=== PATIENT | female | born 1965 | race Caucasian/White ===

== ENCOUNTER 2022-08-02 07:41 | Outpatient (CLI) | payer MEDICARE, OTHER, SELFPAY ==
--- OUTSIDE RECORDS SUMMARY | 2022-06-29 05:22 | XMS_ITS | Encounter Summary ---
:1965 Author Organization [facility] Address [address] [place] [address] Care Team Providers Name Role Phone Unavailable Primary Care Provider Unavailable Encounter Details Date Type Department Care Team Description 08/12/2015 Hospital Encounter HX NO MAPPING Provider, Historical Social History Tobacco Use Types Packs/Day Years Used Date Smoking Tobacco: Never Assessed Alcohol Habits Answer Date Recorded How often do you have a drink containing alcohol? Never 10/26/2020 How many drinks containing alcohol do you have on a typical Not asked day when you are drinking? How often do you have six or more drinks on one occasion? No t asked Comment: Not asked Social Isolation Answer Date Recorded In a typical week, how many times do you More than three venkata es a week 10/26/2020 talk on the phone with family, friends, or neighbors? How often do you get together with friends Three times a wee k 10/26/2020 or relatives? How often do you attend confucianism or 1 to 4 times per year 05/2020 confucianism services? Do you belong to any clubs or No 10/26/2020 organizations such as confucianism groups, unions, fraternal or athletic groups, or school groups? How often do you attend meetings of the Never 10/26/2020 clubs or organizations you belong to? Are you now , , , 10/26/2020 , never or living with a partner? Physical Activity Answer Date Recorded On average, how many days per week do you engage in moderate to 2 days 10/26/2020 strenuous exercise (like walking fast, running, jogging, dancing, swimming, biking, or other activities that cause a light or heavy sweat)? On average, how many minutes do you engage in exercise at th is 30 min 10/26/2020 level? Stress Answer Date Recorded Do you feel stress - tense, restless, nervous, or anxious, R ather much 10/26/2020 or unable to sleep at night because your mind is troubled all the time - these days? Financial Resource Strain Answer Date Recorded How hard is it for you to pay for the very basics like Somew hat hard 10/26/2020 food, housing, medical care, and heating? Food Insecurity Answer Date Recorded Within the past 12 months, you worried that your food Someti mes true 10/26/2020 would run out before you got money to buy more. Within the past 12 months, the food you bought just Sometime s true 10/26/2020 didn't last and you didn't have money to get more. Transportation Needs Answer Date Recorded In the past 12 months, has lack of transportation kept you f rom No 10/26/2020 medical appointments or from getting medications? In the past 12 months, has lack of transportation kept you f rom No 10/26/2020 meetings, work, or getting things needed for daily living? Sex Assigned at Date Recorded Not on file documented as of this encounter Last Filed Vital Signs Vital Sign Reading Time Taken Comments Blood Pressure 115/66 08/12/2015 6:15 PM CDT Pulse 88 08/12/2015 6:15 PM CDT Temperature - - Respiratory Rate 16 08/12/2015 6:15 PM CDT Oxygen Saturation - - Inhaled Oxygen Concentration - - Weight - - Height - - Body Mass Index - - documented in this encounter Medications at Time of Discharge Medication Sig Dispensed Refills Start Date End Date aspirin 81 mg chewable 81 mg by Nasogastric 0 08/2015 tablet route daily. oxyCODONE (OxyCONTIN) Take 1 tablet by mouth 0 40 mg 12 hr tablet every 12 (twelve) hours. documented as of this encounter Plan of Treatment Not on filedocumented as of this encounter Procedures Procedure Name Priority Date/Time Associated Diagnosis Comme nts ECG Routine 08/12/2015 8:44 AM Results f or this CDT procedure are i n the results section . documented in this encounter Results ECG 12 Lead (08/12/2015 8:44 AM CDT) Specimen (Source) Anatomical Collection Method Collection Time Re ceived Time Location / / Volume Laterality 08/12/2015 8:44 AM CDT [facility] [place] [facility] - 08/13/2015 9:49 AM CDT [id number] 08:44 VENTRICULAR RATE [address] N[address] abnormality No previous ECGs available Revised Report [id number]^BOB GRIFFITHS^ROMAN Cooper Procedure Note Roman Hobbs M.D., M.B. - 02/09/2018F ormatting of this note might be different from the original. [id number] 08:44 VENTRICULAR RATE [address] abnormality No previous ECGs available Revised Report [id number]^BOB GRIFFITHS^ROMAN Cooper Tracy Winston M.D. ECG ORDERABLES Performing Organization Address City/State/ZIP Code Phon e Number HX [facility] [address] [place] [address], U documented in this encounter Visit Diagnoses Not on filedocumented in this encounter
--- OUTSIDE RECORDS SUMMARY | 2022-06-29 05:22 | XMS_ITS | Encounter Summary ---
:1965 Author Organization [facility] Address [address] [place] [address] Care Team Providers Name Role Phone Unavailable Primary Care Provider Unavailable Reason for Visit Reason Comments Rash Appointment Request (Routine) - Closed Specialty Diagnoses / Procedures Referred By Contact Refer red To Contact Family Medicine Referral ID Status Reason Start Date Expiration Date Visits Requ ested Visits Authorized [id number] Closed 08/28/2020 08/28/2021 1 1 Encounter Details Date Type Department Care Team Description 10/26/2020 Office Visit [facility] [place] (Primary Dx) [place], [place] [address] [phone] Social History Tobacco Use Types Packs/Day Years Used Date Smoking Tobacco: Every Day Smokeless Tobacco: Never Alcohol Habits Answer Date Recorded How often [...] or relatives? How often do you attend baptist or 1 to 4 times per year 05/2020 anabaptism services? Do you belong to any clubs or No 10/26/2020 organizations such as baptist groups, unions, fraternal or athletic groups, or [...] or getting things needed for daily living? Education Answer Date Recorded What is the highest level of school you have Some college, n o degree 10/26/2020 completed or the highest degree you have received? Sex Assigned at Date Recorded Not on file documented as of this encounter Consult Notes Morgan Méndez M.D. - 10/26/2020 4:15 PM CST SUBJECTIVE CHIEF COMPLAINT / REASON FOR VISIT Skin rash HISTORY OF PRESENT ILLNESS Polly Giron is a pleasant 55 y.o. female who presents today for an evaluation of a rash involving her nasal bridge. She has been previously seen by me at [facility] in February 2018. 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 In addition, all connective tissue serologies were negative. She was treated with 2.5% hydrocortisone ointment twice daily for one to two weeks at a time. Atthat time, she was also under the care of Dr. Tompkins a hydraulic barker operator in the [facility] who had puther on Plaquenil and recommended potential start of azathioprine, but she was reluctant to do so. I had also asked her to see Dr. Duval a hydraulic barker operator at [facility] but she was never seen by him. I had asked her to follow up with me in April 2018 in [place] but she never did follow up with me. Since her last visit with me in 2017, she states she has a history for mouth sores and a biopsy donefrom the oral cavity in the past was diagnosed as lichen planus. She is followed by an oral specialist Daisy Meléndez BDS, MS for the mouth sores at the [facility] and is currently being treated with dexamethasone swish and spit as needed and lidex gel and is also being followed by Dr. Tompkins at [facility]. Her current treatment as per Dr. Tompkins's order is is plaquenil 200 mg twice daily and methotrexate 20 mg injections once per week, which she has been on for five months perher history as we had difficulty finding notes from her local hydraulic barker operator. Today she presents today for a rash involving the bridge of the nose and extends to the cheeks and under her eyelids. She states that the rash has been present since the beginning of the summer and apparently flares at the same time she experiences a flare of her lichen planus involving the oral cavity. She denies a history of acne. MEDICAL HISTORY No history for skin cancer History of tumid lupus OBJECTIVE PHYSICAL EXAMINATION General: Awake, alert, in no acute distress, and with appropriate affect. Skin: Limited skin exam done today. Examination of the distal bridge of the nose reveals a slightly erythematous patch with slight telangiectasia and blanchable erythema. No involvement of eyelids or upper cheek, ears, or post auricular areas. No involvement of scalp, upper back, shoulders, or upper chest or neck. No evidence for dermatomyositis of the hands. No ulcers or blisters present involving the oral cavity. ASSESSMENT / PLAN #1 Distal bridge of nose: History of tumid lupus, currently not much in the way of active lesions. At this time she has minimal blanchable erythema involving the nose. I have recommended she apply 2.5% Hydrocortisone cream once daily to the involved area for 3-5 days then stop. Continue with moisturizer and sun protection. If a thick plaque occurs, I have asked her to make a follow up appointment in the clinic for further evaluation. She will continue to follow up with her hydraulic barker operator Dr. Tompkins for ongoing systemic and joint issues and the oral specialist Daisy Meléndez BDS MS for her oral lichen planus, both of whom are in the [facility]. PATIENT EDUCATION: Ready to learn. No apparent learning barriers were identified. Learning preferences include listening. Explained diagnosis and treatment plan; patient/guardian of patient expressed understanding of thecontent. By signing my name below, I, Evelyn La, attest that this documentation has been prepared underthe direction and in the presence of Morgan Méndez M.D. Electronically Signed: edgardo Azul. 10/26/2020. I, Morgan Méndez M.D., personally performed the services described in this documentation. All medical record entries made by the scribe were at my direction and in my presence. I have reviewed the chart and discharge instructions (if applicable) and agree that the record reflects my personal performance and is accurate and complete. Morgan Méndez M.D. 10/26. [employer] documented in this encounter Plan of Treatment Not on filedocumented as of this encounter Visit Diagnoses Diagnosis Lupus Erythematosus Tumidus - Primary documented in this encounter
--- OUTSIDE RECORDS SUMMARY | 2022-06-29 05:22 | XMS_ITS | Encounter Summary ---
:1965 Author Organization [facility] Address [address] [place] [address] Care Team Providers Name Role Phone Unavailable Primary Care Provider Unavailable Encounter Details Date Type Department Care Team Description 02/04/2021 Orders Only [facility] Sa hilary Lee M.D. [address] [place], [place] [phone] (Wo rk) Social History Tobacco Use Types Packs/Day Years [...] or relatives? How often do you attend alevism or 1 to 4 times per year 05/2020 temple services? Do you belong to any clubs or No 10/26/2020 organizations such as alevism groups, unions, fraternal or athletic groups, or [...] on file documented as of this encounter Plan of Treatment Not on filedocumented as of this encounter Visit Diagnoses Not on filedocumented in this encounter
--- OUTSIDE RECORDS SUMMARY | 2022-06-29 05:22 | XMS_ITS | Clinical Summary ---
:1965 Author Organization [facility] Address [address] [place] [address] Care Team Providers Name Role Phone Unavailable Primary Care Provider Unavailable Source Comments Patient records contain information from all sites at [facility]. For routine questions regarding patient records, call [phone] during business hours, M-F 8:00 AM - 5:00 PM Central Time. Record requests for emergency care only can be directed to [phone] at any time.[facility] Allergies Active Allergy Reactions Severity Noted Date Comments Diltiazem Hcl Edema 01/18/2019 Medications Medication Sig Dispensed Refills Start Date End Date Status albuterol inhaler Inhale 2 puffs as 0 Active needed. clopidogreL (Plavix) Take 25 mg by mouth 0 Active 75 mg tablet daily. oxyCODONE Take 1 tablet by 0 10/07/2009 Ac tive (OxyCONTIN) 40 mg 12 mouth every 12 hr tablet (twelve) hours. amoxicillin (AMOXIL) Take 500 mg by mouth 0 10/24/20 20 Active 500 mg capsule 3 (three) times a day. aspirin 81 mg 81 mg by Nasogastric 0 05/29/2015 Active chewable tablet route daily. clobetasoL Apply 15 g topically 0 Active (TEMOVATE) 0.05 % as needed. cream oxyCODONE Take 40 mg by mouth 0 Active (OxyCONTIN) 40 mg 12 every 12 (twelve) hr tablet hours. oxyCODONE Take 15 mg by mouth 0 Active (ROXICODONE) 15 mg daily as needed. immediate release tablet Active Problems Problem Noted Date Coronary Artery Disease (Unspecified) 08/06/2015 Social History Tobacco Use Types Packs/Day Years [...] or relatives? How often do you attend yarsani or 1 to 4 times per year 05/2020 adventism services? Do you belong to any clubs or No 10/26/2020 organizations such as yarsani groups, unions, fraternal or athletic groups, or [...] Assigned at Date Recorded Not on file Last Filed Vital Signs Vital Sign Reading Time Taken Comments Blood Pressure 118/84 07/26/2016 2:41 PM Vital sign result CDT from Clinical No jane. Pulse 124 07/26/2016 2:41 PM Vital sign result CDT from Clinical No jane. Temperature - - Respiratory Rate 18 07/26/2016 2:41 PM Vital sig n result CDT from Clinical No jane. Oxygen Saturation - - Inhaled Oxygen - - Concentration Weight 69.8 kg (153 lb 14.1 07/26/2016 2:41 PM Vital sign result oz) CDT from Clinical No jane. Height 167 cm (5' 5.75) 07/26/2016 2:41 PM Vital si gn result CDT from Clinical No jane. Body Mass Index 25.03 07/26/2016 2:41 PM CDT Plan of Treatment Health Maintenance Due Date Last Done Comments CT Colonography 1965 Cologuard 1965 Controlled Substance 1965 Agreement Controlled Substance 1965 Monitoring FIT 1965 Fasting Lipid Panel 1965 Generalized Anxiety (OSIEL-7) 1967 HIV Screening 1965 Hepatitis B Vaccines (1 of 1965 3 - 3-dose series) Hepatitis C Screening 1965 Mammogram 1965 Office Visit for Blood 1967 Pressure Check / Re-check Tobacco Cessation 1967 counseling COVID-19 Vaccine (#1) 02/05/1968 Pneumococcal vaccine (0-64 1973 years) (1 - PCV) Zoster Vaccines (1 of 2) 1986 Colonoscopy 09/26/2017 09/26/2007 Colorectal Cancer Screening 09/26/2017 Fasting Glucose for 08/12/2018 08/12/2015, 01/21/2015, Diabetes Screening 02/18/2013, Additional history exists Controlled Substance 10/26/2020 Monitoring (PHQ-9) Opioid Risk Assessment 10/26/2020 PEG assessment for Opioid 10/26/2020 therapy Depression Screening 11/20/2021 (Annual PHQ-2) Influenza Vaccine (#1) 2022 DTaP,Tdap,and Td Vaccines 03/30/2031 03/30/2021 (2 - Td or Tdap) HPV Vaccines Aged Out No longer eligib le based on patient 's age to complete this topic Medical Devices Implanted Type Area Tuber Operator Device Shelf Model / Identifier Expiration Serial / Date Lot Seprafilm 5 X 6 - Trevizo [id number] Mesh or Genzyme Implanted: Qty: 2 on 06/01/2006 [employer] Description: Device Tuber Operator - [employer] Alisia.. Device Status Text - [id number]. Seprafilm 3x 5 (Procedure Pack) - Trevizo [id number] Mesh or Patch [employer] Implanted: Qty: 1 on 06/14/2007 Description: Device Tuber Operator - Genzy Rawporter Alisia.. Device Status Text - [id number]. Stent Uret Dbl. J 6 X 26 - Trevizo [id number] Ureteral Stent Ot her/Legacy - See Implant Implanted: Qty: 2 on 01/26/2006 Description Description: Device Tuber Operator - Circo n Surgi. Device Status Text - [id number]. Insurance Payer Benefit Plan / Subscriber ID Effective Phone Address T ype Group Dates MEDICARE MEDICARE A AND B [id number] 2003-Pres [address] [place] [address] MEDICA MEDICA [id number] 2019-Pres [phone] [address] Medica id HMO ACCESSABILITY ent [phone] [place] [address]
--- OUTSIDE RECORDS SUMMARY | 2022-06-29 05:22 | XMS_ITS | Encounter Summary ---
:1965 Author Organization [facility] Address [address] [place] [address] Care Team Providers Name Role Phone Unavailable Primary Care Provider Unavailable Encounter Details Date Type Department Care Team Description 06/08/2015 - Hospital Encounter HX [facility] Nusrat Rousseau 08/19/2015 STEPHANIE Steele M.D. [address] [place], [place] [phone] (Wo rk) Social History Tobacco Use Types [...] or relatives? How often do you attend voodoo or 1 to 4 times per year 05/2020 restoration services? Do you belong to any clubs or No 10/26/2020 organizations such as voodoo groups, unions, fraternal or athletic groups, or [...] on file documented as of this encounter Medications at Time of Discharge Medication Sig Dispensed Refills Start Date End Date aspirin 81 mg chewable 81 mg by Nasogastric 0 08/2015 tablet route daily. oxyCODONE (OxyCONTIN) Take 1 tablet by mouth 0 40 mg 12 hr tablet every 12 (twelve) hours. documented as of this encounter Progress Notes Danuta Kolb, O.T. - 07/08/2015 2:35 PM CDT Cardiac Rehab: Pt arrived with symptoms and high resting HR of 130. RN came to check pt and agreed that pt should not do CR this day. No exercise completed. Discussed with pts PCP who stated pt could increase her medications. Electronically Signed By: DANUTA KOLB On: 07/08/2015 02:37 PM [facility] Document Id: [id number] documented in this encounter Miscellaneous Notes Miscellaneous - Conversion, Historical Provider Srini - 06/08/2015 11:59 PM CDT Coding Summary-Paper Based CODING DATE: 06/15/[address] [facility] STATUS: * Discharged to Home or Self Care PAYOR: Medicare ADMIT DX: V57.89 Care Involving Other Specified Rehabilitation Procedure REASON FOR VISIT DX: V57.89 Care Involving Other Specified Rehabilitation Procedure FINAL DX: PRINCIPAL: V57.89 Care Involving Other Specified Rehabilitation Procedure SECONDARY: V45.89 Other Postsurgical Status PROCEDURES DOCTOR NAME DATE NOTE: The code number assigned matches the documented diagnosis and / or procedure in the patient's chart. However, the narrative phrase printed from the coding software may appear abbreviated, or result in slightly different terminology. Coded By: LAVELL GUERRERO Date Saved: 06/15/2015 02:05 pm Source: [facility] Document Id: [id number] documented in this encounter Plan of Treatment Not on filedocumented as of this encounter Visit Diagnoses Not on filedocumented in this encounter
--- OUTSIDE RECORDS SUMMARY | 2022-06-29 05:22 | XMS_ITS | Encounter Summary ---
:1965 Author Organization [facility] Address [address] [place] [address] Care Team Providers Name Role Phone Unavailable Primary Care Provider Unavailable Encounter Details Date Type Department Care Team Description 01/21/2015 Historical Ophthalmology [facility]ST [facility] Kasandra Hatch M.D. Social History Tobacco Use Types Packs/Day Years [...] or relatives? How often do you attend restorationist or 1 to 4 times per year 05/2020 congregational services? Do you belong to any clubs or No 10/26/2020 organizations such as restorationist groups, unions, fraternal or athletic groups, or [...] minutes do you engage in exercise at is 30 min 10/26/2020 level? Stress Answer [...] on file documented as of this encounter Progress Notes Leslie Hatch M.D. - 01/21/2015 12:44 PM CST Eye General CHIEF COMPLAINT brain lesions HISTORY OF PRESENT ILLNESS 3 months ago, noted bump on outer corner of left eye, has drained once, but returned. First episode of diplopia, lasted two weeks, about 6 months ago. Sudden onset that gradually improved over the course of the two weeks. Brief episodes of diplopia that come and gone since that time. None for one month. Has new glasses ordered with prism in them. Blurry vision, comes and goes, both eyes. Pain, behind left eye, headache pain, can be with or without diplopia. Using drops for eye dryness, not enough relief. Both eyes are itchy and burn most of the time. Eyelids swell. Neurologist ordered brain MRI, which showed lesions on her brain. She was referred here to rule out MS. DULCE MARIA: Diplopia started 6-8 months ago. More often vertical but sometimes it was horizontal. Same nearand far. Binocular. With the diplopia the eyes hurt like an eye headache. This was worse w eye movements, better shutting the eyes or lying down. No interference w sleep but doesn't sleep well. Eyes feel itchy/scratchy/michael all the time. Uses restasis once/d. Uses AT 3-4 time/d. Has a humidifier at home. Blurred vision started with the double vision, comes and goes sporadically. The blur is both eyes (she think) - same near and far. No diurnal pattern (maybe worse at night when tired). Denies oscillopsia. Saw the optom at home who told her that her eyes didn't play well together and recommended that she see a neurologist. Saw the safety consultant (Rema) again who put prism in her glasses but the bifocal seg isn't right so she's getting them redone. No outside eye records available to me. Reviewed the single neuro note of 01/[address] Hung which mentions multiple small lesions in the white matter. Spinal tap pending. Lyme and MUKESH were normal in [place]. IMPRESSION / REPORT / PLAN #1 Diplopia. She describes vertical diplopia but hasn't had this for the past few months. [place]: Exodeviation that is fairly comitant. She has dry eyes which can contribute/cause monocular diplopia that would come and go. EOMs full, normal saccades. #2 Abnormal brain MRI with no ocular findings. Nothing on the eye exam consistent with sarcoid, Lyme disease or MS. #3 Family history of glaucoma without evidence of glaucoma. Plan: monitor periodically. DIAGNOSIS #1 Diplopia. #2 Abnormal brain MRI with no ocular findings. #3 Family history of glaucoma without evidence of glaucoma. CDM Reports - EYEGEN Id: [id number] Status: Fnl documented in this encounter Plan of Treatment Not on filedocumented as of this encounter Visit Diagnoses Not on filedocumented in this encounter
--- OUTSIDE RECORDS SUMMARY | 2022-06-29 05:23 | XMS_ITS | Encounter Summary ---
:1965 Author Organization [facility] Address [address] [place] [address] Care Team Providers Name Role Phone Unavailable Primary Care Provider Unavailable Encounter Details Date Type Department Care Team Description 04/13/2006 Hospital Encounter HX NO MAPPING Social History Tobacco Use Types Packs/Day Years [...] or relatives? How often do you attend orthodox or 1 to 4 times per year 05/2020 protestant services? Do you belong to any clubs or No 10/26/2020 organizations such as orthodox groups, unions, fraternal or athletic groups, or [...]
--- OUTSIDE RECORDS SUMMARY | 2022-06-29 05:23 | XMS_ITS | Continuity of Care Document ---
:1965 Author Organization [facility] Address [address] [address] [place] [address] Phone Care Team Providers Name Role Phone Derik MCLEOD, Maria C Unavailable Unavailable Procedures Procedure Date Subsqt Hosp-da E&m Minr Compl Init Hosp-da E&m Mod Severity Advance Directives Directive Yes / No Effective Date File Name No Information Encounters Encounter Practice Location Reason(s) Diagnoses Date Provider Provide rs Description For Visit Copied on Encounter Subsqt [facility] Cespedes No Derik MCLEOD Referring Hosp-da E&m [facility]ive [facility] Information 9 Maria C. [facility]: [facility] [place] [address] [facility] [address] [facility] [address], [facility], [address], [address] , [place], [address] [id number], [place] [address], [place], [place], [place] tel: [phone] s, [place], [address] , [place]. [address]. tel: tel: [phone] Init Hosp-da [facility] Cespedes No Jah GRIFFITHS Referring E&m Mod Digestive [facility] Information 8 Nikki. Provi js: [facility] [place], Hosp [address] [facility] [address] [place] [address], [facility], [address], [address] , [place], [address] [id number], [place] [address], [place], [place], [place] tel: [phone] s, [place], [address] , [place]. [address]. tel: tel: [phone] Family History Family Member Type Diagnosis Age At Onset No Information Payers Payer name Insurance type Covered republican ID Authorization(s ) Medicare NGS [id number] [employer] [id number] Social History Type Description Quantity Date Captured Comments Sex Female Smoking Status No Information Chief Complaint And Reason For Visit No Information Reason For Referral Reason For Referral No Information Plan Of Treatment Date Type Action Status No Information History Of Present Illness Encounter Date Complaint History Of Present I llness No Information Functional Status Date Functional Assessment No Information Instructions Date Instruction Additional Informati on No Information Assessments Type Assessment Date No Information Patient Care Teams Name Effective Dates (start - stop) Status M louis No Information
--- OUTSIDE RECORDS SUMMARY | 2022-06-29 05:23 | XMS_ITS | Encounter Summary ---
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 HEP B SURFACE Routine 08/04/2017 10:23 Multiple joint pain Res ults for this ANTIGEN, NO REFLEX AM CDT procedure are in the results section. VITAMIN D 25-HYDROXY, Routine 08/04/2017 10:23 Lupus erythemat osus Results for this TOTAL AM CDT tumidus procedure are in Multiple joint pain the resu lts section. CREATININE / GFR Routine 08/04/2017 10:23 Lupus erythematosus Results for this AM CDT tumidus procedure are in Multiple joint pain the resu lts section. ANTI-CCP AB Routine 08/04/2017 10:23 Lupus erythematosus Resu lts for this AM CDT tumidus procedure are in Multiple joint pain the resu lts section. COMPLETE BLOOD Routine 08/04/2017 10:23 Lupus erythematosus Re sults for this COUNT-W/DIFF AM CDT tumidus procedure are in Multiple joint pain the resu lts section. DIFFERENTIAL Routine 08/04/2017 10:23 Results for this AM CDT procedure are i n the results section. RHEUMATOID FACTOR, Routine 08/04/2017 10:23 Lupus erythematosu s Results for this QUANT AM CDT tumidus procedure are in Multiple joint pain the resu lts section. DNA DOUBLE STRANDED Routine 08/04/2017 10:23 Lupus erythematos us Results for this ANTIBODY AM CDT tumidus procedure are in Multiple joint pain the resu lts section. HEPATITIS C ANTIBODY, Routine 08/04/2017 10:23 Multiple joint pain Results for this WITH REFLEX AM CDT procedure are i n the results section. LYME ANTIBODY (REFLEX Routine 08/04/2017 10:23 Multiple joint pain Results for this TO LYME CONFIRMATORY AM CDT procedu re are in PANEL) the results section. HLA B27 Routine 08/04/2017 10:23 Lupus erythematosus Resu lts for this AM CDT tumidus procedure are in Multiple joint pain the resu lts section. C4 COMPLEMENT Routine 08/04/2017 10:23 Lupus erythematosus Res ults for this AM CDT tumidus procedure are in Multiple joint pain the resu lts section. C3 COMPLEMENT Routine 08/04/2017 10:23 Lupus erythematosus Res ults for this AM CDT tumidus procedure are in Multiple joint pain the resu lts section. C-REACTIVE PROTEIN Routine 08/04/2017 10:23 Lupus erythematosu s Results for this AM CDT tumidus procedure are in Multiple joint pain the resu lts section. COLT SCREEN Routine 08/04/2017 10:23 Lupus erythematosus Resu lts for this AM CDT tumidus procedure are in Multiple joint pain the resu lts section. TSH, SENSITIVE (WITH Routine 08/04/2017 10:23 Lupus erythemato ronda Results for this REFLEX) AM CDT tumidus procedure are in Multiple joint pain the resu lts section. ALT (SGPT) Routine 08/04/2017 10:23 Lupus erythematosus Resu lts for this AM CDT tumidus procedure are in Multiple joint pain the resu lts section. ESR Routine 08/04/2017 10:23 Lupus erythematosus Resu lts for this AM CDT tumidus procedure are in Multiple joint pain the resu lts section. documented in this encounter Results Differential (08/04/2017 10:23 AM CDT) P athologist Signature Absolute 5.3 1.8 - 8.0 PN SOFT Neutrophils k/cmm Absolute 3.5 1.1 - 4.0 PN SOFT Lymphocytes k/cmm Absolute 0.5 0.2 - 0.8 PN SOFT Monocytes k/cmm Absolute 0.1 0.0 - 0.5 PN SOFT Eosinophils k/cmm Absolute 0.1 0.0 - 0.2 PN SOFT Basophils k/cmm Immature 0.3 0.0 - 0.5 PN SOFT Granulocytes % Specimen Anatomical Collection Method Collection Time Receive d Time (Source) Location / / Volume Laterality 08/04/2017 10:23 08/04/2017 AM CDT 10:23 AM CDT Narrative PN SOFT - 08/04/2017 10:28 AM CDT Performed at [facility], [address] [place] [address] CLIA number [id number] Deepti Hannah MD LAB_1 Performing Organization Address City/[facility] Phon e Number PN SOFT [address] [place] [address] HCAB - Hepatitis C Virus Mami with Reflex In-House (08/04/2017 10:23 AM CDT) [facility] Method Time Signature Hepatitis C Nonreactive Nonreactive PN SOFT Antibody Specimen Anatomical Collection Method Collection Time Receive d Time (Source) Location / / Volume Laterality 08/04/2017 10:23 08/04/2017 AM CDT 12:18 PM CDT Narrative PN SOFT - 08/04/2017 1:18 PM CDT Performed at [place] [address] [place] [address] CLIA number [id number] Deepti Hannah MD LAB_1 Performing Organization Address City/[facility] Phon e Number PN SOFT [address] [place] [address] HBAG - Hepatitis B Surf Ag (08/04/2017 10:23 AM CDT) [facility] Method Time Signature Hep B Surf Ag Nonreactive Nonreactive PN SOFT Specimen Anatomical Collection Method Collection Time Receive d Time (Source) Location / / Volume Laterality 08/04/2017 10:23 08/04/2017 4:02 AM CDT PM CDT Narrative PN SOFT - 08/04/2017 5:02 PM CDT Performed at [facility], [facility] [place] [address] CLIA number [id number] Deepti Hannah MD LAB_1 Performing Organization Address [facility] Phon e Number PN SOFT [address] [place] [address] [phone] Lyme Antibody, and Western Blot If Needed) (08/04/2017 10:23 AM CDT) Patholo gist Method Time Signature Lyme Negative Negative PN SOFT Intepretation Lyme Units <0.01 0.00 - 0.90 PN SOFT IV Comment: The magnitude of the measured result, ab ove the cutoff, is not indicative of the amount of antibody present. Specimen Anatomical Collection Method Collection Time Receive d Time (Source) Location / / Volume Laterality 08/04/2017 10:23 08/04/2017 4:02 AM CDT PM CDT Narrative PN SOFT - 08/05/2017 9:41 AM CDT Performed at [facility], [address] [place] [address] CLIA number [id number] Deepti Hannah MD LAB_1 Performing Organization Address [facility] Phon e Number PN SOFT [address] [place] [address] HLA B27 (08/04/2017 10:23 AM CDT) P athologist Signature HLA B27 Negative Negative PN SOFT Comment: CLIA Number [id number] HLA B27 Interpretation SEE BELOW PN SOFT Comment: This test was developed and the performa nce characteristics were determined by [facility]. It has not been cleared or a pproved by the U.S. Food and Drug Administration. T he FDA has determined that such clearance or approv al is not necessary. Performed at [facility] , [address] [place] [address] CLIA Number [id number] Specimen Anatomical Collection Method Collection Time Receive d Time (Source) Location / / Volume Laterality 08/04/2017 10:23 08/04/2017 AM CDT 12:03 PM CDT Deepti Hannah MD LAB_1 Performing Organization Address [facility] Phon e Number PN SOFT [address] [place] [address] RHF - Rheumatoid Factor (08/04/2017 10:23 AM CDT) P athologist Signature Rheumatoid <15 0 - 30 PN SOFT Factor IU/mL Specimen Anatomical Collection Method Collection Time Receive d Time (Source) Location / / Volume Laterality 08/04/2017 10:23 08/04/2017 4:02 AM CDT PM CDT Narrative PN SOFT - 08/04/2017 5:09 PM CDT Performed at [address] [address] CLIA number [id number] Deepti Hannah MD LAB_1 Performing Organization Address [facility] Phon e Number PN SOFT [address] [place] [address] CCPIG - Cyclic Citrullinated Peptide AB (08/04/2017 10:23 AM CDT) Analysis Performed At [facility] logist Time Signature CYCLIC 0.7 0.0 - 7.0 PN SOFT CITRULLINATED IU/mL PEPTIDEAB Comment: Reference Range: <7 Negative, 7 - 10 Equivocal, >10 Posit goldie Specimen Anatomical Collection Method Collection Time Receive d Time (Source) Location / / Volume Laterality 08/04/2017 10:23 08/04/2017 3:59 AM CDT PM CDT Narrative PN SOFT - 2017 2:15 PM CDT Performed at [facility], [facility] [place] [address] CLIA number [id number] Deepti Hannah MD LAB_1 Performing Organization Address [facility] Phon e Number PN SOFT [address] [place] [address] Extractable Nuclear Antigen Antibodies (08/04/2017 10:23 AM CDT) P athologist Signature TADEO To HOUSEKEEPER AND LAUNDRY ASSISTANT 0 0 - 40 PN SOFT Antibody AU/mL Comment: INTERPRETIVE INFORMATION: Ribonucleic Pr otein (TADEO)Antibody, IgG ??29 AU/mL or Less ............. Negati ve ??30 - 40 AU/mL ................ Equivo bladimir ??41 AU/mL or Greater .......... Positi ve HOUSEKEEPER AND LAUNDRY ASSISTANT antibody is seen in 95-100 percent o f mixed connective tissue disease and is considered specifi c for this syndrome if other antibodies are negative; HOUSEKEEPER AND LAUNDRY ASSISTANT is also present in 20-30 percent of systemic lupus erythema tosus and 15-25 percent of progressive systemic sclerosi s. HOUSEKEEPER AND LAUNDRY ASSISTANT antigens also contain epitopes that are immunolog ically identical to free Burgess antigens, therefore, the Saeid h antibody response must be considered when interpreting HOUSEKEEPER AND LAUNDRY ASSISTANT results. Performed by [facility], [address] [place] [id number] [email or web address], Elliott Rosario MD - Lab . Director TADEO To Burgess (Sm) Antibody 0 0 - 40 AU/mL PN SOFT Comment: INTERPRETIVE INFORMATION: BURGESS (TADEO) Ab , IgG ??29 AU/mL or Less ............. Negati ve ??30 - 40 AU/mL ................ Equivo bladimir ??41 AU/mL or Greater .......... Positi ve Burgess antibody is very specific for syst emic lupus erythematosus (SLE) but only occurs in 3 0-35% of SLE cases. The presence of antibodies to Burgess is o ften associated with renal disease. TADEO To SSA (Ro) Antibody 1 0 - 40 AU/mL PN SOFT Comment: INTERPRETIVE INFORMATION: SSA (Ro) (TADEO) Ab, IgG ??29 AU/mL or Less ............. Negati ve ??30 - 40 AU/mL ................ Equivo bladimir ??41 AU/mL or Greater .......... Positi ve SSA 52 (Ro) and/or SSA 60 (Ro) antibodie s are associated with a diagnosis of Sjogren syndrome, sy stemic lupus erythematosus (SLE), and systemic sclero sis. SSA-52 antibody overlaps significantly with the major SSc-related antibodies. SSA-52 antibody occurs frequ ently in patients with inflammatory myopathies, often in t he presence of interstitial lung disease. SSA 60 (Ro) (TADEO) Antibody, IgG 0 0 - 40 AU/mL PN SOFT Comment: ??29 AU/mL or Less ............. Negati ve ??30 - 40 AU/mL ................ Equivo bladimir ??41 AU/mL or Greater .......... Positi ve TADEO To SSB (La) Antibody 0 0 - 40 AU/mL PN SOFT Comment: INTERPRETIVE INFORMATION: SSB (La) (TADEO) Ab, IgG ??29 AU/mL or Less ............. Negati ve ??30 - 40 AU/mL ................ Equivo bladimir ??41 AU/mL or Greater .......... Positi ve SSB (La) antibody is seen in 50-60% of S jogren syndrome cases and is specific if it is the only TADEO antibody present. 15-25% of patients with systemi c lupus erythematosus (SLE) and 5-10% of patient s with progressive systemic sclerosis (PSS) also have this antibody. Specimen Anatomical Collection Method Collection Time Receive d Time (Source) Location / / Volume Laterality 08/04/2017 10:23 08/04/2017 4:00 AM CDT PM CDT Narrative PN SOFT - 08/06/2017 7:39 AM CDT Performed at [facility] [address] [place] [address] CLIA number [id number] Deepti Hannah MD LAB_1 Performing Organization Address City/State/ZIP Code Phon e Number PN SOFT [address] [place], [place] [address] DNA - Anti-dsDNA Antibody (08/04/2017 10:23 AM CDT) athologist Signature Anti-DNA Ab see below Negative PN SOFT Comment: <1:10 Negative Specimen Anatomical Collection Method Collection Time Receive d Time (Source) Location / / Volume Laterality 08/04/2017 10:23 08/04/2017 3:58 AM CDT PM CDT Narrative PN SOFT - 08/08/2017 12:55 PM CDT Performed at [facility], [facility] [place] [address] CLIA number [id number] Deepti Hannah MD LAB_1 Performing Organization Address City/[facility]/ZIP Code Phon e Number PN SOFT [address] [place] [address] COLT - Antinuclear Antibody (08/04/2017 10:23 AM CDT) P athologist Signature Anti-Nuclear Negative Negative PN SOFT Ab Specimen Anatomical Collection Method Collection Time Receive d Time (Source) Location / / Volume Laterality 08/04/2017 10:23 08/04/2017 3:58 AM CDT PM CDT Narrative PN SOFT - 08/08/2017 10:53 AM CDT Performed at [address] [address] CLIA number [id number] Deepti Hannah MD LAB_1 Performing Organization Address [facility] Phon e Number PN SOFT [address] [place] [address] C4 - C4 Complement (08/04/2017 10:23 AM CDT) P athologist Signature C4 Complement 39 15 - 57 PN SOFT mg/dL Specimen Anatomical Collection Method Collection Time Receive d Time (Source) Location / / Volume Laterality 08/04/2017 10:23 08/04/2017 AM CDT 12:18 PM CDT Narrative PN SOFT - 08/04/2017 12:58 PM CDT Performed at [place] [address] [place] [address] CLIA number [id number] Deepti Hannah MD LAB_1 Performing Organization Address City/[facility] Code Phon e Number PN SOFT [address] [place] [address] C3 - C3 Complement (08/04/2017 10:23 AM CDT) P athologist Signature C3 Complement 141 83 - 193 PN SOFT mg/dL Specimen Anatomical Collection Method Collection Time Receive d Time (Source) Location / / Volume Laterality 08/04/2017 10:23 08/04/2017 AM CDT 12:18 PM CDT Narrative PN SOFT - 08/04/2017 12:58 PM CDT Performed at [facility], [address] [place] [address] CLIA number [id number] Deepti Hannah MD LAB_1 Performing Organization Address City/[facility]/ZIP Code Phon e Number PN SOFT [address] [place] [address] ESR - Sedimentation Rate (08/04/2017 10:23 AM CDT) [facility] Sedimentation Rate 16 0 - 20 PN SOFT mm/hr Specimen Anatomical Collection Method Collection Time Receive d Time (Source) Location / / Volume Laterality 08/04/2017 10:23 08/04/2017 AM CDT 10:23 AM CDT Narrative PN SOFT - 08/04/2017 11:22 AM CDT Performed at [facility], [address] [place] [address] CLIA number [id number] Deepti Hannah MD LAB_1 Performing Organization Address [facility] Phon e Number PN SOFT [address] [place] [address] CRP - C Reactive Protein (08/04/2017 10:23 AM CDT) athologist Signature CRP <0.5 0.0 - 0.5 PN SOFT mg/dL Specimen Anatomical Collection Method Collection Time Receive d Time (Source) Location / / Volume Laterality 08/04/2017 10:23 08/04/2017 AM CDT 10:23 AM CDT Narrative PN SOFT - 08/04/2017 11:01 AM CDT Performed at [facility], [address] [place] [address] CLIA number [id number] Deepti Hannah MD LAB_1 Performing Organization Address City/[facility]/ZIP Code Phon e Number PN SOFT [address] [place] [address] [phone] CBC - Complete Blood Count W/Diff (08/04/2017 10:23 AM CDT) athologist Signature White Blood Cell 9.5 3.8 - 11.0 PN SOFT Count k/cmm Red Blood Cell 4.66 3.70 - PN SOFT Count 5.20 m/cmm Hemoglobin 14.7 11.8 - PN SOFT 15.5 g/dL Hematocrit 43.5 35.0 - PN SOFT 46.0 % Mean Corpuscular 93.3 80.0 - PN SOFT Volume 100.0 fL RDW 13.4 11.0 - PN SOFT 15.0 % Platelet Count 262 140 - 450 PN SOFT k/cmm Specimen Anatomical Collection Method Collection Time Receive d Time (Source) Location / / Volume Laterality 08/04/2017 10:23 08/04/2017 AM CDT 10:23 AM CDT Narrative PN SOFT - 08/04/2017 10:27 AM CDT Performed at [facility], [address] [place] [address] CLIA number [id number] Deepti Hannah MD LAB_1 Performing Organization Address City/[facility]/ZIP Code Phon e Number PN SOFT [address] [place] [address] VITD - Vitamin D (In house) (08/04/2017 10:23 AM CDT) athologist Signature Vitamin D 25 Oh 41 20 - 80 PN SOFT ng/mL Comment: Deficiency = <20 Adequate ??= 20-29 Preferred = 30-50 Uncertain safety = 51-80 High = >80 Specimen Anatomical Collection Method Collection Time Receive d Time (Source) Location / / Volume Laterality 08/04/2017 10:23 08/04/2017 4:02 AM CDT PM CDT Narrative PN SOFT - 08/04/2017 5:18 PM CDT Performed at [facility], [address] [place] [address] CLIA number [id number] Deepti Hannah MD LAB_1 Performing Organization Address City/[facility] Code Phon e Number PN SOFT [address] [place] [address] TSH with Free T4 (if TSH Abnormal) (08/04/2017 10:23 AM CDT) athologist Signature Thyroid 2.34 0.30 - PN SOFT Stimulating 4.50 Hormone uIU/mL Specimen Anatomical Collection Method Collection Time Receive d Time (Source) Location / / Volume Laterality 08/04/2017 10:23 08/04/2017 AM CDT 12:18 PM CDT Narrative PN SOFT - 08/04/2017 1:16 PM CDT Performed at [place] [address] [place] [address] CLIA number [id number] Deepti Hannah MD LAB_1 Performing Organization Address City/[facility] Code Phon e Number PN SOFT [address] [place] [address] ALT - Alanine Aminotransferase (08/04/2017 10:23 AM CDT) [facility] Method Time Signature Alanine 13 9 - 55 PN SOFT Aminotransferase U/L Specimen Anatomical Collection Method Collection Time Receive d Time (Source) Location / / Volume Laterality 08/04/2017 10:23 08/04/2017 AM CDT 10:23 AM CDT Narrative PN SOFT - 08/04/2017 11:01 AM CDT Performed at [facility], [address] [place] [address] CLIA number [id number] Deepti Hannah MD LAB_1 Performing Organization Address City/[facility]/ZIP Code Phon e Number PN SOFT [address] [place] [address] CREAT - Creatinine (08/04/2017 10:23 AM CDT) athologist Signature Creatinine Serum 0.70 0.55 - PN SOFT 1.02 mg/dL Est GFR >60 >60 PN SOFT Am mL/min/1.7 3m2 Est GFR Non-Afr >60 >60 PN SOFT Am mL/min/1.7 3m2 Comment: Normal>60, moderate decrease 30 - 59, se ramakrishna decrease 15 - 29, renal failure <15 mL/min/1.73 m2 NOTE: ??Choose the eGFR result above maricel ropriate for the race of the patient. Specimen Anatomical Collection Method Collection Time Receive d Time (Source) Location / / Volume Laterality 08/04/2017 10:23 08/04/2017 AM CDT 10:23 AM CDT Narrative PN SOFT - 08/04/2017 11:01 AM CDT Performed at [facility], [address] [place] [address] CLIA number [id number] Deepti Hannah MD LAB_1 Performing Organization Address City/State/ZIP Code Phon e Number PN SOFT [address] [place] [address] documented in this encounter Visit Diagnoses Diagnosis Lupus erythematosus tumidus Lupus erythematosus Multiple joint pain Pain in joint, multiple sites documented in this encounter Care Teams Non Cdl Driver Relationship Specialty Start Date End Date Afia Rousseau MD PCP - General Internal Medicine 07/20/171999 [place] [address] documented as of this encounter
--- OUTSIDE RECORDS SUMMARY | 2022-06-29 05:23 | XMS_ITS | Encounter Summary ---
:1965 Author Organization [facility] Address [address] [place] [address] Care Team Providers Name Role Phone Unavailable Primary Care Provider Unavailable Encounter Details Date Type Department Care Team Description 01/09/2007 Hospital Encounter HX NO MAPPING Social History [...] or relatives? How often do you attend zoroastrian or 1 to 4 times per year 05/2020 christianity services? Do you belong to any clubs or No 10/26/2020 organizations such as zoroastrian groups, unions, fraternal or athletic groups, or [...]
--- OUTSIDE RECORDS SUMMARY | 2022-06-29 05:23 | XMS_ITS | Encounter Summary ---
:1965 Author Organization [facility] Address [address] [place] [address] Care Team Providers Name Role Phone Unavailable Primary Care Provider Unavailable Encounter Details Date Type Department Care Team Description 10/31/2007 Hospital Encounter HX NO MAPPING Provider, Historical [...] or relatives? How often do you attend tenriism or 1 to 4 times per year 05/2020 adventist services? Do you belong to any clubs or No 10/26/2020 organizations such as tenriism groups, unions, fraternal or athletic groups, or [...]
--- OUTSIDE RECORDS SUMMARY | 2022-06-29 05:23 | XMS_ITS | Encounter Summary ---
:1965 Author Organization [facility] Address [address] [place] [address] Care Team Providers Name Role Phone Unavailable Primary Care Provider Unavailable Encounter Details Date Type Department Care Team Description 02/17/2013 - 02/19/2013 Hospital Encounter HX RST JAIME 2C Social History Tobacco Use Types Packs/Day Years [...] or relatives? How often do you attend congregation or 1 to 4 times per year 05/2020 buddhist services? Do you belong to any clubs or No 10/26/2020 organizations such as congregation groups, unions, fraternal or athletic groups, or [...] Sign Reading Time Taken Comments Blood Pressure 106/63 02/19/2013 8:06 AM CDT Pulse 60 02/19/2013 8:06 AM CDT Temperature - - Respiratory Rate 16 02/19/2013 3:32 AM CDT Oxygen Saturation - - Inhaled Oxygen Concentration - - Weight 82 kg (180 lb 12.4 oz) 02/18/2013 6:00 PM CDT Height 167 cm (5' 5.75) 02/17/2013 7:54 AM CDT Body Mass Index 29.4 02/17/2013 7:54 AM CDT documented in this encounter Medications at Time of Discharge Medication Sig Dispensed Refills Start Date End Date oxyCODONE (OxyCONTIN) 40 Take 1 tablet by 0 10/07 mg 12 hr tablet mouth every 12 (twelve) hours. documented as of this encounter Plan of Treatment Not on filedocumented as of this encounter Procedures Procedure Name Priority Date/Time Associated Comments Diagnosis ELECTROLYTE (CHEM 4) Routine 02/18/2013 5:05 AM R esults for this PANEL, S/P CDT procedure are i n the results section. DX ABDOMEN 1 VIEW Routine 02/17/2013 7:59 PM Resu lts for this CDT procedure are i n the results section. ELECTROLYTE (CHEM 4) Routine 02/17/2013 10:38 Res ults for this PANEL, S/P AM CDT procedure are i n the results section. CBC WITHOUT Routine 02/17/2013 10:38 Results for this DIFFERENTIAL, B AM CDT procedure ar e in the results section. LACTATE, B/P Routine 02/17/2013 10:38 Results for this AM CDT procedure are i n the results section. DX ABDOMEN 1 VIEW Routine 02/17/2013 7:48 AM Resu lts for this CDT procedure are i n the results section. INTERPRETATION OF Routine 02/17/2013 4:55 AM Resu lts for this OUTSIDE CT ABDOMEN AND CDT proce dure are in OR PELVIS the results section. documented in this encounter Results Electrolyte (Chem 4) Panel (02/18/2013 5:05 AM CDT) P athologist Signature Sodium, S 144 135 - 145 [facility] MMOL/L LABORATORIES - [facility] Potassium, S 3.9 3.6 - 5.2 [facility] MMOL/L LABORATORIES - [facility] Creatinine, S 0.7 0.6 - 1.1 [facility] MG/DL LABORATORIES - [facility] eGFR >60 >60 [facility] Non-Black/Afri ML/MIN/BSA LABORATORIES - can Ethiopian [facility] Anion Gap 12 7 - 15 [facility] LABORATORIES - [facility] Glucose, S 78 70 - 140 [facility] MG/DL LABORATORIES - [facility] Chloride, S 107 100 - 108 [facility] MMOL/L LABORATORIES - [facility] HX 25 22 - 29 [facility] Bicarbonate, MMOL/L LABORATORIES - P/S [facility] eGFR-Black/Afr >60 >60 [facility] ican Ethiopian ML/MIN/BSA LABORATORIES - [facility] BUN (Blood 6 6 - 21 [facility] Urea MG/DL LABORATORIES - Nitrogen), S [facility] Specimen Anatomical Collection Method Collection Time Receive d Time (Source) Location / / Volume Laterality 02/18/2013 5:05 AM 3 5:05 CDT AM CDT Stevan Jimenez M.D. LAB BLOOD ADD-ON Performing Organization Address City/State/ZIP Code Phon e Number [facility] LABORATORIES - [address] [place], [place] [address] [facility] DX Abdomen 1 View (02/17/2013 7:59 PM CDT) Anatomical Region Laterality Modality Abdomen N/A Radiographic Imaging Specimen (Source) Anatomical Collection Method Collection Time Re ceived Time Location / / Volume Laterality 02/17/2013 7:59 PM CDT Narrative 02/17/2013 8:20 PM CDT 17-Feb-2013 19:59:00 ??Exam: Abdomen Indications: SBO, Gastrograffin challeng e ORIGINAL REPORT - 17-Feb-2013 20:07:00 Abdomen: NG tube tip and side port within the sto mach. Enteric contrast in the cecum and ascending colon in a nonobstructive pattern. Electronically signed by: ?? Katherine Rubio MD [id number] 17-Feb-2013 20:07 I have reviewed the films/images and agr ee with the above interpretation. Electronically signed by: ?? Casie Gottlieb MD [id number] 17-Feb-2013 20:20 Procedure Note Joni Gottlieb M.D. - 02/16/2018For matting of this note might be different from the original. 17-Feb-2013 19:59:00 Exam: Abdomen Indications: SBO, Gastrograffin challeng e ORIGINAL REPORT - 17-Feb-2013 20:07:00 Abdomen: NG tube tip and side port within the sto mach. Enteric contrast in the cecum and ascending colon in a nonobstructive pattern. Electronically signed by: Katherine Ruboi MD [id number] 17-Feb-2013 20:07 I have reviewed the films/images and agr ee with the above interpretation. Electronically signed by: Casie Gottlieb MD [id number] 17-Feb-2013 20:20 Ana Glasgow R.N. [facility] PRO CEDURES Electrolyte (Chem 4) Panel (02/17/2013 10:38 AM CDT) P athologist Signature Sodium, S 141 135 - 145 [facility] MMOL/L LABORATORIES - [facility] Potassium, S 4.7 3.6 - 5.2 [facility] MMOL/L LABORATORIES - [facility] Creatinine, S 0.7 0.6 - 1.1 [facility] MG/DL LABORATORIES - [facility] eGFR >60 >60 [facility] Non-Black/Afri ML/MIN/BSA LABORATORIES - [facility] Anion Gap 12 7 - 15 [facility] LABORATORIES - [facility] Glucose, S 87 70 - 140 [facility] MG/DL LABORATORIES - [facility] Chloride, S 105 100 - 108 [facility] MMOL/L LABORATORIES - [facility] HX 24 22 - 29 [facility] Bicarbonate, MMOL/L LABORATORIES - P/S [facility] eGFR-Black/Afr >60 >60 [facility] ican Ethiopian ML/MIN/BSA LABORATORIES - [facility] BUN (Blood 8 6 - 21 [facility] Urea MG/DL LABORATORIES - Nitrogen), S [facility] Specimen Anatomical Collection Method Collection Time Receive d Time (Source) Location / / Volume Laterality 02/17/2013 10:38 02/17/2013 AM CDT 10:38 AM CDT Stevan Jimenez M.D. LAB BLOOD ADD-ON Performing Organization Address City/[facility]/ZIP Code Phon e Number [facility] LABORATORIES - [address] [address] [facility] Lactate (02/17/2013 10:38 AM CDT) P athologist Signature Lactate, P 1.4 0.6 - 2.3 [facility] MMOL/L LABORATORIES - [facility] Specimen Anatomical Collection Method Collection Time Receive d Time (Source) Location / / Volume Laterality 02/17/2013 10:38 02/17/2013 AM CDT 10:38 AM CDT Stevan Jimenez M.D. LAB BLOOD NON ADD-ON Performing Organization Address City/[facility] Phon e Number [facility] LABORATORIES - [address] [address] [facility] CBC without Differential (02/17/2013 10:38 AM CDT) Patholo gist Method Time Signature Erythrocytes 4.44 3.90 - [facility] 5.03 LABORATORIES - X10(12)/L [facility] MCV 94.1 81.6 - [facility] 98.3 FL LABORATORIES - [facility] RBC Distrib Width 13.8 11.9 - [facility] 15.5 % [facility] - [facility] Platelet Count 206 150 - 450 [facility] X10(9)/L LABORATORIES - [facility] Hemoglobin 13.5 12.0 - [facility] 15.5 G/DL LABORATORIES - [facility] Hematocrit 41.8 34.9 - [facility] 44.5 % LABORATORIES - [facility] Leukocytes 9.1 3.5 - [facility] 10.5 LABORATORIES - X10(9)/L [facility] Specimen Anatomical Collection Method Collection Time Receive d Time (Source) Location / / Volume Laterality 02/17/2013 10:38 02/17/2013 AM CDT 10:38 AM CDT Stevan Jimenez M.D. LAB BLOOD ADD-ON Performing Organization Address City/State/ZIP Code Phon e Number [facility] LABORATORIES - [address] [place], [place] [address] [facility] DX Abdomen 1 View (02/17/2013 7:48 AM CDT) Anatomical Region Laterality Modality Abdomen N/A Radiographic Imaging Specimen (Source) Anatomical Collection Method Collection Time Re ceived Time Location / / Volume Laterality 02/17/2013 7:48 AM CDT Narrative 02/17/2013 8:15 AM CDT 17-Feb-2013 07:48:00 ??Exam: Abdomen Indications: Single view, Confirm NG doreen cement ORIGINAL REPORT - 17-Feb-2013 08:15:00 Abdomen: NGT tip in the distal stomach. Nonobstru ctive bowel gas pattern. Electronically signed by: ?? Katherine Courtney M.D. [phone] 17-Feb-2013 08:15 Procedure Note Aristides Courtney M.D. - 02/16/2018Fo rmatting of this note might be different from the original. 17-Feb-2013 07:48:00 Exam: Abdomen Indications: Single view, Confirm NG doreen cement ORIGINAL REPORT - 17-Feb-2013 08:15:00 Abdomen: NGT tip in the distal stomach. Nonobstru ctive bowel gas pattern. Electronically signed by: Katherine Courtney M.D. [phone] 17-Feb-2013 08:15 Joni Sagastume Jr., M.D. [facility] [place] OCEDURES Interpretation of Outside CT Abdomen and or Pelvis (02/17/2013 4:55 AM CDT) Anatomical Region Laterality Modality Abdomen, Pelvis N/A Computed Tomography Specimen (Source) Anatomical Collection Method Collection Time Re ceived Time Location / / Volume Laterality 02/17/2013 4:55 AM CDT Impressions 02/17/2013 9:14 AM CDT Prominence of several loops of small bowel within the midabdomen with apparent tethering at the anterior abdominal wall more distally, is consistent with partial small bowel obstruction or early bowel obstruction. FINDINGS: Since 01/29/2013, prominence of several fluid-filled loops of distal small bowel within the mid abdomen has developed. No mucosal hypoenhancement to suggest ischemia. Apparent tethering of the prominent small bowel adjacent to the an terior abdominal wall likely serves as the transition pointl, with decompressed ileum beyond this point. Findings may represent partial small bowel obstruction or early bowel obstruction. Although the j ejunum is normal in caliber, there is no swirling of the mesenteric vessels to suggest closed loop obstruction. No free intraperitoneal air. No portal venous gas or pneumatosis. No abdominal or pelvic f ree fluid or abscess. Tiny ventral hernia (series 2, image 109 ) containing a single loop of nondilated small bowel. Splenic granulomata. Likely benign scler osis within the right ischium. Atelectasis right middle lobe. [id number] Electronically signed by: ?? Soledad Tavares MD [phone] 17-Feb-2013 07:24 I have reviewed the films/images and agr ee with the above interpretation. Electronically signed by: ?? Zofia Queen MD. [phone] 17-Feb-2013 09 :14 Narrative 02/17/2013 9:14 AM CDT 17-Feb-2013 04:55:00 ??Exam: Interp of OS CT Abd and or Pel Indications: Abdominal pain, bowel obstr uction ORIGINAL REPORT - 17-Feb-2013 07:24:00 EXAM: Outside CT Abdomen from 02/17/2013 COMPARISON: Outside CT 01/29/2013 CONCLUSION/ Procedure Note Ericka Queen M.D. - 02/16/2018Forma tting of this note might be different from the original. 17-Feb-2013 04:55:00 Exam: Interp of OS CT Abd and or Pel Indications: Abdominal pain, bowel obstr uction ORIGINAL REPORT - 17-Feb-2013 07:24:00 EXAM: Outside CT Abdomen from 02/17/2013 COMPARISON: Outside CT 01/29/2013 CONCLUSION/IMPRESSION: Prominence of sev eral loops of small bowel within the midabdomen with apparent tethering at the anterior abdominal wall more distally, is consistent with partial small bowel obstruction or early bowel obstruction. FINDINGS: Since 01/29/2013, prominence of several fluid-filled loops of distal small bowel within the mid abdomen has developed. No mucosal hypoenhancement to suggest ischemia. Apparent tethering of the prominent small bowel adjacent to the anterior abd ominal wall likely serves as the transition pointl, with decompressed ileum beyond this point. Findings may represent partial small bowel obstruction or early bowel obstruction. Although the jejunum is normal in calibe r, there is no swirling of the mesenteric vessels to suggest closed loop obstruction. No free intraperitoneal air. No portal venous gas or pneumatosis. No abdominal or pelvic free fluid or abscess. Tiny ventral hernia (series 2, image 109 ) containing a single loop of nondilated small bowel. Splenic granulomata. Likely benign scler osis within the right ischium. Atelectasis right middle lobe. [id number] Electronically signed by: Soledad Tavares MD [id number] 17-Feb-2013 07:24 I have reviewed the films/images and agr ee with the above interpretation. Electronically signed by: Zofia Queen MD. [phone] 17-Feb-2013 09:1 4 Joni Sagastume Jr., M.D. IMForrest CT PROCEDURES documented in this encounter Visit Diagnoses Not on filedocumented in this encounter
--- OUTSIDE RECORDS SUMMARY | 2022-06-29 05:23 | XMS_ITS | Encounter Summary ---
:1965 Author Organization [facility] Address [address] [place] [address] Care Team Providers Name Role Phone Unavailable Primary Care Provider Unavailable Encounter Details Date Type Department Care Team Description 11/18/2005 Hospital Encounter HX NO MAPPING Social History [...] or relatives? How often do you attend pentecostalism or 1 to 4 times per year 05/2020 anglican services? Do you belong to any clubs or No 10/26/2020 organizations such as pentecostalism groups, unions, fraternal or athletic groups, or [...]
--- OUTSIDE RECORDS SUMMARY | 2022-06-29 05:23 | XMS_ITS | Encounter Summary ---
:1965 Author Organization [facility] Address [address] [place] [address] Care Team Providers Name Role Phone Unavailable Primary Care Provider Unavailable Encounter Details Date Type Department Care Team Description 04/02/2004 Hospital Encounter HX NO MAPPING Provider, Historical [...] or relatives? How often do you attend jainism or 1 to 4 times per year 05/2020 latter-day services? Do you belong to any clubs or No 10/26/2020 organizations such as jainism groups, unions, fraternal or athletic groups, or [...]
--- OUTSIDE RECORDS SUMMARY | 2022-06-29 05:23 | XMS_ITS | Encounter Summary ---
:1965 Author Organization [facility] Address [address] [place] [address] Care Team Providers Name Role Phone Unavailable Primary Care Provider Unavailable Encounter Details Date Type Department Care Team Description 03/23/2004 Hospital Encounter HX [facility] Nena Andujar, LEmyP.N. [address] [place], [place] [phone] Social History Tobacco Use Types Packs/Day Years [...] or relatives? How often do you attend amish or 1 to 4 times per year 05/2020 shinto services? Do you belong to any clubs or No 10/26/2020 organizations such as amish groups, unions, fraternal or athletic groups, or [...] on file documented as of this encounter Miscellaneous Notes Miscellaneous - Nena Adams, L.P.N. - 03/23/2004 12:00 AM CDT [id number] Polly Giron [address] [place] [address] [place] [address] March 23, 2004 Dear Ms. Giron, You have been referred by Dr. Trivedi to be seen at [facility], for your perinatology consultation. You have been given 12 visits, which can be used between now and 11/20/2004. If you need more visits, the dates extended, or have any type of scan or procedure scheduled by thisspecialist, please notify us at [phone] in Obstetrics/Gynecology as you may need another referral sent to your insurance company. If the specialist recommends that you be seen by another specialist please notify your primary doctor for the approval and referral. By keeping your doctor informed of your care and recommendations by the specialist, we can insure that you are getting the care you need and that the proper referrals are sent to your insurance company. If we are not informed of services you receive, you may have a higher out of pocket responsibility for your bill. Thank you for letting us serve you. Source: [facility] Document Id: [id number] documented in this encounter Plan of Treatment Not on filedocumented as of this encounter Visit Diagnoses Not on filedocumented in this encounter
--- OUTSIDE RECORDS SUMMARY | 2022-06-29 05:23 | XMS_ITS | Encounter Summary ---
:1965 Author Organization [facility] Address [address] [place] [address] Care Team Providers Name Role Phone Unavailable Primary Care Provider Unavailable Encounter Details Date Type Department Care Team Description 08/26/2008 Hospital Encounter HX NO MAPPING Casandra Dinh M.D. [address] [place] [address] , [address] [place] [address] (Wo rk) Social History Tobacco Use Types [...] or relatives? How often do you attend holiness or 1 to 4 times per year 05/2020 islam services? Do you belong to any clubs or No 10/26/2020 organizations such as holiness groups, unions, fraternal or athletic groups, or [...] Name Priority Date/Time Associated Diagnosis Comme nts DX LUMBAR SPINE 2-3 Routine 08/26/2008 2:27 PM Re sults for this VIEWS CDT procedure are i n the results section. documented in this encounter Results DX Lumbar Spine 2-3 Views (08/26/2008 2:27 PM CDT) Anatomical Region Laterality Modality Lumbar Spine N/A Radiographic Imaging Specimen (Source) Anatomical Collection Method Collection Time Re ceived Time Location / / Volume Laterality 08/26/2008 2:27 PM CDT Impressions 08/26/2008 2:27 PM CDT Negative lumbar spine Narrative 08/26/2008 2:27 PM CDT Originally Signed By UNKNOWN, PERSONNEL Reason for exam: BACK PAIN Lumbar spine. Three views. ?? FINDINGS: Disc spaces are well maintaine d. Normal alignment. Sacroiliac joints are also normal. Adjac ent soft tissue structures are unremarkable. ? Procedure Note Provider, Lex Queen - 04/25/2017F ormatting of this note might be different from the original. Originally Signed By UNKNOWN, PERSONNEL Reason for exam: BACK PAIN Lumbar spine. Three views. FINDINGS: Disc spaces are well maintaine d. Normal alignment. Sacroiliac joints are also normal. Adjac ent soft tissue structures are unremarkable. IMPRESSION: Negative lumbar spine Historical Provider IMG DIAGNOSTIC IMAGING PROCE DURES documented in this encounter Visit Diagnoses Not on filedocumented in this encounter
--- OUTSIDE RECORDS SUMMARY | 2022-06-29 05:23 | XMS_ITS | Encounter Summary ---
:1965 Author Organization [facility] Address [address] [place] [address] Care Team Providers Name Role Phone Unavailable Primary Care Provider Unavailable Encounter Details Date Type Department Care Team Description 11/07/2005 Hospital Encounter HX NO MAPPING Social History [...]
--- OUTSIDE RECORDS SUMMARY | 2022-06-29 05:23 | XMS_ITS | Encounter Summary ---
:1965 Author Organization [facility] Address [address] [place] [address] Care Team Providers Name Role Phone Unavailable Primary Care Provider Unavailable Encounter Details Date Type Department Care Team Description 01/14/2006 Hospital Encounter HX NO MAPPING Social History [...] or relatives? How often do you attend rastafarian or 1 to 4 times per year 05/2020 zoroastrianism services? Do you belong to any clubs or No 10/26/2020 organizations such as rastafarian groups, unions, fraternal or athletic groups, or [...]
--- OUTSIDE RECORDS SUMMARY | 2022-06-29 05:23 | XMS_ITS | Encounter Summary ---
:1965 Author Organization [facility] Address [address] [place] [address] Care Team Providers Name Role Phone Unavailable Primary Care Provider Unavailable Encounter Details Date Type Department Care Team Description 11/07/2007 - Hospital Encounter HX RST Vikki Moreno 11/14/2007 Lex Campbell Social History Tobacco Use Types Packs/Day Years [...] or relatives? How often do you attend adventism or 1 to 4 times per year 05/2020 judaism services? Do you belong to any clubs or No 10/26/2020 organizations such as adventism groups, unions, fraternal or athletic groups, or [...]
--- OUTSIDE RECORDS SUMMARY | 2022-06-29 05:23 | XMS_ITS | Encounter Summary ---
:1965 Author Organization [facility] Address [address] [place] [address] Care Team Providers Name Role Phone Unavailable Primary Care Provider Unavailable Encounter Details Date Type Department Care Team Description 09/26/2007 Hospital Encounter HX NO MAPPING Social History [...] 1 to 4 times per year 05/2020 mormon services? Do you belong to any clubs [...]
--- OUTSIDE RECORDS SUMMARY | 2022-06-29 05:23 | XMS_ITS | Encounter Summary ---
:1965 Author Organization [facility] Address [address] [place] [address] Care Team Providers Name Role Phone Unavailable Primary Care Provider Unavailable Encounter Details Date Type Department Care Team Description 03/18/2004 Hospital Encounter HX [facility] Abdulkadir Prather M.D. [address] [place], [place] [phone] (Wo rk) Social History Tobacco Use Types [...] or relatives? How often do you attend faith or 1 to 4 times per year 05/2020 mandaen services? Do you belong to any clubs or No 10/26/2020 organizations such as faith groups, unions, fraternal or athletic groups, or [...] documented as of this encounter Progress Notes Conversion, Historical Provider Ser - 03/18/2004 10:30 AM CDT [id number] 38 yo at 13 weeks with EDC of 09/26 by US with 1st TM bleeding. Pt is a former patient of [facility] and is here for second opionion regarding subchorionic hemorrhage. About a month ago jose luis aguilar had bright red bleeding and passed plum sized clots, then 2 weeks later it happened again. Sinc e 2 weeks ago, she's been bleeding dark blood with small clots off and on, private client advisor than a menses. Pt told she had a 6 X 4 cm subchor hemorrhagePt is a long time smoker but has cut way back. OBJECT JIE:On transabdominal ultrasound: A single viable intrauterine is noted in unstable pre sentation. placenta is grade 0, fundal position with no evidence of previa. There is a very large, m ixed echogenic mass measuring 6.9 X 3.9 X 3.8 cm, appears to be fluid with central clotMeasurements include:CRL consistent with 12 + 2 weeks GAIMPRESSION: 1.Single viable intrauterine consistent with dates, normal appearing anatomic survey at 12+6 weeks by stated EDC by US done in [facility]. 2.Large subchorionic hemorrhage 6.9 X 4 cm, good news is that the placenta appears mostly f undal and the clot is over the cerix/inferior in location. Likely abruption.3.smokerPLAN: 1. Recom mend quitting smoking now. Advised that smoking is her biggest risk factor for abruption and pregnanc y loss.2. Pt would like consult3. Advised patient to continue lifting restrictions and p elvic rest but that bed rest would likely not change outcome. Patient advised she is at risk of PPR OM. Would offer anatomic survey at 20 weeks. Source: [facility] RWHXTRANSXSYS Document Id: [id number] documented in this encounter Plan of Treatment Not on filedocumented as of this encounter Visit Diagnoses Not on filedocumented in this encounter
--- OUTSIDE RECORDS SUMMARY | 2022-06-29 05:23 | XMS_ITS | Encounter Summary ---
:1965 Author Organization [facility] Address [address] [place] [address] Care Team Providers Name Role Phone Unavailable Primary Care Provider Unavailable Encounter Details Date Type Department Care Team Description 01/26/2006 - Hospital Encounter HX RST UNIT 5-4 02/04/2006 GYNECOLOGY Social History Tobacco Use Types Packs/Day Years [...] or relatives? How often do you attend druze or 1 to 4 times per year 05/2020 druze services? Do you belong to any clubs or No 10/26/2020 organizations such as druze groups, unions, fraternal or athletic groups, or [...]
--- OUTSIDE RECORDS SUMMARY | 2022-06-29 05:23 | XMS_ITS | Encounter Summary ---
:1965 Author Organization [facility] Address [address] [place] [address] Care Team Providers Name Role Phone Unavailable Primary Care Provider Unavailable Encounter Details Date Type Department Care Team Description 05/04/2007 - 05/09/2007 Hospital Encounter HX NO MAPPING Social History [...] or relatives? How often do you attend gnosticism or 1 to 4 times per year 05/2020 caodaism services? Do you belong to any clubs or No 10/26/2020 organizations such as gnosticism groups, unions, fraternal or athletic groups, or [...]
--- OUTSIDE RECORDS SUMMARY | 2022-06-29 05:23 | XMS_ITS | Encounter Summary ---
:1965 Author Organization [facility] Address [address] [place] [address] Care Team Providers Name Role Phone Unavailable Primary Care Provider Unavailable Encounter Details Date Type Department Care Team Description 04/04/2006 Hospital Encounter HX NO MAPPING Social History [...] or relatives? How often do you attend religion or 1 to 4 times per year 05/2020 jehovah's witness services? Do you belong to any clubs or No 10/26/2020 organizations such as religion groups, unions, fraternal or athletic groups, or [...]
--- OUTSIDE RECORDS SUMMARY | 2022-06-29 05:23 | XMS_ITS | Encounter Summary ---
:1965 Author Organization [facility] Address [address] [place] [address] Care Team Providers Name Role Phone Unavailable Primary Care Provider Unavailable Encounter Details Date Type Department Care Team Description 02/05/2009 Hospital Encounter HX NO MAPPING Social History [...] or relatives? How often do you attend episcopal or 1 to 4 times per year 05/2020 oriental orthodox services? Do you belong to any clubs or No 10/26/2020 organizations such as episcopal groups, unions, fraternal or athletic groups, or [...]
--- OUTSIDE RECORDS SUMMARY | 2022-06-29 05:23 | XMS_ITS | Encounter Summary ---
:1965 Author Organization [facility] Address [address] [address] Care Team Providers Name Role Phone Afia Rousseau MD Primary Care Provider Reason for Visit Reason Onset Date Comments Medication Request 08/04/2017 Sedation for MRI Encounter Details Date Type Department Care Team Description 08/04/2017 Telephone Deepti Lam, Medicati on Request Rheumatology (Sedation for MRI) [id number] [place] [phone] (Wo rk) Social History Tobacco Use Types Packs/Day Years Used Date Smoking Tobacco: Every Day Cigarettes Smokeless Tobacco: Never Sex Assigned at Date Recorded Not on file documented as of this encounter Nursing Notes Mery Corbin LPN - 08/04/2017 2:30 PM CDT Pharmacy has been confirmed. Patient aware that you will be sending them an Rx for her to take with to her MRI. Deepti Gray MD - 08/04/2017 1:26 PM CDT Please confirm her preferred pharmacy that we may send in a prescription for ativan. Please let me know if there are any questions. Thank you. Julio Zepeda - 08/04/2017 9:55 AM CDT Patient is scheduled for MRI on 08/15/2017 and is requesting sedation prescription for this test as she is claustrophobic. Please advise. documented in this encounter Plan of Treatment Not on filedocumented as of this encounter Visit Diagnoses Diagnosis Claustrophobia (HRC) - Primary Other isolated or specific phobias documented in this encounter Care Teams Leaflet Or Newspaper Deliverer Relationship Specialty Start Date End Date Afia Rousseau MD PCP - General Internal Medicine 07/[address] [place] [address] documented as of this encounter
--- OUTSIDE RECORDS SUMMARY | 2022-06-29 05:23 | XMS_ITS | Encounter Summary ---
:1965 Author Organization [facility] Address [address] [place] [address] Care Team Providers Name Role Phone Unavailable Primary Care Provider Unavailable Encounter Details Date Type Department Care Team Description 02/17/2013 Hospital Encounter HX RST EMERGENCY Provider, Historic al TRAUMA UNI Social History Tobacco Use Types Packs/Day Years [...] or relatives? How often do you attend christian or 1 to 4 times per year 05/2020 restoration services? Do you belong to any clubs or No 10/26/2020 organizations such as christian groups, unions, fraternal or athletic groups, or [...]
--- OUTSIDE RECORDS SUMMARY | 2022-06-29 05:23 | XMS_ITS | Encounter Summary ---
:1965 Author Organization [facility] Address [address] [place] [address] Care Team Providers Name Role Phone Unavailable Primary Care Provider Unavailable Encounter Details Date Type Department Care Team Description 11/17/2005 Hospital Encounter HX NO MAPPING Social History [...] or relatives? How often do you attend cheondoism or 1 to 4 times per year 05/2020 samaritan services? Do you belong to any clubs or No 10/26/2020 organizations such as cheondoism groups, unions, fraternal or athletic groups, or [...]
--- OUTSIDE RECORDS SUMMARY | 2022-06-29 05:23 | XMS_ITS | Encounter Summary ---
:1965 Author Organization [facility] Address [address] [place] [address] Care Team Providers Name Role Phone Unavailable Primary Care Provider Unavailable Encounter Details Date Type Department Care Team Description 08/13/2008 Hospital Encounter HX NO MAPPING Social History [...] or relatives? How often do you attend nondenominational or 1 to 4 times per year 05/2020 restorationism services? Do you belong to any clubs or No 10/26/2020 organizations such as nondenominational groups, unions, fraternal or athletic groups, or [...]
--- OUTSIDE RECORDS SUMMARY | 2022-06-29 05:23 | XMS_ITS | Clinical Summary ---
:[address] [facility] Address [address] [place] [address] Care Team Providers Name Role Phone Afia Rousseau MD Primary Care Provider Source Comments You are receiving this document as you are listed as the primary care provider,follow-up provider, or the patient has been referred to you for consultation.This is in compliance with the Medicare and Medicaid EHR Incentive Program,which states Providers who transition their patient to another setting of careor provider of care or refers their patient to another provider of care shouldprovide summarycare record for each transition of care or referral. [employer] Allergies Active Allergy Reactions Severity Noted Date Comments Adhesive Other, see comments 07/26/2017 Tears sk in Other 07/26/2017 Band aids Medications Medication Sig Dispensed Refills Start Date End Date Status oxyCODONE (OXYCONTIN) 40 Take 40 mg by 0 Active MG 12 hour tablet mouth every 12 hours. oxyCODONE (ROXICODONE) Take 15 mg by 0 Active 15 MG immediate release mouth 4 times a tablet day. cyclobenzaprine Take 5 mg by 0 A ctive (FLEXERIL) 10 MG tablet mouth every 6 hours. clobetasol (TEMOVATE) Apply 15 g 0 Active 0.05 % cream topically two times a day. dexamethasone 0.5 MG/5ML Take 0.5 mg by 0 Active solution mouth two times a day. hydroxychloroquine Take 200 mg by 0 Active (PLAQUENIL) 200 MG mouth two times a tablet day. nitroglycerin Place 0.4 mg 0 Act goldie (NITROSTAT) 0.4 MG under tongue sublingual tablet every 5 minutes as needed for Chest Pain. If no relief after 5 min call 911;continue 1 tab every 5 min max 3 tab albuterol 2.5 mg/3 mL, 2.5 mg by 0 Active 0.083%, (PROVENTIL) Nebulization nebulizer solution route 4 times a day. pravastatin (PRAVACHOL) Take 40 mg by 0 Active 40 MG tablet mouth daily at bedtime. aspirin 81 MG chewable Take 81 mg by 0 Active tablet mouth daily. HYPROMELLOSE OP Place 1 Drop into 0 Active both eyes as needed. docusate sodium (COLACE) Take 100 mg by 0 Active 100 MG capsule mouth daily. olopatadine HCl 0.2 % Place 1 Drop into 0 Active eye drop solution both eyes two times a day. clotrimazole (MYCELEX) Take 10 mg by 0 Active 10 MG lozenge mouth daily. Dissolve slowly in mouth Clopidogrel Bisulfate Take 25 mg by 0 Active (PLAVIX OR) mouth daily. diltiaZEM CR (DILACOR Take 120 mg by 0 Active XR) 120 MG 24 hour mouth daily. release capsule Dexlansoprazole 60 MG Take 60 mg by 0 Active mouth daily. calcium Take 1 Tab by 0 Active carbonate-vitamin D mouth three times (OS-LEX 500 WITH D) a day. 500-200 MG-UNIT per tablet azaTHIOprine (IMURAN) 50 Take 100 mg by 0 Active MG tablet mouth daily. triamcinolone acetonide Apply topically 0 Active (KENALOG) 0.1 % cream two times a day. diphenhydrAMINE Take 25 mg by 0 Active (BENADRYL) 25 MG tablet mouth daily. Acetaminophen (TYLENOL Take 200 mg by 0 Active OR) mouth daily. LORazepam (ATIVAN) 0.5 Take one tablet 4 Tab 0 08/04/2017 Active MG tabletIndications: 30 minutes prior Claustrophobia (HRC) to your MRI. May repeat dose if needed. Do not drive on the medication. 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 Multiple joint pain 08/04/2017 Screening for condition 08/04/2017 Claustrophobia 08/04/2017 Social History Tobacco Use Types Packs/Day Years Used Date Smoking Tobacco: Every Day Cigarettes Smokeless Tobacco: Never Sex Assigned at Date Recorded Not on file Plan of Treatment Health Maintenance Due Date Last Done Comments Cervical Cancer Screening Due 1965 Colon Cancer Screening Plan Due 1965 HepB (1) 1965 Medicare Annual Wellness Visit 1965 Mammogram 1965 COVID-19 Vaccine (#1) 02/05/1968 HIV Screening (Preventive 1983 Services) DTaP/Tdap/Td (1 - Tdap) 1986 Cholesterol 2012 Zoster/Shingles (1 of 2) 2017 Influenza (#1) 2022 Hep C Screening (Preventive Completed 08/04/2017 Services) HepA Aged Out No longer eligib le based on patient's age to complete this topic Hib Aged Out No longer eligib le based on patient's age to complete this topic IPV (Polio) Aged Out No longer eligib le based on patient's age to complete this topic MCV4 Aged Out No longer eligib le based on patient's age to complete this topic Pneumococcal Aged Out No longer eligib le based on patient's age to complete this topic Insurance Payer Benefit Plan / Subscriber ID Effective Dates Phone Addre ss Type Group MEDICARE MEDICARE [id number] 2003-Presen Med icare t MEDICA MEDICA [id number] 2016-Presen [phone] [place] dicaid ACCESSABILITY t 2 (Work) [id number] [address] Personal/Family Self 1965 [address] [place] [address] Care Teams Social Services Assistant Relationship Specialty Start Date End Date Afia Rousseau MD PCP - General Internal Medicine [address] [facility] [place] [address]
--- OUTSIDE RECORDS SUMMARY | 2022-06-29 05:23 | XMS_ITS | Encounter Summary ---
:1965 Author Organization [facility] Address [address] [place] [address] Care Team Providers Name Role Phone Unavailable Primary Care Provider Unavailable Encounter Details Date Type Department Care Team Description 06/29/2011 - Hospital Encounter HX RST UNIT 5-4 07/02/2011 GYNECOLOGY Social History Tobacco Use Types Packs/Day [...] 1 to 4 times per year 05/2020 methodist services? Do you belong to any clubs [...] Priority Date/Time Associated Diagnosis Comme nts DX ABDOMEN SUPINE Routine 07/01/2011 11:20 AM Res ults for this WITH UPRIGHT OR CDT procedure ar e in DECUBITUS 2 VIEWS the result s section. DX ABDOMEN 1 VIEW Routine 06/29/2011 12:55 PM Res ults for this CDT procedure are i n the results section. HXGENERAL PATHOLOGY Routine 06/29/2011 11:37 AM R esults for this REPORT CDT procedure are i n the results section. documented in this encounter Results DX Abdomen Supine with Upright or Decubitus 2 Views (07/01/2011 11:20 AM CDT) Anatomical Region Laterality Modality Abdomen Right Radiographic Imaging Specimen (Source) Anatomical Collection Method Collection Time Re ceived Time Location / / Volume Laterality 07/01/2011 11:20 AM CDT Narrative 07/01/2011 12:27 PM CDT 01-Jul-2011 11:20:00 ??Exam: Abdomen w/Upright or Decubitus Indications: eval for ileus ORIGINAL REPORT - 01-Jul-2011 12:27:00 Abdomen w/Upright or Decubitus: Scattere d bowel gas in the normal sized small and large bowel loops. Moderate amount of fecal material in the colon. No free intraperitoneal air. No evidence of bowel obstruction. Mild atelectasis in the lung bases. Electronically signed by: ?? Wilma Jj MD [id number] 01-Jul-2011 12:2 7 Procedure Note Wilma Jj M.D., Ph.D. - 02/17/2018For matting of this note might be different from the original. 01-Jul-2011 11:20:00 Exam: Abdomen w/Upr ight or Decubitus Indications: eval for ileus ORIGINAL REPORT - 01-Jul-2011 12:27:00 Abdomen w/Upright or Decubitus: Scattere d bowel gas in the normal sized small and large bowel loops. Moderate amount of fecal material in the colon. No free intraperitoneal air. No evidence of bowel obstruction. Mild atelectasis in the lung bases. Electronically signed by: Wilma Jj MD [id number] 01-Jul-2011 12:2 7 Dk Figueroa M.D. IMG DIAGNOSTIC IMAGING PROCE [place] DX Abdomen 1 View (06/29/2011 12:55 PM CDT) Anatomical Region Laterality Modality Abdomen N/A Radiographic Imaging Specimen (Source) Anatomical Collection Method Collection Time Re ceived Time Location / / Volume Laterality 06/29/2011 12:55 PM CDT Narrative 06/29/2011 1:03 PM CDT 29-Jun-2011 12:55:00 ??Exam: Post OP Abdomen Indications: Pevic mass; Laparotomy; Rt salpigo-oophorectomy ORIGINAL REPORT - 29-Jun-2011 13:03:00 Negative for postop purposes. Electronically signed by: ?? Caitlyn Leung MD [id number] 29-Jun-2011 13 :03 Procedure Note Caitlyn Leung M.D. - 02/17/2018Forma tting of this note might be different from the original. 29-Jun-2011 12:55:00 Exam: Post OP Abdom en Indications: Pevic mass; Laparotomy; Rt salpigo-oophorectomy ORIGINAL REPORT - 29-Jun-2011 13:03:00 Negative for postop purposes. Electronically signed by: Caitlyn Leung MD [id number] 29-Jun-2011 13 :03 Dk Figueroa M.D. IMG DIAGNOSTIC IMAGING PROCE [place] Sales general Pathology Report (06/29/2011 11:37 AM CDT) Specimen Anatomical Collection Method Collection Time Receive d Time (Source) Location / / Volume Laterality 06/29/2011 11:37 06/29/2011 AM CDT 11:37 AM CDT Narrative [facility] - 06/29/2011 11:37 AM CDT ??06/29/2011 Surgical Pathology ?([id number]) ? Requested By: Dk Figueroa M.D. ??[id number] ? SLIDE DISPOSITION: ? DIAGNOSIS: ?? A. ??Adnexa, right mass, excision: ??Be nign hemorrhagic, multiloculated ovarian cyst (5.8 x 3.7 x 1.7 cm) with extensive hemosiderosis and microscopic focus (0. 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 ?? This final pathology report is based on the gross/macroscopic examination and the frozen section hist ologic evaluation of the specimen(s). Hematoxylin and Eosin (H&E ) permanent sections are reviewed to confirm these findings. Any substantive changes identified on permanent section review will be reflected in a revised report. ? 06/29/2011 21:53 Interpreted by: Terry Hagan M.D., PhD. [phone] Report electronically signed by Terry Hagan M.D., PhD. Transcribed by: gerhard 06/29/2011 13:37:11 ? GROSS DESCRIPTION: A. ??Received fresh labeled right adne xal mass is a 35.0 gram, 5.8 x 3.7 x 1.7 focally disrupted ovary. ?? The external serosa is smooth. ??Bread loafing reveals a multiloculate d cyst with a benign chocolate appearance. ??Representativ e sections. ??Grossed by CLT. ?? BLOCK SUMMARY: Part A: ??RIght Adnexal mass ?1 Rt adnexal mass-1 ?2 Rt adnexal mass-2 ?3 Rt adnexal mass-3 ? Procedure Note 02/10/2018 06/29/2011 Surgical Pathology ([id number]) Requested By: Dk Figueroa M.D. [phone] SLIDE DISPOSITION: DIAGNOSIS: A. Adnexa, right mass, excision: Benign hemorrhagic, multiloculated ovarian cyst (5.8 x 3.7 x 1.7 cm) with extensive hemosiderosis and microscopic focus (0. 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 This final pathology report is based on the gross/macroscopic examination and the frozen section hist ologic evaluation of the specimen(s). Hematoxylin and Eosin (H&E ) permanent sections are reviewed to confirm these findings. Any substantive changes identified on permanent section review will be reflected in a revised report. 06/29/2011 21:53 Interpreted by: Terry Hagan M.D., PhD. [id number] Report electronically signed by Terry Hagan M.D., PhD. Transcribed by: gerhard 06/29/2011 13:37:11 GROSS DESCRIPTION: A. Received fresh labeled right adnexa l mass is a 35.0 gram, 5.8 x 3.7 x 1.7 focally disrupted ovary. Th e external serosa is smooth. Bread loafing reveals a multiloculated cyst with a benign chocolate appearance. Unit Receptionist sections. Grossed by CLT. BLOCK SUMMARY: Part A: RIght Adnexal mass 1 Rt adnexal mass-1 2 Rt adnexal mass-2 3 Rt adnexal mass-3 Dk Figueroa M.D. LAB PATHOLOGY/CYTOLOGY ORDER MARGOT Performing Organization Address City/State/ZIP Code Phon e Number [facility] - [address] [place], [place] [address] [facility] documented in this encounter Visit Diagnoses Not on filedocumented in this encounter
--- OUTSIDE RECORDS SUMMARY | 2022-06-29 05:23 | XMS_ITS | Encounter Summary ---
:1965 Author Organization [facility] Address [address] [place] [address] Care Team Providers Name Role Phone Unavailable Primary Care Provider Unavailable Encounter Details Date Type Department Care Team Description 09/23/2008 Hospital Encounter HX NO MAPPING Casandra Dinh M.D. [address] [place] [address] , [address] [place] [address] (Wo rk) Social History Tobacco Use Types [...] or relatives? How often do you attend anglican or 1 to 4 times per year 05/2020 buddhist services? Do you belong to any clubs or No 10/26/2020 organizations such as anglican groups, unions, fraternal or athletic groups, or [...] Procedure Name Priority Date/Time Associated Comments Diagnosis DX STERNOCLAVICULAR Routine 09/23/2008 2:37 Resul ts for this JOINTS 3+ VIEWS PM MANAGER OPERATIONS procedure ar e in the results section. DX CLAVICLE RIGHT 2 Routine 09/23/2008 2:07 Resul ts for this VIEWS PM MANAGER OPERATIONS procedure are i n the results section. DX CLAVICLE LEFT 2 VIEWS Routine 09/23/2008 2:07 Results for this PM MANAGER OPERATIONS procedure are i n the results section. documented in this encounter Results DX Sternoclavicular Joints 3+ Views (09/23/2008 2:37 PM MANAGER OPERATIONS) Anatomical Region Laterality Modality Chest, Clavicle N/A Radiographic Imaging Specimen (Source) Anatomical Collection Method Collection Time Re ceived Time Location / / Volume Laterality 09/23/2008 2:37 PM MANAGER OPERATIONS Narrative 09/23/2008 2:37 PM MANAGER OPERATIONS Originally Signed By UNKNOWN, PERSONNEL Reason for exam: STERNOCLAVICULAR SPRAIN FINDINGS: The medial ends both clavicles and the visualized manubrium and sternum appear normal. Procedure Note Bret Silva M.D. - 04/25/2017 ormatting of this note might be different from the original. Originally Signed By UNKNOWN, PERSONNEL Reason for exam: STERNOCLAVICULAR SPRAIN FINDINGS: The medial ends both clavicles and the visualized manubrium and sternum appear normal. Historical Provider IMG DIAGNOSTIC IMAGING PROCE DURES DX Clavicle Left 2 Views (09/23/2008 2:07 PM MANAGER OPERATIONS) Anatomical Region Laterality Modality Upper Extremity, Clavicle Left Radiographic I maging Specimen (Source) Anatomical Collection Method Collection Time Re ceived Time Location / / Volume Laterality 09/23/2008 2:07 PM MANAGER OPERATIONS Impressions 09/23/2008 2:07 PM MANAGER OPERATIONS Previous resection of the distal left clavicle, otherwise negative. Narrative 09/23/2008 2:07 PM MANAGER OPERATIONS Originally Signed By UNKNOWN, PERSONNEL Reason for exam: SPRAIN STERNOCLAVICULAR HISTORY: Sternoclavicular sprain. ?? COMPARISON: None. ?? FINDINGS: Soft tissues are unremarkable except for some apparent calcific tendinitis in the region of the left rotator cuff. There is the previous resection of the distal lef t clavicle. The clavicle is otherwise unremarkable and its articulat ion with the manubrium appears to be normal. ? Procedure Note ProviderBret M.D. - 04/25/2017 ormatting of this note might be different from the original. Originally Signed By UNKNOWN, PERSONNEL Reason for exam: SPRAIN STERNOCLAVICULAR HISTORY: Sternoclavicular sprain. COMPARISON: None. FINDINGS: Soft tissues are unremarkable except for some apparent calcific tendinitis in the region of the left rotator cuff. There is the previous resection of the distal lef t clavicle. The clavicle is otherwise unremarkable and its articulat ion with the manubrium appears to be normal. IMPRESSION: Previous resection of the di stal left clavicle, otherwise negative. Historical Provider IMG DIAGNOSTIC IMAGING PROCE DURES DX Clavicle Right 2 Views (09/23/2008 2:07 PM MANAGER OPERATIONS) Anatomical Region Laterality Modality Upper Extremity, Clavicle Right Radiographic I maging Specimen (Source) Anatomical Collection Method Collection Time Re ceived Time Location / / Volume Laterality 09/23/2008 2:07 PM MANAGER OPERATIONS Impressions 09/23/2008 2:07 PM MANAGER OPERATIONS Negative right clavicle. Narrative 09/23/2008 2:07 PM MANAGER OPERATIONS Originally Signed By UNKNOWN, PERSONNEL Reason for exam: STERNOCLAVICULAR SPRAIN HISTORY: Sternoclavicular sprain. ?? COMPARISON: None. ?? FINDINGS: Soft tissues are unremarkable except for some calcific tendinitis in region the right rotator c uff. The clavicle is unremarkable as are its articulation wit h the manubrium and acromion process. ? Procedure Note ProviderBret M.D. - 04/25/2017F ormatting of this note might be different from the original. Originally Signed By UNKNOWN, PERSONNEL Reason for exam: STERNOCLAVICULAR SPRAIN HISTORY: Sternoclavicular sprain. COMPARISON: None. FINDINGS: Soft tissues are unremarkable except for some calcific tendinitis in region the right rotator c uff. The clavicle is unremarkable as are its articulation wit h the manubrium and acromion process. IMPRESSION: Negative right clavicle. Historical Provider IMG DIAGNOSTIC IMAGING PROCE DURES documented in this encounter Visit Diagnoses Not on filedocumented in this encounter
--- OUTSIDE RECORDS SUMMARY | 2022-06-29 05:23 | XMS_ITS | Encounter Summary ---
:1965 [facility] Address [address], [place] [address] Care Team Providers Name Role Phone Afia Rousseau MD Primary Care Provider Reason for Visit Procedure/Equipment (Routine) - Incomplete Specialty Diagnoses / Procedures Referred By Contact Refer red To Contact Diagnoses Lupus erythematosus tumidus Multiple joint pain Deepti Hannah MD Procedures MR Hand Rt W/WO IV Cont [address] [place] [address] Referral ID Status Reason Start Date Expiration Date Visits V isits Requested Authorized [id number] Incomplete 08/04/2017 11/03/2018 1 1 Encounter Details Date Type Department Care Team Description 08/15/2017 Imaging [facility] Deepti Hannah, Lupus erythematosus tumidus; MRI Multiple joint pain [address] [place] [address] [place], [place] [phone] (Wo rk) Social History Tobacco Use Types Packs/Day Years Used Date Smoking Tobacco: Every Day Cigarettes Smokeless Tobacco: Never Sex Assigned at Date Recorded Not on file documented as of this encounter Plan of Treatment Not on filedocumented as of this encounter Procedures Procedure Name Priority Date/Time Associated Diagnosis Comme nts MR HAND RT W/WO IV Routine 08/15/2017 6:02 PM Lupus erythemato ronda Results for this CONT CDT tumidus procedure are in Multiple joint pain the resu lts section. documented in this encounter Results MR Hand Rt W/WO IV Cont (08/15/2017 6:02 PM CDT) Anatomical Region Laterality Modality Upper Extremity, Hand, Wrist, Skeletal Right M agnetic Resonance Specimen (Source) Anatomical Collection Method Collection Time Re ceived Time Location / / Volume Laterality 08/15/2017 5:31 PM CDT Impressions 08/16/2017 8:37 AM CDT IMPRESSION: Negative MRI of the right hand. Narrative 08/16/2017 8:37 AM CDT TECHNIQUE: MRI of the right hand was performed before and following the uncomplicated administration of 7 mL Gadavist intravenously. COMPARISON: None. FINDINGS: There is no significant synovi al enhancement or subchondral marrow edema to suggest active synovitis. No periarticular marrow edema or erosions. No joint effusions. There is no significant ten osynovitis. The visualized muscles and t endons are normal. Visualized soft tissues are unremarkable. Procedure Note Joni Shepard MD - 08/16/2017Formatti ng of this note might be different from the original. TECHNIQUE: MRI of the right hand was per formed before and following the uncomplicated administration of 7 mL Gadavist intravenously. COMPARISON: None. FINDINGS: There is no significant synovi al enhancement or subchondral marrow edema to suggest active synovitis. No periarticular marrow edema or erosions. No joint effusions. There is no significant tenosynovitis. The visualized muscles and tendons are gela l. Visualized soft tissues are unremarkable. IMPRESSION IMPRESSION: Negative MRI of the right zelaya nd. Deepti Hannah MD RAD MRI documented in this encounter Visit Diagnoses Diagnosis Lupus erythematosus tumidus Lupus erythematosus Multiple joint pain Pain in joint, multiple sites documented in this encounter Administered Medications Inactive Administered Medications - up to 3 most recent administrations Medication Order MAR Action Action Date Dose Rate Site gadobutrol (GADAVIST) 1 MMOL/ML Given 08/15/2017 6:00 PM CDT 7 m L injection 7 mL 7 mL, Intravenous, ONCE, On Mon08/15/17 at 1800, For 1 dose sodium chloride 0.9% injection 20 mL Given 08/15/2017 6:00 PM CDT 20 mL 20 mL, Intravenous, ONCE, On Mon08/15/17 at 1800, For 1 dose documented in this encounter Care Teams Gymnastics Coach Or Instructor Relationship Specialty Start Date End Date Afia Rousseau MD PCP - General Internal Medicine 07/[address] [place] [address] documented as of this encounter
--- OUTSIDE RECORDS SUMMARY | 2022-06-29 05:23 | XMS_ITS | Encounter Summary ---
:1965 Author Organization [facility] Address [address] [place] [address] Care Team Providers Name Role Phone Unavailable Primary Care Provider Unavailable Encounter Details Date Type Department Care Team Description 11/07/2005 - Hospital Encounter HX RST UNIT 5-4 11/08/2005 GYNECOLOGY Social History Tobacco Use Types Packs/Day [...] or relatives? How often do you attend [employer] or 1 to 4 times per year 05/2020 temple services? Do you belong to any clubs or No 10/26/2020 organizations such as [employer] groups, unions, fraternal or athletic groups, or [...]
--- OUTSIDE RECORDS SUMMARY | 2022-06-29 05:24 | XMS_ITS | Encounter Summary ---
:1965 Author Organization [employer] Address [address], [place] [address] Care Team Providers Name Role Phone Afia Rousseau MD Primary Care Provider Reason for Referral Procedure/Equipment (Routine) - Incomplete Specialty Diagnoses / Procedures Referred By Contact Refer red To Contact Diagnoses Lupus erythematosus tumidus Multiple joint pain Deepti Hannah MD Procedures MR Hand Rt W/WO IV Cont [address] [place] [address] Referral ID Status Reason Start Date Expiration Date Visits V isits Requested Authorized [id number] Incomplete 08/04/2017 11/03/2018 1 1 Reason for Visit Reason Comments CONSULT Encounter Details Date Type Department Care Team Description 08/04/2017 Initial Consult Deepti Lam Lupus er ythematosus tumidus (Primary Dx); Rheumatology MD [place] Multiple joint pain; [address] [place] [address] [place] [id number] [phone] Social History Tobacco Use Types Packs/Day Years Used Date Smoking Tobacco: Every Day Cigarettes Smokeless Tobacco: Never Sex Assigned at Date Recorded Not on file documented as of this encounter Patient Instructions Patient InstructionsDeepti Gray MD - 08/04/2017 8:45 AM CDT Labs today. MRI when able. documented in this encounter Progress Notes Deepti Gray MD - 08/04/2017 8:45 AM CDT Rheumatology New Patient/Consult Note Referral: Afia Rousseau MD [address] [place] [address] Chief Complaint Patient presents with ??? CONSULT Additional concerns: HPI: The patient is a 51 y.o. female. Kd is a 51-year-old female with a past medical history significant for angina status post stenting ??1, GERD, hyperlipidemia, fibromyalgia, depression, IgG deficiency, poor sleep, lupus erythematosus tumidus and anxiety who reports a rheumatology clinic for further evaluation. She states that she began having difficulties with diffuse body pains 8 years ago. She was diagnosedwith fibromyalgia by a vamp presser. About 2.5 years ago, she began having sores in her mouth and a facial rash worsened with some exposure. She subsequently underwent a facial rash biopsy that diagnosed lupus erythematosus tumidus (LET) and was started on hydroxychloroquine in September 2016. She states this has helped her symptoms of rash overall. However, she remains with some rash symptoms despite ongoing use of the medication. Prior to her diagnosis of LET, she was given a diagnosis of lichen planus. She uses mouthwashes and antifungal agents as needed for this. She states that she has episodes of low-grade fevers that will be associated with a worsening of her rash, oral ulcers and diffuse pains. She also endorses a history of pleurisy, ongoing nausea/vomiting, GERD, headaches and sicca symptoms. She has had an acceleration of dental cavities with her sicca symptoms and no difficulties bernice ing tears or swallowing. She was also found throughout this time to have low IgG and seen by hematology at the [facility]. They recommended yearly IgG evaluations through primary care and did not feel she warranted IVIG treatment. She endorses ongoing joint pains about her arms, neck, legs and shoulders. She also has involvement of the toes, knees and hips as well as hands. She will see occasional redness about the PIP joints of her hands. She endorses diffuse swelling of the hands and feet in the morning and evening hours. She has been on oxycodone and OxyContin for a number of years with benefit. She endorses ongoing poor sleep. She denies a snoring history. She reports anxiety that is controlled off medications and without therapy. She has lost about 30 pounds over the last year but is no longer losing weight. She has had some blood in her stools and had a colonoscopy a number of years ago that was unremarkable per her report. She lives with her 3 children and has 3 additional children outside of the home. Her children range in age of 11-30. She lives with her fianc?? as well. She has been on disability since 2000. She denies any ongoing alcohol or drug use. She consumes 10 cigarettes a day. She lives in [place] and is originally from [place], [place]. Her 11-year-old daughter has JRA and is doing well and ibuprofen.Methotrexate has been considered and not yet employed. Denies a family history of autoimmune diseaseotherwise. She has had a number of surgeries including a total of 19 surgeries over the last 12 years. This has included 6 C- sections, hysterectomy, bladder surgery, shoulder surgery for rotator cuff tear and bone spurs, carpal tunnel surgery of the wrists right elbow surgery for ulnar nerve entrapment and 2 prior neck surgeries. Patient Active Problem List Diagnosis ??? Lupus erythematosus tumidus ??? Multiple joint pain No past medical history on file. No past surgical history on file. Outpatient Encounter Prescriptions as of 08/04/2017 Medication Sig Note Dispense Refill ??? Acetaminophen (TYLENOL OR) Take 200 mg by mouth daily. ??? albuterol 2.5 mg/3 mL, 0.083%, (PROVENTIL) nebulizer solution 2.5 mg by Nebulization route 4 times a day. ??? aspirin 81 MG chewable tablet Take 81 mg by mouth daily. ??? azaTHIOprine (IMURAN) 50 MG tablet Take 100 mg by mouth daily. ??? calcium carbonate-vitamin D (OS-BLADIMIR 500 WITH D) 500-200 MG-UNIT per tablet Take 1 Tab by mouth three times a day. ??? clobetasol (TEMOVATE) 0.05 % cream Apply 15 g topically two times a day. ??? Clopidogrel Bisulfate (PLAVIX OR) Take 25 mg by mouth daily. ??? clotrimazole (MYCELEX) 10 MG lozenge Take 10 mg by mouth daily. Dissolve slowly in mouth ??? cyclobenzaprine (FLEXERIL) 10 MG tablet Take 5 mg by mouth every 6 hours. ??? dexamethasone 0.5 MG/5ML solution Take 0.5 mg by mouth two times a day. ??? Dexlansoprazole 60 MG Take 60 mg by mouth daily. 08/04/2017: Received from: [facility] Sig: Take 60 mg by mouth daily ??? diltiaZEM CR (DILACOR XR) 120 MG 24 hour release capsule Take 120 mg by mouth daily. ??? diphenhydrAMINE (BENADRYL) 25 MG tablet Take 25 mg by mouth daily. ??? docusate sodium (COLACE) 100 MG capsule Take 100 mg by mouth daily. ??? hydroxychloroquine (PLAQUENIL) 200 MG tablet Take 200 mg by mouth two times a day. ??? HYPROMELLOSE OP Place 1 Drop into both eyes as needed. ??? nitroglycerin (NITROSTAT) 0.[address] 0.4 mg under tongue every 5 minutes as needed for Chest Pain. If no relief after 5 min call 911;continue 1 tab every 5 min max 3 tab ??? olopatadine HCl 0.2 % eye drop solution Place 1 Drop into both eyes two times a day. ??? oxyCODONE (OXYCONTIN) 40 MG 12 hour tablet Take 40 mg by mouth every 12 hours. ??? oxyCODONE (ROXICODONE) 15 MG immediate release tablet Take 15 mg by mouth 4 times a day. ??? pravastatin (PRAVACHOL) 40 MG tablet Take 40 mg by mouth daily at bedtime. ??? triamcinolone acetonide (KENALOG) 0.1 % cream Apply topically two times a day. ??? [DISCONTINUED] acetaminophen (TYLENOL) 500 MG tablet Take 500-1,000 mg by mouth every 6 hours asneeded for Pain. Maximum acetaminophen dose is 4000 mg in 24 hours ??? [DISCONTINUED] clopidogrel (PLAVIX) 75 MG tablet Take 75 mg by mouth daily. ??? [DISCONTINUED] Dexlansoprazole 60 MG Take 60 mg by mouth daily. ??? [DISCONTINUED] drug not in computer Nicotine inhaler 10 mg Q4H No facility-administered encounter medications on file as of 08/04/2017. Allergies Allergen Reactions ??? Adhesive Other, see comments Tears skin ??? Other Band aids History Alcohol use Not on file History Smoking Status ??? Current Every Day Smoker ??? Types: Cigarettes Smokeless Tobacco ??? Never Used ROS: Comprehensive review of systems form filled out by the patient for today's visit was reviewed, sent to [facility], and is as noted above and/or notable for: EXAM There were no vitals taken for this visit. General: NAD Eyes: Externally clear Mouth: Moist mucus membranes, no ulcers Lymph: No cervical or groin adenopathy was noted Chest: CTA Heart: RRR, no M/R/G Abdomen: BS present, soft, non-tender, no palpable HSM Musculoskeletal: All 4 limbs were examined. The joint exam was negative for synovitis, deformity, tenderness, deformity with the exception of: She has 10 positive fibromyalgia tender points. She has diffuse tenderness to palpation about the trapezius and bilateral shoulders in a nonspecific pattern. She has reduced abduction of the right shoulder to 90?? and full range of motion of the left shoulder. She endorses joint line tenderness about the MCP and PIP joints of her hands and MTP joints of her feet. No appreciable synovitis at these sites. Remainder of complete musculoskeletal exam performed and without appreciable synovitis, tenderness to palpation or reduced range of motion. Neurologic: Sensation and strength grossly intact throughout Cutaneous: no rashes Psych: affect normal Pain score & Rapid 3 score: see flow sheet if these were completed. Lab: No results found for: WBC, WBCCR, RBC, HGB, HCT, HCTWB, MCV, RDW, PLTS No results found for: AST No results found for: CREATININE Reviewed outside labs: 07/20/17: WBC 7.5, hemoglobin 14.9 and platelet count 253. From September 2016: ALT of 22, AST of 16, creatinine 0.73, normal lupus anticoagulant and in a cardiolipin antibodies. IgG of 682 (low) and IgM of 30 (low). C3 of 128, C4 34 & negative COLT. Negative double-stranded DNA. Imaging: None relevant for review. Assessment/Plan: 1. Chronic pain, on oxycodone and OxyContin for the last several years at stable doses through primary care 2. Features of fibromyalgia associated with above 3. Mixed inflammatory features associated with above including intermittent swelling of the hand PIPjoints and ongoing pain at hand MCP/PIP and feet MTP joints today without synovitis 4. History of lupus erythematosus tumidus not completely controlled on hydroxychloroquine since September 2016, albeit improved, Awaiting dermatology follow-up on 08/09/17 5. Sicca symptoms 6. Anxiety, controlled per patient 7. Chronic headaches 8. Chronic poor sleep 9. 30 pound weight loss over the last year with current weight stability 10. History of lichen planus resulting in recurring oral ulcers 11. Episodic low-grade fevers associated with flares of #1, 4 and 10. 12. History of IgG deficiency monitored with yearly IgG evaluations, no prior treatment with IVIG At today's visit with Kd, we discussed the need to further evaluate the question of systemic lupus erythematosus in the setting of her prior diagnosis of LET. We discussed that the majority of patients with LET do not develop systemic lupus erythematosus. She has had prior evaluations in this regard that has been unrevealing including repeat COLT and double-stranded DNA's in years prior. She has remained without other evidence of endorgan involvement. One questions if her history of heart disease requiring stent placement may have been related. She does have risk factors for CAD including smokingand hyperlipidemia. However, she was told by [facility] that her heart disease was unrelated to these conditions. She also has evidence of chronic pain and increased pain centralization, possibly related to ongoingnarcotic use. She has diffuse fibromyalgia tender points as well as generalized tenderness to palpation in multiple areas on exam today. Further discussions regarding fibromyalgia would be warranted ather next visit depending on her pending evaluations. As this is a diagnosis of exclusion and given our discussions regarding the above, we will further evaluate with labs today. This will include repeat COLT, double-stranded DNA, TADEO, C3, C4, rheumatoid factor, CCP, HLA-B27, ESR, CRP, vitamin D, TSH, hepatitis B/C screens and Lyme testing. Also update CBC, creatinine and ALT. Given predominance symptoms of her hand with intermittent swelling per her report of the PIP joints, we will obtain a right hand MRI to further evaluate. We will plan to review these results extensively at our follow-up visitin the coming week, earlier as dictated. We will determine further pain recommendations based on findings therein. She will follow-up with dermatology as scheduled on August 09. We discussed the possibility that Imuran may still be indicated for control of her LET. While hydroxychloroquine has been beneficial, it has provided incomplete relief for her skin involvement throughout the last year. We also discussedthe need to consider Imuran for the sake of SLE and possibly related arthritis depending on pending evaluations (as was proposed by her outside vamp presser, Dr. Darnell Tompkins of [facility]. She was understanding of this approach and comfortable with the plan. Return to clinic in one week, earlier as needed. Total time 60 minutes with over 31 minutes spent in patient education and counseling. Thank you for involving me in the care of your patient. I will continue to follow. Please do not hesitate to contact my office with any questions. This note created with voice recognition software and may contain typographical errors. documented in this encounter Plan of Treatment Not on filedocumented as of this encounter Results MR Hand Rt W/WO [...] zelaya nd. Deepti Hannah MD RAD MRI [facility] - Hepatitis C Virus Mami with Reflex In-House (08/04/2017 10:23 AM CDT) [facility] Method Time Signature Hepatitis C Nonreactive Nonreactive PN SOFT Antibody Specimen Anatomical Collection Method Collection Time Receive d Time (Source) Location / / Volume Laterality 08/04/2017 10:23 08/04/2017 AM CDT 12:18 PM CDT Narrative PN SOFT - 08/04/2017 1:18 PM CDT Performed at [address] [address] CLIA number [id number] Deepti Hannah MD LAB_1 Performing Organization Address [facility] Phon e Number PN SOFT [address] [place] [address] HBAG - Hepatitis B Surf Ag (08/04/2017 10:23 AM CDT) [facility] Method Time Signature Hep B Surf Ag Nonreactive Nonreactive PN SOFT Specimen Anatomical Collection Method Collection Time Receive d Time (Source) Location / / Volume Laterality 08/04/2017 10:23 08/04/2017 4:02 AM CDT PM CDT Narrative PN SOFT - 08/04/2017 5:02 PM CDT Performed at [address] [address] CLIA number [id number] Deepti Hannah MD LAB_1 Performing Organization Address [facility] Phon e Number PN SOFT [address] [place] [address] Lyme Antibody, and Western Blot If Needed) (08/04/2017 10:23 AM CDT) [facility] Method Time Signature Lyme Negative Negative PN [...] - 08/05/2017 9:41 AM CDT Performed at [address] [place] [address] CLIA number [id number] Deepti Hannah MD LAB_1 Performing Organization Address City/[facility]/ZIP Code Phon e Number PN SOFT [address] [place] [address] HLA B27 (08/04/2017 10:23 AM CDT) athologist Signature HLA B27 Negative Negative PN SOFT Comment: CLIA Number [id number] HLA B27 Interpretation SEE BELOW PN SOFT Comment: This test was developed and the performa nce characteristics were determined by [facility]. It has not been cleared or a pproved by the U.S. Food and Drug Administration. T he FDA has determined that such clearance or approv al is not necessary. Performed at [facility] , [address] [place] [address] CLIA Number [id number] Specimen Anatomical Collection Method Collection Time Receive d Time (Source) Location / / Volume Laterality 08/04/2017 10:23 08/04/2017 AM CDT 12:03 PM CDT Deepti Hannah MD LAB_1 Performing Organization Address City/[facility] Code Phon e Number PN SOFT [address] [place] [address] RHF - Rheumatoid Factor (08/04/2017 10:23 AM CDT) athologist Signature Rheumatoid <15 0 - 30 PN SOFT Factor IU/mL Specimen Anatomical Collection Method Collection Time Receive d Time (Source) Location / / Volume Laterality 08/04/2017 10:23 08/04/2017 4:02 AM CDT PM CDT Narrative PN SOFT - 08/04/2017 5:09 PM CDT Performed at [facility], [address] [place] [address] CLIA number [id number] Deepti Hannah MD LAB_1 Performing Organization Address City/[facility]/ZIP Code Phon e Number PN SOFT [address] [place] [address] CCPIG - Cyclic Citrullinated Peptide AB (08/04/2017 10:23 AM CDT) Analysis Performed At Patho logist Time Signature CYCLIC 0.7 0.0 - 7.0 PN SOFT CITRULLINATED IU/mL PEPTIDEAB Comment: Reference Range: <7 Negative, 7 - 10 Equivocal, >10 Posit goldie Specimen Anatomical Collection Method Collection Time Receive d Time (Source) Location / / Volume Laterality 08/04/2017 10:23 08/04/2017 3:59 AM CDT PM CDT Narrative PN SOFT - 2017 2:15 PM CDT Performed at [facility], [address] [place] [address] CLIA number [id number] Deepti Hannah MD LAB_1 Performing Organization Address City/State/ZIP Code Phon e Number PN SOFT [address] [place] [address] [phone] Extractable Nuclear Antigen Antibodies (08/04/2017 10:23 AM CDT) P athologist Signature TADEO To BROTH SETTER 0 0 - 40 PN SOFT Antibody AU/mL Comment: INTERPRETIVE INFORMATION: Ribonucleic Pr otein (TADEO)Antibody, IgG ??29 AU/mL or Less ............. Negati ve ??30 - 40 AU/mL ................ Equivo bladimir ??41 AU/mL or Greater .......... Positi ve BROTH SETTER antibody is seen in 95-100 percent o f mixed connective tissue disease and is considered specifi c for this syndrome if other antibodies are negative; BROTH SETTER is also present in 20-30 percent of systemic lupus erythema tosus and 15-25 percent of progressive systemic sclerosi s. BROTH SETTER antigens also contain epitopes that are immunolog ically identical to free Burgess antigens, therefore, the Saeid h antibody response must be considered when interpreting BROTH SETTER results. Performed by [facility], [address] [place] [address] [email or web address], Elliott Rosario MD - Lab . Director [...] ??41 AU/mL or Greater .......... Positi ve TDAEO To SSB ([place]) Antibody 0 0 - [...] - 08/06/2017 7:39 AM CDT Performed at [facility] [address] [place] [address] CLIA number [id number] Deepti Hannah MD LAB_1 Performing Organization Address City/[facility] Phon e Number PN SOFT [address] [place] [address] DNA - Anti-dsDNA Antibody (08/04/2017 10:23 AM CDT) athologist Signature Anti-DNA Ab see below Negative PN SOFT Comment: <1:10 Negative Specimen Anatomical Collection Method Collection Time Receive d Time (Source) Location / / Volume Laterality 08/04/2017 10:23 08/04/2017 3:58 AM CDT PM CDT Narrative PN SOFT - 08/08/2017 12:55 PM CDT Performed at [address] [address] CLIA number [id number] Deepti Hannah MD LAB_1 Performing Organization Address [facility] Phon e Number PN SOFT [address] [place] [address] COLT - Antinuclear Antibody (08/04/2017 10:23 AM CDT) athologist Signature Anti-Nuclear Negative Negative PN SOFT Ab Specimen Anatomical Collection Method Collection Time Receive d Time (Source) Location / / Volume Laterality 08/04/2017 10:23 08/04/2017 3:58 AM CDT PM CDT Narrative PN SOFT - 08/08/2017 10:53 AM CDT Performed at [address] [address] CLIA number [id number] Deepti Hannah MD LAB_1 Performing Organization Address [facility] Phon e Number PN SOFT [address] [place] [address] C4 - C4 Complement (08/04/2017 10:23 AM CDT) P athologist Signature C4 Complement 39 15 - 57 PN SOFT mg/dL Specimen Anatomical Collection Method Collection Time Receive d Time (Source) Location / / Volume Laterality 08/04/2017 10:23 08/04/2017 AM CDT 12:18 PM CDT Narrative PN SOFT - 08/04/2017 12:58 PM CDT Performed at [address] [address] CLIA number [id number] Deepti Hannah MD LAB_1 Performing Organization Address [facility] Phon e Number PN SOFT [address] [place] [address] C3 - C3 Complement (08/04/2017 10:23 AM CDT) athologist Signature C3 Complement 141 83 - 193 PN SOFT mg/dL Specimen Anatomical Collection Method Collection Time Receive d Time (Source) Location / / Volume Laterality 08/04/2017 10:23 08/04/2017 AM CDT 12:18 PM CDT Narrative PN SOFT - 08/04/2017 12:58 PM CDT Performed at [facility], [address] [place] [address] CLIA number [id number] Deepti Hannah MD LAB_1 Performing Organization Address [facility] Phon e Number PN SOFT [address] [place] [address] ESR - Sedimentation Rate (08/04/2017 10:23 AM CDT) Analysis Performed At [facility] Time Signature Sedimentation Rate 16 0 - 20 PN SOFT mm/hr Specimen Anatomical Collection Method Collection Time Receive d Time (Source) Location / / Volume Laterality 08/04/2017 10:23 08/04/2017 AM CDT 10:23 AM CDT Narrative PN SOFT - 08/04/2017 11:22 AM CDT Performed at [facility], [address] [place] [address] CLIA number [id number] Deepti Hannah MD LAB_1 Performing Organization Address [facility] Phon e Number PN SOFT [address] [place] [address] CRP - C Reactive Protein (08/04/2017 10:23 AM CDT) athologist Signature CRP <0.5 0.0 - 0.5 PN SOFT mg/dL Specimen Anatomical Collection Method Collection Time Receive d Time (Source) Location / / Volume Laterality 08/04/2017 10:23 08/04/2017 AM CDT 10:23 AM CDT Narrative PN SOFT - 08/04/2017 11:01 AM CDT Performed at [facility], [address] [place] [address] CLIA number [id number] Deepti Hannah MD LAB_1 Performing Organization Address City/[facility] Phon e Number PN SOFT [address] [place] [address] CBC - Complete Blood Count W/Diff (08/04/2017 [...] - 08/04/2017 10:27 AM CDT Performed at [facility], [address] [place] [address] CLIA number [id number] Deepti Hannah MD LAB_1 Performing Organization Address [facility] Phon e Number PN SOFT [address] [place] [address] VITD - Vitamin D (In house) (08/04/2017 [...] - 08/04/2017 5:18 PM CDT Performed at [address] [address] CLIA number [id number] Deepti Hannah MD LAB_1 Performing Organization Address [facility] Phon e Number PN SOFT [address] [place] [address] TSH with Free T4 (if TSH Abnormal) (08/04/2017 10:23 AM CDT) athologist Signature Thyroid 2.34 0.30 - PN SOFT Stimulating 4.50 Hormone uIU/mL Specimen Anatomical Collection Method Collection Time Receive d Time (Source) Location / / Volume Laterality 08/04/2017 10:23 08/04/2017 AM CDT 12:18 PM CDT Narrative PN SOFT - 08/04/2017 1:16 PM CDT Performed at [address] [address] CLIA number [id number] Deepti Hannah MD LAB_1 Performing Organization Address [facility] Phon e Number PN SOFT [address] [place] [address] ALT - Alanine Aminotransferase (08/04/2017 10:23 AM CDT) [facility] Signature Alanine 13 9 - 55 PN SOFT Aminotransferase U/L Specimen Anatomical Collection Method Collection Time Receive d Time (Source) Location / / Volume Laterality 08/04/2017 10:23 08/04/2017 AM CDT 10:23 AM CDT Narrative PN SOFT - 08/04/2017 11:01 AM CDT Performed at [facility], [address] [place] [address] CLIA number [id number] Deepti Hannah MD LAB_1 Performing Organization Address City/[facility] Phon e Number PN SOFT [address] [place] [address] CREAT - Creatinine (08/04/2017 10:23 AM CDT) [...] - 08/04/2017 11:01 AM CDT Performed at [facility], [facility] [address] [place] [address] CLIA number [id number] Deepti Hannah MD LAB_1 Performing Organization Address City/[facility] Phon e Number PN SOFT [address] [place] [address] documented in this encounter Visit Diagnoses Diagnosis Lupus erythematosus tumidus - Primary Lupus erythematosus Multiple joint pain Pain in joint, multiple sites Screening for condition Screening for unspecified condition Lupus erythematosus tumidus Lupus erythematosus Multiple joint pain Pain in joint, multiple sites Lupus erythematosus tumidus Lupus erythematosus Multiple joint pain Pain in joint, multiple sites documented in this encounter Care Teams Structural Fitter Relationship Specialty Start Date End Date Afia Rousseau MD PCP - General Internal Medicine 07/20/171999 [address] [place] [place] [id number] documented as of this encounter
--- OUTSIDE RECORDS SUMMARY | 2022-06-29 05:24 | XMS_ITS | Encounter Summary ---
:1965 Author Organization [facility] Address [address] [place] [address] Care Team Providers Name Role Phone Unavailable Primary Care Provider Unavailable Reason for Visit Reason Comments Concerns Encounter Details Date Type Department Care Team Description 02/10/1999 Telephone Careline Ema Harris Concerns [address] [place], [place] [address] [phone] [facility], [address] Social History Tobacco Use Types Packs/Day Years Used Date Smoking Tobacco: Never Assessed Sex Assigned at Date Recorded Not on file documented as of this encounter Nursing Notes 02/10/1999 11:59 PM MEDICAL CLAIMS PROCESSOR >> CALL RECEIVED. Contact: >> EMA HARRIS 02/10/1999 05:53 pm Pt calling about herself. States EDC 7-4-99, 25 weeks, 8 para 3, no vag bleeding, has movements, no Rom, has had tightenings for 1 week and her provider is aware of that, Is n0t having four or more tightenings in an hr. Is not on any meds for the tightenings. Is calling to inquire about a 3 hr gtt. States she had a 1 hr pc glucose test lat week and it was elevated, she does not know the lab value. Is wondering what will happen a the clinic tomorrw, she will have a drink, of a sugarary substance, after fasting for 12 hrs and she will have blood work drawn at 1 hr , 2 hrs and at 3 hrs. If the lab value is up her primary care provider will decide on the best plan of care for her.States she did have an amino because her alpha-fetoprotein was low, everything at that time was normal for the baby. rtc is any questions or concerns. documented in this encounter Plan of Treatment Not on filedocumented as of this encounter Visit Diagnoses Not on filedocumented in this encounter
--- OUTSIDE RECORDS SUMMARY | 2022-08-02 07:43 | XMS_ITS | Encounter Summary ---
:1965 Author Organization [facility] Address [address] [place] [address] Care Team Providers Name Role Phone Unavailable [...] or relatives? How often do you attend episcopalian or 1 to 4 times per year 05/2020 samaritan services? Do you belong to any clubs or No 10/26/2020 organizations such as episcopalian groups, unions, fraternal or athletic groups, or [...]
--- OUTSIDE RECORDS SUMMARY | 2022-08-02 07:43 | XMS_ITS | Encounter Summary ---
:1965 Author Organization [facility] Address [address] [place] [address] Care Team Providers Name Role Phone Unavailable Primary Care Provider Unavailable Encounter Details Date Type Department Care Team Description 06/28/2011 Hospital Encounter HX NO MAPPING Tracie Raman [address] [place], [place] [phone] Social History Tobacco Use Types Packs/Day Years [...] or relatives? How often do you attend congregational or 1 to 4 times per year 05/2020 religion services? Do you belong to any clubs or No 10/26/2020 organizations such as congregational groups, unions, fraternal or athletic groups, or [...]
--- OUTSIDE RECORDS SUMMARY | 2022-08-02 07:43 | XMS_ITS | Encounter Summary ---
:1965 Author Organization [facility] Address [address] [place] [address] Care Team Providers Name Role Phone Unavailable [...]
--- OUTSIDE RECORDS SUMMARY | 2022-08-02 07:43 | XMS_ITS | Clinical Summary ---
:1965 Author Organization [facility] Address [address] [place] [address] Care Team Providers Name Role Phone Unavailable Primary Care Provider Unavailable Source Comments Patient records contain information from all sites at [facility]. For routine questions regarding patient records, call [phone] during business hours, M-F 8:00 AM - 5:00 PM Central Time. Record requests for emergency care only can be directed to [phone] at any time.[facility] Allergies Active Allergy Reactions Severity Noted Date [...] or relatives? How often do you attend restoration or 1 to 4 times per year 05/2020 mandaen services? Do you belong to any clubs or No 10/26/2020 organizations such as restoration groups, unions, fraternal or athletic groups, or [...] Agreement Controlled Substance 1965 Monitoring FIT 1965 Generalized Anxiety (OSIEL-7) 1967 HIV Screening 1965 Hepatitis B Vaccines (1 of 1967 3 - 3-dose series) Hepatitis C Screening 1967 Lipid (Cholesterol) 1967 Screening Mammogram 1965 Office Visit for Blood 1967 [...] this topic Medical Devices Implanted Type Area Medical Office Assistant Instructor Device Shelf Model / Identifier Expiration Serial / Date Lot Seprafilm 5 X 6 - Trevizo [id number] Mesh or Genzyme Implanted: Qty: 2 on 06/01/2006 [employer] Description: Device Medical Office Assistant Instructor - [employer] If You Can [place].. Device Status Text - [id number]. Seprafilm 3x 5 (Procedure Pack) - Trevizo [id number] Mesh or Patch [employer] Implanted: Qty: 1 on 06/14/2007 Description: Device Medical Office Assistant Instructor - Genzy If You Can Alisia.. Device Status Text - [id number]. Stent Uret Dbl. J 6 X 26 - Trevizo [id number] Ureteral Stent Ot her/Legacy - See Implant Implanted: Qty: 2 on 01/26/2006 Description Description: Device Medical Office Assistant Instructor - Circo n Surgi. Device Status Text - [id number]. Insurance Payer Benefit Plan / Subscriber ID Effective Phone Address T ype Group Dates MEDICARE MEDICARE A AND B [id number] 2003-Pres [address] [place] [address] MEDICA MEDICA [id number] 2019-Pres [phone] [address] Medica id HMO ACCESSABILITY ent [phone] [place] [address]
--- OUTSIDE RECORDS SUMMARY | 2022-08-02 07:43 | XMS_ITS | Encounter Summary ---
:1965 Author Organization [facility] Address [address] [place] [address] Care Team Providers Name Role Phone Unavailable Primary Care Provider Unavailable Encounter Details Date Type Department Care Team Description 06/14/2007 - Hospital Encounter HX RST UNIT 5-4 06/28/2007 GYNECOLOGY Social History Tobacco Use Types Packs/Day [...] or relatives? How often do you attend taoist or 1 to 4 times per year 05/2020 roman catholic services? Do you belong to any clubs or No 10/26/2020 organizations such as taoist groups, unions, fraternal or athletic groups, or [...] Date/Time Associated Diagnosis Comme nts DX ABDOMEN 1 VIEW Routine 06/22/2007 10:06 AM Res ults for this CDT procedure are i n the results section. DX ABDOMEN SUPINE Routine 06/20/2007 8:04 PM Resu lts for this WITH UPRIGHT OR CDT procedure ar e in DECUBITUS 2 VIEWS the result s section. DX ABDOMEN 1 VIEW Routine 06/14/2007 4:36 PM Resu lts for this CDT procedure are i n the results section. HXGENERAL PATHOLOGY Routine 06/14/2007 1:52 PM Re sults for this REPORT CDT procedure are i n the results section. documented in this encounter Results DX Abdomen 1 View (06/22/2007 10:06 AM CDT) Anatomical Region Laterality Modality Abdomen N/A Radiographic Imaging Specimen (Source) Anatomical Collection Method Collection Time Re ceived Time Location / / Volume Laterality 06/22/2007 10:06 AM CDT Narrative 06/22/2007 10:27 AM CDT 22-Jun-2007 10:06:00 ??Exam: Abdomen Indications: nausea post op ORIGINAL REPORT - 22-Jun-2007 10:27:00 Since 06/20/07, the moderate dilatation of multiple loops of small bowel has decreased. Fibrosis in the lung bases, greater on the right. Calcified splenic granulomas. Electronically signed by: ?? Dave Cervantes MD. ?? [id number] 22-Jun-2007 1 0:27 Procedure Note Stacey Cervantes M.D. - 02/19/2018Forma tting of this note might be different from the original. 22-Jun-2007 10:06:00 Exam: Abdomen Indications: nausea post op ORIGINAL REPORT - 22-Jun-2007 10:27:00 Since 06/20/07, the moderate dilatation of multiple loops of small bowel has decreased. Fibrosis in the lung bases, greater on the right. Calcified splenic granulomas. Electronically signed by: Dave Cervantes MD. [id number] 22-Jun-2007 10:2 7 Ad Chilel M.D. IMG DIAGNOSTIC IMAGING PROCE DURES DX Abdomen Supine with Upright or Decubitus 2 Views (06/20/2007 8:04 PM CDT) Anatomical Region Laterality Modality Abdomen Right Radiographic Imaging Specimen (Source) Anatomical Collection Method Collection Time Re ceived Time Location / / Volume Laterality 06/20/2007 8:04 PM CDT Narrative 06/21/2007 1:59 PM CDT 20-Jun-2007 20:04:00 ??Exam: Abdomen w/Upright or Decubitus Indications: Nausea POst-OP. R/O free ai r ORIGINAL REPORT - 20-Jun-2007 22:03:00 Abdomen w/Upright or Decubitus Four views of the abdomen ?? Since 06/14/2007, there has been developm ent of several mildly dilated loops of small bowel with associated air-fluid levels. No gas identified within the colon. Findings most consistent with a small bow el obstruction. No free air. Recommend i nterval followup films. . Interval removal of pelvic surgical drain. Linear atelectasis right lung base Electronically signed by: ?? Brigitte Waller [phone] ([id number]) 20-Jun-20 07 22:03 I have reviewed the films/images and agr ee with the above interpretation. Electronically signed by: ?? Caitlyn Leung MD [phone] 21-Jun-2007 13 :59 Procedure Note Caitlyn Leung M.D. - 02/19/2018Forma tting of this note might be different from the original. 20-Jun-2007 20:04:00 Exam: Abdomen w/Upr ight or Decubitus Indications: Nausea POst-OP. R/O free ai r ORIGINAL REPORT - 20-Jun-2007 22:03:00 Abdomen w/Upright or Decubitus Four views of the abdomen Since 06/14/2007, there has been developm ent of several mildly dilated loops of small bowel with associated air-fluid levels. No gas identified within the colon. Findings most consistent with a small bowel obstruction. No free air. Recommend interval followup films. . Interval removal of pelvic surgical drain. Linear atelectasis right lung base Electronically signed by: Brigitte Waller [phone] ([id number]) 20-Jun-20 07 22:03 I have reviewed the films/images and agr ee with the above interpretation. Electronically signed by: Caitlyn Leung MD [id number] 21-Jun-2007 13 :59 Ad Chilel M.D. [facility] DIAGNOSTIC IMAGING PROCE DURES DX Abdomen 1 View (06/14/2007 4:36 PM CDT) Anatomical Region Laterality Modality Abdomen N/A Radiographic Imaging Specimen (Source) Anatomical Collection Method Collection Time Re ceived Time Location / / Volume Laterality 06/14/2007 4:36 PM CDT Narrative 06/14/2007 5:38 PM CDT 14-Jun-2007 16:36:00 ??Exam: Post OP Abdomen Indications: Exploratory laparotomy, rem oval of masses, adnexal masses ORIGINAL REPORT - 14-Jun-2007 17:08:00 Post OP Abdomen Two views of the abdomen are negative fo r postoperative purposes. Surgical drain overlies the pelvis. Visualized lung bases are clear. Electronically signed by: ?? Ronak Soto [phone] ([id number]) 14-Jun-20 07 17:08 I have reviewed the films/images and agr ee with the above interpretation. Electronically signed by: ?? Peter GRIFFITHS [phone] ([id number]) 14-Jun-20 07 17:38 Procedure Note Chandrakant Alatorre M.D. - 02/19/2018For matting of this note might be different from the original. 14-Jun-2007 16:36:00 Exam: Post OP Abdom en Indications: Exploratory laparotomy, rem oval of masses, adnexal masses ORIGINAL REPORT - 14-Jun-2007 17:08:00 Post OP Abdomen Two views of the abdomen are negative fo r postoperative purposes. Surgical drain overlies the pelvis. Visualized lung bases are clear. Electronically signed by: Ronak Soto [phone] ([id number]) 14-Jun-20 17:08 I have reviewed the films/images and agr ee with the above interpretation. Electronically signed by: Peter GRIFFITHS [phone] ([id number]) 14-Jun-20 17:38 Dk Figueroa M.D. IMG DIAGNOSTIC IMAGING PROCE [place] Sales general Pathology Report (06/14/2007 1:52 PM CDT) Specimen Anatomical Collection Method Collection Time Receive d Time (Source) Location / / Volume Laterality 06/14/2007 1:52 PM 7 1:52 CDT PM CDT Narrative [facility] - 06/14/2007 1:52 PM CDT ?06/14/2007 Surgical Pathology ?([id number]) ? Requested By: ??Dk Figueroa M.D. ??[phone] ? TISSUE DESCRIPTION: [id number] A1 A2 A3 A4 A5 A6 B1 B2 C1 D1 D2 E1 F1 ?? Left ovary (4.0 x 3.6 x 3.0 cm) with 1. 8 cm segment of left fallopian tube with peritoneal inclusio n cyst together weighing 40.0 grams, tissue from the right ovary (1.8 x 1.6 x 1.3 cm), tissue from the left pelvic peritoneum (1.6 x 0.9 x 0.3 cm), tissue from the right pelvic inclusion cyst wall (3.0 x 2.0 x 0.8 cm), tissue from the umbilical region (7.0 x 6.5 x 0.4 c m), and appendix (7.5 x 0.6 cm). ?DIAGNOSIS: ?? Left ovary, left fallopian tube, and pe ritoneal inclusion cyst; excision: ??The peritoneum shows benign mesothelial-lined fibrous tissue. ??A simple cyst (3.0 x 2.3 x 2. 3 cm) is identified in the left ovary. ??The left fallopian tube s how a hydrosalpinx. ?? Ovary, right, cystectomy: ??Benign infl jaguar mesothelial cyst (1.8 x 1.6 x 1.3 cm). ?? Soft tissue, left pelvic peritoneum, bi opsy: ??Negative for malignancy. ?? Soft tissue, right pelvic inclusion cys t wall, excision: ??Benign inflamed mesothelial cyst. ?? Soft tissue, umbilical region, excision : ??Fibrovascular adipose tissue consistent with hernia sac. ?? Appendix, appendectomy: ??No diagnostic abnormalities. ? 06/14/2007 ??Terry Hagan M.D., PhD. [phone] ? Procedure Note 02/10/2018 06/14/2007 Surgical Pathology ([id number]) Requested By: Dk Figueroa M.D. [phone] TISSUE DESCRIPTION: [id number] A1 A2 A3 A4 A5 A6 B1 B2 C1 D1 D2 E1 F1 Left ovary (4.0 x 3.6 x 3.0 cm) with 1. 8 cm segment of left fallopian tube with peritoneal inclusio n cyst together weighing 40.0 grams, tissue from the right ovary (1.8 x 1.6 x 1.3 cm), tissue from the left pelvic peritoneum (1.6 x 0.9 x 0.3 cm), tissue from the right pelvic inclusion cyst wall (3.0 x 2.0 x 0.8 cm), tissue from the umbilical region (7.0 x 6.5 x 0.4 c m), and appendix (7.5 x 0.6 cm). DIAGNOSIS: Left ovary, left fallopian tube, and pe ritoneal inclusion cyst; excision: The peritoneum shows benign m esothelial-lined fibrous tissue. A simple cyst (3.0 x 2.3 x 2.3 cm) is identified in the left ovary. The left fallopian tube april w a hydrosalpinx. Ovary, right, cystectomy: Benign inflam ed mesothelial cyst (1.8 x 1.6 x 1.3 cm). Soft tissue, left pelvic peritoneum, bi opsy: Negative for malignancy. Soft tissue, right pelvic inclusion cys t wall, excision: Benign inflamed mesothelial cyst. Soft tissue, umbilical region, excision : Fibrovascular adipose tissue consistent with hernia sac. Appendix, appendectomy: No diagnostic a bnormalities. 06/14/2007 Terry Hagan M.D., PhD. [phone] Dk Figueroa M.D. LAB PATHOLOGY/CYTOLOGY ORDER MARGOT Performing Organization Address City/State/ZIP Code Phon e Number [facility] - [address] [place], [place] [address] [facility] documented in this encounter Visit Diagnoses Not on filedocumented in this encounter
--- OUTSIDE RECORDS SUMMARY | 2022-08-02 07:43 | XMS_ITS | Encounter Summary ---
:1965 Author Organization [facility] Address [address] [place] [address] Care Team Providers Name Role Phone Unavailable Primary Care Provider Unavailable Encounter Details Date Type Department Care Team Description 09/23/2008 Hospital Encounter HX NO MAPPING Casandra Dinh M.D. [address] [place] [address] , [address] [place] [address] (Wo rk) Social History Tobacco Use Types [...] or relatives? How often do you attend hinduism or 1 to 4 times per year 05/2020 taoist services? Do you belong to any clubs or No 10/26/2020 organizations such as hinduism groups, unions, fraternal or athletic groups, or [...] ts for this JOINTS 3+ VIEWS PM BUSINESS DEVELOPMENT DIRECTOR procedure ar e in the results section. DX CLAVICLE RIGHT 2 Routine 09/23/2008 2:07 Resul ts for this VIEWS PM BUSINESS DEVELOPMENT DIRECTOR procedure are i n the results section. DX CLAVICLE LEFT 2 VIEWS Routine 09/23/2008 2:07 Results for this PM BUSINESS DEVELOPMENT DIRECTOR procedure are i n the results section. documented in this encounter Results DX Sternoclavicular Joints 3+ Views (09/23/2008 2:37 PM BUSINESS DEVELOPMENT DIRECTOR) Anatomical Region Laterality Modality Chest, Clavicle N/A Radiographic Imaging Specimen (Source) Anatomical Collection Method Collection Time Re ceived Time Location / / Volume Laterality 09/23/2008 2:37 PM BUSINESS DEVELOPMENT DIRECTOR Narrative 09/23/2008 2:37 PM BUSINESS DEVELOPMENT DIRECTOR Originally Signed By UNKNOWN, PERSONNEL Reason for [...] Clavicle Left 2 Views (09/23/2008 2:07 PM BUSINESS DEVELOPMENT DIRECTOR) Anatomical Region Laterality Modality Upper Extremity, Clavicle Left Radiographic I maging Specimen (Source) Anatomical Collection Method Collection Time Re ceived Time Location / / Volume Laterality 09/23/2008 2:07 PM BUSINESS DEVELOPMENT DIRECTOR Impressions 09/23/2008 2:07 PM BUSINESS DEVELOPMENT DIRECTOR Previous resection of the distal left clavicle, otherwise negative. Narrative 09/23/2008 2:07 PM BUSINESS DEVELOPMENT DIRECTOR Originally Signed By UNKNOWN, PERSONNEL Reason for [...] Clavicle Right 2 Views (09/23/2008 2:07 PM BUSINESS DEVELOPMENT DIRECTOR) Anatomical Region Laterality Modality Upper Extremity, Clavicle Right Radiographic I maging Specimen (Source) Anatomical Collection Method Collection Time Re ceived Time Location / / Volume Laterality 09/23/2008 2:07 PM BUSINESS DEVELOPMENT DIRECTOR Impressions 09/23/2008 2:07 PM BUSINESS DEVELOPMENT DIRECTOR Negative right clavicle. Narrative 09/23/2008 2:07 PM BUSINESS DEVELOPMENT DIRECTOR Originally Signed By UNKNOWN, PERSONNEL Reason for [...]
--- OUTSIDE RECORDS SUMMARY | 2022-08-02 07:43 | XMS_ITS | Encounter Summary ---
:1965 Author Organization [facility] Address [address] [place] [address] Care Team Providers Name Role Phone Unavailable Primary Care Provider Unavailable Reason for Visit Reason Comments Rash Appointment Request (Routine) - Closed Specialty Diagnoses / Procedures Referred By Contact Refer red To Contact Family Medicine Referral ID Status Reason Start Date Expiration Date Visits Requ ested Visits Authorized [id number] Closed 08/28/2020 08/28/2021 1 1 Encounter Details Date Type Department Care Team Description 10/26/2020 Office Visit Department [facility] Morgan [facility] [place] (Primary Dx) [place], [place] [address] [phone] Social History Tobacco Use Types Packs/Day Years [...] or relatives? How often do you attend shinto or 1 to 4 times per year 05/2020 synagogue services? Do you belong to any clubs or No 10/26/2020 organizations such as shinto groups, unions, fraternal or athletic groups, or [...] documented as of this encounter Consult Notes Moragn Méndez M.D. - 10/26/2020 4:15 PM CST SUBJECTIVE CHIEF COMPLAINT / REASON FOR VISIT Skin rash HISTORY OF PRESENT ILLNESS Polly Giron is a pleasant 55 y.o. female who presents today for an evaluation of a rash involving her nasal bridge. She has been previously seen by me at [facility] in February 2018. 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 In addition, all connective tissue serologies were negative. She was treated with 2.5% hydrocortisone ointment twice daily for one to two weeks at a time. Atthat time, she was also under the care of Dr. Tompkins a distribution supervisor in the [facility] who had puther on Plaquenil and recommended potential start of azathioprine, but she was reluctant to do so. I had also asked her to see Dr. Duval a distribution supervisor at [facility] but she was never seen by him. I had asked her to follow up with me in April 2018 in [place] but she never did follow up with me. Since her last visit with me in 2017, she states she has a history for mouth sores and a biopsy donefrom the oral cavity in the past was diagnosed as lichen planus. She is followed by an oral specialist Daisy Meléndez BDS, MS for the mouth sores at the [facility] and is currently being treated with dexamethasone swish and spit as needed and lidex gel and is also being followed by Dr. Tompkins at [facility]. Her current treatment as per Dr. Tompkins's order is is plaquenil 200 mg twice daily and methotrexate 20 mg injections once per week, which she has been on for five months perher history as we had difficulty finding notes from her local distribution supervisor. Today she presents today for a rash [...] will continue to follow up with her distribution supervisor Dr. Tompkins for ongoing systemic and joint issues and the oral specialist Daisy Meléndez BDS MS for her oral lichen planus, both of whom are in the [facility]. PATIENT EDUCATION: Ready to learn. [...] accurate and complete. Morgan Méndez M.D. 10/26. FIC COUNTER documented in this encounter Plan of Treatment Not on filedocumented as of this encounter Visit Diagnoses Diagnosis Lupus Erythematosus Tumidus - Primary documented in this encounter
--- OUTSIDE RECORDS SUMMARY | 2022-08-02 07:43 | XMS_ITS | Encounter Summary ---
:1965 Author Organization [facility] Address [address] [place] [address] Care Team Providers Name Role Phone Unavailable [...] 1 to 4 times per year 05/2020 yarsanism services? Do you belong to any clubs [...] that she see a neurologist. Saw the manager of financial reporting (Rema) again who put prism in her glasses but the bifocal seg isn't right so she's getting them redone. No outside eye records available to me. Reviewed the single neuro note of 01/[address] Hung which mentions multiple small lesions in the white matter. Spinal tap pending. Lyme and MUKESH were normal in [place]. IMPRESSION / REPORT / PLAN #1 Diplopia. [...] of glaucoma. CDM Reports - EYEGEN Id: [id number] Status: Fnl documented in this encounter Plan of Treatment Not on filedocumented as of this encounter Visit Diagnoses Not on filedocumented in this encounter
--- OUTSIDE RECORDS SUMMARY | 2022-08-02 07:43 | XMS_ITS | Encounter Summary ---
:1965 Author Organization [facility] Address [address] [place] [address] Care Team Providers Name Role Phone Unavailable Primary Care Provider Unavailable Encounter Details Date Type Department Care Team Description 06/08/2015 - Hospital Encounter HX [facility] Nusrat Rousseau 08/19/2015 STEPHANIE Steele M.D. [address] [place], [place] [phone] (Wo rk) Social History Tobacco Use Types [...] 1 to 4 times per year 05/2020 yazidi services? Do you belong to any clubs [...] DANUTA KOLB On: 07/08/2015 02:37 PM Source[facility] POWER[facility] Document Id: [id number] documented in this encounter Miscellaneous Notes Miscellaneous - Conversion, Historical Provider Srini - 06/08/2015 11:59 PM CDT Coding Summary-Paper Based CODING DATE: 06/15/[address] [facility] STATUS: * Discharged to Home or Self [...] GUERRERO Date Saved: 06/15/2015 02:05 pm Source: [facility] Document Id: [id number] documented in this encounter Plan of Treatment Not on filedocumented as of this encounter Visit Diagnoses Not on filedocumented in this encounter
--- OUTSIDE RECORDS SUMMARY | 2022-08-02 07:43 | XMS_ITS | Encounter Summary ---
:1965 Author Organization [facility] Address [address] [place] [address] Care Team Providers Name Role Phone Unavailable Primary Care Provider Unavailable Encounter Details Date Type Department Care Team Description 02/04/2021 Orders Only [facility] Sa hilary Lee M.D. [address] [place], [place] [phone] (Wo rk) Social History [...] or relatives? How often do you attend jain or 1 to 4 times per year 05/2020 pentecostal services? Do you belong to any clubs or No 10/26/2020 organizations such as jain groups, unions, fraternal or athletic groups, or [...]
--- OUTSIDE RECORDS SUMMARY | 2022-08-02 07:43 | XMS_ITS | Encounter Summary ---
:1965 Author Organization [facility] Address [address] [place] [address] Care Team Providers Name Role Phone Unavailable [...] 1 to 4 times per year 05/2020 mu-ism services? Do you belong to any clubs [...] / Volume Laterality 08/12/2015 8:44 AM CDT [facility] RADIOLOGY SYSTEM - 08/13/2015 9:49 AM CDT [id number] 08:44 VENTRICULAR RATE [address] N[address] abnormality No previous ECGs available Revised Report [id number]^BOB GRIFFITHS^ROMAN Cooper Procedure Note Roman Hobbs M.D., M.B. - 02/09/2018F ormatting of this note might be different from the original. [id number] 08:44 VENTRICULAR RATE [address] abnormality No previous ECGs available Revised Report [id number]^BOB GRIFFITHS^ROMAN Cooper Tracy Winston M.D. ECG ORDERABLES Performing Organization Address City/State/ZIP Code Phon e Number HX [facility] RADIOLOGY SYSTEM [address] [place] [address], U documented in this encounter Visit Diagnoses Not on filedocumented in this encounter
--- OUTSIDE RECORDS SUMMARY | 2022-08-02 07:43 | XMS_ITS | Encounter Summary ---
:1965 Author Organization [facility] Address [address] [place] [address] Care Team Providers Name Role Phone Unavailable [...] 1 to 4 times per year 05/2020 yazdanism services? Do you belong to any clubs [...]
--- OUTSIDE RECORDS SUMMARY | 2022-08-02 07:43 | XMS_ITS | Encounter Summary ---
:1965 Author Organization [facility] Address [address] [place] [address] Care Team Providers Name Role Phone Unavailable [...]
--- OUTSIDE RECORDS SUMMARY | 2022-08-02 07:43 | XMS_ITS | Encounter Summary ---
:1965 Author Organization [facility] Address [address] [place] [address] Care Team Providers Name Role Phone Unavailable [...] or relatives? How often do you attend roman catholic or 1 to 4 times per year 05/2020 methodist services? Do you belong to any clubs or No 10/26/2020 organizations such as roman catholic groups, unions, fraternal or athletic groups, or [...]
--- OUTSIDE RECORDS SUMMARY | 2022-08-02 07:43 | XMS_ITS | Encounter Summary ---
:1965 Author Organization [facility] Address [address] [place] [address] Care Team Providers Name Role Phone Unavailable [...] or relatives? How often do you attend latter-day or 1 to 4 times per year 05/2020 mandaen services? Do you belong to any clubs or No 10/26/2020 organizations such as latter-day groups, unions, fraternal or athletic groups, or [...]
--- OUTSIDE RECORDS SUMMARY | 2022-08-02 07:43 | XMS_ITS | Encounter Summary ---
:1965 Author Organization [facility] Address [address] [place] [address] Care Team Providers Name Role Phone Unavailable Primary Care Provider Unavailable Encounter Details Date Type Department Care Team Description 08/26/2008 Hospital Encounter HX NO MAPPING Casandra Dinh M.D. [address] [place] [address] , [address] [place] [address] (Wo rk) Social History Tobacco Use Types [...] or relatives? How often do you attend mormonism or 1 to 4 times per year 05/2020 anabaptism services? Do you belong to any clubs or No 10/26/2020 organizations such as mormonism groups, unions, fraternal or athletic groups, or [...]
--- OUTSIDE RECORDS SUMMARY | 2022-08-02 07:43 | XMS_ITS | Encounter Summary ---
:1965 Author Organization [facility] Address [address] [place] [address] Care Team Providers Name Role Phone Unavailable [...] or relatives? How often do you attend confucianist or 1 to 4 times per year 05/2020 protestant services? Do you belong to any clubs or No 10/26/2020 organizations such as confucianist groups, unions, fraternal or athletic groups, or [...] (Chem 4) Panel (02/18/2013 5:05 AM CDT) Analysis Performed At Patho logist Time Signature Sodium, S 144 135 - 145 [facility] MMOL/L LABORATORIES [facility] Potassium, S 3.9 3.6 - 5.2 [facility] MMOL/L LABORATORIES - [facility] Creatinine 0.7 0.6 - 1.1 [facility] MG/DL LABORATORIES - [facility] eGFR >60 >60 [facility] Non-Black/Afric ML/MIN/BSA LABORATORIES - an Lithuanian [facility] Anion Gap 12 7 - 15 [facility] Glucose, S 78 70 - 140 [facility] MG/DL LABORATORIES [facility] Chloride, S 107 100 - 108 [facility] MMOL/L [facility] HX Bicarbonate, 25 22 - 29 [facility] P/S MMOL/L LABORATORIES - [facility] eGFR-Black/Afri >60 >60 [facility] can Lithuanian ML/MIN/BSA LABORATORIES - [facility] BUN (Blood Urea 6 6 - 21 [facility] Nitrogen), S MG/DL LABORATORIES - [facility] Specimen Anatomical Collection Method Collection Time Receive d Time (Source) Location / / Volume Laterality 02/18/2013 5:05 AM 3 5:05 CDT AM CDT Stevan Jimenez M.D. LAB BLOOD ADD-ON Performing Organization Address City/State/ZIP Code Phon e Number [facility] LABORATORIES - [address] [place], [place] [address] [facility] DX Abdomen 1 View (02/17/2013 7:59 PM [...] Electronically signed by: ?? Katherine Rubio MD [id number] 17-Feb-2013 20:07 I have reviewed the films/images and agr ee with the above interpretation. Electronically signed by: ?? Casie Gottlieb MD [phone] 17-Feb-2013 20:20 Procedure Note Joni Gottlieb M.D. - 02/16/2018For matting of this note might be different from the original. 17-Feb-2013 19:59:00 Exam: Abdomen Indications: SBO, Gastrograffin challeng e ORIGINAL REPORT - 17-Feb-2013 20:07:00 Abdomen: NG tube tip and side port within the sto mach. Enteric contrast in the cecum and ascending colon in a nonobstructive pattern. Electronically signed by: Katherine Rubio MD [id number] 17-Feb-2013 20:07 I have reviewed the films/images and agr ee with the above interpretation. Electronically signed by: Casie Gottlieb MD [phone] 17-Feb-2013 20:20 Ana Glasgow R.N. IMG DIAGNOSTIC IMAGING PRO CEDURES Electrolyte (Chem 4) Panel (02/17/2013 10:38 AM CDT) Analysis Performed At Patho logist Time Signature Sodium, S 141 135 - 145 [facility] MMOL/L [facility] Potassium, S 4.7 3.6 - 5.2 [facility] MMOL/L [facility] Creatinine 0.7 0.6 - 1.1 [facility] MG/DL [facility] eGFR >60 >60 [facility] Non-Black/Afric ML/MIN/BSA LABORATORIES - an Lithuanian [facility] Anion Gap 12 7 - 15 [facility] Glucose, S 87 70 - 140 [facility] MG/DL LABORATORIES - [facility] Chloride, S 105 100 - 108 [facility] MMOL/L LABORATORIES - [facility] HX Bicarbonate, 24 22 - 29 [facility] P/S MMOL/L [facility] eGFR-Black/Afri >60 >60 [facility] can Lithuanian ML/MIN/BSA LABORATORIES - [facility] BUN (Blood Urea 8 6 - 21 [facility] Nitrogen), S MG/DL LABORATORIES - [facility] Specimen Anatomical Collection Method Collection Time Receive d Time (Source) Location / / Volume Laterality 02/17/2013 10:38 02/17/2013 AM CDT 10:38 AM CDT Stevan Jimenez M.D. LAB BLOOD ADD-ON Performing Organization Address City/[facility]/ZIP Code Phon e Number [facility] LABORATORIES - [address] [address] [facility] Lactate (02/17/2013 10:38 AM CDT) P athologist Signature Lactate, P 1.4 0.6 - 2.3 [facility] MMOL/L [facility] - [facility] Specimen Anatomical Collection Method Collection Time Receive d Time (Source) Location / / Volume Laterality 02/17/2013 10:38 02/17/2013 AM CDT 10:38 AM CDT Stevan Jimenez M.D. LAB BLOOD NON ADD-ON Performing Organization Address City/[facility] Code Phon e Number [facility] LABORATORIES - [address] [address] [facility] CBC without Differential (02/17/2013 10:38 AM CDT) Patholo gist Method Time Signature Erythrocytes 4.44 3.90 - [facility] 5.03 LABORATORIES - X10(12)/L [facility] MCV 94.1 81.6 - [facility] 98.3 FL [facility] - [facility] RBC Distrib Width 13.8 11.9 - [facility] 15.5 % [facility] - [facility] Platelet Count 206 150 - 450 [facility] X10(9)/L [facility] Hemoglobin 13.5 12.0 - [facility] 15.5 G/DL [facility] Hematocrit 41.8 34.9 - [facility] 44.5 % [facility] - [facility] Leukocytes 9.1 3.5 - [facility] 10.5 LABORATORIES - X10(9)/L [facility] Specimen Anatomical Collection Method Collection Time Receive d Time (Source) Location / / Volume Laterality 02/17/2013 10:38 02/17/2013 AM CDT 10:38 AM CDT Stevan Jimenez M.D. LAB BLOOD ADD-ON Performing Organization Address City/State/ZIP Code Phon e Number [facility] LABORATORIES - [address] [place], [place] [address] [facility] DX Abdomen 1 View (02/17/2013 7:48 AM [...] Electronically signed by: ?? Katherine Courtney M.D. [phone] 17-Feb-2013 08:15 Procedure Note Aristides Courtney M.D. - 02/16/2018Fo rmatting of this note might be different from the original. 17-Feb-2013 07:48:00 Exam: Abdomen Indications: Single view, Confirm NG doreen cement ORIGINAL REPORT - 17-Feb-2013 08:15:00 Abdomen: NGT tip in the distal stomach. Nonobstru ctive bowel gas pattern. Electronically signed by: Katherine Courtney M.D. [phone] 17-Feb-2013 08:15 Joni Sagastume Jr., M.D. IMG DIAGNOSTIC IMAGING AR OCEDURES Interpretation of Outside CT Abdomen and [...] [id number] Electronically signed by: Soledad Tavares MD [phone] 17-Feb-2013 07:24 I have reviewed the films/images and agr ee with the above interpretation. Electronically signed by: Zofia Queen MD. [phone] 17-Feb-2013 09:1 4 Joni Sagastume Jr., M.D. IMG CT PROCEDURES documented in this encounter Visit Diagnoses Not on filedocumented in this encounter
--- OUTSIDE RECORDS SUMMARY | 2022-08-02 07:43 | XMS_ITS | Encounter Summary ---
:1965 Author Organization [facility] Address [address] [place] [address] Care Team Providers Name Role Phone Unavailable [...] 1 to 4 times per year 05/2020 holiness services? Do you belong to any clubs [...] Electronically signed by: ?? Wilma Jj MD [phone] 01-Jul-2011 12:2 7 Procedure Note Wilma Jj [...] bases. Electronically signed by: Wilma Jj MD [phone] 01-Jul-2011 12:2 7 Dk Figueroa M.D. IMG [...] Electronically signed by: ?? Caitlyn Leung MD [phone] 29-Jun-2011 13 :03 Procedure Note Caitlyn Leung M.D. - 02/17/2018Forma tting of this note might be different from the original. 29-Jun-2011 12:55:00 Exam: Post OP Abdom en Indications: Pevic mass; Laparotomy; Rt salpigo-oophorectomy ORIGINAL REPORT - 29-Jun-2011 13:03:00 Negative for postop purposes. Electronically signed by: Caitlyn Leung MD [phone] 29-Jun-2011 13 :03 Dk Figueroa M.D. IMG DIAGNOSTIC IMAGING PROCE [place] [facility] general Pathology Report (06/29/2011 11:37 AM CDT) Specimen Anatomical Collection Method Collection Time Receive d Time (Source) Location / / Volume Laterality 06/29/2011 11:37 06/29/2011 AM CDT 11:[address] [facility] - 06/29/2011 11:37 AM CDT ??06/29/2011 Surgical Pathology ?([id number]) ? Requested By: Dk Figueroa M.D. ??4-6 [...] 21:53 Interpreted by: Terry Hagan M.D., PhD. [phone] Report electronically signed by Terry Hagan M.D., [...] ? Procedure Note 02/10/2018 06/29/2011 Surgical Pathology ([id number]) Requested By: Dk Figueroa M.D. [phone] SLIDE DISPOSITION: DIAGNOSIS: A. Adnexa, right [...] 21:53 Interpreted by: Terry Hagan M.D., PhD. [phone] Report electronically signed by Terry Hagan M.D., PhD. Transcribed by: gerhard 06/29/2011 13:37:11 GROSS DESCRIPTION: A. Received fresh labeled right adnexa l mass is a 35.0 gram, 5.8 x 3.7 x 1.7 focally disrupted ovary. Th e external serosa is smooth. Bread loafing reveals a multiloculated cyst with a benign chocolate appearance. Shower Attendant sections. Grossed by CLT. BLOCK SUMMARY: Part A: RIght Adnexal mass 1 Rt adnexal mass-1 2 Rt adnexal mass-2 3 Rt adnexal mass-3 Dk Figueroa M.D. LAB PATHOLOGY/CYTOLOGY ORDER MARGOT Performing Organization Address City/State/ZIP Code Phon e Number [facility] LABORATORIES - [address] [place], [place] [address] [facility] documented in this encounter Visit Diagnoses Not on filedocumented in this encounter
--- OUTSIDE RECORDS SUMMARY | 2022-08-02 07:44 | XMS_ITS | Encounter Summary ---
:1965 Author Organization [facility] Address [address] [place] [address] Care Team Providers Name Role Phone Unavailable Primary Care Provider Unavailable Encounter Details Date Type Department Care Team Description 01/13/2006 - Hospital Encounter HX RST UNIT 5-4 01/14/2006 GYNECOLOGY Social History Tobacco Use Types Packs/Day [...] or relatives? How often do you attend mandaeism or 1 to 4 times per year 05/2020 nondenominational services? Do you belong to any clubs or No 10/26/2020 organizations such as mandaeism groups, unions, fraternal or athletic groups, or [...]
--- OUTSIDE RECORDS SUMMARY | 2022-08-02 07:44 | XMS_ITS | Clinical Summary ---
:1965 Author Organization [facility] [place] [address] Care Team Providers Name Role Phone Afia Rousseau MD Primary Care Provider Allergies Active Allergy Reactions Severity Noted Date Comments Atorvastatin Arthralgia 01/18/2019 Diltiazem Hcl Edema 01/18/2019 Adhesive Tape Contact Dermatitis 08/30/2005 problem with certain bandaids not all of them Medications Medication Sig Dispensed Refills Start End Date Status Date ROLAIDS ORAL as needed 0 Active ACETAMINOPHEN 325 MG TAB Take 1-2 325mg 0 0 09/15/200 Active tablets by mouth 5 every 4 hours for pain as needed. IBUPROFEN 200 MG CAP Take 1-3 200mg 0 0 09/15/200 Active tablets by mouth 5 every 6 hours for pain as needed oxyCODONE (OXYCONTIN) 40 Take 40 mg by 0 Active mg Sustained-Release mouth every 12 tablet hours. cyclobenzaprine Take 5 mg by 0 A ctive (FLEXERIL) 5 mg tablet mouth 3 times daily. ALBUTEROL INHL Inhale 2 Puffs by 0 Active mouth. Every 3-4hours as needed oxyCODONE (ROXICODONE) 15 Take 15 mg by 0 Active mg immediate release mouth every 4 tablet hours if needed for Pain. aspirin chewable 81 mg Take 1 tablet by 0 Active chewable mouth or 5 tabletIndications: nasogastric tube Coronary artery disease once daily. due to lipid rich plaque olopatadine (PATADAY) 0.2 Place 1 Drop into 0 Active % ophthalmic solution both eyes once 5 daily. cycloSPORINE (RESTASIS) Place 1 Drop into 0 06/10/20 1 Active 0.05 % ophthalmic both eyes 2 times 5 emulsion daily. methotrexate, PF, 12.5 Inject 12.5 mg 0 Active mg/0.4 mL atIn subcutaneous once 1 weekly. hydrOXYchloroQUINE Take 1 Tablet 0 Active (PLAQUENIL) 200 mg tablet (200 mg) by mouth 1 2 times daily. nitroglycerin (NITROSTAT) Place 1 Tablet 25 tablet. 3 03/25/20 2 Active 0.4 mg sublingual (0.4 mg) under 1 tabletIndications: the tongue every Coronary artery disease 5 minutes if due to lipid rich plaque needed for Chest Pain (For chest pain x 3 doses.). clopidogreL (PLAVIX) 75 Take 1 Tablet (75 90 Tablet 3 06/17/20 2 Active mg tabletIndications: mg) by mouth 2 Coronary artery disease every morning. due to lipid rich plaque Overdue for cardiology appointment. Call to schedule for further refills. rosuvastatin (CRESTOR) 20 Take 1 Tablet (20 90 Tablet 3 Active mg tabletIndications: mg) by mouth once 2 Pure hypercholesterolemia daily. Active Problems Problem Noted Date Coronary artery disease due to lipid rich plaque 05/29 Acute chest pain 05/27/2015 Tobacco abuse 05/27/2015 Chronic pain syndrome 05/27/2015 Depression 05/27/2015 Blood in stool 05/27/2015 Narcotic dependence 05/27/2015 Fibromyalgia 05/27/2015 PTSD (post-traumatic stress disorder) 05/27/2015 SLE (systemic lupus erythematosus) 05/27/2015 Resolved Problems Problem Noted Date Resolved Date Unspecified intestinal obstruction 09/09/200505/27 Single liveborn, born in hospital, delivered by 05/27/2015 delivery Encounters Date Type Specialty Care Team Description 06/24/2022 Telephone Mariel Ma MD Referral 06/17/2022 Office Visit Darnell Soto MD Follow Up 06/08/2022 Refill Darnell Soto MD Refill Request (Clopidogrel) from Last 3 Months Family History Medical History Relation Name Comments Cancer-colon Brother 1 Cancer-prostate Brother 2 Stroke Father Cancer Mother lung Heart Disease No Family History Relation Name Status Comments Brother 1 Brother 2 Father Mother Social History Tobacco Use Types Packs/Day Years Used Date Current Every Day Smoker Cigarettes 0.25 28 Smokeless Tobacco: Never Used Tobacco Cessation: Ready to Quit: Yes; C ounseling Given: Yes Comments: TIP done 05/28/15 Alcohol Use Standard Drinks/Week Comments No 0 (1 standard drink = 0.6 oz pure alcoho l) tx - recovering Sex Assigned at Date Recorded Not on file Obstetrics History Para Term AB IAB SAB Ectopic Multiple Living Live Births 18 5 3 2 4 1 3 0 0 5 9 Date Outcome GA Total Labor/2nd/3rd Weight Sex Delivery Anes PTL Anitha A 1 A5 Name Clin Labor SAB SAB SAB IAB Term Term Term 02/18 ELECTIVE Jennie /1977 AB ng 01/18 SPONTANEO Jennie /1986 US ng 03/20 37w 2.66 kg M Jennie [place] /1987 0d (5 lb ng e 14 oz) Delivery Location: [place] Comments: emergency C/S 04/20/1989 37w0d 3.18 kg (7 lb) F Living [place] Delivery Location: [place] Comments: R/C/S 08/20/1991 37w0d 2.72 kg (6 lb) M Living [place] Delivery Location: [place] Comments: R/C/S 11/20/1992 SPONTANEOUS Living 11/20/1993 SPONTANEOUS Living 04/20/1999 34w0d 1.98 kg (4 lb 6 M Living [place] oz) Delivery Location: [place] Comments: emergency C/S 07/21/2004 30w0d 1.7 kg (3 lb 12 oz) M Living [facility] Delivery Location: [place] Comments: placental abruption Comments dates of SABs are unknown Last Filed Vital Signs Vital Sign Reading Time Taken Comments Blood Pressure 100/60 06/17/2022 10:05 AM CDT Pulse 83 06/17/2022 10:05 AM CDT Temperature 37.1 ??C (98.7 ??F) 06/10/2015 3:39 PM CDT Respiratory Rate 14 06/17/2022 10:05 AM CDT Oxygen Saturation 94% 06/10/2015 3:39 PM CDT Inhaled Oxygen Concentration - - Weight 60.3 kg (133 lb) 03/25/2021 3:10 PM CDT Height 167.6 cm (5' 6) 05/27/2015 2:29 PM CDT Body Mass Index 21.47 05/27/2015 2:29 PM CDT Plan of Treatment Upcoming Encounters Date Type Specialty Care Team Description 08/02/2022 Orders Only Skye Watt 08/02/2022 Orders Only Skye Watt Health Maintenance Due Date Last Done Comments COVID-19 vaccine series (#1) 02/05/1968 Pneumococcal series for age 19-64 (1 - PCV) 1973 Tdap 1978 Depression screening for age 12+ 1979 BMI (ht and wt on same day) for age 18+ 1985 Hepatitis C screening for age 18-79 1985 Zoster (shingles) series for age 50+ (1 of 2) 1986 Tetanus booster 1987 Pap test for age 21-65 1988 Colonoscopy through age 75 2012 Mammogram for age 45-75 2012 Lipids for age 45-75 05/28/2020 05/28/2015 Influenza for age 50-64 07/21/2022 Results Not on filefrom Last 3 Months Insurance Payer Benefit Plan / Subscriber ID Effective Dates Phone Addre ss Type Group MEDICARE PART B MEDICARE PART B [id number] 2003-Present ATTN: CLAIMS - HB USE ONLY HB ONLY [address] [place] [address] MEDICARE PART B MEDICARE PART B [id number] 2003-Present ATTN: CLAIMS - HB USE ONLY HB ONLY [address] [place] [address] MEDICARE PART A MEDICARE PART A [id number] 2003-Present ATTN: CLAIMS - HB USE ONLY HB ONLY [address] [place] [address] MEDICA MA MEDICA CHOICE [id number] 2014-Present [address] [address] [place] [address] MEDICARE - PB MEDICARE PB [id number] 2004-Presen ATT N: CLAIMS USE ONLY ONLY t [address] [place] [address] [place] [id number] 2014-Present [address] [address] [place] [address] Advance Directives Latest Code Status on File Code Status Date Activated Date Inactivated Comments Full Code 05/27/2015 5:03 PM 05/29/2015 12:49 PM Full Code 05/27/2015 2:51 PM 05/27/2015 5:03 PM Full Code 09/06/2005 10:46 AM 09/08/2005 7:27 PM Full Code 09/06/2005 9:14 AM 09/06/2005 10:46 AM Full Code 09/02/2005 6:25 PM 09/02/2005 6:51 PM Care Teams Shank Piece Tacker Relationship Specialty Start Date End Date Afia Rousseau MD PCP - General Internal Medicine 01/29/151999 [place] [address]
--- OUTSIDE RECORDS SUMMARY | 2022-08-02 07:44 | XMS_ITS | Encounter Summary ---
:1965 Author Organization [facility] Address [address] [place] [address] Care Team Providers Name Role Phone Unavailable [...] 1 to 4 times per year 05/2020 alevism services? Do you belong to any clubs [...]
--- OUTSIDE RECORDS SUMMARY | 2022-08-02 07:44 | XMS_ITS | Encounter Summary ---
:1965 Author Organization [employer] Address [address] [place] [address] Care Team Providers Name Role Phone Unassigned, Provider Primary Care Provider Unavailable Reason for Visit Reason Onset Date Comments Medication Request 04/11/2006 Encounter Details Date Type Department Care Team Description 04/11/2006 Telephone [facility] Unassigned, Pro vider Medication Request Practice [address] [place] [id number] [place] [address] Social History Tobacco Use Types Packs/Day Years Used Date Smoking Tobacco: Never Assessed Sex Assigned at Date Recorded Not on file documented as of this encounter Nursing Notes 04/11/2006 11:59 PM CDT >> SANJAY BERNSTEIN Wed April 12, 2006 9:45 AM 04/12/2006;9:24 AM Reached pt; has not been on Suboxone before. 08-24 . Given percocet/vicoden. Bad surgery, fistula, other multiple surgeries. 6 surgeries so far. oxycontin now. 150-200 mg daily to start, now down to about 100 mg daily. Experiencing body aches, shakes, skin crawling, runny nose, headache. Wants to stop oxycontin, but is feeling too many withdrawls sx's to go it alone. 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 Contacted counselor, who suggested this is withdrawl sx's. Outpaitent treatment. Last dose oxycontin 6 am this am. 6 children 6 mo; -18 yr. Nortriptylline prescribed, not taken. Macrobid for ongoing bladder. P: Appt. 04-18-06 2 pm. Pt. instructed to be drug free for at least 24 hrs before appt. Sanjay Bernstein LPN >> CATARINO MACDONALD MonApril 12, 2006 9:09 AM Pt returning Sanjay's call. >> SANJAY BERNSTEIN MonApril 12, 2006 8:39 AM 04/12/2006;8:39 AM Left message to call back. Sanjay Bernstein LPN >> CATARINO Pimentel April 11, 2006 1:35 PM Pt wants suboxone. 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 she says she went through outpt tx dependency program. documented in this encounter Plan of Treatment Not on filedocumented as of this encounter Visit Diagnoses Not on filedocumented in this encounter Care Teams Seconds Grader Relationship Specialty Start Date End Date Unassigned, Provider PCP - General 10/27/00 07/19/[address] [place] [address] documented as of this encounter
--- OUTSIDE RECORDS SUMMARY | 2022-08-02 07:44 | XMS_ITS | Encounter Summary ---
:1965 Author Organization [facility] Address [address] [place] [address] Care Team Providers Name Role Phone Unavailable [...] or relatives? How often do you attend sabianist or 1 to 4 times per year 05/2020 islam services? Do you belong to any clubs or No 10/26/2020 organizations such as sabianist groups, unions, fraternal or athletic groups, or [...]
--- OUTSIDE RECORDS SUMMARY | 2022-08-02 07:44 | XMS_ITS | Encounter Summary ---
:1965 Author Organization [facility] Address [address] [place] [address] Care Team Providers Name Role Phone Unavailable Primary Care Provider Unavailable Encounter Details Date Type Department Care Team Description 05/31/2006 - Hospital Encounter HX RST UNIT 5-4 06/05/2006 GYNECOLOGY Social History Tobacco Use Types Packs/Day [...]
--- OUTSIDE RECORDS SUMMARY | 2022-08-02 07:44 | XMS_ITS | Encounter Summary ---
:1965 Author Organization [facility] Address [address] [place] [address] Care Team Providers Name Role Phone Unavailable [...] or relatives? How often do you attend buddhism or 1 to 4 times per year 05/2020 moravian services? Do you belong to any clubs or No 10/26/2020 organizations such as buddhism groups, unions, fraternal or athletic groups, or [...]
--- OUTSIDE RECORDS SUMMARY | 2022-08-02 07:44 | XMS_ITS | Encounter Summary ---
:1965 Author Organization [facility] Address [address] [place] [address] Care Team Providers Name Role Phone Unavailable [...] or relatives? How often do you attend judaism or 1 to 4 times per year 05/2020 sikh services? Do you belong to any clubs or No 10/26/2020 organizations such as judaism groups, unions, fraternal or athletic groups, or [...]
--- OUTSIDE RECORDS SUMMARY | 2022-08-02 07:44 | XMS_ITS | Encounter Summary ---
:1965 Author Organization [facility] Address [address] [place] [address] Care Team Providers Name Role Phone Unavailable Primary Care Provider Unavailable Encounter Details Date Type Department Care Team Description 05/04/2004 Hospital Encounter HX NO MAPPING Provider, Historical [...] or relatives? How often do you attend spiritism or 1 to 4 times per year 05/2020 uatsdin services? Do you belong to any clubs or No 10/26/2020 organizations such as spiritism groups, unions, fraternal or athletic groups, or [...]
--- OUTSIDE RECORDS SUMMARY | 2022-08-02 07:44 | XMS_ITS | Encounter Summary ---
:1965 Author Organization [facility] Address [address] [place] [address] Care Team Providers Name Role Phone Unavailable Primary Care Provider Unavailable Encounter Details Date Type Department Care Team Description 03/18/2004 Hospital Encounter HX [facility] Abdulkadir Prather M.D. [address] [place], [place] [phone] (Wo rk) Social History [...] or relatives? How often do you attend sikh or 1 to 4 times per year 05/2020 anglican services? Do you belong to any clubs or No 10/26/2020 organizations such as sikh groups, unions, fraternal or athletic groups, or [...] Provider Ser - 03/18/2004 10:30 AM CDT [id number] 38 yo at 13 weeks with EDC of 09/26 by US with 1st TM bleeding. Pt is a former patient of [facility] and is here for second opionion regarding subchorionic hemorrhage. About a month ago joes luis aguilar had bright red bleeding and passed plum sized clots, then 2 weeks later it happened again. Sinc e 2 weeks ago, she's been bleeding dark blood with small clots off and on, goods layer than a menses. Pt told she had [...] by stated EDC by US done in [facility]. 2.Large subchorionic hemorrhage 6.9 X 4 cm, [...] offer anatomic survey at 20 weeks. Source: [facility] [id number] Document Id: [id number] documented in this encounter Plan of Treatment Not on filedocumented as of this encounter Visit Diagnoses Not on filedocumented in this encounter
--- OUTSIDE RECORDS SUMMARY | 2022-08-02 07:44 | XMS_ITS | Encounter Summary ---
:1965 Author [facility] Address [address], [place] [address] Care Team Providers Name Role Phone Afia Rousseau MD Primary Care Provider Reason for Visit Procedure/Equipment (Routine) - Incomplete Specialty Diagnoses / Procedures Referred By Contact Refer red To Contact Diagnoses Lupus erythematosus tumidus Multiple joint pain Deepti Hannah MD Procedures MR Hand Rt W/WO IV Cont [address] [place] [address] Referral ID Status Reason Start Date Expiration Date Visits V isits Requested Authorized [id number] Incomplete 08/04/2017 11/03/2018 1 1 Encounter Details Date Type Department Care Team Description 08/15/2017 Imaging [facility] Deepti Hannah, Lupus erythematosus tumidus; MRI Multiple joint pain [address] [place] [address] [place], [place] [phone] (Wo rk) Social History Tobacco Use [...] dose documented in this encounter Care Teams Spiritual Counselor Relationship Specialty Start Date End Date Afia Rousseau MD PCP - General Internal Medicine 07/20/[address] [place] [address] documented as of this encounter
--- OUTSIDE RECORDS SUMMARY | 2022-08-02 07:44 | XMS_ITS | Encounter Summary ---
:1965 Author Organization [facility] Address [address] [place] [address] Care Team Providers Name Role Phone Unavailable [...]
--- OUTSIDE RECORDS SUMMARY | 2022-08-02 07:44 | XMS_ITS | Encounter Summary ---
:1965 Author Organization [employer] Address [address] [place] [address] Care Team Providers Name Role Phone Afia Rousseau MD Primary Care Provider Encounter Details Date Type Department Care Team Description 08/04/2017 Lab Visit [facility] Lupus erythematosus tumidus; [address] [place] [address] Social History Tobacco Use Types Packs/Day Years [...] - 08/04/2017 10:28 AM CDT Performed at [facility], [address] [place] [address] CLIA number [id number] Deepti Hannah MD LAB_1 Performing Organization Address City/[facility] Phon e Number PN SOFT [address] [place] [address] HCAB - Hepatitis C Virus Mami with Reflex In-House (08/04/2017 10:23 AM CDT) [facility] Method Time Signature Hepatitis C Nonreactive Nonreactive PN SOFT Antibody Specimen Anatomical Collection Method Collection Time Receive d Time (Source) Location / / Volume Laterality 08/04/2017 10:23 08/04/2017 AM CDT 12:18 PM CDT Narrative PN SOFT - 08/04/2017 1:18 PM CDT Performed at [place] [address] [place] [address] CLIA number [id number] Deepti Hannah MD LAB_1 Performing Organization Address City/[facility] Phon e Number PN SOFT [address] [place] [address] HBAG - Hepatitis B Surf Ag (08/04/2017 10:23 AM CDT) [facility] Method Time Signature Hep B Surf Ag Nonreactive Nonreactive PN SOFT Specimen Anatomical Collection Method Collection Time Receive d Time (Source) Location / / Volume Laterality 08/04/2017 10:23 08/04/2017 4:02 AM CDT PM CDT Narrative PN SOFT - 08/04/2017 5:02 PM CDT Performed at [facility], [facility] [place] [address] CLIA number [id number] Deepti Hannah MD LAB_1 Performing Organization Address [facility] Phon e Number PN SOFT [address] [place] [phone] Lyme Antibody, and Western Blot [...] - 08/05/2017 9:41 AM CDT Performed at [facility], [address] [place] [address] CLIA number [id number] Deepti Hannah MD LAB_1 Performing Organization Address [facility] Phon e Number PN SOFT [address] [place] [address] HLA B27 (08/04/2017 10:23 AM CDT) P athologist Signature HLA B27 Negative Negative PN SOFT Comment: CLIA Number [id number] HLA B27 Interpretation SEE BELOW PN SOFT Comment: This test was developed and the performa nce characteristics were determined by [facility]. It has not been cleared or a pproved by the U.S. Food and Drug Administration. T he FDA has determined that such clearance or approv al is not necessary. Performed at Laboratory , [address] [place] [address] CLIA Number [id number] Specimen Anatomical Collection Method Collection Time Receive d Time (Source) Location / / Volume Laterality 08/04/2017 10:23 08/04/2017 AM CDT 12:03 PM CDT Deepti Hannah MD LAB_1 Performing Organization Address [facility] Phon e Number PN SOFT [address] [place] [address] RHF - Rheumatoid Factor (08/04/2017 10:23 AM CDT) P athologist Signature Rheumatoid <15 0 - 30 PN SOFT Factor IU/mL Specimen Anatomical Collection Method Collection Time Receive d Time (Source) Location / / Volume Laterality 08/04/2017 10:23 08/04/2017 4:02 AM CDT PM CDT Narrative PN SOFT - 08/04/2017 5:09 PM CDT Performed at [address] [address] CLIA number [id number] Deepti Hannah MD LAB_1 Performing Organization Address [facility] Phon e Number PN SOFT [address] [place] [address] CCPIG - Cyclic Citrullinated Peptide AB (08/04/2017 10:23 AM CDT) Analysis Performed At [facility] logist Time Signature CYCLIC 0.7 0.0 - 7.0 PN SOFT CITRULLINATED IU/mL PEPTIDEAB Comment: Reference Range: <7 Negative, 7 - 10 Equivocal, >10 Posit goldie Specimen Anatomical Collection Method Collection Time Receive d Time (Source) Location / / Volume Laterality 08/04/2017 10:23 08/04/2017 3:59 AM CDT PM CDT Narrative PN SOFT - 2017 2:15 PM CDT Performed at [facility], [facility] [place] [address] CLIA number [id number] Deepti Hannah MD LAB_1 Performing Organization Address [facility] Phon e Number PN SOFT [address] [place] [address] Extractable Nuclear Antigen Antibodies (08/04/2017 10:23 AM CDT) P athologist Signature TADEO To VEGETABLE GRADER 0 0 - 40 PN SOFT Antibody AU/mL Comment: INTERPRETIVE INFORMATION: Ribonucleic Pr otein (TADEO)Antibody, IgG ??29 AU/mL or Less ............. Negati ve ??30 - 40 AU/mL ................ Equivo bladimir ??41 AU/mL or Greater .......... Positi ve VEGETABLE GRADER antibody is seen in 95-100 percent o f mixed connective tissue disease and is considered specifi c for this syndrome if other antibodies are negative; VEGETABLE GRADER is also present in 20-30 percent of systemic lupus erythema tosus and 15-25 percent of progressive systemic sclerosi s. VEGETABLE GRADER antigens also contain epitopes that are immunolog ically identical to free Burgess antigens, therefore, the Saeid h antibody response must be considered when interpreting VEGETABLE GRADER results. Performed by [facility], [address] [place] [id number] [email or web address], Elliott Rosario MD - Lab . Director [...] - 08/06/2017 7:39 AM CDT Performed at [facility] [address] [place] [address] CLIA number [id number] Deepti Hannah MD LAB_1 Performing Organization Address City/State/ZIP Code Phon e Number PN SOFT [address] [place], [place] [address] DNA - Anti-dsDNA Antibody (08/04/2017 10:23 AM CDT) athologist Signature Anti-DNA Ab see below Negative PN SOFT Comment: <1:10 Negative Specimen Anatomical Collection Method Collection Time Receive d Time (Source) Location / / Volume Laterality 08/04/2017 10:23 08/04/2017 3:58 AM CDT PM CDT Narrative PN SOFT - 08/08/2017 12:55 PM CDT Performed at [facility], [facility] [place] [address] CLIA number [id number] Deepti Hannah MD LAB_1 Performing Organization Address City/[facility]/ZIP Code Phon e Number PN SOFT [address] [place] [address] COLT - Antinuclear Antibody (08/04/2017 10:23 AM CDT) P athologist Signature Anti-Nuclear Negative Negative PN SOFT Ab Specimen Anatomical Collection Method Collection Time Receive d Time (Source) Location / / Volume Laterality 08/04/2017 10:23 08/04/2017 3:58 AM CDT PM CDT Narrative PN SOFT - 08/08/2017 10:53 AM CDT Performed at [address] [address] CLIA number [id number] Deepti Hannah MD LAB_1 Performing Organization Address [facility] Phon e Number PN SOFT [address] [place] [address] C4 - C4 Complement (08/04/2017 10:23 AM CDT) P athologist Signature C4 Complement 39 15 - 57 PN SOFT mg/dL Specimen Anatomical Collection Method Collection Time Receive d Time (Source) Location / / Volume Laterality 08/04/2017 10:23 08/04/2017 AM CDT 12:18 PM CDT Narrative PN SOFT - 08/04/2017 12:58 PM CDT Performed at [place] [address] [place] [address] CLIA number [id number] Deepti Hannah MD LAB_1 Performing Organization Address City/[facility] Code Phon e Number PN SOFT [address] [place] [address] C3 - C3 Complement (08/04/2017 10:23 AM CDT) P athologist Signature C3 Complement 141 83 - 193 PN SOFT mg/dL Specimen Anatomical Collection Method Collection Time Receive d Time (Source) Location / / Volume Laterality 08/04/2017 10:23 08/04/2017 AM CDT 12:18 PM CDT Narrative PN SOFT - 08/04/2017 12:58 PM CDT Performed at [facility], [address] [place] [address] CLIA number [id number] Deepti Hannah MD LAB_1 Performing Organization Address City/[facility]/ZIP Code Phon e Number PN SOFT [address] [place] [address] ESR - Sedimentation Rate (08/04/2017 10:23 AM CDT) [facility] Sedimentation Rate 16 0 - 20 PN SOFT mm/hr Specimen Anatomical Collection Method Collection Time Receive d Time (Source) Location / / Volume Laterality 08/04/2017 10:23 08/04/2017 AM CDT 10:23 AM CDT Narrative PN SOFT - 08/04/2017 11:22 AM CDT Performed at [facility], [address] [place] [address] CLIA number [id number] Deepti Hannah MD LAB_1 Performing Organization Address [facility] Phon e Number PN SOFT [address] [place] [address] CRP - C Reactive Protein (08/04/2017 10:23 AM CDT) athologist Signature CRP <0.5 0.0 - 0.5 PN SOFT mg/dL Specimen Anatomical Collection Method Collection Time Receive d Time (Source) Location / / Volume Laterality 08/04/2017 10:23 08/04/2017 AM CDT 10:23 AM CDT Narrative PN SOFT - 08/04/2017 11:01 AM CDT Performed at [facility], [address] [place] [address] CLIA number [id number] Deepti Hannah MD LAB_1 Performing Organization Address City/[facility]/ZIP Code Phon e Number PN SOFT [address] [place] [address] CBC - Complete Blood Count W/Diff (08/04/2017 [...] - 08/04/2017 10:27 AM CDT Performed at [facility], [address] [place] [address] CLIA number [id number] Deepti Hannah MD LAB_1 Performing Organization Address City/[facility]/ZIP Code Phon e Number PN SOFT [address] [place] [address] VITD - Vitamin D (In house) (08/04/2017 [...] - 08/04/2017 5:18 PM CDT Performed at [facility], [address] [place] [address] CLIA number [id number] Deepti Hannah MD LAB_1 Performing Organization Address City/[facility] Code Phon e Number PN SOFT [address] [place] [address] TSH with Free T4 (if TSH Abnormal) (08/04/2017 10:23 AM CDT) athologist Signature Thyroid 2.34 0.30 - PN SOFT Stimulating 4.50 Hormone uIU/mL Specimen Anatomical Collection Method Collection Time Receive d Time (Source) Location / / Volume Laterality 08/04/2017 10:23 08/04/2017 AM CDT 12:18 PM CDT Narrative PN SOFT - 08/04/2017 1:16 PM CDT Performed at [place] [address] [place] [address] CLIA number [id number] Deepti Hannah MD LAB_1 Performing Organization Address City/[facility] Code Phon e Number PN SOFT [address] [place] [address] ALT - Alanine Aminotransferase (08/04/2017 10:23 AM CDT) [facility] Method Time Signature Alanine 13 9 - 55 PN SOFT Aminotransferase U/L Specimen Anatomical Collection Method Collection Time Receive d Time (Source) Location / / Volume Laterality 08/04/2017 10:23 08/04/2017 AM CDT 10:23 AM CDT Narrative PN SOFT - 08/04/2017 11:01 AM CDT Performed at [facility], [address] [place] [address] CLIA number [id number] Deepti Hannah MD LAB_1 Performing Organization Address City/[facility]/ZIP Code Phon e Number PN SOFT [address] [place] [address] CREAT - Creatinine (08/04/2017 10:23 AM CDT) [...] - 08/04/2017 11:01 AM CDT Performed at [facility], [address] [place] [address] CLIA number [id number] Deepti Hannah MD LAB_1 Performing Organization Address City/State/ZIP Code Phon e Number PN SOFT [address] [place] [address] documented in this encounter Visit Diagnoses Diagnosis Lupus erythematosus tumidus Lupus erythematosus Multiple joint pain Pain in joint, multiple sites documented in this encounter Care Teams Carbonation Equipment Operator Relationship Specialty Start Date End Date Afia Rousseau MD PCP - General Internal Medicine 07/20/[address] [place] [address] documented as of this encounter
--- OUTSIDE RECORDS SUMMARY | 2022-08-02 07:44 | XMS_ITS | Encounter Summary ---
:1965 Author Organization [facility] Address [address], [place] [address] Care Team Providers Name Role Phone Afia Rousseau MD Primary Care Provider Reason for Visit Reason Onset Date Comments Medication Request 08/04/2017 Sedation for MRI Encounter Details Date Type Department Care Team Description 08/04/2017 Telephone Deepti Lam, Medicati on Request Rheumatology (Sedation for MRI) [id number] [place] [phone] (Wo rk) Social History Tobacco Use Types [...] phobias documented in this encounter Care Teams Visual Inspector Relationship Specialty Start Date End Date Afia Rousseau MD PCP - General Internal Medicine 07/20/[address] [place] [address] documented as of this encounter
--- OUTSIDE RECORDS SUMMARY | 2022-08-02 07:44 | XMS_ITS | Encounter Summary ---
:1965 Author Organization Generate Address [address], [place] [address] Care Team Providers Name Role Phone Afia Rousseau MD Primary Care Provider Reason for Referral Procedure/Equipment (Routine) - Incomplete Specialty Diagnoses / Procedures Referred By Contact Refer red To Contact Diagnoses Lupus erythematosus tumidus Multiple joint pain Deepti Hannah MD Procedures MR Hand Rt W/WO IV Cont [address] [place] [address] Referral ID Status Reason Start Date Expiration Date Visits V isits Requested Authorized [id number] Incomplete 08/04/2017 11/03/2018 1 1 Reason for Visit Reason Comments CONSULT Encounter Details Date Type Department Care Team Description 08/04/2017 Initial Consult Deepti Lam Lupus er ythematosus tumidus (Primary Dx); Rheumatology MD [place] Multiple joint pain; [address] [address] [place] [address] [place] [address] [phone] Social History Tobacco Use Types Packs/Day Years [...] Note Referral: Afia Rousseau MD [address] [place] [address] Chief Complaint Patient presents with ??? CONSULT [...] ago. She was diagnosedwith fibromyalgia by a faith doctor. About 2.5 years ago, she began having [...] seen by hematology at the [facility]. They recommended yearly IgG evaluations through [...] 10 cigarettes a day. She lives in [place] and is originally from [place], [place]. Her 11-year-old daughter has JRA and [...] for today's visit was reviewed, sent to [facility], and is as noted above and/or notable [...] smokingand hyperlipidemia. However, she was told by [facility] that her heart disease was unrelated [...] evaluations (as was proposed by her outside faith doctor, Dr. Darnell Tompkins of [facility]. She was understanding of this approach [...] Visualized soft tissues are unremarkable. Procedure Note Jnoi Shepard MD - 08/16/2017Formatti ng of this [...] with Reflex In-House (08/04/2017 10:23 AM CDT) [facility] Method Time Signature Hepatitis C Nonreactive Nonreactive PN SOFT Antibody Specimen Anatomical Collection Method Collection Time Receive d Time (Source) Location / / Volume Laterality 08/04/2017 10:23 08/04/2017 AM CDT 12:18 PM CDT Narrative PN SOFT - 08/04/2017 1:18 PM CDT Performed at [address] [address] CLIA number [id number] Deepti Hannah MD LAB_1 Performing Organization Address [facility] Phon e Number PN SOFT [address] [place] [address] HBAG - Hepatitis B Surf Ag (08/04/2017 10:23 AM CDT) [facility] Method Time Signature Hep B Surf Ag Nonreactive Nonreactive PN SOFT Specimen Anatomical Collection Method Collection Time Receive d Time (Source) Location / / Volume Laterality 08/04/2017 10:23 08/04/2017 4:02 AM CDT PM CDT Narrative PN SOFT - 08/04/2017 5:02 PM CDT Performed at [address] [address] CLIA number [id number] Deepti Hannah MD LAB_1 Performing Organization Address [facility] Phon e Number PN SOFT [address] [place] [address] Lyme Antibody, and Western Blot If Needed) (08/04/2017 10:23 AM CDT) [facility] Method Time Signature Lyme Negative Negative [...] - 08/05/2017 9:41 AM CDT Performed at [address] [place] [address] CLIA number [id number] Deepti Hannah MD LAB_1 Performing Organization Address City/[facility]/ZIP Code Phon e Number PN SOFT [address] [place] [address] HLA B27 (08/04/2017 10:23 AM CDT) athologist Signature HLA B27 Negative Negative PN SOFT Comment: CLIA Number [id number] HLA B27 Interpretation SEE BELOW PN SOFT Comment: This test was developed and the performa nce characteristics were determined by [facility]. It has not been cleared or a pproved by the U.S. Food and Drug Administration. T he FDA has determined that such clearance or approv al is not necessary. Performed at [facility] , [address] [place] [address] CLIA Number [id number] Specimen Anatomical Collection Method Collection Time Receive d Time (Source) Location / / Volume Laterality 08/04/2017 10:23 08/04/2017 AM CDT 12:03 PM CDT Deepti Hannah MD LAB_1 Performing Organization Address City/[facility] Code Phon e Number PN SOFT [address] [place] [address] RHF - Rheumatoid Factor (08/04/2017 10:23 AM CDT) athologist Signature Rheumatoid <15 0 - 30 PN SOFT Factor IU/mL Specimen Anatomical Collection Method Collection Time Receive d Time (Source) Location / / Volume Laterality 08/04/2017 10:23 08/04/2017 4:02 AM CDT PM CDT Narrative PN SOFT - 08/04/2017 5:09 PM CDT Performed at [facility], [address] [place] [address] CLIA number [id number] Deepti Hannah MD LAB_1 Performing Organization Address City/[facility]/ZIP Code Phon e Number PN SOFT [address] [place] [address] CCPIG - Cyclic Citrullinated Peptide AB (08/04/2017 [...] PM CDT Performed at [facility], [address] [place] [address] CLIA number [id number] Deepti Hannah MD LAB_1 Performing Organization Address City/State/ZIP Code Phon e Number PN SOFT [address] [place] [address] Extractable Nuclear Antigen Antibodies (08/04/2017 10:23 AM CDT) P athologist Signature TADEO To CIGAR PATCHER 0 0 - 40 PN SOFT Antibody AU/mL Comment: INTERPRETIVE INFORMATION: Ribonucleic Pr otein (TADEO)Antibody, IgG ??29 AU/mL or Less ............. Negati ve ??30 - 40 AU/mL ................ Equivo bladimir ??41 AU/mL or Greater .......... Positi ve CIGAR PATCHER antibody is seen in 95-100 percent o f mixed connective tissue disease and is considered specifi c for this syndrome if other antibodies are negative; CIGAR PATCHER is also present in 20-30 percent of systemic lupus erythema tosus and 15-25 percent of progressive systemic sclerosi s. CIGAR PATCHER antigens also contain epitopes that are immunolog ically identical to free Burgess antigens, therefore, the Saeid h antibody response must be considered when interpreting CIGAR PATCHER results. Performed by [facility], [address] [place] [address] [email or web address] Elliott Rosario MD - Lab . Director [...] - 08/06/2017 7:39 AM CDT Performed at [facility] [address] [place] [address] CLIA number [id number] Deepti Hannah MD LAB_1 Performing Organization Address City/[facility] Phon e Number PN SOFT [address] [place] [address] DNA - Anti-dsDNA Antibody (08/04/2017 10:23 AM CDT) athologist Signature Anti-DNA Ab see below Negative PN SOFT Comment: <1:10 Negative Specimen Anatomical Collection Method Collection Time Receive d Time (Source) Location / / Volume Laterality 08/04/2017 10:23 08/04/2017 3:58 AM CDT PM CDT Narrative PN SOFT - 08/08/2017 12:55 PM CDT Performed at [address] [address] CLIA number [id number] Deepti Hannah MD LAB_1 Performing Organization Address [facility] Phon e Number PN SOFT [address] [place] [address] COLT - Antinuclear Antibody (08/04/2017 10:23 AM CDT) athologist Signature Anti-Nuclear Negative Negative PN SOFT Ab Specimen Anatomical Collection Method Collection Time Receive d Time (Source) Location / / Volume Laterality 08/04/2017 10:23 08/04/2017 3:58 AM CDT PM CDT Narrative PN SOFT - 08/08/2017 10:53 AM CDT Performed at [address] [address] CLIA number [id number] Deepti Hannah MD LAB_1 Performing Organization Address [facility] Phon e Number PN SOFT [address] [place] [address] C4 - C4 Complement (08/04/2017 10:23 AM CDT) P athologist Signature C4 Complement 39 15 - 57 PN SOFT mg/dL Specimen Anatomical Collection Method Collection Time Receive d Time (Source) Location / / Volume Laterality 08/04/2017 10:23 08/04/2017 AM CDT 12:18 PM CDT Narrative PN SOFT - 08/04/2017 12:58 PM CDT Performed at [address] [address] CLIA number [id number] Deepti Hannah MD LAB_1 Performing Organization Address [facility] Phon e Number PN SOFT [address] [place] [address] C3 - C3 Complement (08/04/2017 10:23 AM CDT) athologist Signature C3 Complement 141 83 - 193 PN SOFT mg/dL Specimen Anatomical Collection Method Collection Time Receive d Time (Source) Location / / Volume Laterality 08/04/2017 10:23 08/04/2017 AM CDT 12:18 PM CDT Narrative PN SOFT - 08/04/2017 12:58 PM CDT Performed at [facility], [address] [place] [address] CLIA number [id number] Deepti Hannah MD LAB_1 Performing Organization Address [facility] Phon e Number PN SOFT [address] [place] [address] ESR - Sedimentation Rate (08/04/2017 10:23 AM CDT) Analysis Performed At [facility] Time Signature Sedimentation Rate 16 0 - 20 PN SOFT mm/hr Specimen Anatomical Collection Method Collection Time Receive d Time (Source) Location / / Volume Laterality 08/04/2017 10:23 08/04/2017 AM CDT 10:23 AM CDT Narrative PN SOFT - 08/04/2017 11:22 AM CDT Performed at [facility], [address] [place] [address] CLIA number [id number] Deepti Hannah MD LAB_1 Performing Organization Address [facility] Phon e Number PN SOFT [address] [place] [address] CRP - C Reactive Protein (08/04/2017 10:23 AM CDT) athologist Signature CRP <0.5 0.0 - 0.5 PN SOFT mg/dL Specimen Anatomical Collection Method Collection Time Receive d Time (Source) Location / / Volume Laterality 08/04/2017 10:23 08/04/2017 AM CDT 10:23 AM CDT Narrative PN SOFT - 08/04/2017 11:01 AM CDT Performed at [facility], [address] [place] [address] CLIA number [id number] Deepti Hannah MD LAB_1 Performing Organization Address City/[facility] Phon e Number PN SOFT [address] [place] [address] [phone] CBC - Complete Blood Count W/Diff (08/04/2017 [...] 08/04/2017 10:27 AM CDT Performed at [facility], [address] [place] [address] CLIA number [id number] Deepti Hannah MD LAB_1 Performing Organization Address [facility] Phon e Number PN SOFT [address] [place] [address] VITD - Vitamin D (In house) (08/04/2017 [...] - 08/04/2017 5:18 PM CDT Performed at [address] [address] CLIA number [id number] Deepti Hannah MD LAB_1 Performing Organization Address [facility] Phon e Number PN SOFT [address] [place] [address] TSH with Free T4 (if TSH Abnormal) (08/04/2017 10:23 AM CDT) athologist Signature Thyroid 2.34 0.30 - PN SOFT Stimulating 4.50 Hormone uIU/mL Specimen Anatomical Collection Method Collection Time Receive d Time (Source) Location / / Volume Laterality 08/04/2017 10:23 08/04/2017 AM CDT 12:18 PM CDT Narrative PN SOFT - 08/04/2017 1:16 PM CDT Performed at [address] [address] CLIA number [id number] Deepti Hannah MD LAB_1 Performing Organization Address [facility] Phon e Number PN SOFT [address] [place] [address] ALT - Alanine Aminotransferase (08/04/2017 10:23 AM CDT) [facility] Time Signature Alanine 13 9 - 55 PN SOFT Aminotransferase U/L Specimen Anatomical Collection Method Collection Time Receive d Time (Source) Location / / Volume Laterality 08/04/2017 10:23 08/04/2017 AM CDT 10:23 AM CDT Narrative PN SOFT - 08/04/2017 11:01 AM CDT Performed at [facility], [address] [place] [address] CLIA number [id number] Deepti Hannah MD LAB_1 Performing Organization Address City/[facility] Phon e Number PN SOFT [address] [place] [address] CREAT - Creatinine (08/04/2017 10:23 AM CDT) [...] 08/04/2017 11:01 AM CDT Performed at [facility], [facility] [address] [place] [address] CLIA number [id number] Deepti Hannah MD LAB_1 Performing Organization Address [facility] Phon e Number PN SOFT [address] [place] [address] documented in this encounter Visit Diagnoses Diagnosis Lupus erythematosus tumidus - Primary Lupus erythematosus Multiple joint pain Pain in joint, multiple sites Screening for condition Screening for unspecified condition Lupus erythematosus tumidus Lupus erythematosus Multiple joint pain Pain in joint, multiple sites Lupus erythematosus tumidus Lupus erythematosus Multiple joint pain Pain in joint, multiple sites documented in this encounter Care Teams Frit Mixer And Burner Relationship Specialty Start Date End Date Afia Rousseau MD PCP - General Internal Medicine 07/20/[address] [place] [address] documented as of this encounter
--- OUTSIDE RECORDS SUMMARY | 2022-08-02 07:44 | XMS_ITS | Clinical Summary ---
:1965 [facility] Address [address] [place] [address] Care Team Providers Name Role Phone Afia [...] for each transition of care or referral. DeskActive Allergies Active Allergy Reactions Severity Noted Date [...] Phone Addre ss Type Group MEDICARE MEDICARE [id number] 2003-Presen Med icare t MEDICA MEDICA [id number] 2016-Presen [phone] [place]icaid ACCESSABILITY t 2 (Work) [id number] [address] Personal/Family Self 1965 [address] [place] [address] Care Teams Box Icer Relationship Specialty Start Date End Date Afia Rousseau MD PCP - General Internal Medicine 07/20/[address] [place] [address]
--- OUTSIDE RECORDS SUMMARY | 2022-08-02 07:44 | XMS_ITS | Encounter Summary ---
:1965 Author Organization [facility] Address [address] [place] [address] Care Team Providers Name Role Phone Unavailable [...] or relatives? How often do you attend uatsdin or 1 to 4 times per year 05/2020 anabaptism services? Do you belong to any clubs or No 10/26/2020 organizations such as uatsdin groups, unions, fraternal or athletic groups, or [...]
--- OUTSIDE RECORDS SUMMARY | 2022-08-02 07:44 | XMS_ITS | Encounter Summary ---
:1965 Author Organization [facility] Address [address] [place] [address] Care Team Providers Name Role Phone Unavailable [...] or relatives? How often do you attend buddhist or 1 to 4 times per year 05/2020 taoist services? Do you belong to any clubs or No 10/26/2020 organizations such as buddhist groups, unions, fraternal or athletic groups, or [...]
--- OUTSIDE RECORDS SUMMARY | 2022-08-02 07:44 | XMS_ITS | Encounter Summary ---
:1965 Author Organization [facility] Address [address] [place] [address] Care Team Providers Name Role Phone Unavailable [...]
--- OUTSIDE RECORDS SUMMARY | 2022-08-02 07:44 | XMS_ITS | Encounter Summary ---
:1965 Author Organization [facility] Address [address] [place] [address] Care Team Providers Name Role Phone Unavailable [...] or relatives? How often do you attend latter day or 1 to 4 times per year 05/2020 protestant services? Do you belong to any clubs or No 10/26/2020 organizations such as latter day groups, unions, fraternal or athletic groups, or [...]
--- OUTSIDE RECORDS SUMMARY | 2022-08-02 07:44 | XMS_ITS | Encounter Summary ---
:1965 Author Organization [employer] [facility] Address [address] [place] [address] Care Team Providers Name Role Phone Unavailable Primary Care Provider Unavailable Reason for Visit Reason Comments Concerns Encounter Details Date Type Department Care Team Description 02/10/1999 Telephone Careline Ema Harris Concerns [address] [place], [place] [address] [address] [phone] [facility], [address] Social History Tobacco Use Types Packs/Day Years Used Date Smoking Tobacco: Never Assessed Sex Assigned at Date Recorded Not on file documented as of this encounter Nursing Notes 02/10/1999 11:59 PM [employer] >> CALL RECEIVED. Contact: >> EMA HARRIS [...]
--- OUTSIDE RECORDS SUMMARY | 2022-08-02 07:44 | XMS_ITS | Encounter Summary ---
:1965 Author Organization [facility] Address [address] [place] [address] Care Team Providers Name Role Phone Unavailable Primary Care Provider Unavailable Encounter Details Date Type Department Care Team Description 03/23/2004 Hospital Encounter HX [facility] Nena Andujar, LEmyP.N. [address] [place], [place] [address] Social History Tobacco Use [...] Adams, L.P.N. - 03/23/2004 12:00 AM CDT [id number] Polly Giron [address] [place] [address] [place] [address] March 23, 2004 Dear Ms. Giron, You have been referred by Dr. Trivedi to be seen at [facility], for your perinatology consultation. You have been given 12 visits, which can be used between now and 11/20/2004. If you need more visits, the dates extended, or have any type of scan or procedure scheduled by thisspecialist, please notify us at [phone] in Obstetrics/Gynecology as you may need another [...] you for letting us serve you. Source: [id number] Document Id: [id number] documented in this encounter Plan of Treatment Not on filedocumented as of this encounter Visit Diagnoses Not on filedocumented in this encounter
--- OUTSIDE RECORDS SUMMARY | 2022-08-02 07:44 | XMS_ITS | Encounter Summary ---
:1965 Author Organization [facility] Address [address] [place] [address] Care Team Providers Name Role Phone Unavailable [...] or relatives? How often do you attend gnosticist or 1 to 4 times per year 05/2020 baptist services? Do you belong to any clubs or No 10/26/2020 organizations such as gnosticist groups, unions, fraternal or athletic groups, or [...]
--- NOTE | 2022-08-02 08:00 | CRLHL7_ITS ---
For Patients: As a result of the Century Cures Act, medical imaging exams and procedure reports are released immediately into your electronic medical record. You may view this report before your referring provider. If you have questions, please contact your health care provider. [facility] ??? [facility] MYOCARDIAL PERFUSION SCAN, 08/02/2022 CLINICAL HISTORY: 56-year-old female. CAD. Previous coronary artery stenting in 2015. Chest pain. Current smoker. Lupus. TECHNIQUE: (Resting SPECT and stress gated SPECT with wall motion and ejection fraction) Stress: Pharmacologic ??? walking Lexiscan (0.4 mg IV) Dose (Stress/Rest): 31.3 mCi/8.61 mCi [id number] (IV) Comparison: None FINDINGS: There is good uptake of activity by the left ventricle. No left ventricular enlargement is noted. There is breast attenuation. No other significant fixed or reversible defects are identified. The gated images demonstrate a normal left ventricular ejection fraction of 61 percent. No regional wall motion abnormalities are identified. IMPRESSION: 1) There is no evidence of significant myocardial ischemia or infarction. 2) Normal left ventricular ejection fraction of 61 percent. This study was jointly reviewed by Radiology and Cardiology. IVETH SAUCEDO M.D. Aristides Arnold MD, Cardiology Diagnostic/Nuclear Medicine Radiologist [email or web address] Transcribed: 3:[address]/Dictated by: Iveth Saucedo MD @ 08/02/2022 2:11:00 PM (Electronically Signed)
[2022-08-02] MEDS: REGADENOSON 0.4 MG/5 ML SYRINGE IVP (12:02)
[2022-08-02] MEDS: SODIUM CHLORIDE 0.9 % (FLUSH) 10 ML SYRINGE IVF (12:03)
[2022-08-02 12:52] VITALS: BP 93/59; PULSE 105; RESP 16
--- NOTE | 2022-08-02 17:46 | PM.ST ---
Stress Test Note Date Date of test: 08/02/22 Providers Referring provider: Darnell Soto Primary care provider: Afia Rousseau Stress test physician: Esvin Cuevas Stress Test Note Stress test ordered: Lexiscan Indication for test: CAD Stress test medicine: Lexiscan Results discussion: Patient is a very nice lady presents above test, she is really unable to walk, and the test ordered is the stress test Myoview, switch this to a Lexiscan. After discussion the risks benefits side effects and reviewing the cardiac stress test medical history for she would like to proceed. Pretest EKG shows normal sinus rhythm with a ventricular rate of 86, blood pressure 103/68. No acute ST wave changes are noted. Standard infusion of Lexiscan is done over the 5 minute. Maximum heart rate was 130, which is 92% of the maximum. Maximum blood pressure was 103/63. She had some mild headache associated with this, there is no acute ST wave changes suggestive of ischemia, she recovered normally in the recovery period. Impression: Negative electrographic portion of Lexiscan Follow up suggested: Await nuclear images these will be jointly read by Cardiology and nuclear Medicine, clinical correlation with these will be needed, patient was back to baseline and was able to leave this testing facility in good condition.
--- NOTE | 2022-08-02 17:50 | PM.ST ---
Stress Test Note Date Date of test: 08/02/22 Providers Referring provider: Renetta Chongland Primary care provider: Afia Rousseau Stress test physician: Esvin Cuevas Stress Test Note Stress test ordered: Lexiscnolan Indication for test: Chest pain Stress test medicine: Lexiscan Results discussion: Patient is very nice lady presents for the above test after discussion the risks benefits side effects she would like to proceed. Lexiscan is ordered, cardiac stress test medical history form is reviewed. Pretest EKG shows normal sinus rhythm, with a rate of 66, blood pressure 134/90, there is some mild ST wave flattening noted throughout the precordium, following standard Lexiscan protocol, maximum heart rate was 137, and maximum blood pressure was 137/73, she recovered normally with really minimal symptoms. No dysrhythmias were noted, she had no EKG changes of ischemia, and had no complaints. Impression: Negative electrographic portion of Lexiscan Follow up suggested: Patient will be discharged home, nuclear Medicine and Cardiology review this, clinical correlation will be needed. But there is no evidence of any findings noted on the electrographic portion. She left this testing facility in excellent condition back to baseline.
== END 2022-08-02 07:42 | disposition home or self-care (01) ==
PROVIDERS: PCP Internal Medicine; Visit Provider Family Medicine
DX: R07.9 Chest pain, unspecified (principal); I25.10 Atherosclerotic heart disease of native coronary artery without angina pectoris
CPT/HCPCS: 78452; 93016; 93017; A9500; J2785

== ENCOUNTER 2022-10-30 10:48 | Emergency (ER) | payer MEDICARE, OTHER, SELFPAY ==
[2022-10-30 10:51] VITALS: BP 115/76; PULSE 120; RESP 24; TEMP 37.4; O2SAT 91; BMI 21.5
--- NOTE | 2022-10-30 11:47 | CRLHL7_ITS ---
For Patients: As a result of the Century Cures Act, medical imaging exams and procedure reports are released immediately into your electronic medical record. You may view this report before your referring provider. If you have questions, please contact your health care provider. INDICATION: SOB TECHNIQUE: Chest 1 views. COMPARISON: October 21, 2013 FINDINGS: Cardiovascular and mediastinum: Heart size within normal limits. Lungs and pleural spaces: Central vascular congestion with interstitial prominence. Bibasilar airspace opacities and small right pleural effusion. No pneumothorax. Bones and soft tissues: No significant findings. IMPRESSION: Central vascular congestion with interstitial prominence. Bibasilar airspace opacities and small right pleural effusion. Overall, findings are suspicious for pulmonary edema with atelectasis although bibasilar pneumonia could have a similar appearance. Dictated by Marbin Salguero MD @ 10/30/2022 12:42:15 PM (Electronically Signed)
[2022-10-30 12:04] LABS: PCR FLU A Negative PCR FLU A (Negative); PCR FLU B Negative PCR FLU B (Negative); PCR RSV Negative PCR RSV (Negative)
[2022-10-30 12:05] LABS: SARS PCR* POSITIVE SARS-CoV-2 (Negative)
--- NOTE | 2022-10-30 12:17 | ED_ITS ---
HPI - General Adult General Date Seen: 10/30/22 Chief complaint: Fever Stated complaint: Cough, fever congestion Time Seen by Provider: 10/30/22 11:04 Source: patient History of Present Illness HPI narrative: Patient is a 57-year-old woman with underlying lupus and COPD who presents for evaluation of worsening cough and shortness of breath. She says that 10 days ago she developed a fever up to 103. She notes that she has been exposed to COVID, influenza, and RSV. She has continued fevers up to 100-101 particularly in the evenings. She denies chest pain but has had shortness of breath which seems to be getting worse and continues to cough, now is producing yellow sputum. She denies lower extremity swelling or pain. She says her daughter has a history of DVT in the setting of oral contraceptive use. No personal history of DVT or PE. Smokes, does have mild COPD but does not use any inhalers on a regular basis. She is not on home oxygen. She comes in because of worsening shortness of breath persistence of symptoms. She is not vaccinated for COVID, she says ?they told her not to get vaccinated, but chart notes that she refused vaccination. She has not had a flu shot this year. She tells me that she started a new injectable medication for lupus about 6 weeks ago, in addition to her methotrexate and hydrochloroquine. She has a history of coronary artery disease, status post stent, which she tells me is related to her lupus. She also has a history of chronic abdominal pain, fibromyalgia, on chronic opioids. Related Data Home Medications Medication Instructions Recorded Confirmed aspirin 81 mg chewable tablet 1 tab PO DAILY 06/17/22 10/30/22 folic acid 1 mg tablet 1 mg PO DAILY 06/17/22 10/30/22 hydroxychloroquine 200 mg tablet 200 mg PO BID 06/17/22 10/30/22 clopidogrel 75 mg tablet 75 mg PO DAILY 10/30/22 10/30/22 cyclobenzaprine 10 mg tablet 10 mg PO Q8H 10/30/22 10/30/22 methotrexate sodium 25 mg/mL mg 10/30/22 injection solution rosuvastatin 20 mg tablet 20 mg PO DAILY 10/30/22 10/30/22 Previous Rx's Medication Instructions Recorded dexlansoprazole 60 mg 60 mg PO QDAY #90 caps 06/21/22 capsule,biphase delayed release oxycodone 15 mg tablet 15 mg PO Q4H PRN pain #124 tabs 10/17/22 oxycodone 40 mg tablet,crush 40 mg PO BID #62 tabs 10/17/22 resistant,extended release 12 hr (OxyContin) Allergies Allergy/AdvReac Type Severity Reaction Status Date / Time adhesive AdvReac Intermediate Tears skin Verified 10/30/22 10:57 band-aids Allergy Mild Uncoded 06/17/22 09:47 Review of Systems Status of ROS: Reports: 10 or more systems reviewed and unremarkable except as noted in History and below [facility] Medical History History of depression History of esophageal ulcer (2012) History of sepsis (2011) History of small bowel obstruction (2012) Surgical History History of cervical spinal surgery (09/10/09) History of section (09/10/09) History of hysterectomy (09/10/09) History of oophorectomy (07/11/11) History of repair of rotator cuff (09/10/09) History of ventral hernia repair (03/27/13) Status post wrist surgery (09/10/09) Family History Father Colon cancer Brother Colon cancer Paternal Grandfather Colon cancer Social History Smoking Status: Current every day smoker Do you use any of these nicotine containing products: None How often do you have a drink containing alcohol: never AUDIT-C Alcohol total score: 0 Non-prescribed substance use: denies use Exam Narrative: Exam Narrative: Vital signs as noted above. In general, an alert, well-appearing patient. Head: Normocephalic, atraumatic. Eyes: Pupils are equal reactive. Extraocular movements are full. Conjunctivae are normal. ENT: Mucous membranes are moist. Throat is normal. Neck: Supple without lymphadenopathy. Heart: Tachycardic and regular, no murmur. Lungs: Occasional scattered wheezes, mild tachypnea without increased work of breathing. Abdomen: Soft and nontender. No organomegaly. Extremities: Well perfused. No edema. No calf tenderness. Pulses intact. Neurologic: Patient is alert and oriented to person and place. Speech is fluent. Face is symmetric. Moves all extremities equally. Affect: Normal. Skin: Warm and dry. Well perfused. Const: Vital Signs, click to edit/add: Vital Signs - 24 hr 10/30/22 10:51 Temperature 99.3 F Pulse Rate [Right Pulse Oximeter] 120 H Respiratory Rate 24 Blood Pressure [Ri ght Upper Arm] 115/76 Pulse Oximetry 91 Oxygen Delivery Me thod Room Air Documenting provider has reviewed patient's vital signs: yes Course Course Hospital Course: Patient had an initial swab for COVID, RSV and influenza. I did do a chest x- ray, suggested to her that we wait and see how her viral testing came out. She is tachycardic here, she is borderline febrile with a temperature of 99.8?. I think in the absence of a positive COVID test, tachycardia and tachypnea could have been potentially explained by mildly elevated temperature and respiratory illness. I did give her a DuoNeb here as well as prednisone given her underlying COPD to see if her O2 saturations would improve. Review of her records shows that her O2 saturations typically are in the 98-100% range on room air, so today's numbers are unusual for her, even with her COPD. Patient did improve significantly after the DuoNeb, O2 sats on my recheck were 95% on room air and she feels improved. Her white blood cell count was 12.1, somewhat elevated for COVID. Hemoglobin is 13. Her D-dimer is 0.54, reasonable for age. Metabolic panel normal, LFTs normal aside from an alk-phos of 156. CRP is elevated at 13.6. I think in the absence of a significantly elevated D-dimer, that use unlikely. Chest x-ray by my review did show some patchiness at both bases, radiology read this as possibly pulmonary edema verses infiltrate. I think the clinical scenario is more suggestive of infiltrate. I am going to cover her for community-acquired pneumonia in addition to COPD exacerbation with albuterol and prednisone. Low threshold for return if worsening. Primary care followup for recheck next week. Vital Signs Vital signs: Initial Vital Signs Temperature 99.3 F 10/30/22 10:51 Temperature Source Temporal Artery Scan 10/30/22 10:51 Pulse Rate 120 H 12/11/22 10:51 Respiratory Rate 24 10/30/22 10:51 Blood Pressure 115/76 10/30/22 10:51 Blood Pressure Mean 89 10/30/22 10:51 Blood Pressure Position Sitting 10/30/22 10:51 Pulse Oximetry 91 10/30/22 10:51 Oxygen Delivery Method 10/30/22 10:51 Vital Signs Temperature 99.3 F 10/30/22 10:51 Pulse Rate 120 H 10/30/22 10:51 Respiratory Rate 24 10/30/22 10:51 Blood Pressure 115/76 10/30/22 10:51 Pulse Oximetry 91 10/30/22 10:51 Oxygen Delivery Method 10/30/22 10:51 Temperature 99.3 F 10/30/22 10:51 Pulse Rate 120 H 10/30/22 10:51 Respiratory Rate 24 10/30/22 10:51 Blood Pressure 115/76 10/30/22 10:51 Pulse Oximetry 91 10/30/22 10:51 Oxygen Delivery Method 10/30/22 10:51 Medical Decision Making Lab Data Labs: Lab Results 10/30/22 10/30/22 10/30/22 Range/Units 10:59 12:36 12:36 WBC 12.12 H (4.50-11.00) K/uL RBC 4.18 (4.00-5.20) m/uL Hgb 13.0 (12.0-16.0) gm/dL Hct 40.7 (33.0-51.0) % MCV 97 (80-100) fL MCH 31 (26-34) pg MCHC 32 (32-36) gm/dL RDW Coeff of Oliverio 13.1 (11.5-15.5) % Plt Count 297 (140-440) K/uL Neut % (Auto) 77.8 H (42.0-72.0) % Lymph % (Auto) 12.4 L (20-44) % [place] % (Auto) 9.2 (0.0-11.0) % Eos % (Auto) 0.2 (0.0-7.0) % Baso % (Auto) 0.1 (0.0-3.0) % Neut # (Auto) 9.40 H (1.7-7.0) K/uL Lymph # (Auto) 1.50 (0.90-2.90) K/uL [place] # (Auto) 1.10 H (0.00-0.90) K/UL Eos # (Auto) 0.00 (0.00-0.50) K/uL Baso # (Auto) 0.00 (0.00-0.30) K/uL Abs Immat Gran (auto) 0.00 (0.00-0.30) K/uL Imm/Tot Granulo (auto) 0.3 % D-Dimer Quant (PE/DVT) 0.54 H (0.00-0.50) ug/ml Sodium (135-149) mmol/L Potassium (3.6-5.1) mmol/L Chloride (96-114) mmol/L Carbon Dioxide (20-32) mmol/L BUN (7-30) mg/dL Creatinine (0.5-1.5) mg/dL Estimated Creat Clear Estimated GFR ml/min Glucose (60-115) mg/dL Lactate (0.5-1.9) mmol/L Calcium (8.4-10.6) mg/dL Total Bilirubin (0.1-1.5) mg/dL Direct Bilirubin (0.0-0.5) mg/dL AST (12-35) U/L ALT (4-35) U/L Alkaline Phosphatase (40-150) U/L Lactate Dehydrogenase C-Reactive Protein (0.5-1.0) mg/dL Total Protein (6.0-8.3) g/dL Albumin (3.3-5.0) g/dL SARS-CoV-2 (PCR) POSITIVE SARS-CoV-2 A (Negative) Influenza Type A (PCR) Negative PCR FLU A (Negative) Influenza Type B (PCR) Negative PCR FLU B (Negative) RSV (PCR) Negative PCR RSV (Negative) 10/30/22 10/30/22 Range/Units 12:36 12:36 WBC (4.50-11.00) K/uL RBC (4.00-5.20) m/uL Hgb (12.0-16.0) gm/dL Hct (33.0-51.0) % MCV (80-100) fL MCH (26-34) pg MCHC (32-36) gm/dL RDW Coeff of Oliverio (11.5-15.5) % Plt Count (140-440) K/uL Neut % (Auto) (42.0-72.0) % Lymph % (Auto) (20-44) % [place] % (Auto) (0.0-11.0) % Eos % (Auto) (0.0-7.0) % Baso % (Auto) (0.0-3.0) % Neut # (Auto) (1.7-7.0) K/uL Lymph # (Auto) (0.90-2.90) K/uL [place] # (Auto) (0.00-0.90) K/UL Eos # (Auto) (0.00-0.50) K/uL Baso # (Auto) (0.00-0.30) K/uL Abs Immat Gran (auto) (0.00-0.30) K/uL Imm/Tot Granulo (auto) % D-Dimer Quant (PE/DVT) (0.00-0.50) ug/ml Sodium 135 (135-149) mmol/L Potassium 3.8 (3.6-5.1) mmol/L Chloride 100 (96-114) mmol/L Carbon Dioxide 25 (20-32) mmol/L BUN 9 (7-30) mg/dL Creatinine 0.6 (0.5-1.5) mg/dL Estimated Creat Clear 99.18 Estimated GFR 106 ml/min Glucose 92 (60-115) mg/dL Lactate 1.1 (0.5-1.9) mmol/L Calcium 8.8 (8.4-10.6) mg/dL Total Bilirubin 0.9 (0.1-1.5) mg/dL Direct Bilirubin 0.5 (0.0-0.5) mg/dL AST 27 (12-35) U/L ALT 33 (4-35) U/L Alkaline Phosphatase 156 H (40-150) U/L Lactate Dehydrogenase Cancelled C-Reactive Protein 13.6 H (0.5-1.0) mg/dL Total Protein 7.6 (6.0-8.3) g/dL Albumin 4.4 (3.3-5.0) g/dL SARS-CoV-2 (PCR) (Negative) Influenza Type A (PCR) (Negative) Influenza Type B (PCR) (Negative) RSV (PCR) (Negative) Discharge Plan Discharge Clinical Impression: COVID-19, COPD (chronic obstructive pulmonary disease), Pneumonia Patient Disposition: Home, Self-Care Condition: Improved Instructions: Community Acquired Pneumonia (DC), COVID-19 (Coronavirus Disease 2019) (ED) Additional Instructions: Medications as prescribed. Recheck with primary care next week. Return at any time for worsening respiratory symptoms, high fever, vomiting, chills, or other concerns. Prescriptions: No Action hydroxychloroquine 200 mg tablet 200 mg PO BID folic acid 1 mg tablet 1 mg PO DAILY aspirin 81 mg tablet,chewable 1 tab PO DAILY cyclobenzaprine 10 mg tablet 10 mg PO Q8H Label Comments: TAKE 1/2 TABLET BY MOUTH EVERY EIGHT HOURS NEEDED clopidogrel 75 mg tablet 75 mg PO DAILY Label Comments: TAKE ONE TABLET BY MOUTH EVERY DAY IN THE MORNING. methotrexate sodium 25 mg/mL solution Label Comments: INJECT 0.8 ML (20 MG) ONCE A WEEK rosuvastatin 20 mg tablet 20 mg PO DAILY dexlansoprazole 60 mg capsule,biphase delayed releas 60 mg PO QDAY Qty: 90 2RF oxycodone [OxyContin] 40 mg tablet,oral only,ext.rel.12 hr 40 mg PO BID Qty: 62 0RF oxycodone 15 mg tablet 15 mg PO Q4H PRN (Reason: pain) Qty: 124 0RF Follow Up/Referrals: Afia Rousseau MD [Primary Care Provider] - Stand Alone Forms: [employer] Info Instructions
[2022-10-30] MEDS: IPRAT-ALBUT 0.5-2.5 MG/3 ML NEB 1 NEB IH (12:18)
[2022-10-30] MEDS: predniSONE 20 MG TABLET 60 MG PO (12:19)
--- OUTSIDE RECORDS SUMMARY | 2022-10-30 12:30 | XMS_ITS | Clinical Summary ---
:1965 Author Organization [facility] [place] [address] Care Team Providers Name Role Phone Afia [...] Encounters Date Type Specialty Care Team Description 08/03/2022 Telephone Darnell Soto MD Results ([facility]) 08/03/2022 Orders Only Trudy Carter 2 scans: (2 -Ord) [facility] inics; Stress Test Note 08/0208/03/2022 Orders Only Darnell Soto MD <No sca ns attached> from Last 3 Months Family History Medical History Relation Name Comments Cancer-colon Brother 1 Cancer-prostate Brother 2 Stroke Father Cancer Mother lung Heart Disease No Family History Relation Name Status Comments Brother 1 Brother 2 Father Mother Social History Tobacco Use Types Packs/Day Years Used Date Smoking Tobacco: Every Day Cigarettes 0.3 28 Smokeless Tobacco: Never Tobacco Cessation: Ready to Quit: Yes; C [...] ng 03/20 37w 2.66 kg M [place]ie /1987 0d (5 lb ng e 14 oz) Delivery Location: [facility] Comments: emergency C/S 04/20/1989 37w0d 3.18 kg (7 lb) F Living [place] Delivery Location: [place] Comments: R/C/S 08/20/1991 37w0d 2.72 kg (6 lb) M [facility] [place] Delivery Location: [place] Comments: R/C/S 11/20/1992 SPONTANEOUS Living 11/20/1993 SPONTANEOUS Living 04/20/1999 34w0d 1.98 kg (4 lb 6 M Living [place] oz) Delivery Location: [place] Comments: emergency C/S 07/21/2004 30w0d 1.7 kg (3 lb 12 oz) M Living [facility] Delivery Location: [place] Comments: placental abruption Comments dates of SABs [...] 05/27/2015 2:29 PM CDT Plan of Treatment Health Maintenance Due Date Last Done Comments COVID-19 vaccine series (#1) 02/05/1968 Pneumococcal series for age 19-64 (1 - PCV) 1973 Tdap 1978 Depression screening for age 12+ 1979 HIV for age 15-65 1982 BMI (ht and wt on same day) for age 18+ 1985 Hepatitis C screening for age 18-79 1985 Zoster (shingles) series for age 50+ (1 of 2) 1986 Tetanus booster 1987 Pap test for age 21-65 1988 Colonoscopy through age 75 2012 Mammogram for age 45-75 2012 Lipids for age 45-75 05/28/2020 05/28/2015 Influenza for age 50-64 07/21/2022 Procedures Procedure Name Priority Date/Time Associated Diagnosis Comme nts STRESS TEST Routine 08/02/2022 Acute chest pain Results for this PHARMACOLOGICAL Coronary artery procedure are in disease due to lipid the res ults rich plaque section. NM CARDIAC MPI STRESS TEST Routine 08/02/2022 Acute chest pain Results for this Coronary artery procedure ar e in disease due to lipid the res ults rich plaque section. from Last 3 Months Results NM CARDIAC MPI STRESS TEST (08/02/2022) Anatomical Region Laterality Modality HEART Other Specimen (Source) Anatomical Location Collection Method / Collectio n Time Received Time / Laterality Volume 08/02/2022 Narrative This result has an attachment that is no t available. Darnell Soto MD NM STRESS TEST PHARMACOLOGICAL (08/02/2022) Anatomical Region Laterality Modality Other Specimen (Source) Anatomical Location Collection Method / Collectio n Time Received Time / Laterality Volume 08/02/2022 Narrative This result has an attachment that is no t available. Darnell Soto MD STRESS from Last 3 Months Insurance Payer Benefit Plan / Subscriber ID Effective Dates Phone Addre ss Type Group MEDICARE PART B MEDICARE PART B [id number] 2003-Present ATTN: CLAIMS - HB USE ONLY HB [place] [address] [place] [address] MEDICARE PART B MEDICARE PART B [id number] 2003-Present ATTN: CLAIMS - HB USE ONLY HB [place] [address] [place] [address] MEDICARE PART A MEDICARE PART A [id number] 2003-Present ATTN: CLAIMS - HB USE ONLY HB [place] [address] [place] [address] MEDICA MA MEDICA CHOICE [id number] 2014-Present [address] [address] [place] [address] MEDICARE - PB MEDICARE PB [id number] 2004-Presen ATT N: CLAIMS USE ONLY ONLY t [address] [place] [address] MED[place] CARE [id number] 2014-Present [address] [address] [place] [address] Advance Directives Latest Code Status on File Code Status Date Activated Date Inactivated Comments Full Code 05/27/2015 5:03 PM 05/29/2015 12:49 PM Code Status History Code Status Date Activated Date Inactivated Comments Full Code 05/27/2015 2:51 PM 05/27/2015 5:03 PM Full Code 09/06/2005 10:46 AM 09/08/2005 7:27 PM Full Code 09/06/2005 9:14 AM 09/06/2005 10:46 AM Full Code 09/02/2005 6:25 PM 09/02/2005 6:51 PM Care Teams Sail Finisher Machine Relationship Specialty Start Date End Date Afia Rousseau MD PCP - General Internal Medicine 01/29/151999 [place] [address]
--- OUTSIDE RECORDS SUMMARY | 2022-10-30 12:30 | XMS_ITS | Continuity of Care Document ---
:1965 Author Organization [facility] Address [address] [address] [place] [address] Phone Care Team Providers Name Role Phone Derik MCLEOD, Maria C Unavailable Unavailable Procedures Procedure Date Subsqt Hosp-da E&m Minr Compl Init Hosp-da E&m Mod Severity Advance Directives Directive Yes / No Effective Date File Name No Information Encounters Encounter Practice Location Reason(s) Diagnoses Date Provider Provide rs Description For Visit Copied on Encounter Subsqt [facility] Cespedes No Derik MLCEOD Referring Hosp-da E&m [facility] Information 9 [facility] C. [facility]: [facility] [place] [address] [facility] [address] [facility] [address], [facility], [address], [address] , [place], [address] [id number], [place] [address], [place], [place], [place] tel: [phone] s, [place], [address] , [place]. [address]. tel: tel: [phone] Init Hosp-da [facility] Cespedes No Jah [place] Referring E&m Mod [facility] Information 8 Nikki. Provi js: [facility] [place], Hosp [address] [facility] [address] [place] [address] [facility], [address] [place], [address] , [place], [address] [id number], [place] [address], [place], [place], [place] tel: [phone] s, [place], [address] , [place]. [address]. tel: tel: [phone] Family History Family Member Type Diagnosis Age At Onset No Information Payers Payer name Insurance type Covered republican ID Authorization(s ) Medicare NGS [id number] [employer] [id number] Social History Type Description Quantity Date Captured [...]
--- OUTSIDE RECORDS SUMMARY | 2022-10-30 12:30 | XMS_ITS | Clinical Summary ---
:1965 Author Organization [facility] Address [address] [address] Care Team Providers Name Role Phone Afia [...] for each transition of care or referral. [employer] Allergies Active Allergy Reactions Severity Noted Date [...] Phone Addre ss Type Group MEDICARE MEDICARE [id number] 2003-Presen Med icare t MEDICA MEDICA [id number] 2016-Presen [phone] [place] dicaid ACCESSABILITY t 2 (Work) [id number] Personal/Family Self 1965 [address] [facility] ([place] [address] Care Teams Avionics Technician Relationship Specialty Start Date End Date Afia Rousseau MD PCP - General Internal Medicine 07/20/[address] [place] [address]
--- OUTSIDE RECORDS SUMMARY | 2022-10-30 12:30 | XMS_ITS | Encounter Summary ---
:1965 Author Organization [email or web address] Address [address], [place] [address] Care Team Providers Name Role Phone Afia Rousseau MD Primary Care Provider Reason for Visit Procedure/Equipment (Routine) - Incomplete Specialty Diagnoses / Procedures Referred By Contact Refer red To Contact Diagnoses Lupus erythematosus tumidus Multiple joint pain Deepti Hannah MD Procedures MR Hand Rt W/WO IV Cont [address] [place] [address] Referral ID Status Reason Start Date Expiration Date Visits V isits Requested Authorized [id number] Incomplete 08/04/2017 11/03/2018 1 1 Encounter Details Date Type Department Care Team Description 08/15/2017 Imaging [facility] Deepti Hannah, Lupus erythematosus tumidus; MRI Multiple joint pain [address] [place] [address] [place], [place] [phone] (Wo rk) Social History Tobacco Use [...] dose documented in this encounter Care Teams Amusement Equipment Operator Relationship Specialty Start Date End Date Afia Rousseau MD PCP - General Internal Medicine 07/20/[address] [place] [address] documented as of this encounter
--- OUTSIDE RECORDS SUMMARY | 2022-10-30 12:31 | XMS_ITS | Encounter Summary ---
:1965 Author Organization [facility] Address [address] [place] [address] Care Team Providers Name Role Phone Unavailable Primary Care Provider Unavailable Reason for Visit Reason Comments Concerns Encounter Details Date Type Department Care Team Description 02/10/1999 Telephone Careline Ema Harris Concerns [address] [place], [place] [address] [phone] [facility], [address] Social History Tobacco Use Types Packs/Day Years Used Date Smoking Tobacco: Never Assessed Sex Assigned at Date Recorded Not on file documented as of this encounter Nursing Notes 02/10/1999 11:[address]TER >> CALL RECEIVED. Contact: >> EMA HARRIS [...]
--- OUTSIDE RECORDS SUMMARY | 2022-10-30 12:31 | XMS_ITS | Encounter Summary ---
:1965 Author Organization [employer] Address [address] [address] Care Team Providers Name Role Phone Afia Rousseau MD Primary Care Provider Reason for Visit Reason Onset Date Comments Medication Request 08/04/2017 Sedation for MRI Encounter Details Date Type Department Care Team Description 08/04/2017 Telephone Deepti Lam, Medicati on Request Rheumatology (Sedation for MRI) [id number] [place] [phone] (Wo rk) Social History Tobacco Use Types [...] phobias documented in this encounter Care Teams Janitor Relationship Specialty Start Date End Date Afia Rousseau MD PCP - General Internal Medicine 07/20/[address] [place] [address] documented as of this encounter
--- OUTSIDE RECORDS SUMMARY | 2022-10-30 12:31 | XMS_ITS | Encounter Summary ---
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; [address] [place] [address] Social History Tobacco Use Types Packs/Day Years [...] encounter Results Differential (08/04/2017 10:23 AM CDT) athologist Signature Absolute 5.3 1.8 - 8.0 [...] - 08/04/2017 10:28 AM CDT Performed at [facility], [address] [place] [address] CLIA number [id number] Deepti Hannah MD LAB_1 Performing Organization Address City/[facility]/ZIP Code Phon e Number PN SOFT [address] [place] [address] HCAB - Hepatitis C Virus Mami with Reflex In-House (08/04/2017 10:23 AM CDT) [facility] Method Time Signature Hepatitis C Nonreactive Nonreactive PN SOFT Antibody Specimen Anatomical Collection Method Collection Time Receive d Time (Source) Location / / Volume Laterality 08/04/2017 10:23 08/04/2017 AM CDT 12:18 PM CDT Narrative PN SOFT - 08/04/2017 1:18 PM CDT Performed at [address] [address] CLIA number [id number] Deepti Hannah MD LAB_1 Performing Organization Address City/[facility] Phon e Number PN SOFT [address] [place] [address] HBAG - Hepatitis B Surf Ag (08/04/2017 10:23 AM CDT) [facility] Method Time Signature Hep B Surf Ag Nonreactive Nonreactive PN SOFT Specimen Anatomical Collection Method Collection Time Receive d Time (Source) Location / / Volume Laterality 08/04/2017 10:08/04/2017 4:02 AM CDT PM CDT Narrative PN SOFT - 08/04/2017 5:02 PM CDT Performed at [facility], [facility] [place] [address] CLIA number [id number] Deepti Hannah MD LAB_1 Performing Organization Address [facility] Phon e Number PN SOFT [address] [place] [address] Lyme Antibody, and Western Blot If Needed) [...] (Source) Location / / Volume Laterality 08/04/2017 10:08/04/2017 4:02 AM CDT PM CDT Narrative PN SOFT - 08/05/2017 9:41 AM CDT Performed at [facility], [address] [place] [address] CLIA number [id number] Deepti Hannah MD LAB_1 Performing Organization Address [facility] Phon e Number PN SOFT [address] [place] [address] HLA B27 (08/04/2017 10:23 AM CDT) P athologist Signature HLA B27 Negative Negative PN SOFT Comment: CLIA Number [id number] HLA B27 Interpretation SEE BELOW PN SOFT Comment: This test was developed and the performa nce characteristics were determined by [facility]. It has not been cleared or a pproved by the U.S. Food and Drug Administration. T he FDA has determined that such clearance or approv al is not necessary. Performed at [facility] , [address] [place] [address] CLIA Number [id number] Specimen Anatomical Collection Method Collection Time Receive d Time (Source) Location / / Volume Laterality 08/04/2017 10:23 08/04/2017 AM CDT 12:03 PM CDT Deepti Hannah MD LAB_1 Performing Organization Address [facility] Phon e Number PN SOFT [address] [place] [address] RHF - Rheumatoid Factor (08/04/2017 10:23 AM CDT) P athologist Signature Rheumatoid <15 0 - 30 PN SOFT Factor IU/mL Specimen Anatomical Collection Method Collection Time Receive d Time (Source) Location / / Volume Laterality 08/04/2017 10:23 08/04/2017 4:02 AM CDT PM CDT Narrative PN SOFT - 08/04/2017 5:09 PM CDT Performed at [address] [address] CLIA number [id number] Deepti Hannah MD LAB_1 Performing Organization Address [facility] Phon e Number PN SOFT [address] [place] [address] CCPIG - Cyclic Citrullinated Peptide AB (08/04/2017 10:23 AM CDT) Analysis Performed At [facility] Time Signature CYCLIC 0.7 0.0 - 7.0 PN SOFT CITRULLINATED IU/mL PEPTIDEAB Comment: Reference Range: <7 Negative, 7 - 10 Equivocal, >10 Posit goldie Specimen Anatomical Collection Method Collection Time Receive d Time (Source) Location / / Volume Laterality 08/04/2017 10:23 08/04/2017 3:59 AM CDT PM CDT Narrative PN SOFT - 2017 2:15 PM CDT Performed at [facility], [address] [place] [address] CLIA number [id number] Deepti Hannah MD LAB_1 Performing Organization Address [facility] Phon e Number PN SOFT [address] [place] [address] Extractable Nuclear Antigen Antibodies (08/04/2017 10:23 AM CDT) athologist Signature TADEO To MEDICAL OFFICE TECHNOLOGIST 0 0 - 40 PN SOFT Antibody AU/mL Comment: INTERPRETIVE INFORMATION: Ribonucleic Pr otein (TADEO)Antibody, IgG ??29 AU/mL or Less ............. Negati ve ??30 - 40 AU/mL ................ Equivo bladimir ??41 AU/mL or Greater .......... Positi ve MEDICAL OFFICE TECHNOLOGIST antibody is seen in 95-100 percent o f mixed connective tissue disease and is considered specifi c for this syndrome if other antibodies are negative; MEDICAL OFFICE TECHNOLOGIST is also present in 20-30 percent of systemic lupus erythema tosus and 15-25 percent of progressive systemic sclerosi s. MEDICAL OFFICE TECHNOLOGIST antigens also contain epitopes that are immunolog ically identical to free Burgess antigens, therefore, the Saeid h antibody response must be considered when interpreting MEDICAL OFFICE TECHNOLOGIST results. Performed by [facility], [address] [place] [address] [email or web address], Elliott Rosario MD - Lab . Director [...] - 08/06/2017 7:39 AM CDT Performed at [facility] [address] [place] [address] CLIA number [id number] Deepti Hannah MD LAB_1 Performing Organization Address City/State/ZIP Code Phon e Number PN SOFT [address] [place] [address] DNA - Anti-dsDNA Antibody (08/04/2017 10:23 AM CDT) athologist Signature Anti-DNA Ab see below Negative PN SOFT Comment: <1:10 Negative Specimen Anatomical Collection Method Collection Time Receive d Time (Source) Location / / Volume Laterality 08/04/2017 10:23 08/04/2017 3:58 AM CDT PM CDT Narrative PN SOFT - 08/08/2017 12:55 PM CDT Performed at [facility] [address] [place] [address] CLIA number [id number] Deepti Hannah MD LAB_1 Performing Organization Address City/[facility] Phon e Number PN SOFT [address] [place] [address] COLT - Antinuclear Antibody (08/04/2017 10:23 AM CDT) athologist Signature Anti-Nuclear Negative Negative PN SOFT Ab Specimen Anatomical Collection Method Collection Time Receive d Time (Source) Location / / Volume Laterality 08/04/2017 10:23 08/04/2017 3:58 AM CDT PM CDT Narrative PN SOFT - 08/08/2017 10:53 AM CDT Performed at [address] [address] CLIA number [id number] Deepti Hannah MD LAB_1 Performing Organization Address [facility] Phon e Number PN SOFT [address] [place] [address] C4 - C4 Complement (08/04/2017 10:23 AM CDT) athologist Signature C4 Complement 39 15 - 57 PN SOFT mg/dL Specimen Anatomical Collection Method Collection Time Receive d Time (Source) Location / / Volume Laterality 08/04/2017 10:23 08/04/2017 AM CDT 12:18 PM CDT Narrative PN SOFT - 08/04/2017 12:58 PM CDT Performed at [address] [address] CLIA number [id number] Deepti Hannah MD LAB_1 Performing Organization Address [facility] Phon e Number PN SOFT [address] [place] [address] C3 - C3 Complement (08/04/2017 10:23 AM CDT) P athologist Signature C3 Complement 141 83 - 193 PN SOFT mg/dL Specimen Anatomical Collection Method Collection Time Receive d Time (Source) Location / / Volume Laterality 08/04/2017 10:23 08/04/2017 AM CDT 12:18 PM CDT Narrative PN SOFT - 08/04/2017 12:58 PM CDT Performed at [facility], [address] [place] [address] CLIA number [id number] Deepti Hannah MD LAB_1 Performing Organization Address City/[facility]/ZIP Code Phon e Number PN SOFT [address] [place] [address] ESR - Sedimentation Rate (08/04/2017 10:23 AM CDT) Analysis Performed At [facility] Time Signature Sedimentation Rate 16 0 - 20 PN SOFT mm/hr Specimen Anatomical Collection Method Collection Time Receive d Time (Source) Location / / Volume Laterality 08/04/2017 10:23 08/04/2017 AM CDT 10:23 AM CDT Narrative PN SOFT - 08/04/2017 11:22 AM CDT Performed at [facility], [facility] [address] [place] [address] CLIA number [id number] Deepti Hannah MD LAB_1 Performing Organization Address [facility] Phon e Number PN SOFT [address] [place] [address] CRP - C Reactive Protein (08/04/2017 10:23 AM CDT) P athologist Signature CRP <0.5 0.0 - 0.5 PN SOFT mg/dL Specimen Anatomical Collection Method Collection Time Receive d Time (Source) Location / / Volume Laterality 08/04/2017 10:23 08/04/2017 AM CDT 10:23 AM CDT Narrative PN SOFT - 08/04/2017 11:01 AM CDT Performed at [facility], [address] [place] [address] CLIA number [id number] Deepti Hannah MD LAB_1 Performing Organization Address City/[facility]/ZIP Code Phon e Number PN SOFT [address] [place] [address] CBC - Complete Blood Count W/Diff (08/04/2017 [...] - 08/04/2017 10:27 AM CDT Performed at [facility], [address] [place] [address] CLIA number [id number] Deepti Hannah MD LAB_1 Performing Organization Address City/[facility]/ZIP Code Phon e Number PN SOFT [address] [place] [address] VITD - Vitamin D (In house) (08/04/2017 [...] - 08/04/2017 5:18 PM CDT Performed at [facility], [address] [place] [address] CLIA number [id number] Deepti Hannah MD LAB_1 Performing Organization Address City/[facility]/ZIP Code Phon e Number PN SOFT [address] [place] [address] TSH with Free T4 (if TSH Abnormal) (08/04/2017 10:23 AM CDT) athologist Signature Thyroid 2.34 0.30 - PN SOFT Stimulating 4.50 Hormone uIU/mL Specimen Anatomical Collection Method Collection Time Receive d Time (Source) Location / / Volume Laterality 08/04/2017 10:23 08/04/2017 AM CDT 12:18 PM CDT Narrative PN SOFT - 08/04/2017 1:16 PM CDT Performed at [facility] [address] [place] [address] CLIA number [id number] Deepti Hannah MD LAB_1 Performing Organization Address [facility] Phon e Number PN SOFT [address] [place] [address] ALT - Alanine Aminotransferase (08/04/2017 10:23 AM CDT) [facility] Method Time Signature Alanine 13 9 - 55 PN SOFT Aminotransferase U/L Specimen Anatomical Collection Method Collection Time Receive d Time (Source) Location / / Volume Laterality 08/04/2017 10:23 08/04/2017 AM CDT 10:23 AM CDT Narrative PN SOFT - 08/04/2017 11:01 AM CDT Performed at [facility], [address] [place] [address] CLIA number [id number] Deepti Hannah MD LAB_1 Performing Organization Address City/[facility] Code Phon e Number PN SOFT [address] [place] [address] CREAT - Creatinine (08/04/2017 10:23 AM CDT) [...] - 08/04/2017 11:01 AM CDT Performed at [facility], [address] [place] [address] CLIA number [id number] Deepti Hannah MD LAB_1 Performing Organization Address City/State/ZIP Code Phon e Number PN SOFT [address] [place] [address] [phone] documented in this encounter 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
--- OUTSIDE RECORDS SUMMARY | 2022-10-30 12:31 | XMS_ITS | Encounter Summary ---
:1965 Author Organization [employer] Address [address], [place] [address] Care Team Providers Name Role Phone Afia Rousseau MD Primary Care Provider Reason for Referral Procedure/Equipment (Routine) - Incomplete Specialty Diagnoses / Procedures Referred By Contact Refer red To Contact Diagnoses Lupus erythematosus tumidus Multiple joint pain Deepti Hannah MD Procedures MR Hand Rt W/WO IV Cont [address] [place], [place] [address] Referral ID Status Reason Start Date Expiration Date Visits V isits Requested Authorized [id number] Incomplete 08/04/2017 11/03/2018 1 1 Reason for Visit Reason Comments CONSULT Encounter Details Date Type Department Care Team Description 08/04/2017 Initial Consult Deepti Lam Lupus er ythematosus tumidus (Primary Dx); Rheumatology MD [place] Multiple joint pain; [address] [address] [place] [address] [place] [address] [phone] Social History Tobacco Use Types Packs/Day Years [...] Note Referral: Afia Rousseau MD [address] [place] [address] Chief Complaint Patient presents with ??? CONSULT [...] ago. She was diagnosedwith fibromyalgia by a k 9 handler/ deputy. About 2.5 years ago, she began having [...] IgG and seen by hematology at the [facility]. They recommended yearly IgG evaluations through primary [...] 10 cigarettes a day. She lives in [place] and is originally from [place], [place]. Her 11-year-old daughter has JRA and [...] for today's visit was reviewed, sent to [place], and is as noted above and/or notable [...] smokingand hyperlipidemia. However, she was told by [facility] that her heart disease was unrelated [...] evaluations (as was proposed by her outside k 9 handler/ deputy, Dr. Darnell Tompkins of [facility]. She was understanding of this approach [...] with Reflex In-House (08/04/2017 10:23 AM CDT) [facility] Method Time Signature Hepatitis C Nonreactive Nonreactive PN SOFT Antibody Specimen Anatomical Collection Method Collection Time Receive d Time (Source) Location / / Volume Laterality 08/04/2017 10:23 08/04/2017 AM CDT 12:18 PM CDT Narrative PN SOFT - 08/04/2017 1:18 PM CDT Performed at [address] [address] CLIA number [id number] Deepti Hannah MD LAB_1 Performing Organization Address [facility] Phon e Number PN SOFT [address] [place] [address] HBAG - Hepatitis B Surf Ag (08/04/2017 10:23 AM CDT) [facility] Method Time Signature Hep B Surf Ag Nonreactive Nonreactive PN SOFT Specimen Anatomical Collection Method Collection Time Receive d Time (Source) Location / / Volume Laterality 08/04/2017 10:23 08/04/2017 4:02 AM CDT PM CDT Narrative PN SOFT - 08/04/2017 5:02 PM CDT Performed at [address] [address] CLIA number [id number] Deepti Hannah MD LAB_1 Performing Organization Address [facility] Phon e Number PN SOFT [address] [place] [address] Lyme Antibody, and Western Blot If Needed) (08/04/2017 10:23 AM CDT) [facility] Method Time Signature Lyme Negative Negative PN [...] - 08/05/2017 9:41 AM CDT Performed at [facility], [address] [place] [address] CLIA number [id number] Deepti Hannah MD LAB_1 Performing Organization Address City/[facility]/ZIP Code Phon e Number PN SOFT [address] [place] [address] HLA B27 (08/04/2017 10:23 AM CDT) athologist Signature HLA B27 Negative Negative PN SOFT Comment: CLIA Number [id number] HLA B27 Interpretation SEE BELOW PN SOFT Comment: This test was developed and the performa nce characteristics were determined by [facility]. It has not been cleared or a pproved by the U.S. Food and Drug Administration. T he FDA has determined that such clearance or approv al is not necessary. Performed at [facility] , [address] [place] [address] CLIA Number [id number] Specimen Anatomical Collection Method Collection Time Receive d Time (Source) Location / / Volume Laterality 08/04/2017 10:23 08/04/2017 AM CDT 12:03 PM CDT Deepti Hannah MD LAB_1 Performing Organization Address City/[facility] Code Phon e Number PN SOFT [address] [place] [address] RHF - Rheumatoid Factor (08/04/2017 10:23 AM CDT) athologist Signature Rheumatoid <15 0 - 30 PN SOFT Factor IU/mL Specimen Anatomical Collection Method Collection Time Receive d Time (Source) Location / / Volume Laterality 08/04/2017 10:23 08/04/2017 4:02 AM CDT PM CDT Narrative PN SOFT - 08/04/2017 5:09 PM CDT Performed at [facility], [address] [place] [address] CLIA number [id number] Deepti Hannah MD LAB_1 Performing Organization Address City/[facility]/ZIP Code Phon e Number PN SOFT [address] [place] [address] CCPIG - Cyclic Citrullinated Peptide AB (08/04/2017 [...] CDT Performed at [facility], [address] [place] [address] CLIA number [id number] Deepti Hannah MD LAB_1 Performing Organization Address City/State/ZIP Code Phon e Number PN SOFT [address] [place] [address] Extractable Nuclear Antigen Antibodies (08/04/2017 10:23 AM CDT) P athologist Signature TADEO To GAS JOCKEY 0 0 - 40 PN SOFT Antibody AU/mL Comment: INTERPRETIVE INFORMATION: Ribonucleic Pr otein (TADEO)Antibody, IgG ??29 AU/mL or Less ............. Negati ve ??30 - 40 AU/mL ................ Equivo bladimir ??41 AU/mL or Greater .......... Positi ve GAS JOCKEY antibody is seen in 95-100 percent o f mixed connective tissue disease and is considered specifi c for this syndrome if other antibodies are negative; GAS JOCKEY is also present in 20-30 percent of systemic lupus erythema tosus and 15-25 percent of progressive systemic sclerosi s. GAS JOCKEY antigens also contain epitopes that are immunolog ically identical to free Burgess antigens, therefore, the Saeid h antibody response must be considered when interpreting GAS JOCKEY results. Performed by [facility], [address] [place] [address] www.[employer], Elliott Rosario MD - Lab . Director [...] - 08/06/2017 7:39 AM CDT Performed at [facility] [address] [place] [address] CLIA number [id number] Deepti Hannah MD LAB_1 Performing Organization Address City/[facility] Phon e Number PN SOFT [address] [place] [address] DNA - Anti-dsDNA Antibody (08/04/2017 10:23 AM CDT) athologist Signature Anti-DNA Ab see below Negative PN SOFT Comment: <1:10 Negative Specimen Anatomical Collection Method Collection Time Receive d Time (Source) Location / / Volume Laterality 08/04/2017 10:23 08/04/2017 3:58 AM CDT PM CDT Narrative PN SOFT - 08/08/2017 12:55 PM CDT Performed at [address] [address] CLIA number [id number] Deepti Hannah MD LAB_1 Performing Organization Address [facility] Phon e Number PN SOFT [address] [place] [address] COLT - Antinuclear Antibody (08/04/2017 10:23 AM CDT) athologist Signature Anti-Nuclear Negative Negative PN SOFT Ab Specimen Anatomical Collection Method Collection Time Receive d Time (Source) Location / / Volume Laterality 08/04/2017 10:23 08/04/2017 3:58 AM CDT PM CDT Narrative PN SOFT - 08/08/2017 10:53 AM CDT Performed at [address] [address] CLIA number [id number] Deepti Hannah MD LAB_1 Performing Organization Address [facility] Phon e Number PN SOFT [address] [place] [address] C4 - C4 Complement (08/04/2017 10:23 AM CDT) P athologist Signature C4 Complement 39 15 - 57 PN SOFT mg/dL Specimen Anatomical Collection Method Collection Time Receive d Time (Source) Location / / Volume Laterality 08/04/2017 10:23 08/04/2017 AM CDT 12:18 PM CDT Narrative PN SOFT - 08/04/2017 12:58 PM CDT Performed at [address] [address] CLIA number [id number] Deepti Hannah MD LAB_1 Performing Organization Address [facility] Phon e Number PN SOFT [address] [place] [address] C3 - C3 Complement (08/04/2017 10:23 AM CDT) athologist Signature C3 Complement 141 83 - 193 PN SOFT mg/dL Specimen Anatomical Collection Method Collection Time Receive d Time (Source) Location / / Volume Laterality 08/04/2017 10:23 08/04/2017 AM CDT 12:18 PM CDT Narrative PN SOFT - 08/04/2017 12:58 PM CDT Performed at [address] [address] CLIA number [id number] Deepti Hannah MD LAB_1 Performing Organization Address [facility] Phon e Number PN SOFT [address] [place] [address] ESR - Sedimentation Rate (08/04/2017 10:23 AM CDT) Analysis Performed At [facility] Time Signature Sedimentation Rate 16 0 - 20 PN SOFT mm/hr Specimen Anatomical Collection Method Collection Time Receive d Time (Source) Location / / Volume Laterality 08/04/2017 10:23 08/04/2017 AM CDT 10:23 AM CDT Narrative PN SOFT - 08/04/2017 11:22 AM CDT Performed at [facility], [facility] [address] [place] [address] CLIA number [id number] Deepti Hannah MD LAB_1 Performing Organization Address [facility] Phon e Number PN SOFT [address] [place] [address] CRP - C Reactive Protein (08/04/2017 10:23 AM CDT) athologist Signature CRP <0.5 0.0 - 0.5 PN SOFT mg/dL Specimen Anatomical Collection Method Collection Time Receive d Time (Source) Location / / Volume Laterality 08/04/2017 10:23 08/04/2017 AM CDT 10:23 AM CDT Narrative PN SOFT - 08/04/2017 11:01 AM CDT Performed at [facility], [address] [place] [address] CLIA number [id number] Deepti Hannah MD LAB_1 Performing Organization Address [facility] Phon e Number PN SOFT [address] [place] [address] CBC - Complete Blood Count W/Diff (08/04/2017 [...] - 08/04/2017 10:27 AM CDT Performed at [facility], [facility] [address] [place] [address] CLIA number [id number] Deepti Hannah MD LAB_1 Performing Organization Address [facility] Phon e Number PN SOFT [address] [place] [address] VITD - Vitamin D (In house) (08/04/2017 [...] - 08/04/2017 5:18 PM CDT Performed at [address] [address] CLIA number [id number] Deepti Hannah MD LAB_1 Performing Organization Address [facility] Phon e Number PN SOFT [address] [place] [address] TSH with Free T4 (if TSH Abnormal) (08/04/2017 10:23 AM CDT) athologist Signature Thyroid 2.34 0.30 - PN SOFT Stimulating 4.50 Hormone uIU/mL Specimen Anatomical Collection Method Collection Time Receive d Time (Source) Location / / Volume Laterality 08/04/2017 10:23 08/04/2017 AM CDT 12:18 PM CDT Narrative PN SOFT - 08/04/2017 1:16 PM CDT Performed at [address] [address] CLIA number [id number] Deepti Hannah MD LAB_1 Performing Organization Address [facility] Phon e Number PN SOFT [address] [place] [address] ALT - Alanine Aminotransferase (08/04/2017 10:23 AM CDT) [facility] gist Method Time Signature Alanine 13 9 - 55 PN SOFT Aminotransferase U/L Specimen Anatomical Collection Method Collection Time Receive d Time (Source) Location / / Volume Laterality 08/04/2017 10:23 08/04/2017 AM CDT 10:23 AM CDT Narrative PN SOFT - 08/04/2017 11:01 AM CDT Performed at [facility], [facility] [address] [place] [id number] CLIA number [id number] Deepti Hannah MD LAB_1 Performing Organization Address [facility] Phon e Number PN SOFT [address] [place] [address] CREAT - Creatinine (08/04/2017 10:23 AM CDT) [...] - 08/04/2017 11:01 AM CDT Performed at [facility], [address] [place] [address] CLIA number [id number] Deepti Hannah MD LAB_1 Performing Organization Address City/[facility] Phon e Number PN SOFT [address] [place] [address] documented in this encounter Visit Diagnoses 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
--- OUTSIDE RECORDS SUMMARY | 2022-10-30 12:31 | XMS_ITS | Continuity of Care Document ---
:1965 Author Organization [facility] Address [address] [address] [place] [address] Phone Care Team Providers Name Role Phone [...] No Derik MCLEOD Referring Hosp-da E&m [facility] Information 9 Maria C. Provider: [facility], Hosp 5 [address] [facility] [address] [facility] [address], [facility], [address], [address] , [place], [address] [id number], [place] [address], [place], [place], [place] tel: [phone] s, [place], [address] , [place]. [address]. tel: tel: [phone] Init Hosp-da MNGI [place] No Jah GRIFFITHS Referring E&m Mod [facility] Information 8 Nikki. Provi js: [facility] MD, Hosp 5 [address] [facility] [address] [address], [facility], [place] [place], [address] , [place], [address] [id number], [place] [address], [place], [place], [place] tel: [phone] s, [place], [address] , [place]. [address]. tel: tel: [phone] Family History Family Member Type Diagnosis Age At Onset No Information Payers Payer name Insurance type Covered democrat ID Authorization(s ) Medicare NGS [id number] [employer] [id number] Social History Type Description Quantity Date Captured [...]
--- OUTSIDE RECORDS SUMMARY | 2022-10-30 12:31 | XMS_ITS | Encounter Summary ---
:1965 Author Organization [facility] [facility] Address [address] [place] [address] Care Team Providers Name Role Phone Unassigned, Provider Primary Care Provider Unavailable Reason for Visit Reason Onset Date Comments Medication Request 04/11/2006 Encounter Details Date Type Department Care Team Description 04/11/2006 Telephone [place] Family Unassigned, Pro vider Medication Request Practice [address] [place] [address] [place] [address] Social History Tobacco Use Types Packs/Day Years [...] AM Pt returning Sanjay's call. >> SANJAY Garcia AMANDEEP MonApril 12, 2006 8:39 AM 04/12/2006;8:39 AM Left message to call back. Sanjay Bernstein LPN >> CATARINO MACDONALD Tue April 11, 2006 1:35 PM Pt wants suboxone. 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 she says she went through outpt tx dependency program. documented in this encounter Plan of Treatment Not on filedocumented as of this encounter Visit Diagnoses Not on filedocumented in this encounter Care Teams Film Reader Relationship Specialty Start Date End Date Unassigned, Provider PCP - General 10/27/00 07/19/[address] [place] [address] documented as of this encounter
[2022-10-30 12:50] LABS: Lactate* 1.1 mmol/L (0.5-1.9)
[2022-10-30 12:57] LABS: Basophils Percent Auto 0.1 % (0.0-3.0); Eosinophils Percent Auto 0.2 % (0.0-7.0); Hematocrit 40.7 % (33.0-51.0); Immature Granulocytes Pct Auto 0.3 %; Lymphocytes Percent Auto 12.4 % (20-44); Mean Corpuscular HGB Conc 32 gm/dL (32-36); Mean Corpuscular Hemoglobin 31 pg (26-34); Mean Corpuscular Volume 97 fL (80-100); Monocytes Percent Auto 9.2 % (0.0-11.0); Neutrophils Percent Auto 77.8 % (42.0-72.0); Platelet Count* 297 K/uL (140-440); RDW Coefficient of Variation % 13.1 % (11.5-15.5); Red Blood Count 4.18 m/uL (4.00-5.20); White Blood Count* 12.12 K/uL (4.50-11.00)
[2022-10-30 13:00] LABS: Slide Review Reflex No
[2022-10-30 13:13] LABS: D Dimer Quantitative* 0.54 ug/ml (0.00-0.50)
[2022-10-30 13:20] LABS: Alanine Aminotransferase* 33 U/L (4-35); Albumin* 4.4 g/dL (3.3-5.0); Alkaline Phosphatase* 156 U/L (40-150); Aspartate Amino Transferase* 27 U/L (12-35); Bilirubin Direct* 0.5 mg/dL (0.0-0.5); Bilirubin Total* 0.9 mg/dL (0.1-1.5); Blood Urea Nitrogen* 9 mg/dL (7-30); Calcium* 8.8 mg/dL (8.4-10.6); Carbon Dioxide* 25 mmol/L (20-32); Chloride* 100 mmol/L (96-114); Creatinine* 0.6 mg/dL (0.5-1.5); Est. Creatinine Clearance* 99.18; Estimated Glomerular Filt Rate 106 ml/min; Glucose* 92 mg/dL (60-115); Potassium* 3.8 mmol/L (3.6-5.1); Sodium* 135 mmol/L (135-149); Total Protein* 7.6 g/dL (6.0-8.3)
[2022-10-30 13:31] LABS: C Reactive Protein* 13.6 mg/dL (0.5-1.0)
== END 2022-10-30 14:10 | disposition home or self-care (01) ==
PROVIDERS: Emergency Provider Emergency Medicine; PCP Internal Medicine
DX: U07.1 COVID-19 (principal); J44.9 Chronic obstructive pulmonary disease, unspecified; J18.9 Pneumonia, unspecified organism
CPT/HCPCS: 36415; 71045; 80048; 80076; 83605; 83615; 85025; 85379; 86140; 87502; 87634; 87635; 94640; 99284; J7512

== ENCOUNTER 2023-07-06 08:25 | Outpatient (CLI) | payer MEDICARE, OTHER, SELFPAY | END 2023-07-06 08:26 | disposition home or self-care (01) | LOC: NFLDREF 11:22 | PROVIDERS: PCP Internal Medicine; Referring Provider Internal Medicine; Visit Provider Internal Medicine | DX: Z13.6 Encounter for screening for cardiovascular disorders (principal) | CPT/HCPCS: 80061 ==

== ENCOUNTER 2023-10-24 16:52 | Emergency (ER) | payer MEDICARE, OTHER, SELFPAY ==
[2023-10-24] VITALS (24 sets, daily range): BP systolic 124–167; BP diastolic 62–87; PULSE 70–104; RESP 18–93; TEMP 36.4; O2SAT 92–99; BMI 22.3
[2023-10-24] MEDS: ASPIRIN 81 MG TAB.CHEW 324 MG PO (20:05)
--- OUTSIDE RECORDS SUMMARY | 2023-10-24 20:10 | XMS_ITS | Continuity of Care Document ---
Author Name Unknown Organization [facility] Address [address] [address] [place] [address] Phone Care Team Providers Care Kitchen Porter Name Role Phone Derik MCLEOD, Maria C Unavailable Unavailable Procedures Procedure Date Subsqt Hosp-da E&m Minr Compl 5 Init Hosp-da E&m Mod Severity 5 Advance Directives Directive Yes / No Effective Date File Name No Information Encounters Encounter Description Practice Location Reason(s) For Visit Diagnoses Date Provider Providers Copied on Encounter Subsqt Hosp-da E&m Minr Compl [facility], [address] [address], [place], [place], [id number], [phone] Cesped[facility] No Information 5 Derik Lombardi. [address], [id number] , [place]. [phone] Referring Provider: Meagan Sargent MD, [address] [place] [address], [place], [address]. tel:[phone] Init Hosp-da E&m Mod Severity [facility] [place], [address] [address], [place], [place], [id number], [phone] [facility] No Information 5 Jah Jordan. [address] [facility] [address], [place], [id number] , [place]. [phone] Referring Provider: Meagan Sargent MD, [address] [facility] [address], [place], [address]. tel:[phone] Family History Family Member Type Diagnosis Age At Onset No Information Payers Payer name Insurance type Covered libertarian ID Authoriza tion(s) Medicare NGS [id number] [employer] CI [id number] Social History Type Description Quantity Date Captured Comments Sex Female Smoking Status No Information Chief Complaint And Reason For Visit No Information Reason For Referral Reason For Referral No Information History Of Present Illness Encounter Date Complaint History Of Prese nt Illness No Information Functional Status Date Functional Assessmen t No Information Instructions Date Instruction Additional Infor mation No Information Assessments Type Assessment Date No Information Patient Care Teams Name Effective Dates (start - stop) Status Members No Information
--- OUTSIDE RECORDS SUMMARY | 2023-10-24 20:11 | XMS_ITS | Continuity of Care Document ---
Author Name Unknown Organization [facility] Address [address] [address] [place] [address] Phone Care Team Providers Care Hydraulic Elevator Constructor Name Role Phone Derik MCLEOD, Maria C Unavailable Unavailable Procedures Procedure Date Subsqt Hosp-da E&m Minr Compl 5 Init Hosp-da E&m Mod Severity 5 Advance Directives Directive Yes / No Effective Date File Name No Information Encounters Encounter Description Practice Location Reason(s) For Visit Diagnoses Date Provider Providers Copied on Encounter Subsqt Hosp-da E&m Minr Compl [facility], [address] [address], [place], [place], [id number], [phone] Cespedes [facility] No Information 5 Derik Lombardi. [address], [id number] , [place]. [phone] Referring Provider: Meagan Sargent MD, [address] [place] [address], [place], [address]. tel:[phone] Init Hosp-da E&m Mod Severity [facility] [place], [address] [address], [place], [place], [id number], [phone] [facility] No Information 5 Jah Jordan. [address] [facility] [address], [place], [id number] , [place]. [phone] Referring Provider: Meagan Sargent MD, [address] [facility] [address], [place], [address]. tel:[phone] Family History Family Member Type Diagnosis Age At Onset No Information Payers Payer name Insurance type Covered republican ID Authoriza tion(s) Medicare NGS [id number] [employer] CI [id number] Social History Type Description Quantity Date Captured [...]
--- NOTE | 2023-10-24 20:30 | ED.NURSE ---
Pt report given to oncjavier RN
[2023-10-24 20:31] LABS: Basophils Absolute Auto 0.03 K/uL (0.00-0.30); Basophils Percent Auto 0.3 % (0.0-3.0); Eosinophils Absolute Auto 0.01 K/uL (0.00-0.50); Eosinophils Percent Auto 0.1 % (0.0-7.0); Hematocrit 41.9 % (33.0-51.0); Hemoglobin* 13.4 gm/dL (12.0-16.0); Immature Granulocytes Abs Auto 0.01 K/uL (0.00-0.30); Immature Granulocytes Pct Auto 0.1 %; Lymphocytes Absolute Auto 2.37 K/uL (0.90-2.90); Lymphocytes Percent Auto 25.7 % (20-44); Mean Corpuscular HGB Conc 32 gm/dL (32-36); Mean Corpuscular Hemoglobin 31 pg (26-34); Mean Corpuscular Volume 97 fL (80-100); Monocytes Percent Auto 3.7 % (0.0-11.0); Neutrophils Absolute Auto 6.45 K/uL (1.7-7.0); Neutrophils Percent Auto 70.1 % (42.0-72.0); Platelet Count* 314 K/uL (140-440); RDW Coefficient of Variation % 13.3 % (11.5-15.5); White Blood Count* 9.21 K/uL (4.50-11.00)
--- NOTE | 2023-10-24 20:31 | CRLHL7_ITS ---
For Patients: As a result of the Century Cures Act, medical imaging exams and procedure reports are released immediately into your electronic medical record. You may view this report before your referring provider. If you have questions, please contact your health care provider. Dictation for this exam included within the brain MRI report from the same date. Dictated by Simon Garcia MD @ 10/24/2023 11:05:51 PM ----- ADDENDUM ----- Addendum: A 6 mm protrusion from the right posterior communicating artery origin (series 3, image 125) is consistent with saccular aneurysm. Findings were discussed with Dr. Yu on 10/24/2023 at 11:15 p.m.. Dictated by Simon Garcia MD @ Oct 24 2023 11:16PM Signed by:?Simon Garcia MD @10/24/2023 11:05:51 PM (Electronically Signed)
--- NOTE | 2023-10-24 20:31 | CRLHL7_ITS ---
For Patients: As a result of the 21st Century Cures Act, medical imaging exams and procedure reports are released immediately into your electronic medical record. You may view this report before your referring provider. If you have questions, please contact your health care provider. Indication: Diplopia, headache, 3rd nerve palsy. Technique: MRI Head and Orbits: Performed before and after IV contrast. MRA Head: performed without IV contrast. MRA Neck: performed before and after IV contrast. Gadolinium-based contrast agent: 13 mL Dotarem IV contrast. Comparison: MRI brain dated 01/08/2015. Findings: MRI Head: No evidence of acute ischemia. Scattered foci periventricular and subcortical T2/FLAIR white matter hyperintensity, nonspecific, but typical of mild chronic small vessel ischemic changes. No abnormal brain parenchymal or leptomeningeal enhancement. No intracranial mass effect. No ventricular obstruction. Grossly normal flow voids are maintained in the directly imaged intracranial vascular structures. The craniovertebral junction is unremarkable, with a patent foramen magnum. Both temporal bones are clear. MRI Orbits: Symmetric appearance of the globes. Normal signal intensity optic nerves. Normal appearance of the extraocular musculature. Infundibulum and optic chiasm are midline and within normal limits. No suspicious intraconal mass or enhancement. MRA Head: The intracranial segments of the internal carotid arteries and basilar artery are widely patent. The anterior middle and posterior cerebral arteries and proximal branches are unremarkable. No evidence of an aneurysm over 3 mm. No high-flow AV malformation. No high-grade stenosis. MRA Neck: The bilateral common carotid arteries internal and external carotid arteries are widely patent. No stenosis near the common carotid bifurcations. There is mild narrowing at the origin of the left vertebral artery. The vertebral arteries are otherwise widely patent throughout their cervical course. Impression: MRI Head: 1. No acute pathology identified. No evidence for mass, hemorrhage or recent infarct. 2. Scattered foci periventricular and subcortical white matter hyperintensity, nonspecific, but typical of mild chronic small vessel ischemic changes. MRI Orbits: 1. Unremarkable MRI of the orbits. 2. Normal signal intensity of the optic nerves. MRA Head: 1. No large vessel occlusion or significant arterial stenosis. 2. No intracranial aneurysm or vascular malformation. MRA Neck: 1. Mild narrowing at the origin of the left vertebral artery. 2. No significant stenosis at the carotid bifurcations. 2. No evidence for carotid or vertebral artery dissection in the neck. Dictated by Simon Garcia MD @ 10/24/2023 11:05:19 PM ----- ADDENDUM ----- Addendum: A 6 mm protrusion from the right posterior communicating artery origin (series 3, image 125) is consistent with saccular aneurysm. Findings were discussed with Dr. Yu on 10/24/2023 at 11:15 p.m.. Dictated by Simon Garcia MD @ Oct 25 2023 3:22PM Signed by:?Simon Garcia MD @10/24/2023 11:05:19 PM (Electronically Signed)
--- NOTE | 2023-10-24 20:31 | CRLHL7_ITS ---
For Patients: As a result of the Cures Act, medical imaging exams and procedure reports are released immediately into your electronic medical record. You may view this report before your referring provider. If you have questions, please contact your health care provider. Dictation for this exam included within the brain MRI report from the same date. Dictated by Simon Garcia MD @ 10/24/2023 11:05:34 PM (Electronically Signed)
[2023-10-24 20:44] LABS: Chloride* 103 mmol/L (96-114); Potassium* 4.4 mmol/L (3.6-5.1); Sodium* 135 mmol/L (135-149)
[2023-10-24 20:45] LABS: Slide Review Reflex No
[2023-10-24 20:46] LABS: Creatinine* 0.6 mg/dL (0.5-1.5); Est. Creatinine Clearance* 94.21; Estimated Glomerular Filt Rate 105 ml/min
[2023-10-24 20:47] LABS: Anion Gap 8 mEq/L (7-15); Blood Urea Nitrogen* 10 mg/dL (7-30); Carbon Dioxide* 24 mmol/L (20-32); Glucose* 107 mg/dL (60-115)
[2023-10-24 20:48] LABS: Calcium* 9.1 mg/dL (8.4-10.6)
[2023-10-24 20:50] LABS: C Reactive Protein* 0.5 mg/dL (0.5-1.0)
[2023-10-24] MEDS: LORazepam 2 MG/ML inj 1 MG IVP (21:12)
--- NOTE | 2023-10-24 21:16 | ED_ITS ---
HPI - General Adult General Date Seen: 10/24/23 Chief complaint: Eye Problems Stated complaint: Double vision R eye Time Seen by Provider: 10/24/23 19:42 Source: patient, RN notes reviewed and old records reviewed Mode of arrival: ambulatory Limitations: no limitations History of Present Illness HPI narrative: Patient is a 58-year-old woman with a history of lupus on tobacco use who presen ts for evaluation of diplopia and ptosis. She tells me that a couple of weeks ago she had gone to the dentist for problems with a tooth on the left side of her jaw. X-rays were done at that time and she was told that she had an apical abscess on the right. She notes that on she had developed onset of significant pain in the right maxillary area wrapping around to behind the right eye. She has not had fevers. She was seen several days later in urgent care, she notes that she had family around for and so was not seen until several days after the symptoms started. She was prescribed Augmentin for presumed dental infection/sinus infection. She says she took a total of 4 doses but had difficulty with vomiting and so she stopped the medication. Today she saw her clinic doctor here due to ongoing pain in that area. She notes that earlier today she developed diplopia which is horizontal in nature. Over the course of the day she has developed ptosis on the right which has been worsening. She continues to have some pain in that area. She continues to deny fever, no facial swelling or redness, no neck pain, no other neurologic complaints. Related Data Home Medications Medication Instructions Recorded Confirmed aspirin 81 mg chewable tablet 1 tab PO DAILY 06/17/22 10/24/23 folic acid 1 mg tablet 1 mg PO DAILY 06/17/22 10/24/23 hydroxychloroquine 200 mg tablet 200 mg PO BID 06/17/22 10/24/23 clopidogrel 75 mg tablet 75 mg PO DAILY 10/30/22 10/24/23 methotrexate sodium 25 mg/mL mg 10/30/22 10/24/23 injection solution rosuvastatin 20 mg tablet 20 mg PO DAILY 10/30/22 10/24/23 B12 PO 07/11/23 10/24/23 Magnesium spray PO 07/11/23 10/24/23 benlyst continuous IV infusion 07/11/23 10/24/23 Previous Rx's Medication Instructions Recorded cyclobenzaprine 10 mg tablet 10 mg PO Q8H #60 tabs 03/14/23 dexlansoprazole 60 mg 60 mg PO QDAY #90 caps 06/22/23 capsule,biphase delayed release nicotine 10 mg inhalation cartridge 1 inh inhalation BID-TID PRN 07/11/23 nicotine cravings #168 ea oxycodone 15 mg tablet 15 mg PO Q4H PRN pain #124 tabs 10/06/23 oxycodone 40 mg tablet,crush 40 mg PO BID #62 tabs 10/06/23 resistant,extended release 12 hr (OxyContin) Allergies Allergy/AdvReac Type Severity Reaction Status Date / Time amoxicillin [From Augmentin] Allergy Severe Vomiting Verified 10/25/23 00:08 clavulanic acid Allergy Severe Vomiting Verified 10/25/23 00:08 [From Augmentin] adhesive AdvReac Intermediate Tears skin Verified 10/25/23 00:08 band-aids Allergy Mild Uncoded 10/24/23 13:24 Review of Systems Status of ROS: Reports: 10 or more systems reviewed and unremarkable except as noted in History and below PFSH [facility] Medical History Dental infection ?K04.7 - Periapical abscess without sinus (ICD-10) History of palpitations ?Z87.898 - Personal history of other specified conditions (ICD-10) History of small bowel obstruction (2012) ?Z87.19 - Personal history of other diseases of the digestive system (ICD-10) History of sepsis (2011) ?Z86.19 - Personal history of other infectious and parasitic diseases (ICD- 10) History of depression ?Z86.59 - Personal history of other mental and behavioral disorders (ICD-10) Surgical History 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 - Lesion of ulnar nerve, unspecified upper limb (ICD-10) History of left salpingo-oophorectomy ?Z90.79 - Acquired absence of other genital organ(s) (ICD-10) ?Z90.721 - Acquired absence of ovaries, unilateral (ICD-10) Vesico-vaginal fistula ?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.0 - Vesicovaginal fistula (ICD-10) Status post wrist surgery (09/10/09) ?Z98.890 - Other specified postprocedural states (ICD-10) History of ventral hernia repair (03/27/13) ?Z98.890 - Other specified postprocedural states (ICD-10) ?Z87.19 - Personal history of other diseases of the digestive system (ICD-10) History of repair of rotator cuff (09/10/09) ?Z98.890 - Other specified postprocedural states (ICD-10) History of oophorectomy (07/11/11) History of hysterectomy (09/10/09) ?Z90.710 - Acquired absence of both cervix and uterus (ICD-10) History of section (09/10/09) ?Z98.891 - History of uterine scar from previous surgery (ICD-10) History of cervical spinal surgery (09/10/09) ?Z98.890 - Other specified postprocedural states (ICD-10) Family History Father Colon cancer Brother Colon cancer Paternal Grandfather Colon cancer Social History Smoking Status: Current every day smoker Do you use any of these nicotine containing products: None How often do you have a drink containing alcohol: never AUDIT-C Alcohol total score: 0 Non-prescribed substance use: denies use Little interest or pleasure in doing things: several days Feeling down, depressed, or hopeless: several days Exam Narrative: Exam Narrative: Vital signs as noted above. In general, an alert, nontoxic woman. Head: Normocephalic, atraumatic. Eyes: On the right, the pupil is dilated and fixed. The right eye is slightly abducted and downward gazing. Diplopia is worsened with leftward gaze. The left pupil and eye appear normal. She has complete ptosis on the right, with effort she is able to lift the right eyelid to about mid pupil. ENT: Mucous membranes are moist. Throat is normal. Neck: Supple without lymphadenopathy. Heart: Regular rate and rhythm. No murmur or rub. Lungs: Clear bilaterally. No increased work of breathing, crackles or wheezes. Abdomen: Soft and nontender. No organomegaly. Extremities: Well perfused. No edema. No calf tenderness. Pulses intact. Neurologic: Patient is alert and oriented to person and place. Speech is fluent. Face is symmetric with the exception of ptosis. Strength is equal with upper and lower extremities. Cerebellar function intact by finger-nose testing. Affect: Normal. Skin: Warm and dry. Well perfused. No flushing or sweating. Const: Vital Signs, click to edit/add: Vital Signs - 24 hr 10/24/23 17:04 10/24/23 19:00 10/24/23 20:32 Temperature 97.5 F L Pulse Rate Pulse Rate [Pulse Oximeter] 104 H 93 89 Respiratory Rate 18 93 H 20 Blood Pressure Blood Pressure [Ri ght Upper Arm] 155/73 H 167/75 H 133/87 Pulse Oximetry 99 97 98 Oxygen Delivery Me thod Room Air Room Air Room Air 10/24/23 22:38 10/24/23 22:47 10/24/23 22:48 Temperature Pulse Rate 94 93 72 Pulse Rate [Pulse Oximeter] Respiratory Rate Blood Pressure 151/73 H 147/78 H Blood Pressure [Ri ght Upper Arm] Pulse Oximetry 93 94 92 Oxygen Delivery Me thod 10/24/23 22:49 10/24/23 22:51 10/24/23 22:56 Temperature Pulse Rate 97 100 88 Pulse Rate [Pulse Oximeter] Respiratory Rate Blood Pressure 147/76 H 131/81 Blood Pressure [Ri ght Upper Arm] Pulse Oximetry 93 96 93 Oxygen Delivery Me thod 10/24/23 23:00 10/24/23 23:01 10/24/23 23:06 Temperature Pulse Rate 84 81 79 Pulse Rate [Pulse Oximeter] Respiratory Rate Blood Pressure 141/62 H 131/74 Blood Pressure [Ri ght Upper Arm] Pulse Oximetry 93 93 95 Oxygen Delivery Me thod 10/24/23 23:11 10/24/23 23:15 10/24/23 23:17 Temperature Pulse Rate 73 78 74 Pulse Rate [Pulse Oximeter] Respiratory Rate Blood Pressure 142/70 H 124/69 Blood Pressure [Ri ght Upper Arm] Pulse Oximetry 96 95 95 Oxygen Delivery Me thod 10/24/23 23:21 10/24/23 23:26 10/24/23 23:30 Temperature Pulse Rate 73 70 96 Pulse Rate [Pulse Oximeter] Respiratory Rate Blood Pressure 136/71 146/81 H Blood Pressure [Ri ght Upper Arm] Pulse Oximetry 96 96 96 Oxygen Delivery Me thod 10/24/23 23:31 10/24/23 23:36 10/24/23 23:37 Temperature Pulse Rate 82 72 84 Pulse Rate [Pulse Oximeter] Respiratory Rate Blood Pressure 140/79 H 138/72 Blood Pressure [Ri ght Upper Arm] Pulse Oximetry 95 95 96 Oxygen Delivery Me thod 10/24/23 23:41 10/24/23 23:45 10/24/23 23:46 Temperature Pulse Rate 77 87 88 Pulse Rate [Pulse Oximeter] Respiratory Rate Blood Pressure 137/84 140/81 H Blood Pressure [Ri ght Upper Arm] Pulse Oximetry 96 96 98 Oxygen Delivery Me thod 10/25/23 00:06 10/25/23 00:08 10/25/23 00:11 Temperature Pulse Rate 91 102 H 86 Pulse Rate [Pulse Oximeter] Respiratory Rate Blood Pressure 150/80 H 137/79 Blood Pressure [Ri ght Upper Arm] Pulse Oximetry 98 98 96 Oxygen Delivery Me thod 10/25/23 00:15 10/25/23 00:16 10/25/23 00:21 Temperature Pulse Rate 88 81 68 Pulse Rate [Pulse Oximeter] Respiratory Rate Blood Pressure 144/98 H 140/79 H Blood Pressure [Ri ght Upper Arm] Pulse Oximetry 98 98 95 Oxygen Delivery Me thod 10/25/23 00:26 10/25/23 00:32 Temperature Pulse Rate Pulse Rate [Pulse Oximeter] Respiratory Rate Blood Pressure 147/87 H 139/74 Blood Pressure [Ri ght Upper Arm] Pulse Oximetry Oxygen Delivery Me thod Course Course ED Course: I ordered an EKG and routine labs. Initially had thought I would have to do a CT scan as it was after hours but we did have a tech here available to do MRI. I spoke with Dr. Yu, neurology, for recommendations as to imaging studies. Her recommendation was for MR brain, MRA head and neck and MR of the orbits. Will go ahead and get that imaging done. Diagnostic considerations include aneurysm, ischemia, mass among others. Patient's labs are unremarkable, specifically, white blood cell count and hemoglobin were normal, sodium was 135, potassium 4.4, creatinine normal. CRP was 0.5. She had an EKG which showed a sinus rhythm, ventricular rate of 81. She did have a slightly short AR at 104 milliseconds. Sinus arrhythmia. No acute ST segment changes. She went over for MRI as discussed with Dr. Yu. She had a mg of Ativan for anxiolysis. Her MRI was completed without incident until the very end. She had been normally responsive and then suddenly stopped responding. I was called over to the MR magnet to evaluate her. At the time I arrive she had snoring respirations and was not responding. Within 10-15 seconds of my arrival she started to respond, she complained of severe headache. We brought her over to the ER briefly. She had Dilaudid for headache as well as 4 mg of Zofran for nausea. By then she had return to normal responsiveness. Repeat neuro exam showed ongoing 3rd nerve palsy but no new neurologic changes. She had a noncontrast head CT which I reviewed while she was in the scanner, this showed subarachnoid blood. At that time, I called Dr. Yu back, we did call a stroke code in the midst of all of this. Dr. Yu had reviewed her MRI and at the time I talked with her had not seen anything to potentially cause a 3rd nerve palsy, but I did discuss the CT findings with her and she was able to review the CT, agreed with the diagnosis of subarachnoid hemorrhage. Patient's head of bed was elevated to 30?, her blood pressure was closely monitored and was in the range of 130-140 systolic. Her labs had been normal. Review of her medications show that she does take Plavix, she says that she took her dose last night but has not taken her dose today as she takes all of her medications in the evening. Continued to complain of severe headache, she had 2 additional doses of Dilaudid and then had a dose of Reglan for ongoing nausea. She has not developed further neurologic symptoms and remains GCS 15. Delay in transfer secondary to lack of bed availability in the ICU at [facility]. Okay to transfer at 12:37 a.m.. Transferred by ground as flight was unavailable. Did speak again with the ICU doc at [place], Dr. Lobo, recommended addition of low-dose nicardipine. Patient's blood pressure has been 135 systolic to 140 sys tolic. Critical care time 90 minutes Vital Signs Vital signs: Initial Vital Signs Temperature 97.5 F L 10/24/23 17:04 Temperature Source Temporal Artery Scan 10/24/23 17:04 Pulse Rate 104 H 10/24/23 17:04 Respiratory Rate 18 10/24/23 17:04 Blood Pressure 155/73 H 10/24/23 17:04 Blood Pressure Mean 100 10/24/23 17:04 Blood Pressure Position Sitting 10/24/23 17:04 Pulse Oximetry 99 10/24/23 17:04 Oxygen Delivery Method Room Air 10/24/23 17:04 Vital Signs Temperature 97.5 F L 10/24/23 17:04 Pulse Rate 104 H 10/24/23 17:04 Respiratory Rate 18 10/24/23 17:04 Blood Pressure 155/73 H 10/24/23 17:04 Pulse Oximetry 99 10/24/23 17:04 Oxygen Delivery Method Room Air 10/24/23 17:04 Temperature 97.5 F L 10/24/23 17:04 Pulse Rate 68 10/25/23 00:21 Respiratory Rate 20 10/24/23 20:32 Blood Pressure 139/74 10/25/23 00:32 Pulse Oximetry 95 10/25/23 00:21 Oxygen Delivery Method Room Air 10/24/23 20:32 Medications Administered Medications: Generic Name Dose Route Start Last Admin Trade Name Freq PRN Reason Stop Dose Admin Hydromorphone HCl 0.5 mg 10/24/23 23:16 10/24/23 23:26 Hydromorphone 0.5 Mg/0.5 Ml Inj IVP 10/24/23 23:17 0.5 mg ONCE ONE Administration Hydromorphone HCl 0.5 mg 10/24/23 23:43 10/25/23 00:07 Hydromorphone 0.5 Mg/0.5 Ml Inj IVP 10/24/23 23:44 0.5 mg ONCE ONE Administration Metoclopramide HCl 10 mg/ 102 mls @ 306 mls/hr 10/24/23 23:43 10/25/23 00:07 Sodium Chloride IVPB 10/24/23 23:44 306 mls/hr ONCE ONE Administration Nicardipine HCl 25 mg/ Sodium 250 mls @ 50 mls/hr 10/25/23 00:10 10/25/23 00:27 Chloride IVPB 50 mls/hr .TITRATE PRN Administration Blood Pressure - High Discontinued Medications Generic Name Dose Route Start Last Admin Trade Name Freq PRN Reason Stop Dose Admin Aspirin 324 mg 10/24/23 20:00 10/24/23 20:05 Aspirin 81 Mg Tab.Chew PO 10/24/23 20:01 324 mg ONCE ONE Administration Hydromorphone HCl 0.5 mg 10/24/23 22:38 10/24/23 22:49 Hydromorphone 0.5 Mg/0.5 Ml Inj IVP 10/24/23 22:39 0.5 mg ONCE ONE Administration Lorazepam 1 mg 10/24/23 21:05 10/24/23 21:12 Lorazepam 2 Mg/Ml Inj IVP 10/24/23 21:06 1 mg ONCE ONE Administration Morphine Sulfate 4 mg 10/24/23 22:33 10/25/23 00:08 Morphine 4 Mg/Ml Inj IVP 10/24/23 22:34 Not Given ONCE ONE Ondansetron HCl 4 mg 10/24/23 22:33 10/24/23 22:49 Ondansetron 2 Mg/Ml Inj IVP 10/24/23 22:34 4 mg ONCE ONE Administration Medical Decision Making Lab Data Labs: Lab Results 10/24/23 10/24/23 Range/Units 19:40 20:21 WBC 9.21 (4.50-11.00) K/uL RBC 4.30 (4.00-5.20) m/uL Hgb 13.4 (12.0-16.0) gm/dL Hct 41.9 (33.0-51.0) % MCV 97 (80-100) fL MCH 31 (26-34) pg MCHC 32 (32-36) gm/dL RDW Coeff of Oliverio 13.3 (11.5-15.5) % Plt Count 314 (140-440) K/uL Neut % (Auto) 70.1 (42.0-72.0) % Lymph % (Auto) 25.7 (20-44) % [place] % (Auto) 3.7 (0.0-11.0) % Eos % (Auto) 0.1 (0.0-7.0) % Baso % (Auto) 0.3 (0.0-3.0) % Neut # (Auto) 6.45 (1.7-7.0) K/uL Lymph # (Auto) 2.37 (0.90-2.90) K/uL [place] # (Auto) 0.30 (0.00-0.90) K/UL Eos # (Auto) 0.01 (0.00-0.50) K/uL Baso # (Auto) 0.03 (0.00-0.30) K/uL Abs Immat Gran (auto) 0.01 (0.00-0.30) K/uL Imm/Tot Granulo (auto) 0.1 % ESR 12 (2-20) mm/hr Sodium 135 (135-149) mmol/L Potassium 4.4 (3.6-5.1) mmol/L Chloride 103 (96-114) mmol/L Carbon Dioxide 24 (20-32) mmol/L Anion Gap 8 (7-15) mEq/L BUN 10 (7-30) mg/dL Creatinine 0.6 (0.5-1.5) mg/dL Estimated Creat Clear 94.21 Estimated GFR 105 ml/min Glucose 107 (60-115) mg/dL Calcium 9.1 (8.4-10.6) mg/dL C-Reactive Protein 0.5 (0.5-1.0) mg/dL Discharge Plan Discharge Clinical Impression: Subarachnoid hemorrhage, 3rd cranial nerve palsy Patient Disposition: [facility] Condition: Guarded Prescriptions: No Action benlyst continuous IV infusion B12 PO Magnesium spray PO nicotine 10 mg cartridge 1 inh inhalation BID-TID PRN (Reason: nicotine cravings) Qty: 168 3RF hydroxychloroquine 200 mg tablet 200 mg PO BID folic acid 1 mg tablet 1 mg PO DAILY aspirin 81 mg tablet,chewable 1 tab PO DAILY clopidogrel 75 mg tablet 75 mg PO DAILY Patient Comments: TAKE ONE TABLET BY MOUTH EVERY DAY IN THE MORNING. methotrexate sodium 25 mg/mL solution Patient Comments: INJECT 0.8 ML (20 MG) ONCE A WEEK rosuvastatin 20 mg tablet 20 mg PO DAILY cyclobenzaprine 10 mg tablet 10 mg PO Q8H Qty: 60 3RF Patient Comments: TAKE 1/2 TABLET BY MOUTH EVERY EIGHT HOURS NEEDED dexlansoprazole 60 mg capsule,biphase delayed releas 60 mg PO QDAY Qty: 90 0RF oxycodone [OxyContin] 40 mg tablet,oral only,ext.rel.12 hr 40 mg PO BID Qty: 62 0RF oxycodone 15 mg tablet 15 mg PO Q4H PRN (Reason: pain) Qty: 124 0RF Stand Alone Forms: MyHealth Info Instructions
[2023-10-24 22:07] LABS: Erythrocyte SedimentationRate* 12 mm/hr (2-20)
--- NOTE | 2023-10-24 22:34 | CRLHL7_ITS ---
For Patients: As a result of the Century Cures Act, medical imaging exams and procedure reports are released immediately into your electronic medical record. You may view this report before your referring provider. If you have questions, please contact your health care provider. INDICATION: Severe headache right nerve palsy. TECHNIQUE: Noncontrast CT of the head with multiplanar reformat in bone and soft tissue algorithms. COMPARISON: Correlated with MR brain dated same day at 9:34 p.m.. FINDINGS: Interval development of large volume subarachnoid hemorrhage opacifying the right sylvian cistern, anterior interhemispheric cistern, suprasellar cistern, and 4th ventricle. No evidence of ventricular obstruction. No suspicious calvarial lesion. The orbits are unremarkable in appearance. The paranasal sinuses and mastoid air cells are essentially clear. IMPRESSION: 1. Interval development of large volume subarachnoid hemorrhage since same-day MRI performed at 9:34 p.m.. 2. Findings likely reflect rupture of a 6 mm right posterior communicating artery aneurysm noted on same day MRA head. Findings were discussed with Dr. Yu on 10/24/2023 at 11:15 p.m.. Please note that all CT scans at this facility use dose modulation, iterative reconstruction, and/or weight-based dosing when appropriate to reduce radiation dose to as low as reasonably achievable. Dictated by Simon Garcia MD @ 10/24/2023 11:29:35 PM (Electronically Signed)
[2023-10-24] MEDS: HYDROmorphone 0.5 mg/0.5 ml inj IVP ×2 (22:49→23:26)
[2023-10-24] MEDS: ONDANSETRON 2 MG/ML inj 4 MG IVP (22:49)
--- NOTE | 2023-10-24 23:18 | CRLHL7_ITS ---
For Patients: As a result of the Century Cures Act, medical imaging exams and procedure reports are released immediately into your electronic medical record. You may view this report before your referring provider. If you have questions, please contact your health care provider. DATE: 10/25/2023 CLINICAL HISTORY: Patient with subarachnoid hemorrhage. TECHNIQUE: Standard helical CT image acquisition through the intracranial circulation following intravenous administration of contrast material with bolus tracking. 2D and 3D MIP images for post-processing were performed and interpreted on an independent workstation and 3D images were permanently archived. COMPARISON: CT same day. FINDINGS: There is a 7mm ruptured right posterior communicating artery aneurysm. There is a 2mm left posterior communicating artery infundibulum or aneurysm. The right middle cerebral artery and its branches are normal. The right anterior cerebral artery and its branches are normal. The left middle cerebral artery and its branches are normal. The left anterior cerebral artery and its branches are normal. The anterior communicating artery is well visualized and appears normal. The right vertebral artery and PICA are normal. The left vertebral artery and PICA are normal. The right vertebral artery is dominant. The basilar artery is patent and appears normal. The right posterior cerebral artery is normal. The left posterior cerebral artery is normal. The visualized venous structures are patent. IMPRESSION: 1. 7mm ruptured right posterior communicating artery aneurysm. 2. 2mm left posterior communicating artery infundibulum or aneurysm. Please note that all CT scans at this facility use dose modulation, iterative reconstruction, and/or weight-based dosing when appropriate to reduce radiation dose to as low as reasonably achievable. Dictated by Melvin Rosario MD @ 10/25/2023 12:11:02 PM (Electronically Signed)
--- NOTE | 2023-10-24 23:43 | ED.NURSE ---
patient reports no improvement in pain or nausea after medication. requesting more medications prior to transfer.
--- NOTE | 2023-10-24 23:59 | ED.NURSE ---
patient report given to fran JOHNSON at [facility]. patient bed delay due to them having to transfer another patient. Physical bed delay, Fran to call back with update.
[2023-10-25] VITALS (10 sets, daily range): BP systolic 126–150; BP diastolic 74–98; PULSE 68–102; O2SAT 95–98
[2023-10-25] MEDS: METOCLOPRAMIDE HCL 10 MG in 0.9 % SODIUM CHLORIDE 100 ml 100 ML 306 MG IVPB (00:07)
[2023-10-25] MEDS: HYDROmorphone 0.5 mg/0.5 ml inj IVP ×2 (00:07→00:49)
--- NOTE | 2023-10-25 00:08 | ED.NURSE ---
patient returned from MRI after she had a sudden onset of a headache while in the MRI machine. Patient states that all the sudden she developed the worst headache of her life that was localized to the back of her head and down into her neck. Upon the onset of this headache the patient also became extremely nauseated. Denies any changes in her vision.
[2023-10-25] MEDS: NICARDIPINE HCL 25 MG in 0.9 % SODIUM CHLORIDE 250 ml 240 ML 50 MG IVPB (00:27)
--- NOTE | 2023-10-25 00:33 | ED.NURSE ---
patient reporting improvement in nausea but no improvement in headache. MD Block updated.
--- NOTE | 2023-10-25 00:50 | ED.NURSE ---
patient transfer center contacted about delay in patient transfer as the patients accepting RN Fran stated that they did not have a physical bed on their unit because the patient was being transferred. then talked to the ICU doctor and she stated that she wanted the patient sent regardless of the bed. Leather Toggler contacted patient transfer center Lesli spoke with the warehouse order selector and she stated that the patient should be sent. block updated.
== END 2023-10-25 00:54 | disposition short-term general hospital (02) ==
PROVIDERS: Emergency Provider Emergency Medicine; PCP Internal Medicine
DX: I60.9 Nontraumatic subarachnoid hemorrhage, unspecified (principal); H49.03 Third [oculomotor] nerve palsy, bilateral
CPT/HCPCS: 36415; 70450; 70496; 70543; 70544; 70549; 80048; 85025; 85651; 86140; 93005; 96365; 96372; 96375; 99284; 99285; A9270; A9575; J1170; J2060; J2405; J2765; J7050; Q9967

== ENCOUNTER 2023-10-25 00:40 | Outpatient (CLI) | payer MEDICARE, OTHER, SELFPAY ==
--- OUTSIDE RECORDS SUMMARY | 2023-10-26 04:37 | XMS_ITS | Continuity of Care Document ---
Author Name Unknown Organization [facility] Address [address] [address] [place] [address] Phone Care Team Providers Care Tool And Die Engineer Name Role Phone Derik MCLEOD, Maria C Unavailable Unavailable Procedures Procedure Date Subsqt Hosp-da E&m Minr Compl 5 Init Hosp-da E&m Mod Severity 5 Advance Directives Directive Yes / No Effective Date File Name No Information Encounters Encounter Description Practice Location Reason(s) For Visit Diagnoses Date Provider Providers Copied on Encounter Subsqt Hosp-da E&m Minr Compl [facility], [address] [address], [place], [place], [id number], [phone] [facility] No Information 5 Derik Lombardi. [address], [id number] , [place]. [phone] Referring Provider: Meagan Sargent MD, [address] [place] [address], [place], [address]. tel:[phone] Init Hosp-da E&m Mod Severity [facility], [address] [address], [place], [place], [id number], [phone] [facility] No Information 5 Jah Jordan. [address] [facility] [address], [place], [id number] , [place]. [phone] Referring Provider: Meagan Sargent MD, [address] [facility] [address], [place], [address]. tel:[phone] Family History Family Member Type Diagnosis Age At Onset No Information Payers Payer name Insurance type Covered democrat ID Authoriza tion(s) Medicare NGS [id number] [employer] [id number] Social History Type Description Quantity Date Captured [...]
== END 2023-10-25 00:41 | disposition home or self-care (01) ==
LOC: AMB 10-26 04:35
PROVIDERS: PCP Internal Medicine; Visit Provider Family Medicine
DX: I60.9 Nontraumatic subarachnoid hemorrhage, unspecified (principal)
CPT/HCPCS: A0425; A0434

== ENCOUNTER 2023-11-23 14:30 | Outpatient (RCR) | payer MEDICARE, OTHER, SELFPAY ==
--- NOTE | 2023-11-30 13:37 | SLP.EVAL ---
Dr. Rousseau Please review, sign and return Thank you Charity Baker, CARRY OUT CLERK AND SHELF STOCKER CARRY OUT CLERK AND SHELF STOCKER Edmund CARRY OUT CLERK AND SHELF STOCKER Edmund Start: 11/23/23 16:24 Freq: Status: Active Protocol: Document 11/23/23 16:24 RAMO (Rec: 11/23/23 16:56 [facility] [id number]) E-signed By Charity Baker, RADHA, CARRY OUT CLERK AND SHELF STOCKER CARRY OUT CLERK AND SHELF STOCKER System Review History & Reason For Referral Type of Speech Evaluation spch/cog Rehabilitation Order Evaluation and Treat Date of Order 11/16/23 Reason for Referral communication-cognitive deficits following stroke. 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 Hearing Information Hearing Status Within normal limits. Patient denies any hearing loss. Vision Information Vision Status Patient wears glasses. Patient Orientation Orientation & Mental Status Not completely oriented to date. Short term memory deficits. CARRY OUT CLERK AND SHELF STOCKER Initial Assessment/POC Subjective Information Subjective/Pain Comment Patient independently ambulated to the therapy room. Her significant other is with her. Caregiver's Name Chaparro - significant other of 20+ years. He goes by Fuzzy Assessment & Impression Assessment/Impression Patient is a 58 year old female referred for speech therapy following a subarachnoid hemorrhage due to aneurysm which occurred on . She was in acute rehab at [facility] for about a week. She notices memory difficulty and her significant other reports that she is needing things repeated much less and remembering more since getting home. Her goal is to be able to get back to taking care of her grandchildren. AUDITORY COMPREHENSION Within normal limits. READING COMPREHENSION Moderate Level Yes/No Questions 10/10 Paragraph Reading Comprehension 8 COGNITION Organization / Problem Solving Immediate Memory 7/10 Recent Memory 15 Remote Memory 5/5 SWALLOW Patient is able to eat and drink regular solids and thin liquids without difficulty or signs of aspiration. IMPRESSIONS AND RECOMMENDATIONS Patient exhibits deficits in the areas of immediate and recent memory and organization . Patient is able to follow directions and formulate words /sentences to understand information and to adequately express herself. Recommend direct outpatient speech therapy to improve memory and organization skills. Functional Limitations & Outcome/Goals Goals/Functional Outcomes LONGTERM GOAL Patient will increase her memory and organization skills to a level that allows her to safely resume care of her grandchildren. SHORT TERM GOALS 1)Patient will demonstrate the ability to recall information with 80% accuracy. 2)Patient will be able to complete organization tasks with 80% accuracy. Intervention Plan & Frequency Intervention Plan Direct outpatient speech therapy 1-2 times a week x8 weeks. Frequency/Duration 1-2 times per week x8 weeks. Discharge Plan Patient Will be Discharged from Therapy Completion of LTG(s),Skills Plateau,Independently Progressing Therapist Signature & License # I Certify That Therapy Services Provided, Therapy Plan Established Therapist Signature & License Number Charity Baker, [facility]-CARRY OUT CLERK AND SHELF STOCKER, # [id number] Certification Date Date of First Visit for Therapy 11/23/23 Recertification Due Date 01/21/24 Physician Signature Signature of Physician Indicates Treatment Plan,Certification Plan,Medically Needed Services Physician Signature & Date Required Please Sign/Date Here Speech/Language Pathology Billing Units Billing Units Eval Speech Sound & Lang Comp 1
== END 2024-02-05 11:34 | disposition home or self-care (01) ==
PROVIDERS: PCP Internal Medicine; Visit Provider Registered Nurse Rehabilitation
DX: I60.7 Nontraumatic subarachnoid hemorrhage from unspecified intracranial artery (principal); H53.2 Diplopia; R26.9 Unspecified abnormalities of gait and mobility; R26.81 Unsteadiness on feet; M62.81 Muscle weakness (generalized); H57.11 Ocular pain, right eye; R41.89 Other symptoms and signs involving cognitive functions and awareness; R41.841 Cognitive communication deficit; H02.401 Unspecified ptosis of right eyelid; Z51.89 Encounter for other specified aftercare
CPT/HCPCS: 92523; 97161; 97166; 97530

== ENCOUNTER 2024-03-25 15:15 | Outpatient (CLI) | payer MEDICARE, OTHER, SELFPAY ==
--- OUTSIDE RECORDS SUMMARY | 2024-03-25 15:19 | XMS_ITS | Encounter Summary ---
Author Name Unknown Organization [facility] Address [address] [place] [address] Care Team Providers Care Box Maker Paperboard Name Role Phone Afia Rousseau MD Primary Care Provider Buddy Dyson MD Unavailable Joni Garcia MD Unavailable [phone] Encounter Details Date Type Department Care Team (Late st Contact Info) Description 02/13/2024 Orders Only [address] Clin [address] [place] [phone] Joni Garcia MD [address] [place] [phone] Subjective visual disturbance (Primary Dx) Social History Tobacco Use Types Packs/Day Years Used Date Smoking Tobacco: Every Day Adolescent Education Answer Date Record ed Getting School Help Needed Not on file 08/27 Sex and Gender Information Value Date Recorded Sex Assigned at Not on file Gender Identity Not on file Sexual Orientation Not on file documented as of this encounter Plan of Treatment Upcoming Encounters Date Type Department Care Team (Late st Contact Info) Description 09/16/2024 2:30 PM CDT Office Visit [address] 9[facility] Clin [address] [place] [phone] Joni Garcia MD [address] [place] [address] [phone] documented as of this encounter Visit Diagnoses Diagnosis Subjective visual disturbance- Primary Subjective visual disturbance, unspecified documented in this encounter Care Teams Box Maker Paperboard Relationship Specialty Start Date End Date Afia Rousseau MD [facility] & [address] [address] PCP - General Internal Medicine 10/07/16 Buddy Dyson MD [address] [address] Referring Physician 01/19/24 Joni Garcia MD [address] [place] [address] Ophthalmology 01/19/24 documented as of this encounter
--- OUTSIDE RECORDS SUMMARY | 2024-03-25 15:19 | XMS_ITS | Encounter Summary ---
Author Name Unknown Organization [facility] Address [address] [place] [address]. [place] [address] Care Team Providers Care Stripper And Printer Name Role Phone Afia Rousseau MD Primary Care Provider Buddy Dyson MD Unavailable Joni Garcia MD Unavailable [phone] Reason for Visit * Reason Onset Date Comments Call Back 02/13/2024 Encounter Details Date Type Department Care Team (Late st Contact Info) Description 02/13/[address] [facility] Eye [place] [id number] [facility] 9[facility] Clin [address] [place] [phone] Joni Garcia MD [address] [place] [phone] Call Back Social History Tobacco Use Types Packs/Day Years Used Date Smoking Tobacco: Every Day Adolescent Education Answer Date Record ed Getting School Help Needed Not on file 08/27 Sex and Gender Information Value Date Recorded Sex Assigned at Not on file Gender Identity Not on file Sexual Orientation Not on file documented as of this encounter Miscellaneous Notes * Telephone Encounter - Schuyler Chapa RN - 02/13/2024 11:09 AM CDT Pt not formally evaluated in clinic. Would recommend keeping appointment for evaluation and options for care at visit. Will ask patient communicator to reach out to review/update. May direct back to triage if indicated during call. Schuyler Chapa RN 11:10 AM 02/13/24 * Telephone Encounter - Sherie Yu - 02/13/2024 10:08 AM CDT Health Call Center Phone Message May a detailed message be left on voicemail: yes Reason for Call: Other: Pt advises her eye has considerably gotten better in the last 4 days and ptis requesting a call back to discuss possible exercises to help improve her eye please contact pt to discuss options. Thank you! Action Taken: Message routed to: [facility] [place] Travel Screening: Not Applicable documented in this encounter Plan of Treatment Upcoming Encounters Date Type Department Care Team (Late st Contact Info) Description 09/16/2024 2:30 PM CDT Office Visit [facility] Eye [address] 9[facility] [address] [place] [phone] Joni Garcia MD [address] [place] [phone] documented as of this encounter Visit Diagnoses Not on filedocumented in this encounter Care Teams Stripper And Printer Relationship Specialty Start Date End Date Afia Rousseau MD [facility] & [facility] [address] [place] [address] PCP - General Internal Medicine 10/07/16 Buddy Dyson MD [facility] [address] [place] [address] Referring Physician 01/19/24 Joni Garcia MD [address] [place] [address] Ophthalmology 01/19/24 documented as of this encounter
--- OUTSIDE RECORDS SUMMARY | 2024-03-25 15:19 | XMS_ITS | Encounter Summary ---
Author Name Unknown Organization [facility] Address [address] [place] [address] Care Team Providers Care Supervisor Lead Refinery Name Role Phone Afia Rousseau MD Primary Care Provider Buddy Dyson MD Unavailable Joni Garcia MD Unavailable [phone] Reason for Visit * Reason Comments Diplopia Evaluation New patient referred by Dr. Buddy Dyson for 3rd CN palsy consult. 10/2023 pt had brain anreuym was havign double vision and TAO ptosis, this improved a lot about 1 month ago. Still having some double vision at near when looking at phhone. Also pt still ntocied some TAO ptosis. FTGW. H/o lupus and uveitis. * Consultation (Routine) - Pending Review Specialty Diagnoses / Procedures Referred By Contac t Referred To Contact Ophthalmology Diagnoses Third cranial nerve palsy Buddy Dyson MD [facility] [address] [place] [address] Joni Garcia MD [address] [place] [address] Referral ID Status Reason Start Date Expiration Date V isits Requested Visits Authorized [id number] Pending Review 01/19/2024 01/18/2025 1 1 Encounter Details Date Type Department Care Team ([facility] st Contact Info) Description 03/07/2024 1:15 PM CDT Office Visit [facility] Eye [address] Clin [address] [place] [phone] Jnoi Garcia MD [address] [place] [phone] 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); Hypotropia of right eye; Alternating exotropia Social History Tobacco Use Types Packs/Day Years Used Date Smoking Tobacco: Former Cigarettes Tobacco Cessation:Counseling Given: Not Answered PHQ-2 Answer Date Recorded PHQ-2 Score 2 03/07/2024 Adolescent Education Answer Date Record ed Getting School Help Needed Not on file 08/27 Sex and Gender Information Value Date Recorded Sex Assigned at Not on file Gender Identity Not on file Sexual Orientation Not on file documented as of this encounter Patient Instructions * Patient Instructions* Joni Garcia MD - 03/07/2024 1:15 PM CDT Fresnel Prism What changes will you notice with the Fresnel prism? The prism will help you have single vision when looking straight ahead but still may have double vision when looking in different directions. Try moving your head to look in different directions rather than just moving your eyes. The prism may cause slight blurring or distortion of your vision. Some may notice a slight rainbow effect when looking at lights. Cleaning glasses with Fresnel prism applied - Rinse glasses with gentle stream of warm water or submerge glasses in bowl of warm water. Taking care to hold prism in place while wet. - A lotion-free liquid dish detergent may be used to remove grease or other material. Avoid using any glasses cleaning products that contain alcohol as this can cause the prism to go become cloudy. - Pat dry with a soft lint-free cloth. - If any dust, makeup, dirt, etc. remain trapped in the ridges of the prism, can scrub with a soft brush like a toothbrush (a baby toothbrush works great) in the same directions of the lines and thenrinse again with warm water. To reapply the Fresnel prism - Run the lens under warm water or submerge in a bowl of warm water. Slide the Fresnel prism into place with the smooth surface touching the glasses lens making sure it is on the the same eye that itwas placed originally. Make sure that the prism does not touch or overlap the edge of the lens or glasses frame anywhere. - Press down gently and squeeze out any large air bubbles - Pat or blot dry with a soft lint-free cloth - Handle with care for a few hours after placement as the prism may move until the prism and lens are completely dry documented in this encounter Progress Notes * Joni Garcia MD - 03/07/2024 1:15 PM CDT Images from the original note were not included. Polly Giron is a 58 year old female with the following diagnoses: 1. 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 Dyson for third nerve palsy with known ruptured PCOM aneurysm s/p embolization. HPI: Patient suffered ruptured PCOM aneurysm and underwent WEB embolization with neuroIR at [facility] on 10/25/23. Patient had sudden double vision on 10/24/23 along with a severe headache. Patient went to the ER and was discovered to have a aneurysm. She then had embolization with SURGICAL ASSISTANT shunt placement and by end ofFebruary her double vision has improved and her eyelid ptosis is a lot better. She says prior to 4 days ago she felt like she didn't have any double vision but now it seems to be coming back. She hasdouble vision worse at near feels like she doesn't see double in distance. Oblique in orientation and the image also has a slight tilt to it. She sees double mostly up and down. She denies any blurryvision. She denies any current headaches. Independent historians: Patient Review of outside testing: MRA head/neck WWO contrast 10/06/24: Impression Complete occlusion of the previously WEBed right PCOM aneurysm. CT head WO contrast 10/25/23: IMPRESSION: 1. Interval enlargement of the 3rd lateral ventricles compatible with worsening hydrocephalus. New intraventricular blood products in the 3rd and lateral ventricles secondary to redistribution. 2. Slight increase and subarachnoid hemorrhage along the interhemispheric fissures. Otherwise stable subarachnoid hemorrhages in the suprasellar cisterns and sylvian fissures compatible with ruptured right PCOM aneurysm. My interpretation performed today of outside testing: I have independently reviewed MRI Brain performed 10/06/24. No abnormal FLAIR hyperintensity or enhancement in the orbits or elsewhere along the visual pathways. Review of outside clinical notes: -- Visit with Dr. Dyson 10/25/23 Past medical history: Lupus Mixed connective tissue disease Medications: acetaminophen Caps albuterol aspirin clopidogrel cyclobenzaprine dexlansoprazole Cpdr diltiazem docusate sodium hydroxychloroquine HYPROMELLOSE OP nitroGLYcerin NUTRITIONAL SUPPLEMENT PO olopatadine oxyCODONE oxyCODONE IR pravastatin vitamin D3 Family history / social history: Patient's dad-stroke, HTN. Mom-lung cancer, Patient reports that she has been smoking. She does not have any smokeless tobacco history on file. Exam: VA 20/20 OD, 20/25 OS. Pupils no APD by reverse but does have fixed dilated pupil that doesn't respond to light or convergence. Anterior segment wnl for age. Posterior segment wnl for age. Strabismusleft hypertropia and exotropia. Restricted gaze when looking up and down OD only. Tests ordered and interpreted today: Sensorimotor exam Discussion of management / interpretation with another provider: None Assessment/Plan: It is my impression that patient experienced a right 3rd nerve palsy 2/2 Pcomm aneurysm now s/p embolization and SURGICAL ASSISTANT shunt placement. Today she still has limited motility of her right eye when lookingup and down and diplopia in upgaze and down gaze. It's been 4 months since patient developed doublevision. There could be some improvement up to 12 months after initial nerve injury. Would recommendto continue monitoring as previously patient was doing well. A temporary 5pd BU fresnel prism on right lens of glasses. RTC 6 months or sooner PRN Attending Physician Attestation: Complete documentation of historical and exam elements from today's encounter can be found in the full encounter summary report (not reduplicated in this progress note). I personally obtained the chief complaint(s) and history of present illness. I confirmed and edited as necessary the review of systems, past medical/surgical history, family history, social history, and examination findings as documented by others; and I examined the patient myself. I personallyreviewed the relevant tests, images, and reports as documented above. I formulated and edited as necessary the assessment and plan and discussed the findings and management plan with the patient and family. I personally reviewed the ophthalmic test(s) associated with this encounter, agree with the interpretation(s) as documented by the resident/fellow, and have edited the corresponding report(s) as necessary. - Joni Valdivia MD Fellow, Neuro-Ophthalmology documented in this encounter Plan of Treatment Upcoming Encounters Date Type Department Care Team (Late st Contact Info) Description 09/16/2024 2:30 PM CDT Office Visit [facility] [place] [id number] [facility] [address] [place] [phone] Joni Garcia MD [address] [place] [address] documented as of this encounter Procedures Procedure Name Priority Date/Time Associated Diagnosis Comments SENSORIMOTOR Routine 03/07/2024 2:01 PM CDT Hypotropia of right eye Alternating exotropia documented in this encounter Results * Sensorimotor (03/07/2024 2:01 PM CDT) Narrative Joni Garcia MD - 03/07/2024 2:01 PM CDT Performed by: ZEHRA Skaggs Patient cooperation: Reliable . Reliability of the test: Good . Test Findings: Strabismus . Interpretation: Exotropia, Hypertropia, 3rd nerve palsy, Noncomitant strabismus . Plan: Will monitor and consider eye muscle surgery . Interval: Initial . 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 - [address] [address] PCP - General Internal Medicine 10/07/16 Buddy Dyson MD [address] [address] Referring Physician 01/19/24 Joni Garcia MD [address] [place] [address] Ophthalmology 01/19/24 documented as of this encounter
--- OUTSIDE RECORDS SUMMARY | 2024-03-25 15:19 | XMS_ITS | Referral Summary ---
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); Hypotropia of right eye; Alternating exotropia 02/13/[address] [phone] Joni Garcia MD Call Back 02/13/2024 Orders Only [address] [phone] Joni Garcia MD Subjective visual disturbance (Primary Dx) 01/19/[address] [phone] Joni Garcia MD Appointment (Patient would like appointment information with Dr Garcia to be sent out [facility]) 01/19/2024 Transcribe Orders GENERIC EXTERNAL DATA DEPARTMENT Provider, Generic External Data Third cranial nerve palsy (Primary Dx) from Last 3 Months Allergies Active Allergy Reactions Criticality Noted Date Comments Adhesive Tape 03/18/2004 Medications Medication Sig Dispensed Refills Start Date End Date Status acetaminophen 500 MG CAPS Take 1,000 mg by mouth as needed Active albuterol (2.5 MG/3ML) 0.083% neb solution Take 1 vial by nebulization 4 times daily PRN Active aspirin 81 MG chewable tablet Take 81 mg by mouth daily 05/29/2015 Active clopidogrel (PLAVIX) 75 MG tablet Take 75 mg by mouth daily 05/19/2016 Active cyclobenzaprine (FLEXERIL) 5 MG tablet Take 5 mg by mouth every 8 hours as needed Active docusate sodium (STOOL SOFTENER) 100 MG capsule Take 200 mg by mouth daily 09/15/2005 Active dexlansoprazole (DEXILANT) 60 MG CPDR CR capsule Take 60 mg by mouth daily Active diltiazem (CARDIZEM) 120 MG tablet Take 120 mg by mouth daily Active HYPROMELLOSE OP Place 1 drop into both eyes daily Active nitroglycerin (NITROSTAT) 0.[address] 0.4 mg under the tongue daily 05/29/2015 Active olopatadine HCl (PATADAY) 0.2 % SOLN Place 1 drop into both eyes 2 times daily Active oxyCODONE (OXYCONTIN) 40 MG 12 hr tablet Take 40 mg by mouth every 12 hours Active oxyCODONE (ROXICODONE) 15 MG IR tablet Take 15 mg by mouth every 4 hours as needed Active pravastatin (PRAVACHOL) 40 MG tablet Take 40 mg by mouth At Bedtime Active cholecalciferol (VITAMIN D3) 58512 UNITS capsule Take 1 capsule by mouth three times a week Active hydroxychloroquine (PLAQUENIL) 200 MG tablet Take 200 mg by mouth 2 times daily Active Nutritional Supplements (NUTRITIONAL SUPPLEMENT PO) Drenamin - natural supplement Active Nutritional Supplements (NUTRITIONAL SUPPLEMENT PO) Catalyn - natural supplement Active nicotine (NICODERM CQ) 14 MG/24HR 24 hr patch APPLY ONE PATCH EXTERNALLY ONE TIME DAILY* Active rosuvastatin (CRESTOR) 20 MG tablet Take 1 tablet by mouth at bedtime 11/18/2023 Active LORazepam (ATIVAN) 0.5 MG tablet TAKE 1-2 TABLETS (0.5MG - 1MG) BY MOUTH ONCE DAILY NEEDED FOR ANXIETY.* Active methotrexate 50 MG/2ML injection INJECT 0.8 ML (20 MG) ONCE A WEEK* 03/23/2023 Active Social History Tobacco Use Types Packs/Day Years Used Date Smoking Tobacco: Former Cigarettes Tobacco Cessation:Counseling Given: Not Answered PHQ-2 Answer Date Recorded PHQ-2 Score 2 03/07/2024 Adolescent Education Answer Date Record ed Getting School Help Needed Not on file 08/27 Sex and Gender Information Value Date Recorded Sex Assigned at Not on file Gender Identity Not on file Sexual Orientation Not on file Last Filed Vital Signs Vital Sign Reading Time Taken Comments Blood Pressure 134/84 10/26/2016 8:35 AM PLANER OPERATOR Pulse 110 10/26/2016 8:35 AM PLANER OPERATOR Temperature 36.6 ??C (97.9 ??F) 10/26/2016 8:35 AM CS T Respiratory Rate 18 10/26/2016 8:35 AM PLANER OPERATOR Oxygen Saturation 99% 10/26/2016 8:35 AM PLANER OPERATOR Inhaled Oxygen Concentration - - Weight 70.4 kg (155 lb 3.3 oz) 10/26/2016 8:35 A M PLANER OPERATOR Height - - Body Mass Index - - Plan of Treatment Upcoming Encounters Date Type Department Care Team (Late st Contact Info) Description 09/16/2024 2:30 PM CDT Office Visit [facility] Eye [address] 9[facility] Clin [address] [place] [phone] Joni Garcia MD [address] [place] [address] Procedures Procedure Name Priority Date/Time Associated Diagnosis Comments SENSORIMOTOR Routine 03/07/2024 2:01 PM CDT Hypotropia of right eye Alternating exotropia from Last 3 Months Results * Sensorimotor (03/07/2024 2:01 PM CDT) Narrative Joni Garcia MD - 03/07/2024 2:01 PM CDT Performed by: ZEHRA Skaggs Patient cooperation: Reliable . Reliability of the test: Good . Test Findings: Strabismus . Interpretation: Exotropia, Hypertropia, 3rd nerve palsy, Noncomitant strabismus . Plan: Will monitor and consider eye muscle surgery . Interval: Initial . Joni Garcia MD OPHTHALMOLOGY from Last 3 Months Care Teams Vehicle Washer Relationship Specialty Start Date End Date Afia Rousseau MD [facility] [address] [place] [address] PCP - General Internal Medicine 10/07/16 Buddy Dyson MD [address] [address] Referring Physician 01/19/24 Joni Garcia MD [address] [place] [address] MD Ophthalmology 01/19/24 Joni Garcia MD [address] [place] [address] Assigned Surgical Provider 03/12/24
--- OUTSIDE RECORDS SUMMARY | 2024-03-25 15:19 | XMS_ITS | Clinical Summary ---
Author Name Unknown Organization [place] Address [address] [place] [address] Care Team Providers Care Chain Tender Name Role Phone Afia Rousseau MD Primary Care Provider Buddy Dyson MD Unavailable Joni Garcia MD Unavailable [phone] Joni Garcia MD Unavailable [phone] Allergies Active Allergy Reactions Criticality Noted Date [...] mouth At Bedtime Active cholecalciferol (VITAMIN D3) 31389 UNITS capsule Take 1 capsule by mouth [...] (20 MG) ONCE A WEEK* 03/23/2023 Active Encounters Date Type Department Care Team Description 03/07/2024 1:15 PM CDT Office Visit [address] [phone] Joni Garcia MD 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); Hypotropia of right eye; Alternating exotropia 03/07/2024 Travel 02/13/[address] [address] Joni Garcia MD Call Back 02/13/2024 Orders Only [address] [address] Joni Garcia MD Subjective visual disturbance (Primary Dx) 01/19/[address] [address] Joni Garcia MD Appointment (Patient would like appointment information with Dr Garcia to be sent out USPS) 01/19/2024 Transcribe Orders GENERIC EXTERNAL DATA DEPARTMENT Provider, Generic External Data Third cranial nerve palsy (Primary Dx) from Last 3 Months Family History Medical History Relation Comments Melanoma No family hx of Skin Cancer No family hx of Social History Tobacco Use Types Packs/Day Years [...] Comments Blood Pressure 134/84 10/26/2016 8:35 AM SANITATION INSPECTOR Pulse 110 10/26/2016 8:35 AM SANITATION INSPECTOR Temperature 36.6 ??C (97.9 ??F) 10/26/2016 8:35 AM CS T Respiratory Rate 18 10/26/2016 8:35 AM SANITATION INSPECTOR Oxygen Saturation 99% 10/26/2016 8:35 AM SANITATION INSPECTOR Inhaled Oxygen Concentration - - Weight 70.4 kg (155 lb 3.3 oz) 10/26/2016 8:35 A M SANITATION INSPECTOR Height - - Body Mass Index - - Plan of Treatment Upcoming Encounters Date Type Department Care Team (Late st Contact Info) Description 09/16/2024 2:30 PM CDT Office Visit [address] [place] [phone] Joni Garcia MD [address] [place] [id number] Health Maintenance Due Date Last Done Comments ADVANCE CARE PLANNING 1967 ANNUAL REVIEW OF HM ORDERS 1967 CT COLONOGRAPHY 1967 FIT 1967 FLEX SIG 1967 GLUCOSE 1967 LIPID 1967 MAMMO SCREENING 1967 sDNA (Cologuard) 1967 COVID-19 Vaccine (#1) 1972 Pneumococcal Vaccine: Pediat rics (0 to 5 Years) and At-Risk Patients (6 to 64 Years) (1 of 2 - PCV) 1973 COLONOSCOPY 1977 COLORECTAL CANCER SCREENING 1977 HIV SCREENING 1982 HEPATITIS C SCREENING 1985 MEDICARE ANNUAL WELLNESS VISIT 1985 HEPATITIS B IMMUNIZATION (1 of 3 - 19+ 3-dose series) 1986 ZOSTER IMMUNIZATION (1 of 2) 1986 PAP 1988 LUNG CANCER SCREENING 2017 INFLUENZA VACCINE (Season Ended) 2024 DTAP/TDAP/TD IMMUNIZATION (2 - Td or Tdap) 03/30/2031 03/30/2021 PHQ-2 (once per calendar year) Completed 03/07/2024 HPV IMMUNIZATION Aged Out No longer e ligible based on patient's age to complete this topic IPV IMMUNIZATION Aged Out No longer e ligible based on patient's age to complete this topic MENINGITIS IMMUNIZATION Aged Out No l onger eligible based on patient's age to complete this topic RSV MONOCLONAL ANTIBODY Aged Out No l onger eligible based on patient's age to complete this topic Procedures Procedure Name Priority Date/Time Associated Diagnosis [...] OPHTHALMOLOGY from Last 3 Months Care Teams Chain Tender Relationship Specialty Start Date End Date Afia Rousseau MD [facility] [address] [place] [address] PCP - General Internal Medicine 10/07/16 Buddy Dyson MD [facility] [address] [place] [address] Referring Physician 01/19/24 Joni Garcia MD [address] [place] [address] Ophthalmology 01/19/24 Joni Garcia MD [address] [place] [id number] Assigned Surgical Provider 03/12/24
--- OUTSIDE RECORDS SUMMARY | 2024-03-25 15:19 | XMS_ITS | Encounter Summary ---
Author Name Unknown Organization [place] Address [address] [place] [address] Care Team Providers Care Finisher Special Stocks Name Role Phone Afia Rousseau MD Primary Care Provider Buddy Dyson MD Unavailable Joni Garcia MD Unavailable [phone] Encounter Details Date Type Department Care Team (Latest Contact Info) Description 03/07/2024 Travel Social History Tobacco Use Types Packs/Day Years Used Date Smoking Tobacco: Former Cigarettes PHQ-2 Answer Date Recorded PHQ-2 Score 2 [...] Description 09/16/2024 2:30 PM CDT Office Visit [facility] [address] [place] [phone] Joni Garcia MD [address] [place] [phone] documented as of this encounter Visit Diagnoses Not on filedocumented in this encounter Care Teams Finisher Special Stocks Relationship Specialty Start Date End Date Afia Rousseau MD [facility] [address] [place] [address] PCP - General Internal Medicine 10/07/16 Buddy Dyson MD [address] [address] Referring Physician 01/19/24 Joni Garcia MD [address] [place] [id number] Ophthalmology 01/19/24 documented as of this encounter
--- OUTSIDE RECORDS SUMMARY | 2024-03-25 15:19 | XMS_ITS | Encounter Summary ---
Author Name Unknown Organization [place] Address [address] [place] [address] Care Team Providers Care Core Analysis Operator Name Role Phone Afia Rousseau MD Primary Care Provider Buddy Dyson MD Unavailable Joni Garcia MD Unavailable [phone] Joni Garcia MD Unavailable [phone] Reason for Visit * Reason Onset Date Comments Appointment 01/19/2024 Patient would li ke appointment information with Dr Garcia to be sent out USPS Encounter Details Date Type Department Care Team (Late st Contact Info) Description 01/19/2024 [facility] [address] [facility] [address] [place] [phone] Joni Garcia MD [address] [place] [phone] Appointment (Patient would like appointment information with Dr Garcia to be sent out USPS) Social History Tobacco Use Types Packs/Day Years Used Date Smoking Tobacco: Every Day Adolescent Education Answer Date Record ed Getting School Help Needed Not on file 08/27 Sex and Gender Information Value Date Recorded Sex Assigned at Not on file Gender Identity Not on file Sexual Orientation Not on file documented as of this encounter Miscellaneous Notes * Telephone Encounter - Elzbieta Pennington - 01/22/2024 6:49 AM CST Sent new patient packet..jam EGE PRESIDENT * Telephone Encounter - Beverly Gonzales - 01/19/2024 4:46 PM CST [facility] Call Center Phone Message May a detailed message be left on voicemail: yes Reason for Call: Patient would like appointment information with Dr Garcia to be sent out USPS Thank you, Action Taken: Message routed to: [facility]): eye Travel Screening: Not Applicable EGE PRESIDENT documented in this encounter Plan of Treatment Upcoming Encounters Date Type Department Care Team (Late st Contact Info) Description 09/16/2024 2:30 PM CDT Office Visit [facility] - [address] [address] Joni Garcia MD [address] [place] [phone] documented as of this encounter Visit Diagnoses Not on filedocumented in this encounter Care Teams Core Analysis Operator Relationship Specialty Start Date End Date Afia Rousseau MD [facility] [address] [place] [address] PCP - General Internal Medicine 10/07/16 Buddy Dyson MD [facility] [address] [place] [address] Referring Physician 01/19/24 Joni Garcia MD [address] [place] [phone] Ophthalmology 01/19/24 Joni Garcia MD [address] [place] [address] Assigned Surgical Provider 03/12/24 documented as of this encounter
--- OUTSIDE RECORDS SUMMARY | 2024-03-25 15:19 | XMS_ITS | Clinical Summary ---
Author Name Unknown Organization [employer] Address [place], [place] [address] Care Team Providers Care College Basketball Coach Name Role Phone Afia Rousseau MD Primary Care Provider [phone] Allergies Active Allergy Reactions Criticality Noted Date Comments Adhesive Other - Describe In Comment Field 07/26/2017 Tears skin Atorvastatin Arthralgia 01/18/2019 Diltiazem Hcl Edema 01/18/2019 Adhesive Tape Contact Dermatitis 08/30/2005 problem with certain bandaids not all of them Medications Medication Sig Dispensed Refills Start Date End Date Status hydroxychloroqui ne (PLAQUENIL) 200 mg tablet Take 1 Tablet (200 mg) by mouth two times daily. May resume after 11/22/23 if incision is healed. 4 Active methotrexate (FOLEX; MEXATE) 25 mg/mL injection Inject 20 mg subcutaneous once weekly. May resume after 11/22/23 if incision is healed 4 Active acetaminophen (TYLENOL EXTRA STRGTH) 500 mg tabletIndication s:SAH (subarachnoid hemorrhage) (HC) Take 2 Tablets (1,000 mg) by mouth 3 times daily if needed for Headache or Pain. Max acetaminophen dose: 4000mg in 24 hrs. 3 Active aspirin chewable 81 mg chewable tabletIndication s:Coronary artery disease due to lipid rich plaque Chew 1 Tablet (81 mg) by mouth once daily with a meal. 30 Tablet 3 Active lansoprazole (PREVACID) 30 mg capsuleIndicatio ns:Gastroesophag eal reflux disease, unspecified whether esophagitis present Take 1 Capsule (30 mg) by mouth once daily before a meal. 30 Capsule 3 Active melatonin 3 mg tabletIndication s:SAH (subarachnoid hemorrhage) (HC) Take 2 Tablets (6 mg) by mouth at bedtime. 3 Active multivitamin pediatric chewable tabletIndication s:SAH (subarachnoid hemorrhage) (HC) Chew 1 Tablet by mouth once daily. 3 Active nicotine 14 mg/24 hr (NICODERM; HABITROL) 14 mg/24 hr patchIndications :Tobacco abuse Apply 1 Patch on dry, clean, hairless skin once daily. 30 Patch 3 Active nitroglycerin (NITROSTAT) 0.4 mg sublingual tabletIndication s:Coronary artery disease due to lipid rich plaque Place 1 Tablet (0.4 mg) under the tongue every 5 minutes if needed for Chest Pain for a maximum of 3 doses. CALL 911 if symptoms not resolved after the first dose. 25 Tablet 3 3 Active polyethylene glycoL (MIRALAX) 17 gram/scoop powderIndication s:SAH (subarachnoid hemorrhage) (HC) Mix 1 scoop (17 g) in 4-8 ounce of liquid then take by mouth two times daily. 1020 g 3 Active sennosides-docus ate (SENOKOT S) (8.6-50 mg) tabletIndication s:SAH (subarachnoid hemorrhage) (HC) Take 2 Tablets by mouth two times daily. 120 Tablet 3 Active oxyCODONE (OXYCONTIN) 40 mg SUSTAINED release tabletIndication s:Narcotic dependence (HC),Chronic pain syndrome Take 1 Tablet (40 mg) by mouth every 12 hours. 3 Active oxyCODONE (ROXICODONE) 5 mg immediate release tabletIndication s:Narcotic dependence (HC),Chronic pain syndrome Take 1-3 Tablets (5-15 mg) by mouth every 4 hours if needed for Pain (1 tab for pain 1-5/10; 2 tabs for pain rated 6-8/10. 3 tabs for pain rated 9-10/10. Hold for sedation.). 3 Active albuterol HFA (PRO-AIR; VENTOLIN; PROVENTIL) 90 mcg/actuation inhaler Inhale 2 Puffs by mouth. Active clopidogreL (PLAVIX) 75 mg tabletIndication s:Coronary artery disease due to lipid rich plaque,Arteriosc lerosis of coronary artery TAKE ONE TABLET BY MOUTH EVERY DAY IN THE MORNING. 90 Tablet 4 Active cyclobenzaprine (FLEXERIL) 10 mg tablet TAKE ONE TABLET BY MOUTH EVERY EIGHT HOURS NEEDED FOR PAIN* Active LORazepam (ATIVAN) 0.5 mg tab Take 0.5 mg by mouth at bedtime if needed for Anxiety. 1-2 Tabs by mouth as needed daily for anxiety 4 Active amLODIPine (NORVASC) 5 mg tablet Take 5 mg by mouth once daily. Active sertraline (ZOLOFT) 50 mg tablet Take 50 mg by mouth once daily. Active metoprolol tartrate (LOPRESSOR) as half tablet Take by mouth two times daily. Active rosuvastatin (CRESTOR) 20 mg tabletIndication s:SAH (subarachnoid hemorrhage) (HC) TAKE ONE TABLET BY MOUTH ONE TIME DAILY 90 Tablet 4 Active rosuvastatin (CRESTOR) 20 mg tabletIndication s:SAH (subarachnoid hemorrhage) (HC) Take 1 Tablet (20 mg) by mouth at bedtime. 30 Tablet 3 03/18/20 24 Discontinued Active Problems Problem Noted Date Diagnosed Date S/P INTERIOR DECORATOR PAPERHANGING shunt 12/05/2023 Overview: Hydrocephalus secondary to subarachnoid hemorrhage. 11/08/2023 - programmable medos valve set at 120. By Dr. Santana. 12/05/2023 post MRI - set at 120. Pulmonary nodules 11/08/2023 Chronic pain 10/31/2023 Constipation 10/31/2023 Depression, unspecified 10/31/2023 Lupus 10/31/2023 Post-traumatic stress syndrome 10/31/2023 Hydrocephalus 10/29/2023 Obstructive hydrocephalus 10/28/2023 SAH (subarachnoid hemorrhage ) due to ruptured right PCOM brain aneurysm s/p WEB embo 10/25/23, Device is MRI up to 3 TENISHA compatible 10/25/2023 Arteriosclerosis of coronary artery 08/06/2015 Coronary artery disease due to lipid rich plaque 05/29/2015 Acute chest pain 05/27/2015 Tobacco abuse 05/27/2015 Chronic pain syndrome 05/27/2015 Blood in stool 05/27/2015 Narcotic dependence 05/27/2015 Fibromyalgia 05/27/2015 PTSD (post-traumatic stress disorder) 05/27/2015 SLE (systemic lupus erythematosus) 05/27/2015 Resolved Problems Problem Noted Date Diagnosed Date Resolved Date Unspecified intestinal obstruction 09/09/2005 05/27/2015 Single liveborn, born in [facility], delivered by delivery 09/06/2005 05/27/2015 Encounters Date Type Department Care Team Description 03/18/2024 1:00 PM CDT [facility] [address] [facility] [address] [place] [phone] Nahed Lanier NP 03/16/2024 Refill [facility] [address] [place] [address] Darnell Soto MD Refill Request (Rosuvastatin) 03/13/2024 Telephone [facility] [address] [phone] Nahed Lanier NP Concerns (Received a call from the answering service.) 02/15/2024 Telephone [facility] [address] [phone] Tra Santana, [place] [facility] Questions 01/18/2024 1:30 PM TIGHT BARREL INSPECTOR Office Visit [facility] [address] [facility] [address] [place] [address] Jourdan Rodriguez MD Hospital F/U (Stroke) 01/18/2024 Travel 01/17/2024 Patient Outreach [facility] [address] [place] [address] Elzbieta Walton, QUILL PICKING MACHINE OPERATOR Stroke Rehab Care Coordination - [facility] 01/10/2024 Orders Only [address] [place] [address] [place] [address] Darnell Soto MD <No scans attached> 01/09/2024 1:30 PM TIGHT BARREL INSPECTOR Office Visit [facility] [address] [address] Nahed Lanier NP Post-op (1-20-23 Dr. Santana 1. Intraoperative ultrasound. /2. Endoscopic-assisted placement of left-sided occipital ventriculoperitoneal shunt. Placement of Medos ventriculoperitoneal shunt set at 120./) 01/09/2024 12:39 PM TIGHT BARREL INSPECTOR - 01/09/2024 11:59 PM TIGHT BARREL INSPECTOR Hospital Encounter [facility] [address] [place], [place] [phone] Lucian-Orlando nifchrist, Nahed Brock NP S/P ventriculoperitoneal shunt; SAH (subarachnoid hemorrhage) (HC) 01/09/2024 Travel 01/07/2024 Refill [facility] [address] [place] [address] Darnell Soto MD Refill Request (Clopidogrel) from Last 3 Months Family History Medical History Relation Name Comments Cancer-colon Brother 1 Cancer-prostate Brother 2 Stroke Father Cancer Mother lung Heart Disease No Family History Relation Name Status Comments Brother 1 Brother 2 Father Mother Social History Tobacco Use Types Packs/Day Years Used Date Smoking Tobacco: Former Cigarettes 0.3 28 Smokeless Tobacco: Never Tobacco Cessation:Counseling Given: Not Answered Comments:TIP done 05/28/15 Alcohol Use Standard Drinks/Week Comments No 0 (1 standard drink = 0.6 oz pur e alcohol) tx - recovering Social Connections Answer Date Recorded Frequency of Communication with Friends and Fami ly 0 11/17/2023 Financial Resource Strain Answer Date R ecorded Difficulty of Paying Living Expenses 3 11/17/2023 Difficulty of Paying Living Expenses Not on file 11/17/2023 Food Insecurity Answer Date Recorded Worried About Running Out of Food in the Last Ye ar 1 11/17/2023 Transportation Needs Answer Date Record ed Lack of Transportation (Medical) 1 11/17/2023 Housing Stability Answer Date Recorded Unable to Pay for Housing in the Last Year 1 11/17/2023 Sex and Gender Information Value Date Recorded Sex Assigned at Not on file Gender Identity Not on file Sexual Orientation Not on file Obstetrics History Para Term AB IAB SAB Ectopic Multiple Livin g Live Births 18 5 3 2 4 1 3 0 0 5 9 Date Outcome GA Total Labor Labor/2nd/3rd Weight Sex Delivery Anes PTL Anitha A1 A5 Name Cl in SAB SAB SAB IAB Term Term Term 02/18 ELECTIVE AB Jennie ng 01/18 SPONTANEO US Jennie ng 03/20 37w 0d 2.66 kg (5 lb 14 oz) M Jennie ng Mod[place] e Delivery Location:Replaced by [facility] Comments:emergency C/S 04/20 37w 0d 3.18 kg (7 lb) F Jennie ng Ashle y Delivery Location:[facility] Comments:R/C/S 08/20 37w 0d 2.72 kg (6 lb) M Jennie ng Brand on Delivery Location:Replaced by [facility] Comments:R/C/S 11/20 SPONTANEO US Jennie ng 11/20 SPONTANEO US Jennie ng 04/20 34w 0d 1.98 kg (4 lb 6 oz) M Jennie ng Jorda n Delivery Location:[place] Comments:emergency C/S 07/21 30w 0d 1.7 kg (3 lb 12 oz) M Jennie ng Isaia h Delivery Location:[place] Comments:placental abr uption Comments dates of SABs are unknown Last Filed Vital Signs Vital Sign Reading Time Taken Comments Blood Pressure 119/60 01/18/2024 1:15 PM TIGHT BARREL INSPECTOR Pulse 122 01/18/2024 1:15 PM TIGHT BARREL INSPECTOR Temperature 36.7 ??C (98.1 ??F) 01/09/2024 1:10 PM CS T Respiratory Rate 16 01/18/2024 1:15 PM TIGHT BARREL INSPECTOR Oxygen Saturation 100% 01/09/2024 1:10 PM TIGHT BARREL INSPECTOR Inhaled Oxygen Concentration - - Weight 60.2 kg (132 lb 12.8 oz) 01/18/2024 1:15 PM TIGHT BARREL INSPECTOR Height 165.1 cm (5' 5) 01/18/2024 1:15 PM TIGHT BARREL INSPECTOR Body Mass Index 22.1 01/18/2024 1:15 PM TIGHT BARREL INSPECTOR Plan of Treatment Upcoming Encounters Date Type Department Care Team (Late st Contact Info) Description 05/02/2024 8:30 AM CDT Appointment [facility] [address] [place] [address] 10/25/2024 1:00 PM TIGHT BARREL INSPECTOR Appointment [facility] [address] [place] [address] Health Maintenance Due Date Last Done Comments COVID-19 vaccine series (#1) 1972 Tdap 1978 Depression screening for age 12+ 1979 HIV for age 15-65 1982 Hepatitis C screening for ag e 18-79 1985 Zoster (shingles) series for age 50+ (1 of 2) 1986 Tetanus booster 1987 Pap test for age 21-65 1988 Colonoscopy through age 75 2012 Mammogram for age 45-75 2012 Lipids for age 45-75 05/28/2020 05/28/2015 Influenza for age 50-64 07/21/2024 BMI (ht and wt on same day) for age 18+ 01/17/2025 01/18/2024 Pneumococcal series for age 6-64 Aged Out No longer eligible based on patient's age to complete this topic Medical Devices Implanted Type Area Regional Vice President Life Sales Device Identifier Shelf Expiration Date Model / Serial / Lot Valve Neuro Micro Hakim W/ [employer]mes - [id number] Implanted:Qty: 1 on 11/08/2023 by Tra Santana [facility] at Left: Cranium [employer] 05/19/2028 [id number] / / [id number] Procedures Procedure Name Priority Date/Time Associated Diagnosis Comments XR ABDOMEN 2 VIEW AP AND LATERAL Routine 01/09/2024 1:01 PM TIGHT BARREL INSPECTOR S/P ventriculoperitoneal shunt SAH (subarachnoid hemorrhage) (HC) LIPID PANEL Early AM 05/28/2015 5:40 AM CDT from Last 3 Months or Most Recently Relevant to Health Maintenance Results * XR ABDOMEN 2 VIEW AP AND LATERAL (01/09/2024 1:01 PM TIGHT BARREL INSPECTOR) Anatomical Region Laterality Modality Abdomen Digital Radiogra phy Impressions 01/09/2024 3:49 PM TIGHT BARREL INSPECTOR The left INTERIOR DECORATOR PAPERHANGING shunt catheter is in stable position and there are no new areas of discontinuity identified. Large amount of colonic stool. Nonobstructive gas pattern Surgical anchor devices are present in the abdominal wall. There is stable atherosclerotic calcification of the aorta. No other significant change. Narrative 01/09/2024 3:49 PM TIGHT BARREL INSPECTOR INDICATION: INTERIOR DECORATOR PAPERHANGING shunt TECHNIQUE: Frontal and lateral views of the abdomen. Comparison November 27, 2023. Nahed Cunningham NP GENERAL IMAGING * (ABNORMAL) LIPID PANEL (05/28/2015 5:40 AM CDT) CHOLESTEROL,TOTAL 192 100 - 199 mg/dL 05/28/2015 6:21 AM CDT [facility] TRIGLYCERIDES 130 <150 mg/dL 05/28/2015 6:21 AM CDT [facility] HDL CHOLESTEROL 42 >40 mg/dL 5 6:21 AM CDT [facility] NON-HDL CHOLESTEROL 150(H) <145 mg/dl 05/28/2015 6:21 AM CDT [facility] CHOL/HDL RATIO 4.57(H) <4.50 05/28/2015 6:21 AM CDT [facility] LDL CHOLESTEROL 124 <=130 mg/dL 05/28/2015 6:21 AM CDT [facility] PATIENT STATUS FASTING 05/28/2015 6:21 AM CDT [facility] Blood specimen (specimen) BLOOD SPECIMEN / Unknown Butterfly / Unknown 05/28/2015 5:40 AM CDT 05/28/2015 5:56 AM CDT Kaitlyn Ball NP CHEMISTRY [facility] [address] [place] [address], [place] from Last 3 Months or Most Recently Relevant to Health Maintenance Additional Health Concerns Infection Onset Date Last Indicated MDRO-GNB Comment:ESBL E. coli 11/08/23 - Urine 11/08/2023 11/08/2023 Advance Directives * Full Code (Latest Code Status on File) Date Activated Date Inactivated Comments 11/10/2023 12:04 PM 11/18/2023 1:56 PM Question Answer Comments Code Status Discussion: Reviewed Preferences * Full Code Date Activated Date Inactivated Comments 10/25/2023 1:52 AM 11/10/2023 12:03 PM Question Answer Comments Code Status Discussion: Reviewed Preferences * Full Code Date Activated Date Inactivated Comments 05/27/2015 5:03 PM 05/29/2015 12:49 PM * Full Code Date Activated Date Inactivated Comments 05/27/2015 2:51 PM 05/27/2015 5:03 PM * Full Code Date Activated Date Inactivated Comments 09/06/2005 10:46 AM 09/08/2005 7:27 PM Care Teams College Basketball Coach Relationship Specialty Start Date End Date Afia Rousseau MD [address] [place] [address] PCP - General Internal Medicine 01/29/15
--- OUTSIDE RECORDS SUMMARY | 2024-03-25 15:19 | XMS_ITS | Encounter Summary ---
Author Name Unknown Organization [facility] Address [address] [place] [address] Care Team Providers Care Retail Sales Merchandiser Name Role Phone Afia Rousseau MD Primary Care Provider Buddy Dyson MD Unavailable Joni Garcia MD Unavailable [phone] Reason for Referral * Consultation (Routine) - Pending Review Specialty Diagnoses / Procedures Referred By Yony gray Referred To Contact Ophthalmology Diagnoses Third cranial nerve palsy Buddy Dyson MD [facility] [address] [place] [address] Joni Garcia MD [address] [place] [address] Referral ID Status Reason Start Date Expiration Date V isits Requested Visits Authorized [id number] Pending Review 01/19/2024 01/18/2025 1 1 Question Answer Referral Type: Optometry/Ophthalmology Reason for Referral: Other My Clinical Question Is: Consult for management and evaluation of residual CN 3 palsy s/p ruptured and treated right pcom brain aneurysm. See [facility] Chart for HX. Scheduling Instructions: [employer] [facility] will call you to coordinate your care as prescribed by your provider. If you don't hear from a delivery representative within 2 business days, please call . Comments Referred by: Buddy Dyson [facility] [address] [place] [id number] No Phone Number Listed on Fax No Fax Number Listed on Fax [facility] will call you to coordinate your care as prescribed by your provider. If you don't hear from a delivery representative within 2 business days, please call . SING MACHINE TENDER Encounter Details Date Type Department Care Team (Late st Contact Info) Description 01/19/2024 Transcribe Orders GENERIC EXTERNAL DATA DEPARTMENT Provider, Generic External Data Third cranial nerve palsy (Primary Dx) Social History Tobacco Use Types [...] Description 09/16/2024 2:30 PM CDT Office Visit [facility] [address] [phone] Joni Garcia MD [address] [place] [id number] Scheduled Referrals Name Type Priority Associated Diagnoses Orde r Schedule Adult Eye Scallop Cutter Machine Referral Referral Routine Third cranial nerve palsy Expected: 01/19/2024 (Approximate), Expires: 01/18/2025 documented as of this encounter Visit Diagnoses Diagnosis Third cranial nerve palsy- Primary Paralytic strabismus, third or oculomotor nerve palsy, partial documented in this encounter Care Teams Retail Sales Merchandiser Relationship Specialty Start Date End Date Afia Rousseau MD [facility] [address] [place] [address] PCP - General Internal Medicine 10/07/16 Buddy Dyson MD [facility] [address] [place] [address] Referring Physician 01/19/24 Joni Garcia MD [address] [place] [address], [place] [address] Ophthalmology 01/19/24 documented as of this encounter
--- OUTSIDE RECORDS SUMMARY | 2024-03-25 15:20 | XMS_ITS | Clinical Summary ---
Author Name Unknown Organization [facility] Address [address], [place] [address] Care Team Providers Care Dewatering Filtering Supervisor Name Role Phone Afia Rousseau MD Primary Care Provider [phone] Source Comments You are receiving this document as you are listed as the primary care provider,follow-up provider, or the patient has been referred to you for consultation.This is in compliance with the Medicare and[place]health[place]id EHR Incentive Program,which states Providers who transition their patient to another setting of careor provider of care or refers their patient to another provider of care shouldprovide summary care record for each transition of care or referral. [facility] Allerg[facility] Active Allergy Reactions Criticality Noted Date Comments Adhesive Other, see comments 07/26/2017 Tears skin Other 07/26/2017 Band aids Medications Medication Sig Dispensed Refills Start Date End Date Status oxyCODONE (OXYCONTIN) 40 MG 12 hour tablet Take 40 mg by mouth every 12 hours. Active oxyCODONE (ROXICODONE) 15 MG immediate release tablet Take 15 mg by mouth 4 times a day. Active cyclobenzaprine (FLEXERIL) 10 MG tablet Take 5 mg by mouth every 6 hours. Active clobetasol (TEMOVATE) 0.05 % cream Apply 15 g topically two times a day. Active dexamethasone 0.5 MG/5ML solution Take 0.5 mg by mouth two times a day. Active hydroxychloroquine (PLAQUENIL) 200 MG tablet Take 200 mg by mouth two times a day. Active nitroglycerin (NITROSTAT) 0.[address] 0.4 mg under tongue every 5 minutes as needed for Chest Pain. If no relief after 5 min call 911;continue 1 tab every 5 min max 3 tab Active albuterol 2.5 mg/3 mL, 0.083%, (PROVENTIL) nebulizer solution 2.5 mg by Nebulization route 4 times a day. Active pravastatin (PRAVACHOL) 40 MG tablet Take 40 mg by mouth daily at bedtime. Active aspirin 81 MG chewable tablet Take 81 mg by mouth daily. Active HYPROMELLOSE OP Place 1 Drop into both eyes as needed. Active docusate sodium (COLACE) 100 MG capsule Take 100 mg by mouth daily. Active olopatadine HCl 0.2 % eye drop solution Place 1 Drop into both eyes two times a day. Active clotrimazole (MYCELEX) 10 MG lozenge Take 10 mg by mouth daily. Dissolve slowly in mouth Active Clopidogrel Bisulfate (PLAVIX OR) Take 25 mg by mouth daily. Active diltiaZEM CR (DILACOR XR) 120 MG 24 hour release capsule Take 120 mg by mouth daily. Active Dexlansoprazole 60 MG Take 60 mg by mouth daily. Active calcium carbonate-vitamin D (OS-LEX 500 WITH D) 500-200 MG-UNIT per tablet Take 1 Tab by mouth three times a day. Active azaTHIOprine (IMURAN) 50 MG tablet Take 100 mg by mouth daily. Active triamcinolone acetonide (KENALOG) 0.1 % cream Apply topically two times a day. Active diphenhydrAMINE (BENADRYL) 25 MG tablet Take 25 mg by mouth daily. Active Acetaminophen (TYLENOL OR) Take 200 mg by mouth daily. Active LORazepam (ATIVAN) 0.5 MG tabletIndications:C laustrophobia (HRC) Take one tablet 30 minutes prior to your MRI. May repeat dose if needed. Do not drive on the medication. 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 Multiple joint pain 08/04/2017 Screening for condition 08/04/2017 Claustrophobia 08/04/2017 Social History Tobacco Use Types Packs/Day Years Used Date Smoking Tobacco: Every Day Cigarettes Smokeless Tobacco: Never Sex and Gender Information Value Date Recorded Sex Assigned at Not on file Gender Identity Not on file Sexual Orientation Not on file Plan of Treatment Health Maintenance Due Date Last Done Comments Cervical Cancer Screening Due 1967 Colon Cancer Screening Plan Due 1967 Medicare Annual Wellness Visit 1967 Mammogram 1967 HIV Screening (Preventive Services) 1983 DTaP/Tdap/Td (1 - Tdap) 1986 HepB (1) 1986 Cholesterol 2012 Zoster/Shingles (1 of 2) 2017 COVID-19 Vaccine (1 - 2022-2 4 season) 2023 Influenza (Season Ended) 2024 Hep C Screening (Preventive Services) Completed 08/04/2017 HepA Aged Out No longer eligi ble based on patient's age to complete this topic Hib Aged Out No longer eligi ble based on patient's age to complete this topic IPV (Polio) Aged Out No longer eligi ble based on patient's age to complete this topic MCV4 Aged Out No longer eligi ble based on patient's age to complete this topic Pneumococcal Aged Out No longer eligi ble based on patient's age to complete this topic Procedures Procedure Name Priority Date/Time Associated Diagnosis Comments HEPATITIS C ANTIBODY, WITH REFLEX Routine 08/04/2017 10:23 AM CDT Multiple joint pain from Last 3 Months or Most Recently Relevant to Health Maintenance Results * HCAB - Hepatitis C Virus Mami with Reflex In-House (08/04/2017 10:23 AM CDT) Hepatitis C Antibody Nonreactive Nonreactive PN SOFT 08/04/2017 10:2 3 AM CDT 08/04/2017 12:18 PM CDT Narrative PN SOFT - 08/04/2017 1:18 PM CDT Performed at [facility], [address] [place] [id number] CLIA number [id number] Deepti Hannah MD LAB_1 PN SOFT [address] [place] [phone] from Last 3 Months or Most Recently Relevant to Health Maintenance Care Teams Dewatering Filtering Supervisor Relationship Specialty Start Date End Date Afia Rousseau MD [address] [place] [address] PCP - General Internal Medicine 07/20/17
--- NOTE | 2024-03-25 16:00 | CT_ITS ---
Patient: DALIA SHAW Facility:?[facility] Patient ID:?[id number] Site Patient ID:?[id number]. Site :?[id number] Study:?CT-Head W/O-03/25/2024 3:37:54 PM Ordering Physician:?HAYDER BUENROSTRO Final Report: Indication: Status post PROCEDURAL NURSE shunt. History of subarachnoid hemorrhage Technique: CT of the head without contrast. Coronal and sagittal reformats. Bone and soft tissue windows. Comparison: CT 10/24/2023 Findings: No acute intracranial hemorrhage or extra-axial collection. No evidence of acute cortical infarction. No mass effect or midline shift. Normal cerebral volume. The ventricles are normal in size, shape and contour. There is normal crews and white matter differentiation. There is a left parietal approach ventriculostomy catheter with tip in the left lateral ventricle. The orbital contents are normal. No calvarial fractures. No lytic or sclerotic osseous lesions within the calvarium or skull base. Scalp and other imaged soft tissue structures are normal. Mastoid air cells are clear. Paranasal sinuses are well aerated. Impression: 1. No acute intracranial abnormality. 2. Stable positioning of left parietal approach ventriculostomy catheter with tip of the left lateral ventricle. 3. 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 Please note that all CT scans at this facility use dose modulation, iterative reconstruction, and/or weight-based dosing when appropriate to reduce radiation dose to as low as reasonably achievable. Dictated by Darnell Mercado MD @ 03/25/2024 4:19:08 PM Signed by:?Darnell Mercado MD @03/25/2024 4:19:08 PM (Electronic Signature)
== END 2024-03-25 15:16 | disposition home or self-care (01) ==
LOC: CT 15:17
PROVIDERS: PCP Internal Medicine; Visit Provider Nurse Practitioner Family
DX: Z98.2 Presence of cerebrospinal fluid drainage device (principal)
CPT/HCPCS: 70450

== ENCOUNTER 2024-05-28 15:41 | Outpatient (CLI) | payer MEDICARE, OTHER, SELFPAY ==
--- OUTSIDE RECORDS SUMMARY | 2024-05-28 15:45 | XMS_ITS | Clinical Summary ---
Author Organization [facility] Address [address] [place] [address] Care Team Providers Care Instructional Design Specialist Name Role Phone Afia Rousseau MD Primary Care Provider Buddy Dyson MD Unavailable Joni Garcia MD Unavailable [phone] Joni Garcia MD Unavailable [phone] Allergies Active Allergy Reactions Criticality Noted [...] mouth At Bedtime Active cholecalciferol (VITAMIN D3) 61121 UNITS capsule Take 1 capsule by mouth [...] Description 03/07/2024 1:15 PM CDT Office Visit [facility] [address] [place] [phone] Joni Garcia MD 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); Hypotropia of right eye; Alternating exotropia 03/07/2024 Travel from Last 3 Months Family History Medical [...] Comments Blood Pressure 134/84 10/26/2016 8:35 AM SR VICE PRESIDENT Pulse 110 10/26/2016 8:35 AM SR VICE PRESIDENT Temperature 36.6 ??C (97.9 ??F) 10/26/2016 8:35 AM CS T Respiratory Rate 18 10/26/2016 8:35 AM SR VICE PRESIDENT Oxygen Saturation 99% 10/26/2016 8:35 AM SR VICE PRESIDENT Inhaled Oxygen Concentration - - Weight 70.4 kg (155 lb 3.3 oz) 10/26/2016 8:35 A M SR VICE PRESIDENT Height - - Body Mass Index - - Plan of Treatment Upcoming Encounters Date Type Department Care Team (Late st Contact Info) Description 09/16/2024 2:30 PM CDT Office Visit [facility] [address] [facility] [address] [place] [phone] Joni Garcia MD [address] [place] [address] Health Maintenance Due Date Last Done Comments [...] OPHTHALMOLOGY from Last 3 Months Care Teams Instructional Design Specialist Relationship Specialty Start Date End Date Afia Rousseau MD [facility] [address] [place] [address] PCP - General Internal Medicine 10/07/16 Buddy Dyson MD [facility] [address] [place] [address] Referring Physician 01/19/24 Joni Garcia MD [address] [place] [phone] Ophthalmology 01/19/24 Joni Garcia MD [address] [place] [phone] Assigned Surgical Provider 03/12/24
--- OUTSIDE RECORDS SUMMARY | 2024-05-28 15:45 | XMS_ITS | Encounter Summary ---
Author Organization [facility] Address [address] [place] [address] Care Team Providers Care Haunted History Tour Guide Name Role Phone Afia Rousseau MD Primary Care Provider Buddy Dyson MD Unavailable Joni Garcia MD Unavailable [phone] Encounter Details Date Type Department Care [...] Description 09/16/2024 2:30 PM CDT Office Visit [facility] [address] [place] [phone] Joni Garcia MD [address] [place] [phone] documented as of this encounter Visit Diagnoses Not on filedocumented in this encounter Care Teams Haunted History Tour Guide Relationship Specialty Start Date End Date Afia Rousseau MD [facility] [address] [place] [address] PCP - General Internal Medicine 10/07/16 Buddy Dyson MD [address] [address] Referring Physician 01/19/24 Joni Garcia MD [address] [place] [phone] Ophthalmology 01/19/24 documented as of this encounter
--- OUTSIDE RECORDS SUMMARY | 2024-05-28 15:45 | XMS_ITS | Clinical Summary ---
Author Organization [facility] Address [place], [place] [address] Care Team Providers Care Marine Engineering Consultant Name Role Phone Afia Rousseau MD Primary Care Provider [phone] Allergies Active Allergy Reactions Criticality Noted Date Comments Adhesive Other - Describe In Comment Field 07/26/2017 Tears skin Atorvastatin Arthralgia 01/18/2019 Diltiazem Hcl Edema 01/18/2019 Adhesive Tape Contact Dermatitis 08/30/2005 problem with certain bandaids not all of them Medications Medication Sig Dispensed Refills Start Date End Date Status hydroxychloroquine (PLAQUENIL) 200 mg tablet Take 1 Tablet (200 mg) by mouth two times daily. May resume after 11/22/23 if incision is healed. 11/22/2023 Active methotrexate (FOLEX; MEXATE) 25 mg/mL injection Inject 20 mg subcutaneous once weekly. May resume after 11/22/23 if incision is healed 11/22/2023 Active acetaminophen (TYLENOL EXTRA STRGTH) 500 mg tabletIndications: SAH (subarachnoid hemorrhage) (HC) Take 2 Tablets (1,000 mg) by mouth 3 times daily if needed for Headache or Pain. Max acetaminophen dose: 4000mg in 24 hrs. 11/17/2023 Active aspirin chewable 81 mg chewable tabletIndications: Coronary artery disease due to lipid rich plaque Chew 1 Tablet (81 mg) by mouth once daily with a meal. 30 Tablet 11/19/2023 Active lansoprazole (PREVACID) 30 mg capsuleIndications :Gastroesophageal reflux disease, unspecified whether esophagitis present Take 1 Capsule (30 mg) by mouth once daily before a meal. 30 Capsule 11/19/2023 Active melatonin 3 mg tabletIndications: SAH (subarachnoid hemorrhage) (HC) Take 2 Tablets (6 mg) by mouth at bedtime. 11/18/2023 Active multivitamin pediatric chewable tabletIndications: SAH (subarachnoid hemorrhage) (HC) Chew 1 Tablet by mouth once daily. 11/19/2023 Active nicotine 14 mg/24 hr (NICODERM; HABITROL) 14 mg/24 hr patchIndications:T obacco abuse Apply 1 Patch on dry, clean, hairless skin once daily. 30 Patch 11/18/2023 Active nitroglycerin (NITROSTAT) 0.4 mg sublingual tabletIndications: Coronary artery disease due to lipid rich plaque Place 1 Tablet (0.4 mg) under the tongue every 5 minutes if needed for Chest Pain for a maximum of 3 doses. CALL 911 if symptoms not resolved after the first dose. 25 Tablet 3 11/17/2023 Active polyethylene glycoL (MIRALAX) 17 gram/scoop powderIndications: SAH (subarachnoid hemorrhage) (HC) Mix 1 scoop (17 g) in 4-8 ounce of liquid then take by mouth two times daily. 1020 g 11/18/2023 Active sennosides-docusat e (SENOKOT S) (8.6-50 mg) tabletIndications: SAH (subarachnoid hemorrhage) (HC) Take 2 Tablets by mouth two times daily. 120 Tablet 11/18/2023 Active oxyCODONE (OXYCONTIN) 40 mg SUSTAINED release tabletIndications: Narcotic dependence (HC),Chronic pain syndrome Take 1 Tablet (40 mg) by mouth every 12 hours. 11/17/2023 Active oxyCODONE (ROXICODONE) 5 mg immediate release tabletIndications: Narcotic dependence (HC),Chronic pain syndrome Take 1-3 Tablets (5-15 mg) by mouth every 4 hours if needed for Pain (1 tab for pain 1-5/10; 2 tabs for pain rated 6-8/10. 3 tabs for pain rated 9-10/10. Hold for sedation.). 11/17/2023 Active albuterol HFA (PRO-AIR; VENTOLIN; PROVENTIL) 90 mcg/actuation inhaler Inhale 2 Puffs by mouth. Active cyclobenzaprine (FLEXERIL) 10 mg tablet TAKE ONE TABLET BY MOUTH EVERY EIGHT HOURS NEEDED FOR PAIN* Active LORazepam (ATIVAN) 0.5 mg tab Take 0.5 mg by mouth at bedtime if needed for Anxiety. 1-2 Tabs by mouth as needed daily for anxiety 01/17/2024 Active amLODIPine (NORVASC) 5 mg tablet Take 5 mg by mouth once daily. Active sertraline (ZOLOFT) 50 mg tablet Take 50 mg by mouth once daily. Active metoprolol tartrate (LOPRESSOR) as half tablet Take by mouth two times daily. Active rosuvastatin (CRESTOR) 20 mg tabletIndications: SAH (subarachnoid hemorrhage) (HC) TAKE ONE TABLET BY MOUTH ONE TIME DAILY 90 Tablet 03/18/2024 Active clopidogreL (PLAVIX) 75 mg tabletIndications: Coronary artery disease due to lipid rich plaque,Arterioscle rosis of coronary artery Take 1 Tablet (75 mg) by mouth once daily in the morning. 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 [...] obstruction 09/09/2005 05/27/2015 Single liveborn, born in [facility], delivered by delivery 09/06/2005 05/27/2013 Encounters Date Type Department Care Team Description 05/16/2024 8:21 AM CDT - 05/16/2024 11:59 PM CDT Hospital Encounter [facility] [address] [place] [address] Buddy Dyson MD SAH (subarachnoid hemorrhage) (HC); Cerebral aneurysm 05/16/2024 Travel 04/16/2024 Refill [facility] [address] [place] [address] Darnell Soto MD Refill Request (Clopidogrel) 03/26/2024 Telephone [facility] [address] [phone] Tra Santana, [facility] Results 03/25/2024 Orders Only [facility] Scanner 1 scan: (1-Ord) [facility], CT HEAD BRAIN WO CON, 03/25/2024 03/25/2024 Orders Only [facility] Scanner 1 scan: (1-Ord) [facility], CT HEAD/BRAIN WO CON, 03/25/2024 03/18/2024 1:00 PM CDT [facility] [address] [phone] Nahed Riley NP 03/16/2024 Refill [facility] [address] [place] [address] Darnell Soto MD Refill Request (Rosuvastatin) 03/13/2024 Telephone [facility] [address] [phone] Nahed Riley NP Concerns (Received a call from the answering service.) from Last 3 Months Family History Medical [...] 5 9 Date Outcome GA Total Labor Labor//3rd Weight Sex Type Anes PTL Anitha A1 A5 Name Clin SAB SAB SAB IAB Term Term Term 1977 ELECTI VE AB Livin g 1986 SPONTA NEOUS Livin g 1987 37w 0d 2.66 kg (5 lb 14 oz) M C-Sect ion Livin g Ghada Delivery Location:Count includes the [facility] Comments:emergency C/S 1988 37w 0d 3.18 kg (7 lb) F C-Sect ion Livin g Geno Delivery Location:Count includes the [facility] Comments:R/C/S 1990 37w 0d 2.72 kg (6 lb) M C-Sect ion Livin g Jordy n Delivery Location:Count includes the [facility] Comments:R/C/S 1992 SPONTA NEOUS Livin g 1993 SPONTA NEOUS Livin g 1998 34w 0d 1.98 kg (4 lb 6 oz) M C-Sect ion Livin g Aaron Delivery Location:[place] Comments:emergency C/S 2003 30w 0d 1.7 kg (3 lb 12 oz) M C-Sect ion Kojo Bautista Delivery Location:[place] Comments:placental abr uption Comments dates of SABs are unknown Last Filed Vital Signs Vital Sign Reading Time Taken Comments Blood Pressure 133/79 05/16/2024 11:45 AM CDT Pulse 75 05/16/2024 11:45 AM CDT Temperature 36.4 ??C (97.5 ??F) 05/16/2024 8:44 AM CD T Respiratory Rate 16 05/16/2024 11:45 AM CDT Oxygen Saturation 98% 05/16/2024 11:45 AM CDT Inhaled Oxygen Concentration - - Weight 63.5 kg (140 lb) 05/16/2024 8:44 AM CDT Height 167.6 cm (5' 6) 05/16/2024 8:44 AM CDT Body Mass Index 22.6 05/16/2024 8:44 AM CDT Plan of Treatment Upcoming Encounters Date Type Department Care Team (Late st Contact Info) Description 06/11/2024 3:30 PM CDT Office Visit [facility] [address] [place] [address] [address] [place] [address] Darnell Soto MD [address] [facility] [address] [place] [address] 10/25/2024 1:00 PM TELESCOPE REPAIRER Appointment [facility] [address] [place] [address] Health Maintenance Due Date Last Done Comments [...] this topic Medical Devices Implanted Type Area Frame Aligner Device Identifier Shelf Expiration Date Model / Serial / Lot Valve Neuro Micro Hakim W/ [place] - [id number] Implanted:Qty: 1 on 11/08/2023 by Tra Santana [facility] at [facility] Left: [employer] 05/19/2028 [id number] / / [id number] Procedures Procedure Name Priority Date/Time Associated Diagnosis Comments IR ANGIO CAROTID CEREBRAL BILATERAL Routine 05/16/2024 9:53 AM CDT SAH (subarachnoid hemorrhage) (HC) Cerebral aneurysm SCAN-CT INTERPRETATION 4 12:00 AM CDT SCAN-CT INTERPRETATION 4 12:00 AM CDT LIPID PANEL Early AM 05/28/2015 5:40 AM CDT from Last 3 Months or Most Recently Relevant to Health Maintenance Results * IR ANGIO CAROTID CEREBRAL BILATERAL (05/16/2024 9:53 AM CDT) Anatomical Region Laterality Modality BRAIN X-Ray Angiograph y, Other, Other, Other Narrative 05/16/2024 9:59 AM CDT Neurointerventional Procedure Report Patient: Polly Giron (1965), Date: 05/16/2024 Physician(s): Buddy Dyson MD Procedure(s): Cerebral angiography: Selective catheter placement, right internal carotid artery, with angiography of the intracranial carotid circulation (CPT 76862) Selective catheter placement, right external carotid artery, with angiography of the external carotid circulation (CPT +44247) Selective catheter placement, left internal carotid artery, with angiography of the intracranial carotid circulation (CPT 95960) Selective catheter placement, left external carotid artery, with angiography of the external carotid circulation (CPT +63638) Selective catheter placement, right vertebral artery, with angiography of the vertebral circulation (CPT 34674) Selective catheter placement, left vertebral artery, with angiography of the vertebral circulation (CPT 09064) Ultrasound guidance for vascular access: right common femoral artery access (CPT +22293) 3D rendering requiring image postprocessing on an independent workstation (CPT 40678) Moderate sedation (24411, +70475) Pre-operative diagnosis (indication): Brain aneurysm treatment follow-up, subarachnoid hemorrhage due to ruptured right PCOM aneurysm treated 6 months ago. Post-operative diagnosis: Same Anesthesia: Under physician supervision, midazolam 3 mg and fentanyl 150 mcg were administered intravenously for moderate sedation. Pulse oximetry, heart rate, and blood pressure were continuously monitored by a trained, dedicated nurse. The physician who performed the procedure provided 26 minutes of intra-service time with the patient. Consent: Informed consent was obtained from the patient following a detailed discussion of the procedure, alternatives, risks and potential benefits. Time-out: Performed according to the [facility] Protocol. Description: The patient was placed in the supine position on the angiography table. The arterial access site was sterilely prepped and draped. Lidocaine 1% was used for local anesthesia. Ultrasound evaluation of potential access site was performed. After successfully identifying a patent vessel, ultrasound guidance was used to puncture the right common femoral artery with a micropuncture set, and a 5F sheath was inserted. A permanent recording was created for the patient record. A 5F diagnostic catheter was advanced over an 035 glidewire into the following vessels: Selective catheter placement, right internal carotid artery, with angiography of the intracranial carotid circulation Selective catheter placement, right external carotid artery, with angiography of the external carotid circulation Selective catheter placement, left internal carotid artery, with angiography of the intracranial carotid circulation Selective catheter placement, left external carotid artery, with angiography of the external carotid circulation Selective catheter placement, right vertebral artery, with angiography of the vertebral circulation Selective catheter placement, left vertebral artery, with angiography of the vertebral circulation During a right internal carotid artery selective injection, rotational angiography with 3D rendering was also performed, requiring image postprocessing on an independent workstation for 3D manipulation of a volumetric data set. The catheter and sheath were removed. Hemostasis was achieved using a 6F AngioSeal device. Complications: None Findings: Comparison is made to the treatment DSA of October 2023. There are postoperative findings of a WEB embolized right PCOM aneurysm. Right internal carotid artery selective injection: There is normal opacification of the intracranial right carotid circulation. The right PCOM aneurysm is completely occluded. Right external carotid artery selective injection: There is normal opacification of right external carotid branches. Left internal carotid artery selective injection: There is normal opacification of the intracranial left carotid circulation. Left external carotid artery selective injection: There is normal opacification of left external carotid branches. Right vertebral artery selective injection: There is normal opacification of the posterior circulation. Left vertebral artery selective injection: There is normal opacification of the posterior circulation. Specimens: None Estimated blood loss: 5 mL Medications: Visipaque-320 60 mL IA Fluoroscopy time: 6.1 minutes, 325 mGy Impression: Complete occlusion of right PCOM aneurysm. No other aneurysm identified. We will obtain a 1-year follow-up MRA, due in October 2024. Buddy Dyson MD Neurointerventional Radiology Buddy Dyson MD IR * SCAN-CT INTERPRETATION (03/25/2024 12:00 AM CDT) Only the most recent of2 resultswithin the time period is included. Anatomical Region Laterality Modality Other Scanner OTHER * (ABNORMAL) LIPID PANEL (05/28/2015 5:40 AM CDT) [facility] CHOLESTEROL,TOTAL 192 100 - 199 mg/dL 05/28/2015 6:21 AM CDT [facility] TR[facility] LAB[facility]ATORY TRIGLYCERIDES 130 <150 mg/dL 05/28/2015 6:21 AM CDT [facility] HDL CHOLESTEROL 42 >40 mg/dL 5 6:21 AM CDT [facility] NON-HDL CHOLESTEROL 150(H) <145 mg/dl 05/28/2015 6:21 AM CDT [facility] CHOL/HDL RATIO 4.57(H) <4.50 05/28/2015 6:21 AM CDT [facility] LDL CHOLESTEROL 124 <=130 mg/dL 05/28/2015 6:21 AM CDT [facility] PATIENT STATUS FASTING 05/28/2015 6:21 AM CDT [facility] TR[facility] Blood specimen (specimen) BLOOD SPECIMEN / Unknown Butterfly / Unknown 05/28/2015 5:40 AM CDT 05/28/2015 5:56 AM CDT Kaitlyn Shaunna Ball NP [facility] [address] [place] [address], from Last 3 Months or Most Recently [...] 10:46 AM 09/08/2005 7:27 PM Care Teams Marine Engineering Consultant Relationship Specialty Start Date End Date Afia Rousseau MD [address] [place] [address] PCP - General Internal Medicine 01/29/15
--- OUTSIDE RECORDS SUMMARY | 2024-05-28 15:45 | XMS_ITS | Encounter Summary ---
Author Organization [facility] Address [address] [place] [address]. [place] [address] Care Team Providers Care Cancer Spec Name Role Phone Afia Rousseau MD Primary Care Provider Buddy Dyson MD Unavailable Joni Garcia MD Unavailable [phone] Joni Garcia MD Unavailable [phone] Reason for Visit * Reason Onset Date Comments Appointment 01/19/2024 Patient would li ke appointment information with Dr Garcia to be sent out USPS Encounter Details Date Type Department Care Team (Late st Contact Info) Description 01/19/2024 [facility] [address] [facility] [address] [place] [phone] Joni Garcia MD [address] [place] [phone] Appointment (Patient would like appointment information with [...] 6:49 AM CST Sent new patient packet..jam ER DEVELOPMENT SPECIALIST * Telephone Encounter - ChristianBeverly - 01/19/2024 4:46 PM CST [facility] Phone Message May a detailed message be left on voicemail: yes Reason for Call: Patient would like appointment information with Dr Garcia to be sent out USPS Thank you, Action Taken: Message routed to: [facility]): eye Travel Screening: Not Applicable ER DEVELOPMENT SPECIALIST documented in this encounter Plan of Treatment Upcoming Encounters Date Type Department Care Team (Late st Contact Info) Description 09/16/2024 2:30 PM CDT Office Visit [facility] [address] [phone] Joni Garcia MD [address] [place] [phone] documented as of this encounter Visit Diagnoses Not on filedocumented in this encounter Care Teams Cancer Spec Relationship Specialty Start Date End Date Afia Rousseau MD [facility] [address] [place] [address] PCP - General Internal Medicine 10/07/16 Buddy Dyson MD [facility] [address] [place] [address] Referring Physician 01/19/24 Joni Garcia MD [address] [place] [id number] Ophthalmology 01/19/24 Joni Garcia MD [address] [place] [phone] Assigned Surgical Provider 03/12/24 documented as of this encounter
--- OUTSIDE RECORDS SUMMARY | 2024-05-28 15:45 | XMS_ITS | Clinical Summary ---
Author Organization [facility] Address [address] [place] [address] Care Team Providers Care Plumbing Technician Name Role Phone Afia Rousseau MD Primary Care Provider [phone] Source Comments You are receiving this document as you are listed as the primary care provider,follow-up provider, or the patient has been referred to you for consultation.This is in compliance with the Medicare andW[facility] Medical Centercaid EHR Incentive Program,which states Providers who transition their patient to another setting of careor provider of care or refers their patient to another provider of care shouldprovide summary care record for each transition of care or referral. [facility] Allerg[facility] Active Allergy Reactions Criticality Noted Date [...] (1 - 2022-2 4 season) 2023 Influenza (#1) 2024 Hep C Screening (Preventive Services) Completed [...] - 08/04/2017 1:18 PM CDT Performed at , [address] [place] [address] CLIA number [id number] Deepti Hannah MD LAB_[address] PN SOFT [address] [place] [phone] from Last 3 Months or Most Recently Relevant to Health Maintenance Care Teams Plumbing Technician Relationship Specialty Start Date End Date Afia Rousseau MD [address] [place] [address] PCP - General Internal Medicine 07/20/17
--- OUTSIDE RECORDS SUMMARY | 2024-05-28 15:45 | XMS_ITS | Referral Summary ---
Author Organization [facility] Address [address] [place] [address]. 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); Hypotropia of right eye; Alternating exotropia from Last 3 Months Allergies Active Allergy [...] mouth At Bedtime Active cholecalciferol (VITAMIN D3) 49748 UNITS capsule Take 1 capsule by mouth [...] Comments Blood Pressure 134/84 10/26/2016 8:35 AM [place]AGE SALES REPRESENTATIVE Pulse 110 10/26/2016 8:35 AM CORDAGE SALES REPRESENTATIVE Temperature 36.6 ??C (97.9 ??F) 10/26/2016 8:35 AM CS T Respiratory Rate 18 10/26/2016 8:35 AM CORDAGE SALES REPRESENTATIVE Oxygen Saturation 99% 10/26/2016 8:35 AM CORDAGE SALES REPRESENTATIVE Inhaled Oxygen Concentration - - Weight 70.4 kg (155 lb 3.3 oz) 10/26/2016 8:35 A M CORDAGE SALES REPRESENTATIVE Height - - Body Mass Index - - Plan of Treatment Upcoming Encounters Date Type Department Care Team (Late st Contact Info) Description 09/16/2024 2:30 PM CDT Office Visit [facility] [address] [facility] [address] [place] [address] Join Garcia MD [address] [place] [address] [phone] Procedures Procedure Name Priority Date/Time Associated Diagnosis [...] OPHTHALMOLOGY from Last 3 Months Care Teams Nuclear Auxiliary Operator Relationship Specialty Start Date End Date Afia Rousseau MD [facility] [address] [place] [address] PCP - General Internal Medicine 10/07/16 Buddy Dyson MD [facility] [address] [place] [address] Referring Physician 01/19/24 Joni Garcia MD [address] [place] [address] [phone] Ophthalmology 01/19/24 Joni Garcia MD [address] [place] [address] [phone] Assigned Surgical Provider 03/12/24
--- OUTSIDE RECORDS SUMMARY | 2024-05-28 15:45 | XMS_ITS | Encounter Summary ---
Author Organization [place] Address [address] [place] [address]. [place] [address] Care Team Providers Care Web Engineer Name Role Phone Afia Rousseau MD Primary Care Provider [phone] Buddy Dyson MD Unavailable Joni Garcia MD Unavailable [phone] Reason for Visit * Reason Comments Diplopia [...] Third cranial nerve palsy Buddy Dyson MD [facility] [address] [place] [address] Joni Garcia MD [address] [place] [phone] Referral ID Status Reason Start Date Expiration Date V isits Requested Visits Authorized [id number] Pending Review 01/19/2024 01/18/2025 1 1 Encounter Details Date Type Department Care Team (Late st Contact Info) Description 03/07/2024 1:15 PM CDT Office Visit [facility] Eye [address] Clin [address] [place] [address] Joni Garcia MD [address] [place] [address] 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 Patient had sudden double vision on 10/24/23 along with a severe headache. Patient went to the ER and was discovered to have a aneurysm. 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 Today she still has limited [...] Description 09/16/2024 2:30 PM CDT Office Visit [facility] [address] [place] [address] [address] [place] [phone] Joni Garcia MD [address] [place] [phone] documented as of this encounter Procedures Procedure [...] exotropia documented in this encounter Care Teams Web Engineer Relationship Specialty Start Date End Date Afia Rousseau MD [facility] [address] [place] [address] PCP - General Internal Medicine 10/07/16 Buddy Dyson MD [facility] [address] [place] [address] Referring Physician 01/19/24 Joni Garcia MD [address] [place] [phone] Ophthalmology 01/19/24 documented as of this encounter
--- NOTE | 2024-05-28 16:00 | CRLHL7_ITS ---
For Patients: As a result of the Cures Act, medical imaging exams and procedure reports are released immediately into your electronic medical record. You may view this report before your referring provider. If you have questions, please contact your health care provider. Indication: SOLITARY PULMONARY NODULE Technique: CT chest without IV contrast Comparison: CT abdomen/pelvis on November 08, [address] chest on October 21, 2015 Findings: No thyroid nodules. No thoracic lymphadenopathy. The heart is normal in size. No pericardial effusion. Coronary artery calcifications. The thoracic aorta and pulmonary artery are normal in caliber. No focal airspace consolidation, pleural effusion, or pneumothorax. Stable solid 4 millimeter pulmonary nodule in the anterior lateral aspect of the right middle lobe (series number 3, image 60). Additional solid sub 4 millimeter pulmonary nodules are unchanged dating back to 2014. Stable calcified granuloma in the left lower lobe. No new pulmonary nodules or masses. The airways are clear. The visualized upper abdomen is without acute process. Small hiatal hernia. Calcified granulomas in the spleen. No acute fracture or malalignment. Partially visualized lower cervical ACDF hardware. Minimal degenerative changes throughout the thoracic spine. No suspicious osseous lesions. Impression: 1. Stable sub 6 millimeter pulmonary nodules, dating back to 2014. No new pulmonary nodules or masses. 2. No thoracic lymphadenopathy. Please note that all CT scans at this facility use dose modulation, iterative reconstruction, and/or weight-based dosing when appropriate to reduce radiation dose to as low as reasonably achievable. Dictated by Hitesh Zelaya MD @ 05/30/2024 2:30:12 PM (Electronically Signed)
== END 2024-05-28 15:42 | disposition home or self-care (01) ==
LOC: CT 15:44
PROVIDERS: PCP Internal Medicine; Visit Provider Internal Medicine
DX: R91.1 Solitary pulmonary nodule (principal)
CPT/HCPCS: 71250

== ENCOUNTER 2025-01-12 12:43 | Emergency (ER) | payer MEDICARE, OTHER, SELFPAY ==
[2025-01-12] VITALS (17 sets, daily range): BP systolic 127–165; BP diastolic 76–92; PULSE 97–117; RESP 9–24; TEMP 36.7; O2SAT 99–100
--- NOTE | 2025-01-12 | CRLHL7_ITS ---
For Patients: As a result of the Century Cures Act, medical imaging exams and procedure reports are released immediately into your electronic medical record. You may view this report before your referring provider. If you have questions, please contact your health care provider. INDICATION: Stroke. TECHNIQUE: Noncontrast CT images of the brain. COMPARISON: CT brain 03/25/2024. FINDINGS: Stable left occipital approach shunt catheter coursing through the left lateral ventricle body to terminate at midline adjacent to the septum pellucidum. Stable decompressed supratentorial ventricular system. No mass effect or midline shift. Carvajal white differentiation is maintained. No acute intracranial hemorrhage or pathologic extra-axial fluid collection. Intracranial atherosclerotic calcifications. Globes are symmetric. Calvarium is intact. The visualized paranasal sinuses and mastoid air cells are clear. IMPRESSION: 1. No acute intracranial hemorrhage or mass effect. No significant change compared to the prior CT. 2. Stable left occipital approach shunt catheter and decompressed ventricular system. Please note that all CT scans at this facility use dose modulation, iterative reconstruction, and/or weight-based dosing when appropriate to reduce radiation dose to as low as reasonably achievable. Dictated by Blane Hernandez MD @ 01/12/2025 1:10:09 PM (Electronically Signed)
--- OUTSIDE RECORDS SUMMARY | 2025-01-12 12:46 | XMS_ITS | Encounter Summary ---
Author Organization [facility] Address [address] [place] [address] Care Team Providers Care Perfect Bind Machine Operator Name Role Phone Afia Rousseau MD Primary Care Provider Buddy Dyson MD Unavailable Joni Garcia MD Unavailable [phone] Joni Garcia MD Unavailable [phone] Reason for Visit * Reason Onset Date Comments Appointment 01/19/2024 Patient would li ke appointment information with Dr Garcia to be sent out USPS Encounter Details Date Type Department Care Team ([facility] st Contact Info) Description 01/19/2024 [facility] - [address] [place] [id number] Joni Garcia MD [address] [place] [address], [address] [address] Appointment (Patient would like appointment information with Dr Garcia to be sent out USPS) Social History Tobacco Use Types Packs/Day Years Used Date Smoking Tobacco: Every Day Adolescent Education Answer Date Record ed Getting School Help Needed Not on file 08/27 Comments Unknown Sex and Gender Information Value Date Recorded Sex Assigned at Not on file Legal Sex Female 3:52 AM MARKET DEVELOPER Gender Identity Not on file Sexual Orientation Not on file documented as of this encounter Miscellaneous Notes * Telephone Encounter - Elzbieta Pennington - 01/22/2024 6:49 AM CST Sent new patient packet..jam ET DEVELOPER * Telephone Encounter - Beverly Gonzales - 01/19/2024 4:46 PM CST [facility] Phone Message May a detailed message be left on voicemail: yes Reason for Call: Patient would like appointment information with Dr Garcia to be sent out USPS Thank you, Action Taken: Message routed to: [facility] Travel Screening: Not Applicable ET DEVELOPER documented in this encounter Plan of Treatment Not on file documented as of this encounter Visit Diagnoses Not on filedocumented in this encounter Care Teams Perfect Bind Machine Operator Relationship Specialty Start Date End Date Afia Rousseau MD [facility] [address] [place] [address] PCP - General Internal Medicine 10/07/16 Buddy Dyson MD [facility] [address] [place] [address] Referring Physician 01/19/24 Joni Garcia MD [address] [place] [id number] Ophthalmology 01/19/24 Joni Garcia MD [address] [place] [address] [id number] Assigned Surgical Provider 03/12/24 documented as of this encounter
--- OUTSIDE RECORDS SUMMARY | 2025-01-12 12:46 | XMS_ITS | Clinical Summary ---
Author Organization [facility] Address [address] [place] [address] Care Team Providers Care Hide Inspector Name Role Phone Afia Rousseau MD Primary Care Provider [phone] Source Comments You are receiving this document as you are listed as the primary care provider,follow-up provider, or the patient has been referred to you for consultation.This is in compliance with the Medicare and[facility] Hospital[facility] EHR Incentive Program,which states Providers who transition their patient to another setting of careor provider of care or refers their patient to another provider of care shouldprovide summary care record for each transition of care or referral. [facility] Allergies Active Allergy Reactions Criticality Noted Date Comments Adhesive Other, see comments 07/26/2017 Tears skin Other 07/26/2017 Band aids Medications oxyCODONE (OXYCONTIN) 40 MG 12 hour tablet [...] by mouth two times a day. Active hydroxychloroqu ine (PLAQUENIL) 200 MG tablet Take 200 mg [...] 60 mg by mouth daily. Active calcium carbonate-vitam in D (OS-LEX 500 WITH D) 500-200 MG-UNIT [...] mouth daily. Active LORazepam (ATIVAN) 0.5 MG tabletIndicatio ns:Claustrophob ia (HRC) Take one tablet 30 minutes prior to your MRI. May repeat dose if needed. Do not drive on the medication. 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 Multiple joint pain 08/04/2017 Screening for condition 08/04/2017 Claustrophobia 08/04/2017 Social History Tobacco Use Types Packs/Day Years Used Date Smoking Tobacco: Every Day Cigarettes Smokeless Tobacco: Never Comments Unknown Sex and Gender Information Value Date Recorded Sex Assigned at Not on file Legal Sex Female 4:22 AM CDT Gender Identity Not on file Sexual Orientation Not on file Plan of Treatment Health Maintenance Due Date Last Done Comments Cervical Cancer Screening Due 1967 Colon Cancer Screening Plan Due 1967 Medicare Annual Wellness Visit 1967 Mammogram 1967 HIV Screening (Preventive Services) 1983 DTaP/Tdap/Td (1 - Tdap) 1986 HepB (1) 1986 Cholesterol 2012 Pneumococcal 50+ Yrs (1 of 1 - PCV) 2017 Zoster/Shingles (1 of 2) 2017 COVID-19 Vaccine (1 - 2023-2 5 season) 2024 Influenza (#1) 2024 Hep C Screening (Preventive [...] on patient's age to complete this topic Meningococcal B Aged Out No longer el igible based on patient's age to complete this [...] - 08/04/2017 1:18 PM CDT Performed at [address] [address] CLIA number [id number] us Deepti Hannah MD LAB_1 Final Resul t PN SOFT [address] [place] [address] from Last 3 Months or Most Recently Relevant to Health Maintenance Insurance MEDICA ACCESSABILITY MEDICARE Care Teams Hide Inspector Relationship Specialty Start Date End Date Afia Rousseau MD [address] [place] [address] PCP - General Internal Medicine 07/20/17
--- OUTSIDE RECORDS SUMMARY | 2025-01-12 12:46 | XMS_ITS | Clinical Summary ---
Author Organization [facility] Address [address] [place] [address] Care Team Providers Care Welding Estimator Name Role Phone Afia Rousseau MD Primary Care Provider Buddy Dyson MD Unavailable Joni Garcia MD Unavailable [phone] Joni Garcia MD Unavailable [phone] Allergies Active Allergy Reactions Criticality Noted Date Comments Adhesive Tape 03/18/2004 Medications acetaminophen 500 MG CAPS Take 1,000 mg by mouth as needed Active albuterol (2.5 MG/3ML) 0.083% neb solution Take 1 vial by nebulization 4 times daily PRN Active aspirin 81 MG chewable tablet Take 81 mg by mouth daily 5 Active clopidogrel (PLAVIX) 75 MG tablet Take 75 mg by mouth daily 6 Active cyclobenzaprine (FLEXERIL) 5 MG tablet Take 5 mg by mouth every 8 hours as needed Active docusate sodium (STOOL SOFTENER) 100 MG capsule Take 200 mg by mouth daily 5 Active dexlansoprazole (DEXILANT) 60 MG CPDR CR capsule Take 60 mg by mouth daily Active diltiazem (CARDIZEM) 120 MG tablet Take 120 mg by mouth daily Active HYPROMELLOSE OP Place 1 drop into both eyes daily Active nitroglycerin (NITROSTAT) 0.[address] 0.4 mg under the tongue daily 5 Active olopatadine HCl (PATADAY) 0.2 % SOLN [...] mouth At Bedtime Active cholecalciferol (VITAMIN D3) 12130 UNITS capsule Take 1 capsule by mouth three times a week Active hydroxychloroqu ine (PLAQUENIL) 200 MG tablet [...] Take 1 tablet by mouth at bedtime 3 Active LORazepam (ATIVAN) 0.5 MG tablet TAKE 1-2 TABLETS (0.5MG - 1MG) BY MOUTH ONCE DAILY NEEDED FOR ANXIETY.* Active methotrexate 50 MG/2ML injection INJECT 0.8 ML (20 MG) ONCE A WEEK* 3 Active Family History Medical History Relation Comments Melanoma [...] on file Legal Sex Female 3:52 AM ADMINISTRATIVE PROFESSIONAL Gender Identity Not on file Sexual Orientation Not on file Last Filed Vital Signs Vital Sign Reading Time Taken Comments Blood Pressure 134/84 10/26/2016 8:35 AM ADMINISTRATIVE PROFESSIONAL Pulse 110 10/26/2016 8:35 AM ADMINISTRATIVE PROFESSIONAL Temperature 36.6 C (97.9 F) 10/26/2016 8:35 AM ADMINISTRATIVE PROFESSIONAL Respiratory Rate 18 10/26/2016 8:35 AM ADMINISTRATIVE PROFESSIONAL Oxygen Saturation 99% 10/26/2016 8:35 AM ADMINISTRATIVE PROFESSIONAL Inhaled Oxygen Concentration - - Weight 70.4 kg (155 lb 3.3 oz) 10/26/2016 8:35 A M ADMINISTRATIVE PROFESSIONAL Height - - Body Mass Index - - Plan of Treatment Health Maintenance Due Date Last Done Comments ADVANCE CARE PLANNING 1967 ANNUAL REVIEW OF HM ORDERS 1967 CT COLONOGRAPHY 1967 FIT 1967 FLEX SIG 1967 GLUCOSE 1967 LIPID 1967 MAMMO SCREENING 1967 sDNA (Cologuard) 1967 COVID-19 Vaccine (#1) 1972 COLONOSCOPY 1977 COLORECTAL CANCER SCREENING 1977 HIV SCREENING 1982 MEDICARE ANNUAL WELLNESS VISIT 1985 HEPATITIS B IMMUNIZATION (1 of 3 - 19+ 3-dose series) 1986 Pneumococcal Vaccine: 50+ Ye ars (1 of 2 - PCV) 1986 ZOSTER IMMUNIZATION (1 of 2) 1986 PAP 1988 LUNG CANCER SCREENING 2017 INFLUENZA VACCINE (#1) 2024 PHQ-2 (once per calendar year) 2024 03/07/2024 DTAP/TDAP/TD IMMUNIZATION (2 - Td or Tdap) 03/30/2031 03/30/2021 HEPATITIS C SCREENING Completed 08/04/2017 HPV IMMUNIZATION Aged Out No longer e ligible based on patient's age to complete this topic MENINGITIS IMMUNIZATION Aged Out No l onger eligible based on patient's age to complete [place] [id number] [place] MED[place] OTHER on file Care Teams Welding Estimator Relationship Specialty Start Date End Date Afia Rousseau MD [facility] [address] [place] [address] PCP - General Internal Medicine 10/07/16 Buddy Dyson MD [facility] [address] [place] [address] Referring Physician 01/19/24 Joni Garcia MD [address] [place] [id number] Ophthalmology 01/19/24 Joni Garcia MD [address] [place] [address] [address] [place], [place] [address] Assigned Surgical Provider 03/12/24
--- OUTSIDE RECORDS SUMMARY | 2025-01-12 12:46 | XMS_ITS | Clinical Summary ---
Author Organization [facility] Address [address] [place] [id number] Care Team Providers Care Parts Puller Name Role Phone Afia Rousseau MD Primary Care Provider [phone] Allergies Active Allergy Reactions Criticality Noted Date Comments Adhesive Other - Describe In Comment Field 07/26/2017 Tears skin Atorvastatin Arthralgia 01/18/2019 Diltiazem Hcl Edema 01/18/2019 Adhesive Tape Contact Dermatitis 08/30/2005 problem with certain bandaids not all of them Medications aspirin chewable 81 mg chewable tabletIndication s:Coronary artery disease due to lipid rich plaque Chew 1 Tablet (81 mg) by mouth once daily with a meal. 30 Tablet 11/17/2023 2:59 PM [employer] CONSULTANT 3 Active lansoprazole (PREVACID) 30 mg capsuleIndicatio ns:Gastroesophag eal reflux disease, unspecified whether esophagitis present Take 1 Capsule (30 mg) by mouth once daily before a meal. 30 Capsule 11/17/2023 2:59 PM [employer] CONSULTANT 3 Active melatonin 3 mg tabletIndication s:SAH (subarachnoid hemorrhage) (HC) Take 2 Tablets (6 mg) by mouth at bedtime. 3 Active nicotine 14 mg/24 hr (NICODERM; HABITROL) 14 mg/24 hr patchIndications :Tobacco abuse Apply 1 Patch on dry, clean, hairless skin once daily. 30 Patch 11/17/2023 2:59 PM [employer] WE[employer] CONSULTANT 3 Active nitroglycerin (NITROSTAT) 0.4 mg sublingual tabletIndication s:Coronary artery disease due to lipid rich plaque Place 1 Tablet (0.4 mg) under the tongue every 5 minutes if needed for Chest Pain for a maximum of 3 doses. CALL 911 if symptoms not resolved after the first dose. 25 Tablet 3 11/17/2023 2:59 PM [employer] CONSULTANT 3 Active polyethylene glycoL (MIRALAX) 17 gram/scoop powderIndication s:SAH (subarachnoid hemorrhage) (HC) Mix 1 scoop (17 g) in 4-8 ounce of liquid then take by mouth two times daily. 1020 g 11/17/2023 2:59 PM [employer] CONSULTANT 3 Active oxyCODONE (OXYCONTIN) 40 mg SUSTAINED [...] rated 9-10/10. Hold for sedation.). 3 Active cyclobenzaprine (FLEXERIL) 10 mg tablet TAKE ONE TABLET BY MOUTH EVERY EIGHT HOURS NEEDED FOR PAIN* Active LORazepam (ATIVAN) 0.5 mg tab Take 0.5 mg by mouth at bedtime if needed for Anxiety. 1-2 Tabs by mouth as needed daily for anxiety 4 Active rosuvastatin (CRESTOR) 20 mg tabletIndication s:SAH (subarachnoid hemorrhage) (HC) Take 1 Tablet (20 mg) by mouth once daily. 90 Tablet 3 4 Active clopidogreL (PLAVIX) 75 mg tabletIndication s:Coronary artery disease due to lipid rich plaque,Arteriosc lerosis of coronary artery Take 1 Tablet (75 mg) by mouth once daily in the morning. 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 11/08/2023 - programmable medos valve set at 120. By Dr[address] Santana. 12/05/2023 post MRI - set at 120. 12/10/2024 post MRA - medos set to 120 Pulmonary nodules 11/08/2023 Chronic pain 10/31/2023 Constipation [...] obstruction 09/09/2005 05/27/2015 Single liveborn, [facility], delivered by delivery 09/06/2003 05/27/2013 Encounters Date Type Department Care Team Description 01/07/2025 [facility]phone [facility] [address] [phone] Nahed Corrigan NP Concerns 12/10/2024 12:00 PM [employer] CONSULTANT Office Visit [facility] [address] [phone] Nahed Corrigan NP 12/10/2024 9:33 AM [employer] CONSULTANT - 12/10/2024 11:59 PM [employer] CONSULTANT Hospital Encounter [facility] [address] [place] [address] Buddy Dyson MD SAH (subarachnoid hemorrhage) (HC); Cerebral aneurysm 12/10/2024 Travel from Last 3 Months Family History [...] - recovering Social Connections Answer Date Recorded Do you often feel lonely or isolated from those around you? 0 11/17/2023 Financial Resource Strain Answer Date R ecorded Difficulty of Paying Living Expenses 3 11/17/2023 Difficulty of Paying Living Expenses Not on file 11/17/2023 Food Insecurity Answer Date Recorded Do you worry your food will run out before you are able to buy more? 1 11/17/2023 Transportation Needs Answer Date Record ed Does lack of transportation keep you from medica l appointments? 1 11/17/2023 Does lack of transportation keep you from work, meetings or getting things that you need? 1 11/17/2023 Housing Stability Answer Date Recorded What is your housing situation today? 1 11/17/2023 Interpersonal Safety Answer Date Record ed Are you being hit, kicked, p ushed or yelled at (see row info)? No 11/17/2023 Interpersonal Safety Abuse 12 - 18 Not on file 11/17/2023 Interpersonal Safety Ambulatory Vulnerability No t on file 11/17/2023 Utilities Answer Date Recorded Do you have trouble paying f or utilities (for example, heat, electricity, water, phone)? 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 on file Not on file Not on file Obstetrics History Para Term AB IAB SAB Ectopic Multiple Livin g Live Births 18 5 3 2 4 1 3 0 0 5 9 Date Outcome GA Total Labor Labor/2nd/3rd Weight Sex Type Anes PTL Anitha A1 A5 Name Clin SAB SAB SAB IAB Term Term Term 1977 ELECTI VE AB Livin g 1986 SPONTA NEOUS Livin g 1987 37w 0d 2.66 kg (5 lb 14 oz) M C-Sect ion Livin g Ghada Delivery Location:[facility] Comments:emergency C/S 1988 37w 0d 3.18 kg (7 lb) F C-Sect ion Livin g Geno Delivery Location:[facility] Comments:R/C/S 1990 37w 0d 2.72 kg (6 lb) M C-Sect ion Livin g Jordy n Delivery Location:[facility] Comments:R/C/S 1992 SPONTA NEOUS Livin g 1993 SPONTA NEOUS Livin g 1998 34w 0d 1.98 kg (4 lb 6 oz) M C-Sect ion Livin g [place] Delivery Location:[place] Comments:emergency C/S 2003 30w 0d 1.7 kg (3 lb 12 oz) M C-Sect ion Livin g [facility] Delivery Location:[place] Comments:placental abr uption Comments dates of SABs are unknown Last Filed Vital Signs Vital Sign Reading Time Taken Comments Blood Pressure 106/70 09/25/2024 1:25 PM [employer] CONSULTANT Pulse 100 09/25/2024 1:25 PM [employer] CONSULTANT Temperature 36.6 C (97.9 F) 09/25/2024 1:25 PM [employer]ACLE WE[employer] CONSULTANT Respiratory Rate 16 09/25/2024 1:25 PM [employer] CONSULTANT Oxygen Saturation 100% 09/25/2024 1:25 PM [employer] CONSULTANT Inhaled Oxygen Concentration - - Weight 64.4 kg (142 lb) 06/11/2024 3:20 PM CDT Height 167.6 cm (5' 6) 06/11/2024 3:20 PM CDT Body Mass Index 22.92 06/11/2024 3:20 PM CDT Plan of Treatment Health Maintenance Due Date Last Done Comments Tdap 1978 Depression screening for age 12+ 1979 HIV for age 15-65 1982 Hepatitis C screening for age 18-79 1985 Pneumococcal series for age 50+ (1 of 2 - PCV) 1986 Tetanus booster 1987 Pap test for age 21-65 1988 Colonoscopy through age 75 2012 Mammogram for age 45-75 2012 Zoster (shingles) series for age 50+ (1 of 2) 2017 COVID-19 vaccine series ( - 2023- season) 2024 Influenza for age 50-64 07/21/2024 BMI (ht and wt on same day) for age 18+ 06/11/2025 0 06/11/2024, 01/18/2024 Lipids for age 45-75 06/11/2029 06/11/2024, 05/28/20 15 Medical Devices Implanted Type Area Product Safety Engineer Device Identifier Shelf Expiration Date Model / Serial / Lot Valve Neuro Micro Hakim W/ [place] - [id number] Implanted:Qty: 1 on 11/08/2023 by Tra Santana MBChB at [facility] Left: [employer] 05/19/2028 [id number] / / [id number] Procedures Procedure Name Priority Date/Time Associated Diagnosis Comments MR ANGIO HEAD BRAIN WWO Routine 12/10/2024 11:06 AM [employer] CONSULTANT SAH (subarachnoid hemorrhage) (HC) Cerebral aneurysm LIPID PANEL W REFLEX MEASURED LDL Today 06/11/2024 3:45 PM CDT Pure hypercholesterolemia from Last 3 Months or Most Recently Relevant to Health Maintenance Results * MR Angio Head w/wo Contrast (12/10/2024 11:06 AM [employer]ACLE WE[employer] CONSULTANT) Anatomical Region Laterality Modality HEAD, BRAIN Magnetic Resonan ce 12/10/2024 11:4 4 AM [employer] WE[employer]ENTER CONSULTANT Impressions 12/10/2024 11:44 AM [employer]ACLE WEBCENTER CONSULTANT Complete occlusion of aneurysm. We will obtain a 2-year follow-up MRA, due in October 2025. Buddy Dyson MD Neurointerventional Radiologist [facility] [place] Dictated by Buddy Dyson MD @ 12/10/2024 11:44:10 AM (Electronically Signed) Narrative 12/10/2024 11:44 AM [employer]ACLE WE[employer] CONSULTANT For Patients: As a result of the Century Cures Act, medical imaging exams and procedure reports are released immediately into your electronic medical record. You may view this report before your referring provider. If you have questions, please contact your health care provider. INDICATION: Brain aneurysm follow-up. TECHNIQUE: 3D TOF and contrast-enhanced MRA. Comparison: 12/05/2023. 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 There are no new aneurysms. The rest of the intracranial vasculature is unremarkable. Procedure Note Buddy Dyson MD - 12/10/2024 For Patients: As a result of the Cures Act, medical imagingexams and procedure reports are released immediately into your electronicmedical record. You may view this report before your referring provider.If you have questions, please contact your health care provider. INDICATION: Brain aneurysm follow-up. TECHNIQUE: 3D TOF and contrast-enhanced MRA. Comparison: 12/05/2023. FINDINGS: There is complete occlusion of the previously WEBed right posteriorcommunicating artery aneurysm. There are no new aneurysms. The rest of the intracranial vasculature is unremarkable. IMPRESSION: Complete occlusion of aneurysm. We will obtain a 2-year follow-up MRA, duein October 2025. Buddy Dyson MD Neurointerventional Radiologist [facility] [place] Dictated by Buddy Dyson MD @ 12/10/2024 11:44:10 AM (Electronically Signed) us Buddy Dyson MD MR Final Result * LIPID PANEL W REFLEX MEASURED LDL ([id number]) (06/11/2024 3:45 PM CDT) CHOLESTEROL,TOTAL 158 100 - 199 mg/dL 06/11/2024 4:19 PM T [facility] Comment: Cholesterol, Total Reference Ranges Desirable <200 mg/dL Borderline 200-239 mg/dL High >=240 mg/dL TRIGLYCERIDES 71 <150 mg/dL 06/11/2024 4:19 PM CDT [facility] HDL CHOLESTEROL 78 >40 mg/dL 4:19 PM CDT [facility] NON-HDL CHOLESTEROL 80 <145 mg/dl 06/11/2024 4:19 PM T [facility] CHOL/HDL RATIO 2.03 <4.50 06/11/2024 4:19 PM CDT [facility] LDL CHOLESTEROL 66 <=130 mg/dL 06/11/2024 4:19 PM CDT [facility] VLDL CHOLESTEROL 14 <=30 mg/dL 06/11/2024 4:19 PM CDT [facility] PROVIDER ORDERED STATUS RANDOM 06/11/2024 4:19 PM CDT [facility] Blood BLOOD SPECIMEN / Unknown Venipuncture / Unknown 06/11/2024 3:45 PM CDT 06/11/2024 3:45 PM CDT us Darnell Soto MD CHEMISTRY Final Result [facility] [address] [place] [address] from Last 3 Months or Most Recently Relevant to Health Maintenance Additional Health Concerns Infection Onset Date Last Indicated ESBL Comment:ESBL E. coli 11/08/23 - Urine 11/08/2023 11/08/2023 Insurance MEDICARE PART A HB ONLY MEDICARE PB ONLY MEDICARE PART B HB ONLY MEDICA ACCESSABILITY SOLUTION MEDICARE PART B HB ONLY MEDICA CHOICE CARE Advance Directives * Full Code (Latest Code [...] 10:46 AM 09/08/2005 7:27 PM Care Teams Parts Puller Relationship Specialty Start Date End Date Afia Rousseau MD [address] [place] [address] PCP - General Internal Medicine 01/29/15
--- OUTSIDE RECORDS SUMMARY | 2025-01-12 12:46 | XMS_ITS | CCD ---
Author Organization Unknown Care Team Providers Care Commercial Portfolio Manager Name Role Phone Straightening Press Operator, [place] Primary Care Provider Unava ilable Unavailable Chronic Care Management Unavaila ble Summary Purpose DataExchange Insurance Providers Payer name Policy type / Coverage type Covered alliance party ID Effective Begin Date Effective End Date Medicare [place] Medicare Part B [id number] Unknown Unknown [employer] ([facility]) Medicare Part B [id number] Unknown U nknown Family History Family History data not found Medication Administered No Medication Administered data Reason For Visit No Reason For Visit data
--- NOTE | 2025-01-12 12:57 | ED.GENADULT ---
HPI - General Adult General Time Seen by Provider: 12:57 Date Seen: 01/12/25 Chief complaint: Neuro Symptoms/Altered Deficit Stated complaint: numbness, confusion Time Seen by Provider: 01/12/25 12:56 Source: patient, family, RN notes reviewed and old records reviewed Mode of arrival: ambulatory Limitations: no limitations History of Present Illness HPI narrative: This 59-year-old female is coming in with complaints of right sided numbness. Around 10:00 a.m. this morning she felt like her whole right side of her body was numb. She states she has had a history of an aneurysm, has residual right facial numbness since then. Since this morning she has complained of a posterior headache. No visual changes. She feels unsteady walking. The numbness tingling in the right arm and leg it is a little better but it just feels different. She has felt just not right the last couple of days, took an aspirin yesterday and today. Baseline she states she is on Plavix. She has not been sick with any fevers, no cough or cold symptoms, no body aches. She denies any trauma. 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 Related Data Home Medications ?Medication ?Instructions ?Recorded ?Confirmed aspirin 81 mg chewable tablet 1 tab PO DAILY 06/17/22 12/20/24 clopidogrel 75 mg tablet 75 mg PO DAILY 10/30/22 12/20/24 rosuvastatin 20 mg tablet 20 mg PO DAILY 10/30/22 12/20/24 B12 PO 07/11/23 12/20/24 Magnesium spray PO 07/11/23 12/20/24 lansoprazole 30 mg capsule,delayed 30 mg PO DAILY 11/23/23 12/20/24 release nitroglycerin 0.4 mg sublingual mg sublingual 11/23/23 12/20/24 tablet sennosides 8.6 mg-docusate sodium 2 tab PO BID 11/23/23 12/20/24 50 mg tablet (Senexon-S) polyethylene glycol 3350 17 g PO 01/04/24 12/20/24 gram/dose oral powder Previous Rx's ?Medication ?Instructions ?Recorded dexlansoprazole 60 mg 60 mg PO QDAY #90 caps 06/22/23 capsule,biphase delayed release ondansetron 4 mg disintegrating 4 mg PO Q6H PRN nausea and 11/23/23 tablet vomiting #30 tabs cyclobenzaprine 10 mg tablet 10 mg PO Q8H PRN pain #60 tabs 12/12/23 lorazepam 0.5 mg tablet 0.5 - 1 mg (1 - 2 x 0.5 mg) PO 05/27/24 QDAY PRN anxiety #30 tabs nicotine 14 mg/24 hr daily 1 patch topical DAILY #28 ea 01/02/25 transdermal patch oxycodone 15 mg tablet 15 mg PO Q4H PRN pain #124 tabs 01/02/25 oxycodone 40 mg tablet,crush 40 mg PO BID #62 tabs 01/02/25 resistant,extended release 12 hr (OxyContin) Allergies Allergy/AdvReac Type Severity Reaction Status Date / Time amoxicillin (From Augmentin) Allergy Severe Vomiting Verified 01/12/25 13:34 clavulanic acid (From Allergy Severe Vomiting Verified 01/12/25 13:34 Augmentin) adhesive AdvReac Intermediate Tears skin Verified 01/12/25 13:34 band-aids Allergy Mild Uncoded 01/12/25 13:34 PFSH PFSH Medical History (Updated 01/12/25 @ 15:02 by Esperanza Tobin MD) History of palpitations ?Z87.898 - Personal history of other specified conditions (ICD-10) History of small bowel obstruction (2012) ?Z87.19 - Personal history of other diseases of the digestive system (ICD-10) History of sepsis (2011) ?Z86.19 - Personal history of other infectious and parasitic diseases (ICD-10) History of depression ?Z86.59 - Personal history of other mental and behavioral disorders (ICD-10) Surgical History 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 - Lesion of ulnar nerve, unspecified upper limb (ICD-10) History of left salpingo-oophorectomy ?Z90.79 - Acquired absence of other genital organ(s) (ICD-10) ?Z90.721 - Acquired absence of ovaries, unilateral (ICD-10) Vesico-vaginal fistula ?N82.0 - Vesicovaginal fistula (ICD-10) Status post wrist surgery (09/10/09) ?Z98.890 - Other specified postprocedural states (ICD-10) History of ventral hernia repair (03/27/13) ?Z98.890 - Other specified postprocedural states (ICD-10) ?Z87.19 - Personal history of other diseases of the digestive system (ICD-10) History of repair of rotator cuff (09/10/09) ?Z98.890 - Other specified postprocedural states (ICD-10) History of oophorectomy (07/11/11) History of hysterectomy (09/10/09) ?Z90.710 - Acquired absence of both cervix and uterus (ICD-10) History of section (09/10/09) ?Z98.891 - History of uterine scar from previous surgery (ICD-10) History of cervical spinal surgery (09/10/09) ?Z98.890 - Other specified postprocedural states (ICD-10) Family History Father Colon cancer Brother Colon cancer Paternal Grandfather Colon cancer Social History (Updated 04/29/24 @ 16:38 by Shania Alcantara ~ [facility]) What is your current living situation?: I presently have a place to live Problems where you live: no known problems In the past 12 months, utilities in danger of being shut off: no In past 12 months, lack of transportation kept you from medical appts, meetings, work, or getting things needed for daily living: no In the past 12 mos, have been you worried that your food would run out before you had money to buy more?: never true In the past 12 mos, the food you bought just didn't last and you didn't have money to buy more?: never true Smoking Status: Former smoker Do you use any of these nicotine containing products: None How often do you have a drink containing alcohol: never How often do you have six or more drinks on one occasion: Never AUDIT-C Alcohol total score: 0 Non-prescribed substance use: denies use How often does anyone, including family, friends and others, physically hurt you: never How often does anyone, including family, friends and others, insult or talk down to you: rarely How often does anyone, including family, friends and others, threaten you with harm: never How often does anyone, including family, friends and others, scream or curse at you: rarely Health Related Social Needs: Other personal risk factors, not elsewhere classified (Z91.89) Exam Const: Vital Signs, click to edit/add: Vital Signs - 24 hr 01/12/25 13:00 01/12/25 13:08 01/12/25 13:09 Temperature Pulse Rate 116 H 115 H Respiratory Rate Blood Pressure 152/81 H Pulse Oximetry 100 100 100 01/12/25 13:12 01/12/25 13:15 01/12/25 13:40 Temperature Pulse Rate 111 H 110 H 117 H Respiratory Rate 10 L 14 Blood Pressure 165/92 H Pulse Oximetry 100 100 99 01/12/25 13:41 01/12/25 13:44 01/12/25 13:45 Temperature 98.0 F Pulse Rate 110 H 109 H Respiratory Rate 17 20 24 Blood Pressure 161/89 H Pulse Oximetry 100 100 01/12/25 13:46 01/12/25 13:47 01/12/25 14:00 Temperature Pulse Rate 109 H 108 H 106 H Respiratory Rate 11 L 9 L Blood Pressure 153/89 H Pulse Oximetry 100 99 100 01/12/25 14:10 01/12/25 14:15 01/12/25 14:16 Temperature Pulse Rate 105 H 106 H 101 H Respiratory Rate 17 Blood Pressure 153/83 H 127/82 Pulse Oximetry 100 100 100 Course Course ED Course: Neurology has been paged, spoke with Slim John whom is assisting with this at 1:00 p.m.. Patient will be proceeding to noncontrast head CT and CT angio of head and neck if applicable. Given that this patient has a history of subarachnoid hemorrhage, lytics would be unlikely, symptoms did start around 10:00 a.m. this morning. Do need to rule out new intracranial bleeding or complications with prior aneurysm. We will send her imaging to [facility], she will be on pulse oximetry, cardiac monitoring and had of full complement of labs obtained. Reevaluation(s) Time of Reevaluation #1: 14:59 Reevaluation #1: Have patient's neuro imaging copies for her, reviewed her labs are reassuring. She wants to go home, states she is feeling better. Discussed that we did not do any testing for the triple viral swab but she declines this. She states she is not feeling any respiratory symptoms. Her shunt would have the appearance of working as the ventricles are small. She is not having any decline in her neurologic status here, feels back to baseline. Upon discussion with [facility], they do feel she can discharge to home. She wants to go get pretzels and cheese. Consultations Consultation #1: Slim from [facility] at [facility] did call back. Head CT is not showing any acute pathology, she does have a MANAGER COMMUN[employer] OUTREACH shunt. There is no subarachnoid hemorrhage. He is aware that we cannot do shunt x-ray series here but he really is not concerned about shunt malfunction as her ventricles are quite small. 2:06 p.m.: Her CT angiograms are not showing any concerning issues. If there is further concern or if patient is not back to baseline, [facility]. He does state though that they feel patient can discharge to home if she is back to baseline. Time: 13:32 Vital Signs Vital signs: Initial Vital Signs Pulse Oximetry 100 01/12/25 13:00 Vital Signs Pulse Oximetry 100 01/12/25 13:00 Temperature 98.0 F 01/12/25 13:44 Pulse Rate 101 H 01/12/25 14:16 Respiratory Rate 17 01/12/25 14:10 Blood Pressure 127/82 01/12/25 14:16 Pulse Oximetry 100 01/12/25 14:16 Medications Administered Medications: Discontinued Medications Generic Name Dose Route Start Last Admin Trade Name Freq PRN Reason Stop Dose Admin Ondansetron HCl 4 mg 01/12/25 14:03 01/12/25 14:13 Ondansetron 2 Mg/Ml Inj IVP 01/12/25 14:04 4 mg ONCE ONE Administration Medical Decision Making Lab Data Lab results reviewed: Yes I reviewed the patient's lab results Labs: Lab Results 01/12/25 01/12/25 Range/Units 12:58 12:58 WBC 5.92 (4.50-11.00) K/uL RBC 4.34 (4.00-5.20) m/uL Hgb 12.9 (12.0-16.0) gm/dL Hct 41.3 (33.0-51.0) % MCV 95 (80-100) fL MCH 30 (26-34) pg MCHC 31 L (32-36) gm/dL RDW Coeff of Oliverio 13.5 (11.5-15.5) % Plt Count 238 (140-440) K/uL Neut % (Auto) 49.6 (42.0-72.0) % Lymph % (Auto) 37.8 (20-44) % [place] % (Auto) 7.4 (0.0-11.0) % Eos % (Auto) 3.9 (0.0-7.0) % Baso % (Auto) 1.0 (0.0-3.0) % Neut # (Auto) 2.93 (1.7-7.0) K/uL Lymph # (Auto) 2.24 (0.90-2.90) K/uL [place] # (Auto) 0.40 (0.00-0.90) K/UL Eos # (Auto) 0.23 (0.00-0.50) K/uL Baso # (Auto) 0.06 (0.00-0.30) K/uL Abs Immat Gran (auto) 0.02 (0.00-0.30) K/uL Imm/Tot Granulo (auto) 0.3 % ESR 7 (2-20) mm/hr INR 0.89 L (0.91-1.10) APTT 27 (23-33) Seconds D-Dimer Quant (PE/DVT) Cancelled 0.23 Sodium 137 (135-149) mmol/L Potassium 4.1 (3.6-5.1) mmol/L Chloride 103 (96-114) mmol/L Carbon Dioxide 25 (20-32) mmol/L Anion Gap 9 (7-15) mEq/L BUN 13 (7-30) mg/dL Creatinine 0.8 (0.5-1.5) mg/dL Estimated GFR 86 ml/min Glucose 129 H (60-115) mg/dL Calcium 8.9 (8.4-10.6) mg/dL Total Bilirubin 0.3 (0.1-1.5) mg/dL AST 19 (12-35) U/L ALT 12 (4-35) U/L Alkaline Phosphatase 83 (40-150) U/L Troponin I 0.01 (0.01-0.04) ng/mL C-Reactive Protein < 0.5 L (0.5-1.0) mg/dL Total Protein 7.0 (6.0-8.3) g/dL Albumin 4.6 (3.3-5.0) g/dL Imaging Data CT scan - head: Attestation: I have reviewed the pertinent imaging results. Radiologist's impression: Patient: DALIA SHAW Facility:?[facility] Patient ID:?[id number] Site Patient ID:?[id number]. Site :?[id number] Study:?CT-Head CODE STROKE-01/12/2025 1:06:07 PM Ordering Physician:Veto aMta Final Report: INDICATION: Stroke. TECHNIQUE: Noncontrast CT images of the brain. COMPARISON: CT brain 03/25/2024. FINDINGS: Stable left occipital approach shunt catheter coursing through the left lateral ventricle body to terminate at midline adjacent to the septum pellucidum. Stable decompressed supratentorial ventricular system. No mass effect or midline shift. Carvajal white differentiation is maintained. No acute intracranial hemorrhage or pathologic extra-axial fluid collection. Intracranial atherosclerotic calcifications. Globes are symmetric. Calvarium is intact. The visualized paranasal sinuses and mastoid air cells are clear. IMPRESSION: 1. No acute intracranial hemorrhage or mass effect. No significant change compared to the prior CT. 2. Stable left occipital approach shunt catheter and decompressed ventricular system. Please note that all CT scans at this facility use dose modulation, iterative reconstruction, and/or weight-based dosing when appropriate to reduce radiation dose to as low as reasonably achievable. Dictated by Blane Hernandez MD @ 01/12/2025 1:10:09 PM (Electronic Signature) CT- Other: Attestation: I have reviewed the pertinent imaging results. Radiologist's impression: Patient: DALIA SHAW Facility:?[facility] Patient ID:?[id number] Site Patient ID:?[id number]. Site :?[id number] Study:?CT-Head Angio CODE STROKE - W/ 95CC [id number]/23/2025 1:37:45 PM Ordering Physician:Veto Mata Preliminary Report: No proximal large vessel occlusion. Endovascular treatment of a right posterior communicating artery aneurysm with a WEB device. No evidence for aneurysm recurrence. Mild (less than 50 stent) stenosis of the proximal cervical internal carotid arteries. Read by:?Blane Hernandez MD @01/12/2025 1:49:05 PM ECG Data Attestation: I personally reviewed and interpreted this ECG as follows: (Sinus tachycardia, 111 beats per minute. No definitive ischemia or infarct noted peer) Discharge Plan Discharge Clinical Impression: Numbness and tingling Patient Disposition: Home, Self-Care Condition: Stable Instructions: Paresthesia (ED) Additional Instructions: Keep your clinic followup tomorrow as scheduled. If you have any new or concerning symptoms, have return of your numbness tingling, if there is any motor weakness or loss of function associated with any of these symptoms, need to be re-evaluated emergently. No change to medications at this time, continue with your current medicines. Activity Level: Activity as Tolerated Prescriptions: No Action B12 PO Magnesium spray PO aspirin 81 mg tablet,chewable 1 tab PO DAILY nitroglycerin 0.4 mg tablet, sublingual sublingual sennosides-docusate sodium [Senexon-S] 8.6-50 mg tablet 2 tab PO BID lansoprazole 30 mg capsule,delayed release(DR/EC) 30 mg PO DAILY ondansetron 4 mg tablet,disintegrating 4 mg PO Q6H PRN (Reason: nausea and vomiting) Qty: 30 3RF polyethylene glycol 3350 17 gram/dose powder PO clopidogrel 75 mg tablet 75 mg PO DAILY Patient Comments: TAKE ONE TABLET BY MOUTH EVERY DAY IN THE MORNING. rosuvastatin 20 mg tablet 20 mg PO DAILY dexlansoprazole 60 mg capsule,biphase delayed releas 60 mg PO QDAY Qty: 90 0RF cyclobenzaprine 10 mg tablet 10 mg PO Q8H PRN (Reason: pain) Qty: 60 5RF lorazepam 0.5 mg tablet 0.5 - 1 mg PO QDAY PRN (Reason: anxiety) Qty: 30 0RF nicotine 14 mg/24 hr patch 24 hour 1 patch topical DAILY Qty: 28 0RF oxycodone [OxyContin] 40 mg tablet,oral only,ext.rel.12 hr 40 mg PO BID Qty: 62 0RF oxycodone 15 mg tablet 15 mg PO Q4H PRN (Reason: pain) Qty: 124 0RF Follow Up/Referrals: Afia Rousseau MD [Primary Care Provider] - Stand Alone Forms: [employer] Info Instructions
--- NOTE | 2025-01-12 13:00 | CRLHL7_ITS ---
For Patients: As a result of the Century Cures Act, medical imaging exams and procedure reports are released immediately into your electronic medical record. You may view this report before your referring provider. If you have questions, please contact your health care provider. INDICATION: Right-sided numbness, gait imbalance. TECHNIQUE: CTA head with contrast bolus tracking, 3D angiographic rendering using maximum intensity projection (MIP) and images permanently archived. FINDINGS: There is scattered intracranial atherosclerotic disease. There are postoperative findings of an embolized right PCOM aneurism. There is otherwise normal opacification of the intracranial vasculature. There is no large vessel occlusion. IMPRESSION: No acute intracranial abnormality at CTA. Please note that all CT scans at this facility use dose modulation, iterative reconstruction, and/or weight-based dosing when appropriate to reduce radiation dose to as low as reasonably achievable. Dictated by Buddy Dyson MD @ 01/13/2025 7:52:11 AM (Electronically Signed)
--- NOTE | 2025-01-12 13:00 | CRLHL7_ITS ---
For Patients: As a result of the Century Cures Act, medical imaging exams and procedure reports are released immediately into your electronic medical record. You may view this report before your referring provider. If you have questions, please contact your health care provider. INDICATION: Right-sided numbness, gait imbalance. TECHNIQUE: CTA neck with contrast bolus tracking, 3D angiographic rendering using maximum intensity projection (MIP) and images permanently archived. FINDINGS: There is carotid atherosclerosis at the origin of the right internal carotid artery resulting in a moderate stenosis, 50 percent by NASCET. There is atherosclerotic disease in the proximal left internal carotid artery without significant stenosis. There is no significant vertebral artery stenosis or dissection. The soft tissues of the neck are within normal limits. Postoperative and degenerative changes are noted in the cervical spine. IMPRESSION: Moderate right ICA origin stenosis, 50 percent by NASCET. Please note that all CT scans at this facility use dose modulation, iterative reconstruction, and/or weight-based dosing when appropriate to reduce radiation dose to as low as reasonably achievable. Dictated by Buddy Dyson MD @ 01/13/2025 7:49:42 AM (Electronically Signed)
[2025-01-12 13:17] LABS: Basophils Absolute Auto 0.06 K/uL (0.00-0.30); Eosinophils Absolute Auto 0.23 K/uL (0.00-0.50); Eosinophils Percent Auto 3.9 % (0.0-7.0); Hematocrit 41.3 % (33.0-51.0); Hemoglobin* 12.9 gm/dL (12.0-16.0); Immature Granulocytes Abs Auto 0.02 K/uL (0.00-0.30); Immature Granulocytes Pct Auto 0.3 %; Lymphocytes Absolute Auto 2.24 K/uL (0.90-2.90); Lymphocytes Percent Auto 37.8 % (20-44); Mean Corpuscular HGB Conc 31 gm/dL (32-36); Mean Corpuscular Hemoglobin 30 pg (26-34); Mean Corpuscular Volume 95 fL (80-100); Monocytes Percent Auto 7.4 % (0.0-11.0); Neutrophils Absolute Auto 2.93 K/uL (1.7-7.0); Neutrophils Percent Auto 49.6 % (42.0-72.0); Platelet Count* 238 K/uL (140-440); RDW Coefficient of Variation % 13.5 % (11.5-15.5); Red Blood Count 4.34 m/uL (4.00-5.20); White Blood Count* 5.92 K/uL (4.50-11.00)
[2025-01-12 13:19] LABS: Slide Review Reflex No
[2025-01-12 13:22] LABS: Albumin* 4.6 g/dL (3.3-5.0); Chloride* 103 mmol/L (96-114); Potassium* 4.1 mmol/L (3.6-5.1); Sodium* 137 mmol/L (135-149)
[2025-01-12 13:23] LABS: INR 0.89 (0.91-1.10); Prothrombin Time 12.8 Seconds
[2025-01-12 13:24] LABS: Bilirubin Total* 0.3 mg/dL (0.1-1.5); Creatinine* 0.8 mg/dL (0.5-1.5); Estimated Glomerular Filt Rate 86 ml/min; Partial Thromboplastin Time* 27 Seconds (23-33)
[2025-01-12 13:25] LABS: Alanine Aminotransferase* 12 U/L (4-35); Alkaline Phosphatase* 83 U/L (40-150); Anion Gap 9 mEq/L (7-15); Aspartate Amino Transferase* 19 U/L (12-35); Blood Urea Nitrogen* 13 mg/dL (7-30); Carbon Dioxide* 25 mmol/L (20-32); Glucose* 129 mg/dL (60-115)
[2025-01-12 13:26] LABS: Calcium* 8.9 mg/dL (8.4-10.6)
[2025-01-12 13:29] LABS: C Reactive Protein* < 0.5 mg/dL (0.5-1.0)
--- NOTE | 2025-01-12 13:29 | ED.NURSE ---
Pt to imaging for CT
[2025-01-12 13:37] LABS: Troponin I* 0.01 ng/mL (0.01-0.04)
[2025-01-12 13:40] LABS: D Dimer Quantitative* 0.23 ug/ml (0.00-0.50)
--- OUTSIDE RECORDS SUMMARY | 2025-01-12 13:46 | XMS_ITS | Clinical Summary ---
Author Organization [facility] Address [address] [address] Care Team Providers Care Barrer And Tacker Name Role Phone Afia Rousseau MD Primary Care Provider [phone] Source Comments You are receiving this document as you are listed as the primary care provider,follow-up provider, or the patient has been referred to you for consultation.This is in compliance with the Medicare and[facility] Hospital[facility] EHR Incentive Program,which states Providers who transition their patient to another setting of careor provider of care or refers their patient to another provider of care shouldprovide summary care record for each transition of care or referral. [facility] Allergies Active Allergy Reactions Criticality Noted Date [...] - 08/04/2017 1:18 PM CDT Performed at [address] [address] CLIA number [id number] us Deepti Hannah MD LAB_1 Final Resul t PN SOFT [address] [place] [address] from Last 3 Months or Most Recently Relevant to Health Maintenance Insurance MEDICA ACCESSABILITY MEDICARE Care Teams Barrer And Tacker Relationship Specialty Start Date End Date Afia Rousseau MD [address] [place] [address] PCP - General Internal Medicine 07/20/17
--- OUTSIDE RECORDS SUMMARY | 2025-01-12 13:46 | XMS_ITS | CCD ---
Author Organization Unknown Care Team Providers Care Oil Furnace Installer Name Role Phone Varsity Baseball Coach, [place] Primary Care Provider Unava ilable Unavailable Chronic Care Management Unavaila ble Summary Purpose DataExchange Insurance Providers Payer name Policy type / Coverage type Covered democrat ID Effective Begin Date Effective End Date Medicare [place] Medicare Part B [id number] Unknown Unknown [employer] ([facility]) Medicare Part B [id number] Unknown U nknown Family History Family History data not found Medication Administered No Medication Administered data Reason For Visit No Reason For Visit data
--- OUTSIDE RECORDS SUMMARY | 2025-01-12 13:46 | XMS_ITS | CCD ---
Author Organization Unknown Care Team Providers Care Devil Tender Name Role Phone Rock Climbing Instructor, [place] Primary Care Provider Unava ilable Unavailable Chronic Care Management Unavaila ble Summary Purpose DataExchange Insurance Providers Payer name Policy type / Coverage type Covered democrat ID Effective Begin Date Effective End Date Medicare [place] Medicare Part B [id number] Unknown Unknown [employer] ([facility]) Medicare Part B [id number] Unknown U nknown Family History Family History data not found Medication Administered No Medication Administered data Reason For Visit No Reason For Visit data
--- OUTSIDE RECORDS SUMMARY | 2025-01-12 13:46 | XMS_ITS | Clinical Summary ---
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 Gender Identity Not on file Sexual Orientation Not on file Last Filed Vital Signs Vital Sign Reading Time Taken Comments Blood Pressure 134/84 10/26/2016 8:35 AM MOLDED GOODS INSPECTOR TRIMMER Pulse 110 10/26/2016 8:35 AM MOLDED GOODS INSPECTOR TRIMMER Temperature 36.6 C (97.9 F) 10/26/2016 8:35 AM MOLDED GOODS INSPECTOR TRIMMER Respiratory Rate 18 10/26/2016 8:35 AM MOLDED GOODS INSPECTOR TRIMMER Oxygen Saturation 99% 10/26/2016 8:35 AM MOLDED GOODS INSPECTOR TRIMMER Inhaled Oxygen Concentration - - Weight 70.4 kg (155 lb 3.3 oz) 10/26/2016 8:35 A M MOLDED GOODS INSPECTOR TRIMMER Height - - Body Mass Index - [...] age to complete this topic Insurance [place] [address] [place] [address] [place] [id number] MEDICA ACCESS ABILITY MD MEDICARE MEDICA ACCESS ABILITY MD MEDICARE [employer] ACCESS ABILITY MD MEDICARE OTHER on file Care Teams Print Line Feeder Relationship Specialty Start Date End Date Afia Rousseau MD [facility] [address] [place] [address] PCP - General Internal Medicine 10/07/16 Buddy Dyson MD [facility] [address] [place] [address] Referring Physician 01/19/24 Joni Garcia MD [address] [place] [id number] Ophthalmology 01/19/24 Joni Garcia MD [address] [place] [address] [address] [place], [place] [address] Assigned Surgical Provider 03/12/24
--- OUTSIDE RECORDS SUMMARY | 2025-01-12 13:46 | XMS_ITS | Encounter Summary ---
Author Organization [facility] Address [address] [place] [id number] Care Team Providers Care Professional Advisor Name Role Phone Afia Rousseau MD Primary Care Provider Buddy Dyson MD Unavailable Joni Garcia MD Unavailable [phone] Joni Garcia MD Unavailable [phone] Reason for Visit * Reason Onset Date Comments Appointment 01/19/2024 Patient would li ke appointment information with Dr Garcia to be sent out USPS Encounter Details Date Type Department Care Team ([facility] st Contact Info) Description 01/19/2024 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 TECHNICIAN Gender Identity Not on file Sexual Orientation Not on file documented as of this encounter Miscellaneous Notes * Telephone Encounter - Elzbieta Pennington - 01/22/2024 6:49 AM CST Sent new patient packet..jam FIELD TECHNICIAN * Telephone Encounter - Beverly Gonzales - 01/19/2024 4:46 PM CST [facility] Phone Message May a detailed message be left on voicemail: yes Reason for Call: Patient would like appointment information with Dr Garcia to be sent out USPS Thank you, Action Taken: Message routed to: [facility] ([facility]): eye Travel Screening: Not Applicable FIELD TECHNICIAN documented in this encounter Plan of Treatment Not on file documented as of this encounter Visit Diagnoses Not on filedocumented in this encounter Care Teams Professional Advisor Relationship Specialty Start Date End Date Afia Rousseau MD [facility] [address] [place] [address] PCP - General Internal Medicine 10/07/16 Buddy Dyson MD [facility] [address] [place] [address] Referring Physician 01/19/24 Joni Garcia MD [address] [place] [id number] Ophthalmology 01/19/24 Joni Garcia MD [address] [place] [address] [phone] Assigned Surgical Provider 03/12/24 documented as of this encounter
[2025-01-12 13:58] LABS: Erythrocyte SedimentationRate* 7 mm/hr (2-20)
[2025-01-12] MEDS: ONDANSETRON 2 MG/ML inj 4 MG IVP (14:13)
== END 2025-01-12 15:15 | disposition home or self-care (01) ==
PROVIDERS: Emergency Provider Family Medicine; PCP Internal Medicine
DX: R20.2 Paresthesia of skin (principal)
CPT/HCPCS: 36415; 70450; 70496; 70498; 80053; 84484; 85025; 85379; 85610; 85651; 85730; 86140; 93005; 94761; 96374; 99285; 99291; J2405; Q9967

== ENCOUNTER 2025-01-24 15:46 | Outpatient (CLI) | payer MEDICARE, OTHER, SELFPAY ==
[2025-01-24 17:30] LABS: Hematocrit 41.4 % (33.0-51.0); Hemoglobin* 13.4 gm/dL (12.0-16.0); Mean Corpuscular HGB Conc 32 gm/dL (32-36); Mean Corpuscular Hemoglobin 31 pg (26-34); Mean Corpuscular Volume 94 fL (80-100); Platelet Count* 298 K/uL (140-440); Red Blood Count 4.39 m/uL (4.00-5.20); White Blood Count* 5.71 K/uL (4.50-11.00)
[2025-01-24 17:31] LABS: Slide Review Reflex No
[2025-01-24 18:05] LABS: Chloride* 100 mmol/L (96-114); Potassium* 4.3 mmol/L (3.6-5.1); Sodium* 137 mmol/L (135-149)
[2025-01-24 18:07] LABS: Anion Gap 8 mEq/L (7-15); Aspartate Amino Transferase* 16 U/L (12-35); Blood Urea Nitrogen* 9 mg/dL (7-30); Carbon Dioxide* 29 mmol/L (20-32); Cholesterol* 213 mg/dL (90-199); Creatinine* 0.8 mg/dL (0.5-1.5); Estimated Glomerular Filt Rate 86 ml/min
[2025-01-24 18:08] LABS: Alanine Aminotransferase* 12 U/L (4-35); Calcium* 9.2 mg/dL (8.4-10.6); Glucose* 92 mg/dL (60-115); HDL Cholesterol* 88 mg/dL (>=50); LDL Cholesterol Calculated 110 mg/dL (<100); Triglycerides* 73 mg/dL (40-149)
== END 2025-01-24 15:47 | disposition home or self-care (01) ==
LOC: NPINS 15:49
PROVIDERS: PCP Internal Medicine; Visit Provider Internal Medicine
DX: I25.10 Atherosclerotic heart disease of native coronary artery without angina pectoris (principal); I25.83 Coronary atherosclerosis due to lipid rich plaque
CPT/HCPCS: 80048; 80061; 84450; 84460; 85027

== ENCOUNTER 2025-02-15 14:38 | Outpatient (CLI) | payer MEDICARE, OTHER, SELFPAY | END 2025-02-15 14:39 | disposition home or self-care (01) | LOC: NFLDUCREF 14:38 | PROVIDERS: PCP Internal Medicine; Visit Provider Physician Assistant | DX: J02.9 Acute pharyngitis, unspecified (principal) | CPT/HCPCS: 87070 ==

== ENCOUNTER 2025-02-16 16:10 | Emergency (ER) | payer MEDICARE, OTHER, SELFPAY ==
--- OUTSIDE RECORDS SUMMARY | 2025-02-16 16:12 | XMS_ITS | Clinical Summary ---
Author Organization [facility] Address [address] [place] [address] Care Team Providers Care Security Installation Technician Name Role Phone Afia Rousseau MD Primary Care Provider [phone] Allergies Active Allergy Reactions Criticality Noted Date Comments Adhesive Other - Describe In Comment Field 07/26/2017 Tears skin Atorvastatin Arthralgia 01/18/2019 Diltiazem Hcl Edema 01/18/2019 Adhesive Tape Contact Dermatitis 08/30/2005 problem with certain bandaids not all of them Medications melatonin 3 mg tabletIndicatio ns:SAH (subarachnoid hemorrhage) (HC) Take 2 Tablets (6 mg) by mouth at bedtime. 11/18/20 23 Active nicotine 14 mg/24 hr (NICODERM; HABITROL) 14 mg/24 hr patchIndication s:Tobacco abuse Apply 1 Patch on dry, clean, hairless skin once daily. 30 Patch 11/17/2023 2:59 PM METROLOGY MANAGER 11/18/20 23 Active nitroglycerin (NITROSTAT) 0.4 mg sublingual tabletIndicatio ns:Coronary artery disease due to lipid rich plaque Place 1 Tablet (0.4 mg) under the tongue every 5 minutes if needed for Chest Pain for a maximum of 3 doses. CALL 911 if symptoms not resolved after the first dose. 25 Tablet 3 11/17/2023 2:59 PM METROLOGY MANAGER 11/17/20 23 Active oxyCODONE (OXYCONTIN) 40 mg SUSTAINED release tabletIndicatio ns:Narcotic dependence (HC),Chronic pain syndrome Take 1 Tablet (40 mg) by mouth every 12 hours. 11/17/20 23 Active cyclobenzaprine (FLEXERIL) 10 mg tablet Take 10 mg by mouth 3 times daily if needed. Active LORazepam (ATIVAN) 0.5 mg tab Take 0.5 mg by mouth at bedtime if needed for Anxiety. 01/17/20 Active rosuvastatin (CRESTOR) 20 mg tabletIndicatio ns:SAH (subarachnoid hemorrhage) (HC) Take 1 Tablet (20 mg) by mouth once daily. 90 Tablet 3 06/11/20 Active clopidogreL (PLAVIX) 75 mg tabletIndicatio ns:Coronary artery disease due to lipid rich plaque,Arterios clerosis of coronary artery Take 1 Tablet (75 mg) by mouth once daily in the morning. Further refills at your appt on 06/11/24 90 Tablet 3 06/11/20 Active oxyCODONE 15 mg tablet Take 15 mg by mouth every 4 hours if needed. Active aspirin chewable 81 mg chewable tabletIndicatio ns:Coronary artery disease due to lipid rich plaque Chew 1 Tablet (81 mg) by mouth once daily with a meal. 30 Tablet 11/17/2023 2:59 PM METROLOGY MANAGER 11/19/20 025 Discontinued( *IP Discontinued) lansoprazole (PREVACID) 30 mg capsuleIndicati ons:Gastroesoph ageal reflux disease, unspecified whether esophagitis present Take 1 Capsule (30 mg) by mouth once daily before a meal. 30 Capsule 11/17/2023 2:59 PM METROLOGY MANAGER 11/19/20 025 Discontinued( Medication therapy change per hospital protocol (E-cancel not sent)) polyethylene glycoL (MIRALAX) 17 gram/scoop powderIndicatio ns:SAH (subarachnoid hemorrhage) (HC) Mix 1 scoop (17 g) in 4-8 ounce of liquid then take by mouth two times daily. 1020 g 11/17/2023 2:59 PM METROLOGY MANAGER 11/18/20 025 Discontinued( Pharmacist change per medication history (E-cancel not sent)) oxyCODONE (ROXICODONE) 5 mg immediate release tabletIndicatio ns:Narcotic dependence (HC),Chronic pain syndrome Take 1-3 Tablets (5-15 mg) by mouth every 4 hours if needed for Pain (1 tab for pain 1-5/10; 2 tabs for pain rated 6-8/10. 3 tabs for pain rated 9-10/10. Hold for sedation.). 11/17/20 23 025 Discontinued( Pharmacist change per medication history (E-cancel not sent)) isosorbide mononitrate (IMDUR) 30 mg extended release tablet 24 HourIndications :Angina of effort Take 0.5 Tablets (15 mg) by mouth once daily. 45 Tablet 3 01/16/20 25 025 Discontinued( *IP Discontinued) Active Problems Problem Noted Date Diagnosed Date Chest pain 01/27/2025 S/P MODEL MAKER FIBERGLASS shunt 12/05/2023 Overview (12/10/2024): Hydrocephalus secondary to [...] compatible 10/25/2023 Arteriosclerosis of coronary artery 08/06/2015 Overview (01/27/2025): - May 2015: s/p BEE LM Coronary artery disease due to lipid rich plaque 05/29/2015 Acute chest pain 05/27/2015 Tobacco abuse 05/27/2015 Chronic pain syndrome 05/27/2015 Blood in stool 05/27/2015 Narcotic dependence 05/27/2015 Fibromyalgia 05/27/2015 PTSD (post-traumatic stress disorder) 05/27/2015 SLE (systemic lupus erythematosus) 05/27/2015 Resolved Problems Problem Noted Date Diagnosed Date Resolved Date Unspecified intestinal obstruction 09/09/2005 05/27/2015 Single liveborn[facility] delivered by delivery 09/06/2003 05/27/2015 Encounters Date Type Department Care Team Description 01/27/2025 8:48 AM CDT - 01/27/2025 7:30 PM CDT Hospital Encounter [facility] [address] [place] [address] Barbara Emerson MD Arteriosclerosis of coronary artery (Primary Dx); Cardiovascular symptoms; Chest pain, unspecified type Discharge Disposition: Home Self Care 01/27/2025 Orders Only [facility] [address] [place] [phone] Suresh Callaway MD 5 scans: (5-Ord) [facility] ALT Lab Results; 01/24/2025 01/27/2025 Travel 01/16/2025 7:08 PM METROLOGY MANAGER - 01/16/2025 10:59 PM METROLOGY MANAGER Emergency [facility] Emergency Department [address] [place] [address] Israel Rock MD Acute nonintractable headache, unspecified headache type (Primary Dx); Paresthesia Discharge Disposition: Home Self Care 01/16/2025 8:30 AM METROLOGY MANAGER Office Visit [facility] [address] [place] [address] Suresh Callaway MD 01/16/2025 Travel 01/16/2025 Telephone [facility] [address] [place] [address] Suresh Callaway MD Follow Up (Schedule angiogram) 01/12/2025 Office Visit [facility] [address] [place] [phone] Slim Cadena MD 01/07/2025 Telephone [facility] [address] [facility] [address] [place] [phone] Nahed Kramer NP Concerns 12/10/2024 12:00 PM METROLOGY MANAGER Office Visit [facility] [address] [facility] [address] [place] [phone] Nahed Kramer NP 12/10/2024 9:33 AM METROLOGY MANAGER - 12/10/2024 11:59 PM METROLOGY MANAGER Hospital Encounter [facility] Medical Imaging [address] [place] [address] Buddy Dyson MD SAH (subarachnoid hemorrhage) (HC); Cerebral aneurysm (HC) 12/10/2024 Travel from Last 3 Months Family [...] or yelled at (see row info)? No 01/27/2025 Interpersonal Safety Abuse 12 - 18 Not on file 01/27/2025 Interpersonal Safety Ambulatory Vulnerability No t on file 01/27/2025 Utilities Answer Date Recorded Do you have trouble paying f or utilities (for example, heat, electricity, water, phone)? 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 Not on file Not [...] M C-Sect ion [facility] [place] Delivery Location:[facility] Comments:emergency C/S 1988 37w 0d 3.18 kg (7 lb) F C-Sect ion Livin g [place] Delivery Location:[facility] Comments:R/C/S 1990 37w 0d 2.72 kg (6 lb) M C-Sect ion Livin g [facility] Delivery Location:[facility] Comments:R/C/S 1992 SPONTA NEOUS Livin g 1993 SPONTA NEOUS Livin g 1998 34w 0d 1.98 kg (4 lb 6 oz) M C-Sect ion Livin g [place] Delivery Location:[place] Comments:emergency C/S 2003 30w 0d 1.7 kg (3 lb 12 oz) M C-Sect ion Livin g [facility] Delivery Location:[place] Comments:placental abr uption Comments dates of SABs are unknown Last Filed Vital Signs Vital Sign Reading Time Taken Comments Blood Pressure 138/83 01/27/2025 7:30 PM CDT Pulse 115 01/27/2025 7:30 PM CDT Temperature 36.7 C (98.1 F) 01/27/2025 9:00 AM CDT Respiratory Rate 16 01/27/2025 7:30 PM CDT Oxygen Saturation 98% 01/27/2025 7:30 PM CDT Inhaled Oxygen Concentration - - Weight 64 kg (141 lb) 01/27/2025 9:00 AM CDT Height 167.6 cm (5' 6) 01/27/2025 9:00 AM CDT Body Mass Index 22.76 01/27/2025 9:00 AM CDT Plan of Treatment Upcoming Encounters Date Type Department Care Team (Late st Contact Info) Description 04/15/2025 3:00 PM CDT Office Visit [facility] [address] [place] [phone] Terry Gavin MD [address] [place] [address] Health Maintenance Due Date Last Done Comments Tdap 1978 Depression screening for age 12+ 1979 HIV for age 15-65 1982 Hepatitis C screening for ag e 18-79 1985 Pneumococcal series for age 50+ (1 of 2 - PCV) 1986 Tetanus booster 1987 Pap test for age 21-65 1988 Colonoscopy through age 75 2012 Mammogram for age 45-75 2012 Zoster (shingles) series for age 50+ (1 of 2) 2017 COVID-19 vaccine series ( season) 2024 Influenza Vaccine (#1) 2024 BMI (ht and wt on same day) for age 18+ 06/11/2025 06/11/2024, 01/18/2024 Lipids for age 45-75 01/27/2030 01/27/2025, 01/24/2025, 06/11/2024, Additional history exists Medical Devices Implanted Type Area Movie Critic Device Identifier Shelf Expiration Date Model / Serial / Lot Valve Neuro Micro Hakim W/ [place] - [id number] Implanted:Qty: 1 on 11/08/2023 by Tra Santana MBChB at [facility] Left: Cranium [employer] 05/19/2028 [id number] / / [id number] Procedures Procedure Name Priority Date/Time Associated Diagnosis Comments CVL CORONARY ANGIOGRAM POSS PCI Routine 01/27/2025 2:16 PM CDT Cardiovascular symptoms LIPID PANEL Today 01/27/2025 9:28 AM CDT EKG 12 LEAD UNIT PERFORMED Routine 01/27/2025 9:19 AM CDT LIPID PANEL W REFLEX MEASURED LDL Routine 01/24/2025 Coronary artery disease due to lipid rich plaque AST (SGOT) Routine 01/24/2025 Coronary artery disease due to lipid rich plaque ALT (SGPT) Routine 01/24/2025 Coronary artery disease due to lipid rich plaque BASIC METABOLIC PANEL Routine 01/24/2025 Coronary artery disease due to lipid rich plaque CBC W PLT NO DIFF Routine 01/24/2025 Coronary artery disease due to lipid rich plaque MR HEAD BRAIN WO STAT 01/16/2025 9:03 PM METROLOGY MANAGER XR SHUNT SERIES CUSTOM STAT 01/16/2025 8:22 PM METROLOGY MANAGER BASIC METABOLIC PANEL STAT 01/16/2025 7:45 PM METROLOGY MANAGER CBC W PLT NO DIFF STAT 01/16/2025 7:4 5 PM METROLOGY MANAGER EKG 12 LEAD STAT 01/16/2025 7:34 PM METROLOGY MANAGER MR ANGIO HEAD BRAIN WWO Routine 12/10/2024 11:06 AM METROLOGY MANAGER SAH (subarachnoid hemorrhage) (HC) Cerebral aneurysm (HC) from Last 3 Months Results * CVL CORONARY ANGIOGRAM POSS PCI (01/27/2025 2:16 PM CDT) Anatomical Region Laterality Modality X-Ray Angiograph y, X-Ray Angiography 01/27/2025 2:16 PM CDT Narrative Transcriptions Barbara Emerson MD - 01/27/2025 2:52 PM CDT [facility] Cardiac Catheterization Report Name: POLLY SHAW Event Date: 01/27/2025 14:16 [facility] ID #: [id number] ANNALISA #: [id number] Patient Class: Outpatient Diagnostic Physician: BARBARA EMERSON [facility] Referring Physician: Date: 1965 Gender: Female Age: 59 Summary/Conclusions PRESENTATION / INDICATIONS * Chest Pain * Coronary Artery Disease: PCI of the left main coronary artery05/28/2015 DIAGNOSTIC - CORONARY * Mild to moderate two vessel coronary disease in a right dominantsystem DIAGNOSTIC SUMMARY ? The LMCA has patent stent from the 05/28/2015 procedure and is free ofsignificant disease. ? Mild to moderate distal LAD and LCX RECOMMENDATIONS & PLAN * Medical Rx Consent & Columbia Protocol The risks, benefits, and alternatives of the procedure were discussed withthe patient and written informed consent was obtained. Columbia protocol was followed. TIME OUT conducted just prior tostarting procedure confirmed patient identity, site/side, procedure,patient position, and availability of correct equipment and implants (ifapplicable). Staff Name Title BARBARA EMERSON Diagnostic Vp Public Relations Oswald Lazaro RN Nurse Aaron Ortiz CVT Scrub Cathleen Maguire CVT Monitor Shaun Hua CVT Monitor Brenda Jang Fellow Procedures ? Ultrasound Guided Vascular Access ? Coronary Angiogram ? Femoral Angio for Possible Closure Device Procedure Comments VASCULAR ACCESS * Using ultrasound guidance and a percutaneous technique, the right commonfemoral artery was accessed. Ultrasound was used to confirm vesselpatency, localizing needle into the lumen of the vessel. An image wassaved for the medical record. Diagnostic Findings * Left Main Coronary Artery ? The LMCA has patent stent from the 05/28/2015 procedure and is free ofsignificant disease. * Left Anterior Descending ? 40% calcified stenosis in the Mid LAD. * Circumflex ? 30% stenosis in the Proximal Circumflex. * Ramus ? 40% stenosis in the Ramus. * Right Coronary Artery ? The RCA is dominant, moderately calcified and is free of significantdisease. Lesion Information Lesion # Vessel Segment Lesion Length Lesion Details Ramus Mid LAD Proximal Circumflex Hemodynamics State: Baseline Pressures (mmHg) Site Systolic Diastolic End Diastolic A Wave V Wave Mean AO 198 91 113 Procedure Details Estimated Blood Loss: < 30 ml Specimen Collected: None Level of Sedation Achieved: Moderate Procedure Start: 14:16 Procedure End: 14:43 Procedure Time: 27 min Fluoroscopy Time: 6.2 min Cumulative Air Kerma: 229 mGy DAP: 1233 uGy/M2 Contrast: Omnipaque (low-osmolar), 40 ml Physiologic Data Weight: 63.5 kg BSA: 1.72 m2 Vascular Access Time Access Sheath Size 14:20 Right Femoral Artery, sheath inserted Complications ? No Complications Medications Ordered and Administered Start Time Stop Time Medication Dose Units Route Ordered By Given By 14:07 Fentanyl 50 mcg IV Barbara Emerson Alan RN 14:07 Versed 1 mg IV Barbara Emerson Alan RN 14:18 1% Lidocaine 20 ml Subcut Barbara Emerson Ivan J 14:19 Versed 1 mg IV Barbara Emerson Alan RN 14:19 Fentanyl 50 mcg IV Barbara Emerson Alan RN 14:28 Versed 1 mg IV Barbara Emerson Alan RN 14:32 Fentanyl 50 mcg IV Barbara Emerson Alan RN 14:38 Fentanyl 50 mcg IV Barbara Emerson Alan RN 14:39 Versed 1 mg IV Barbara Emerson Alan RN I personally monitored the patient?s conscious sedation during theprocedure. Conscious sedation starts with the first sedation medication dose ofFentanyl or Versed and ends when the procedure is completed, the patientis stable for recovery status, and the physician or other qualified healthcare professional providing the sedation ends personal [id number] time with the patient. The medications listed above were verbally ordered by me and read back tome as documented above. Refer to the procedure log report for additional case details. electronically signed on 01/27/2025 2:52:54 PM with status of Final Barbara Emerson MD [facility] [address] [address] (p) [phone](f) us Provider Referring CV IMAGING Edited Result - Final * (ABNORMAL) LIPID PANEL (01/27/2025 9:28 AM CDT) CHOLESTEROL,TOTAL 210(H) 100 - 199 mg/dL 01/27/2025 10:08 AM CDT [facility] Comment: Cholesterol, Total Reference Ranges Desirable <200 mg/dL Borderline 200-239 mg/dL High >=240 mg/dL TRIGLYCERIDES 85 <150 mg/dL 01/27/2025 10:08 AM CDT [facility] HDL CHOLESTEROL 72 >40 mg/dL 10:08 AM CDT [facility] NON-HDL CHOLESTEROL 138 <145 mg/dl 01/27/2025 10:08 AM CDT [facility] CHOL/HDL RATIO 2.92 <4.50 01/27/2025 10:08 AM CDT [facility] LDL CHOLESTEROL 121 <=130 mg/dL 01/27/2025 10:08 AM CDT [facility] VLDL CHOLESTEROL 17 <=30 mg/dL 01/27/2025 10:08 AM CDT [facility] PROVIDER ORDERED STATUS FASTING 01/27/2025 10:08 AM CDT [facility] Blood BLOOD SPECIMEN / Unknown Butterfly / Unknown 01/27/2025 9:28 AM CDT 01/27/2025 9:37 AM CDT Sara Pretty NP CHEMISTRY Final Result [facility] [address] [place] [address], * EKG 12 LEAD UNIT PERFORMED (01/27/2025 9:19 AM CDT) Pathologist [facility] Interpretation Sinus rhythm with short OH Otherwise normal ECG When compared with ECG of 16-Jan-2025 19:34, T wave inversion no longer evident in Lateral leads BEYOND NOW Ventricular Rate 83 BPM BEYOND NOW Atrial Rate 83 BPM BEYOND NOW P-R Interval 108 ms BEYOND NOW QRS Duration 84 ms BEYOND NOW QT 390 ms BEYOND NOW QTc 458 ms BEYOND NOW P [place] 58 degrees BEYOND NOW R [place] 71 degrees BEYOND NOW T [place] 66 degrees BEYOND NOW 01/27/2025 9:19 AM CDT 01/28/2025 7:40 PM CDT Narrative BEYOND NOW - 01/28/2025 7:40 PM CDT Test Indication: PREANGIO Barbara Emerson MD EKG ORD Final Result BEYOND NOW [place], [place] * LIPID PANEL W REFLEX MEASURED LDL (01/24/2025) Blood BLOOD SPECIMEN / Unknown 01/24/2025 Suresh Callaway MD CHEMISTRY Final Result * CBC W PLT NO DIFF (01/24/2025) Only the most recent of2 resultswithin the time period is included. WHITE BLOOD COUNT RED BLOOD COUNT HEMOGLOBIN HEMATOCRIT MCV MCH MCHC RDW PLATELET COUNT MPV Blood BLOOD SPECIMEN / Unknown 01/24/2025 Suresh Callaway MD HEMATOLOGY Final Result * ALT (SGPT) (01/24/2025) ALT (SGPT) Blood BLOOD SPECIMEN / Unknown 01/24/2025 Suresh Callaway MD CHEMISTRY Final Result * AST (SGOT) (01/24/2025) Blood BLOOD SPECIMEN / Unknown 01/24/2025 Suresh Callaway MD CHEMISTRY Final Result * BASIC METABOLIC PANEL (01/24/2025) Only the most recent of2 resultswithin the time period is included. SODIUM POTASSIUM CHLORIDE CO2,TOTAL ANION GAP GLUCOSE BUN CREATININE BUN/CREAT RATIO CALCIUM Blood BLOOD SPECIMEN / Unknown 01/24/2025 us Suresh Callaway MD CHEMISTRY Final Result * MR HEAD BRAIN WO (01/16/2025 9:03 PM METROLOGY MANAGER) Anatomical Region Laterality Modality BRAIN, HEAD Magnetic Resonan ce 01/16/2025 9:16 PM METROLOGY MANAGER Impressions 01/16/2025 9:16 PM METROLOGY MANAGER 1. No acute intracranial abnormality. 2. Stable left temporooccipital approach shunt catheter and well decompressed ventricular system. 3. Few punctate FLAIR hyperintensities in the supratentorial white matter are nonspecific, though most typical for sequelae of migraine headaches or minimal chronic microvascular ischemic changes. 4. Scattered hemosiderin staining of bihemispheric sulci may relate to sequelae of remote trauma. Dictated by Blane Hernandez MD @ 01/16/2025 9:16:21 PM (Electronically Signed) Narrative 01/16/2025 9:16 PM METROLOGY MANAGER For Patients: As a result of the Cures Act, medical imaging exams and procedure reports are released immediately into your electronic medical record. You may view this report before your referring provider. If you have questions, please contact your health care provider. INDICATION: Acute neurologic deficit. TECHNIQUE: Multiplanar multisequence noncontrast MR images of the brain. COMPARISON: CT brain 09/25/2024. FINDINGS: Stable left temporooccipital approach shunt catheter coursing through the left lateral ventricle to terminate at midline. Susceptibility artifact secondary to the shunt limits evaluation of adjacent structures. Stable well-decompressed supratentorial ventricular system. No mass effect or midline shift. Encephalomalacia and gliosis along a removed right frontal catheter tract. Few punctate FLAIR hyperintensities in the supratentorial white matter, nonspecific. No diffusion restriction to suggest acute infarction. Scattered hemosiderin staining along bihemispheric sulci as well as within the right sylvian fissure. No recent intracranial hemorrhage or pathologic extra-axial fluid collection. The major arterial flow voids at the skull base are preserved. The globes are symmetric. Minimal ethmoid sinus mucosal thickening. Trace left mastoid fluid. Procedure Note Blane Hernandez MD - 01/16/2025 For Patients: As a result of the Century Cures Act, medical imagingexams and procedure reports are released immediately into your electronicmedical record. You may view this report before your referring provider.If you have questions, please contact your health care provider. INDICATION: Acute neurologic deficit. TECHNIQUE: Multiplanar multisequence noncontrast MR images of the brain. COMPARISON: CT brain 09/25/2024. FINDINGS: Stable left temporooccipital approach shunt catheter coursing through theleft lateral ventricle to terminate at midline. Susceptibility artifactsecondary to the shunt limits evaluation of adjacent structures. Stablewell-decompressed supratentorial ventricular system. No mass effect ormidline shift. Encephalomalacia and gliosis along a removed right frontalcatheter tract. Few punctate FLAIR hyperintensities in the supratentorialwhite matter, nonspecific. No diffusion restriction to suggest acute infarction. Scatteredhemosiderin staining along bihemispheric sulci as well as within the rightsylvian fissure. No recent intracranial hemorrhage or pathologicextra-axial fluid collection. The major arterial flow voids at the skull base are preserved. The globesare symmetric. Minimal ethmoid sinus mucosal thickening. Trace leftmastoid fluid. IMPRESSION: 1. No acute intracranial abnormality. 2. Stable left temporooccipital approach shunt catheter and welldecompressed ventricular system. 3. Few punctate FLAIR hyperintensities in the supratentorial white matterare nonspecific, though most typical for sequelae of migraine headaches orminimal chronic microvascular ischemic changes. 4. Scattered hemosiderin staining of bihemispheric sulci may relate tosequelae of remote trauma. Dictated by Blane Hernandez MD @ 01/16/2025 9:16:21 PM (Electronically Signed) us Israel Rock MD MR Final Re sult * XR SHUNT SERIES CUSTOM (01/16/2025 8:22 PM METROLOGY MANAGER) Anatomical Region Laterality Modality Digital Radiogra phy 01/16/2025 9:03 PM METROLOGY MANAGER Narrative 01/17/2025 3:26 PM METROLOGY MANAGER For Patients: As a result of the Cures Act, medical imaging exams and procedure reports are released immediately into your electronic medical record. You may view this report before your referring provider. If you have questions, please contact your health care provider. Indication: Evaluate ventriculoperitoneal shunt. Technique: Frontal and lateral radiographs of the skull, thorax, and abdomen were obtained. Comparison: 11/09/2023 XR Findings: A ventriculoperitoneal shunt extends from the left parietal region, traverses the left neck, left anterior chest, left abdomen, and terminates in the left abdomen. The shunt catheter appears intact without evidence of fracture. The programmable shunt valve setting is set to 120 mm water. A oval hyperdensity in the left hilum likely represents calcified hilar lymph node or granuloma. Hernia repair mesh noted in the anterior abdomen. Atherosclerotic calcifications in the abdominal aorta. Copious stool throughout the colon. Impression: 1. Evaluation of ventriculoperitoneal shunt without evidence of fracture. 2. The programmable shunt valve setting is set to 120 mm water, unchanged since prior exam 3. A oval hyperdensity in the left hilum likely represents calcified hilar lymph node or granuloma. 4. Copious stool throughout the colon. Dictated by Darnell Mercado MD @ 01/17/2025 3:26:52 PM (Electronically Signed) Procedure Note Darnell Mercado MD - 01/17/2025 For Patients: As a result of the Cures Act, medical imagingexams and procedure reports are released immediately into your electronicmedical record. You may view this report before your referring provider.If you have questions, please contact your health care provider. Indication: Evaluate ventriculoperitoneal shunt. Technique: Frontal and lateral radiographs of the skull, thorax, and abdomen wereobtained. Comparison: 11/09/2023 XR Findings: A ventriculoperitoneal shunt extends from the left parietal region,traverses the left neck, left anterior chest, left abdomen, and terminatesin the left abdomen. The shunt catheter appears intact without evidence of fracture. The programmable shunt valve setting is set to 120 mm water. A oval hyperdensity in the left hilum likely represents calcified hilarlymph node or granuloma. Hernia repair mesh noted in the anterior abdomen.Atherosclerotic calcifications in the abdominal aorta. Copious stoolthroughout the colon. Impression: 1. Evaluation of ventriculoperitoneal shunt without evidence offracture. 2. The programmable shunt valve setting is set to 120 mm water, unchangedsince prior exam 3. A oval hyperdensity in the left hilum likely represents calcified hilarlymph node or granuloma. 4. Copious stool throughout the colon. Dictated by Darnell Mercado MD @ 01/17/2025 3:26:52 PM (Electronically Signed) us Israel Rock MD GENERAL IMAGING Final Re sult * EKG 12 LEAD (01/16/2025 7:34 PM METROLOGY MANAGER) Interpretation Normal sinus rhythm ST & T wave abnormality, consider lateral ischemia Abnormal ECG NST, no STEMI, artifact otherwise no changes BEYOND NOW Ventricular Rate 98 BPM BEYOND NOW Atrial Rate 98 BPM BEYOND NOW P-R Interval 112 ms BEYOND NOW QRS Duration 78 ms BEYOND NOW QT 372 ms BEYOND NOW QTc 474 ms BEYOND NOW P [place] 60 degrees BEYOND NOW R [place] 74 degrees BEYOND NOW T [place] 67 degrees BEYOND NOW 01/16/2025 7:34 PM METROLOGY MANAGER 01/18/2025 3:12 PM METROLOGY MANAGER us Israel Rock MD EKG ORD Final Re sult BEYOND NOW [place], [place] * MR Angio Head w/wo Contrast (12/10/2024 11:06 AM METROLOGY MANAGER) Anatomical Region Laterality Modality HEAD, BRAIN Magnetic Resonan ce 12/10/2024 11:4 4 AM METROLOGY MANAGER Impressions 12/10/2024 11:44 AM METROLOGY MANAGER Complete occlusion of aneurysm. We will obtain a 2-year follow-up MRA, due in October 2025. Buddy Dyson MD Neurointerventional Radiologist [facility] [place] Dictated by Buddy Dyson MD @ 12/10/2024 11:44:10 AM (Electronically Signed) Narrative 12/10/2024 11:44 AM METROLOGY MANAGER For Patients: As a result of the [...] October 2025. Buddy Dyson MD Neurointerventional Radiologist [facility] Dictated by Buddy Dyson MD @ 12/10/2024 11:44:10 AM (Electronically Signed) Buddy Dyson MD MR Final Result from Last 3 Months Additional Health Concerns Infection Onset Date Last Indicated MDRO Clearance Comment:Infection Control Note: Hx of ESBL, surveillance criteria met, no need for further testing or isolation precautions. Do not delete or resolve the Infection Flag. ESBL E. coli 11/08/23 - Urine 01/27/2025 01/27/2025 Insurance MEDICARE PART A HB ONLY MEDICARE PB ONLY MEDICARE PART B HB ONLY MEDICA ACCESSABILITY SOLUTION MEDICARE PART B HB ONLY MEDICA CHOICE CARE Advance Directives * Full Code (Latest Code Status on File) Date Activated Date Inactivated Comments 01/27/2025 10:10 AM 01/27/2025 10:08 PM Question Answer Comments Code Status Discussion: Reviewed Preferences * Full Code Date Activated Date Inactivated Comments 01/27/2025 9:29 AM 01/27/2025 10:10 AM Question Answer Comments Code Status Discussion: Unable to Assess Preferences, Provider to review later * Full Code Date Activated Date Inactivated Comments 11/10/2023 12:04 PM 11/18/2023 1:56 PM Question Answer Comments Code Status Discussion: Reviewed Preferences * Full Code Date Activated Date Inactivated Comments 10/25/2023 1:52 AM 11/10/2023 12:03 PM Question Answer Comments Code Status Discussion: Reviewed Preferences * Full Code Date Activated Date Inactivated Comments 05/27/2015 5:03 PM 05/29/2015 12:49 PM Care Teams Security Installation Technician Relationship Specialty Start Date End Date Afia Rousseau MD [address] [place] [id number] PCP - General Internal Medicine 01/29/15
--- OUTSIDE RECORDS SUMMARY | 2025-02-16 16:12 | XMS_ITS | Clinical Summary ---
Author Organization [facility] Address [address] [address] Care Team Providers Care Physical Metallurgist Name Role Phone Afia Rousseau MD Primary Care Provider [phone] Source Comments You are receiving this document as you are listed as the primary care provider,follow-up provider, or the patient has been referred to you for consultation.This is in compliance with the Medicare and[facility] EHR Incentive Program,which states Providers who transition their patient to another setting of careor provider of care or refers their patient to another provider of care shouldprovide summary care record for each transition of care or referral. [facility] Active Allergy Reactions Criticality Noted Date [...] CDT) Hepatitis C Antibody Nonreactive Nonreactive PN TREY 08/04/2017 10:2 3 AM CDT 08/04/2017 12:18 PM CDT Narrative PN SOFT - 08/04/2017 1:18 PM CDT Performed at [address] [address] CLIA number [id number] us Deepti Hannah MD LAB_1 Final Resul t SOFT [address] [place] [phone] from Last 3 Months or Most Recently Relevant to Health Maintenance Insurance MEDICA ACCESSABILITY MEDICARE Care Teams Physical Metallurgist Relationship Specialty Start Date End Date Afia Rousseau MD [address] [place] [address] PCP - General Internal Medicine 07/20/17
--- OUTSIDE RECORDS SUMMARY | 2025-02-16 16:12 | XMS_ITS | Encounter Summary ---
Author Organization [facility] Address [address] [place] [address] Care Team Providers Care Psychologist Social Name Role Phone Afia Rousseau MD Primary Care Provider Buddy Dyson MD Unavailable Joni Garcia MD Unavailable [phone] Joni Garcia MD Unavailable [phone] Reason for Visit * Reason Onset Date Comments Appointment 01/19/2024 Patient would li ke appointment information with Dr Garcia to be sent out USPS Encounter Details Date Type Department Care Team ([facility] st Contact Info) Description 01/19/2024 [facility] Eye [facility] - [address] [place] [phone] Joni Garcia MD [address] [place] [address], [address] [address] Appointment (Patient would like appointment information with Dr Garcia to be sent out USPS) Social History Tobacco Use Types Packs/Day Years Used Date Smoking Tobacco: Every Day Adolescent Education Answer Date Record ed Getting School Help Needed Not on file 08/27 Comments Unknown Sex and Gender Information Value Date Recorded Sex Assigned at Not on file Legal Sex Female 3:52 AM IS PROJECT MANAGER Gender Identity Not on file Sexual Orientation Not on file documented as of this encounter Miscellaneous Notes * Telephone Encounter - Elzbieta Pennington - 01/22/2024 6:49 AM CST Sent new patient packet..jam PROJECT MANAGER * Telephone Encounter - Beverly Gonzales - 01/19/2024 4:46 PM CST [facility] Phone Message May a detailed message be left on voicemail: yes Reason for Call: Patient would like appointment information with Dr Garcia to be sent out USPS Thank you, Action Taken: Message routed to: [facility] ([facility] [place]): eye Travel Screening: Not Applicable PROJECT MANAGER documented in this encounter Plan of Treatment Not on file documented as of this encounter Visit Diagnoses Not on filedocumented in this encounter Care Teams Psychologist Social Relationship Specialty Start Date End Date Afia Rousseau MD [facility] [address] [place] [address] PCP - General Internal Medicine 10/07/16 Buddy Dyson MD [facility] [address] [place] [address] Referring Physician 01/19/24 Joni Garcia MD [address] [place] [id number] Ophthalmology 01/19/24 Joni Garcia MD [address] [place] [id number] Assigned Surgical Provider 03/12/24 documented as of this encounter
--- OUTSIDE RECORDS SUMMARY | 2025-02-16 16:12 | XMS_ITS | CCD ---
Author Organization Unknown Care Team Providers Care State Attorney Name Role Phone [employer] Commercial Salesperson, [place] Primary Care Provider Unava ilable Unavailable Chronic Care Management Unavaila ble Summary Purpose DataExchange Insurance Providers Payer name Policy type / Coverage type Covered constitution party ID Effective Begin Date Effective End Date Medicare [place] Medicare Part B [id number] Unknown Unknown [employer] ([facility]) Medicare Part B [id number] Unknown U nknown Family History Family History data not found Medication Administered No Medication Administered data Reason For Visit No Reason For Visit data
--- OUTSIDE RECORDS SUMMARY | 2025-02-16 16:12 | XMS_ITS | Continuity of Care Document ---
Author Organization [facility] Address [address] [address] [place] [address] Phone Care Team Providers Care Data Warehouse Analyst Name Role Phone Derik MCLEOD, Maria C Unavailable Unavailable Procedures Procedure Date Subsqt Hosp-da E&m Minr Compl 5 Init Hosp-da E&m Mod Severity Advance Directives Directive Yes / No Effective Date File Name No Information Encounters Encounter Description Practice Location Reason(s) For Visit Diagnoses Date Provider Providers Copied on Encounter Subsqt Hosp-da E&m Minr Compl [facility] [place], [address] [address], [place], [place], [id number], [place] tel:[phone] [facility] No Information 5 Derik Lombardi. [address] [facility], [facility] [address], [place], [place], [id number], [place]. tel:[phone] Referring Provider: Meagan Sargent MD, [address] [facility] [address], [place], [address]. tel:[phone] Init Hosp-da E&m Mod Severity [facility], [address] [address], [place], [place], [id number], [place] tel:[phone] [facility] No Information No Information Referring Provider: Meagan Sargent MD, [address] [facility] [address], [place], [address]. tel:[phone] Family History Family Member Type Diagnosis Age At Onset No Information Payers Payer name Insurance type Covered alliance party ID Kel ferguson(s) Medicare [facility] [id number] Med[employer] [place] [id number] Social History Type Description Quantity Date Captured [...]
--- OUTSIDE RECORDS SUMMARY | 2025-02-16 16:12 | XMS_ITS | CCD ---
Author Organization Unknown Care Team Providers Care Kitchen And Counter Worker Name Role Phone Motor Builder [place], [place] Primary Care Provider Unava ilable Unavailable Chronic Care Management Unavaila ble Summary Purpose DataExchange Insurance Providers Payer name Policy type / Coverage type Covered libertarian ID Effective Begin Date Effective End Date Medicare [place] Medicare Part B [id number] Unknown Unknown [employer] ([facility]) Medicare Part B [id number] Unknown U nknown Family History Family History data not found Medication Administered No Medication Administered data Reason For Visit No Reason For Visit data
--- OUTSIDE RECORDS SUMMARY | 2025-02-16 16:12 | XMS_ITS | Clinical Summary ---
Author Organization [facility] Address [address] [place] [address] Care Team Providers Care Software Technical Lead Name Role Phone Afia Rousseau MD Primary Care Provider Buddy Dyson MD Unavailable Joni Garcia MD Unavailable [phone] Joni Garcia MD Unavailable [phone] Allergies Active Allergy Reactions Criticality Noted [...] mouth At Bedtime Active cholecalciferol (VITAMIN D3) 76147 UNITS capsule Take 1 capsule by mouth [...] on file Legal Sex Female 3:52 AM WAGON DRIVER SALESPERSON Gender Identity Not on file Sexual Orientation Not on file Last Filed Vital Signs Vital Sign Reading Time Taken Comments Blood Pressure 134/84 10/26/2016 8:35 AM WAGON DRIVER SALESPERSON Pulse 110 10/26/2016 8:35 AM WAGON DRIVER SALESPERSON Temperature 36.6 C (97.9 F) 10/26/2016 8:35 AM WAGON DRIVER SALESPERSON Respiratory Rate 18 10/26/2016 8:35 AM WAGON DRIVER SALESPERSON Oxygen Saturation 99% 10/26/2016 8:35 AM WAGON DRIVER SALESPERSON Inhaled Oxygen Concentration - - Weight 70.4 kg (155 lb 3.3 oz) 10/26/2016 8:35 A M WAGON DRIVER SALESPERSON Height - - Body Mass Index - - Plan of Treatment Health Maintenance Due Date Last Done Comments ADVANCE CARE PLANNING 1967 ANNUAL REVIEW OF HM ORDERS 1967 CT COLONOGRAPHY 1967 DIABETES SCREENING 1967 FIT 1967 FLEX SIG 1967 LIPID 1967 MAMMO SCREENING 1967 sDNA [...] age to complete this topic Insurance MEDIC[place] [address] [address] [place] [id number] [place] ACCESS [place] MEDICA ACCESS [facility] MEDICARE [place] MEDICARE OTHER on file Care Teams Software Technical Lead Relationship Specialty Start Date End Date Afia Rousseau MD [facility] [address] [place] [address] PCP - General Internal Medicine 10/07/[address] [facility] [address] [place] [address] Referring Physician 01/19/24 Joni Garcia MD [address] [place] [id number] Ophthalmology 01/19/24 Joni Garcia MD [address] [place] [address] [address] [place] [address] Assigned Surgical Provider 03/12/24
[2025-02-16 16:19] VITALS: BP 120/80; PULSE 105; RESP 16; TEMP 36.3; O2SAT 99; BMI 23.5
--- NOTE | 2025-02-16 16:56 | ED.GENADULT ---
HPI - General Adult General Time Seen by Provider: 16:41 Date Seen: 02/16/25 Chief complaint: Eye Problems Stated complaint: Left eye issues Time Seen by Provider: 02/16/25 16:41 Source: patient and RN notes reviewed Mode of arrival: ambulatory Limitations: no limitations History of Present Illness HPI narrative: This 59-year-old female is coming in with left eye concerns. Her I has been irritated, feels like there is cm paper throughout the whole eye. She notes visual changes, told her that she was maybe seeing double vision or visual changes in the left eye starting this morning. She denies any history of fevers chills or cough or cold symptoms. The eye has been watering but not mattered shut, no purulent drainage. She states it feels a little numb just around the cheek below the eye. She has a headache. This is global. Most of these symptoms started last night. Despite telling me she has had no upper respiratory or cough or cold symptoms, she was in urgent care yesterday with complaint of sore throat and lymph node in her left neck. Her examination was normal there, no reviewed, had negative strep test. Patient on her are ultimately concerned as she has had a history of a brain aneurysm. 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 She was transferred to [place]. She is worried something is going on internally in her brain. She has not noted fevers chills. She is chronic smoker. No trauma to the eye, notes it feels globally like sandpaper in the eye. Related Data Home Medications ?Medication ?Instructions ?Recorded ?Confirmed aspirin 81 mg chewable tablet 1 tab PO DAILY 06/17/22 02/16/25 clopidogrel 75 mg tablet 75 mg PO DAILY 10/30/22 02/16/25 Magnesium spray PO 07/11/23 02/15/25 nitroglycerin 0.4 mg sublingual mg sublingual 11/23/23 02/15/25 tablet polyethylene glycol 3350 17 g PO QDAY 01/13/25 02/15/25 gram/dose oral powder sennosides 8.6 mg-docusate sodium 2 tab PO QDAY 01/13/25 02/16/25 50 mg tablet (Senexon-S) isosorbide mononitrate 20 mg tablet 15 mg PO QDAY 01/16/25 02/16/25 Previous Rx's ?Medication ?Instructions ?Recorded ondansetron 4 mg disintegrating 4 mg PO Q6H PRN nausea and 11/23/23 tablet vomiting #30 tabs cyclobenzaprine 10 mg tablet 10 mg PO Q8H PRN pain #60 tabs 12/12/23 nicotine 14 mg/24 hr daily 1 patch topical DAILY #28 ea 01/02/25 transdermal patch ondansetron 4 mg disintegrating 4 mg PO Q6H PRN nausea and 01/30/25 tablet vomiting #30 tabs oxycodone 15 mg tablet 15 mg PO Q4H PRN pain #124 tabs 01/30/25 oxycodone 40 mg tablet,crush 40 mg PO BID #62 tabs 01/30/25 resistant,extended release 12 hr (OxyContin) zolpidem 5 mg tablet 2.5 - 5 mg (0.5 - 1 x 5 mg) PO QHS 01/30/25 #30 tabs Allergies Allergy/AdvReac Type Severity Reaction Status Date / Time amoxicillin (From Augmentin) Allergy Severe Vomiting Verified 02/16/25 16:28 clavulanic acid (From Allergy Severe Vomiting Verified 02/16/25 16:28 Augmentin) adhesive AdvReac Intermediate Tears skin Verified 02/16/25 16:28 band-aids Allergy Mild Uncoded 01/30/25 14:57 Review of Systems Status of ROS: Reports: 6 or more systems reviewed and unremarkable except as noted in History and below [facility] Medical History History of palpitations ?Z87.898 - Personal history of other specified conditions (ICD-10) History of small bowel obstruction (2012) ?Z87.19 - Personal history of other diseases of the digestive system (ICD-10) History of sepsis (2011) ?Z86.19 - Personal history of other infectious and parasitic diseases (ICD-10) History of depression ?Z86.59 - Personal history of other mental and behavioral disorders (ICD-10) Surgical History 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 - Lesion of ulnar nerve, unspecified upper limb (ICD-10) History of left salpingo-oophorectomy ?Z90.79 - Acquired absence of other genital organ(s) (ICD-10) ?Z90.721 - Acquired absence of ovaries, unilateral (ICD-10) Vesico-vaginal fistula ?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.0 - Vesicovaginal fistula (ICD-10) Status post wrist surgery (09/10/09) ?Z98.890 - Other specified postprocedural states (ICD-10) History of ventral hernia repair (03/27/13) ?Z98.890 - Other specified postprocedural states (ICD-10) ?Z87.19 - Personal history of other diseases of the digestive system (ICD-10) History of repair of rotator cuff (09/10/09) ?Z98.890 - Other specified postprocedural states (ICD-10) History of oophorectomy (07/11/11) History of hysterectomy (09/10/09) ?Z90.710 - Acquired absence of both cervix and uterus (ICD-10) History of section (09/10/09) ?Z98.891 - History of uterine scar from previous surgery (ICD-10) History of cervical spinal surgery (09/10/09) ?Z98.890 - Other specified postprocedural states (ICD-10) Family History Father Colon cancer Brother Colon cancer Paternal Grandfather Colon cancer Social History What is your current living situation?: I presently have a place to live Problems where you live: no known problems In the past 12 months, utilities in danger of being shut off: no In past 12 months, lack of transportation kept you from medical appts, meetings, work, or getting things needed for daily living: no In the past 12 mos, have been you worried that your food would run out before you had money to buy more?: never true In the past 12 mos, the food you bought just didn't last and you didn't have money to buy more?: never true Smoking Status: Former smoker Do you use any of these nicotine containing products: None How often do you have a drink containing alcohol: never How often do you have six or more drinks on one occasion: Never AUDIT-C Alcohol total score: 0 Non-prescribed substance use: denies use How often does anyone, including family, friends and others, physically hurt you: never How often does anyone, including family, friends and others, insult or talk down to you: rarely How often does anyone, including family, friends and others, threaten you with harm: never How often does anyone, including family, friends and others, scream or curse at you: rarely Health Related Social Needs: Other personal risk factors, not elsewhere classified (Z91.89) Exam Const: Vital Signs, click to edit/add: Vital Signs - 24 hr 02/16/25 16:19 02/16/25 18:27 Temperature 97.4 F L Pulse Rate 89 Pulse Rate [Pulse Oximeter] 105 H Respiratory Rate 16 16 Blood Pressure 118/76 Blood Pressure [Ri ght Upper Arm] 120/80 Pulse Oximetry 99 99 Oxygen Delivery Me thod Room Air Room Air This 59-year-old female is alert, interactive, no apparent distress. She is ambulatory during her time here in the ER without any difficulty. Her gait is normal. Her right pupil is dilated, nonreactive. She does have conjugate gaze, extraocular muscles are intact. She has symmetrical facial function, no rash, no periorbital swelling or erythema on either side noted. Her left conjunctiva is erythematous but no ciliary flush noted, no chemosis at this point. She has watering. Her face has symmetrical function. Oropharynx normal mucosa, no exudates or erythema, posterior pharynx looks normal. Palate does elevate, tongue movement is normal. Neck is supple, no adenopathy or masses noted lungs are clear, good air entry, no wheeze or crackles. CV regular rate and rhythm, no murmur. Documenting provider has reviewed patient's vital signs: yes Course Course ED Course: She has no periorbital symptoms but does describe irritation of the conjunctiva. She does state there some visual changes but they reportedly persist even with monocular vision. I suspect that she is probably suffering from some mattering or swelling with the in the conjunctiva or cornea and is getting some disturbance of the vision. We will do head CT as she is quite concerned that the headache could represent something. It is possible she has underlying viral syndrome that is associated with conjunctivitis. Clinically she really looks like she has conjunctivitis. Will do full complement of labs including inflammatory markers to rule out concern for infection. Reevaluation(s) Time of Reevaluation #1: 18:48 Reevaluation #1: Have reviewed with patient her head CT is reassuring. Her labs are reassuring as well, no evidence of elevated white blood count, no elevated inflammatory markers. Will have her treat with eye drops for conjunctivitis. There is no evidence of recurrent brain bleed which she was worried about. Would expect significantly different labs and presentation if any concern for severe infection like periorbital cellulitis, encephalitis. She really clinically looks quite well, has been ambulatory in the department with normal gait. Vital Signs Vital signs: Initial Vital Signs Temperature 97.4 F L 02/16/25 16:19 Temperature Source Temporal Artery Scan 02/16/25 16:19 Pulse Rate 105 H 02/16/25 16:19 Respiratory Rate 16 02/16/25 16:19 Blood Pressure 120/80 02/16/25 16:19 Blood Pressure Mean 93 02/16/25 16:19 Pulse Oximetry 99 02/16/25 16:19 Oxygen Delivery Method Room Air 02/16/25 16:19 Vital Signs Temperature 97.4 F L 02/16/25 16:19 Pulse Rate 105 H 02/16/25 16:19 Respiratory Rate 16 02/16/25 16:19 Blood Pressure 120/80 02/16/25 16:19 Pulse Oximetry 99 02/16/25 16:19 Oxygen Delivery Method Room Air 02/16/25 16:19 Temperature 97.4 F L 02/16/25 16:19 Pulse Rate 89 02/16/25 18:27 Respiratory Rate 16 02/16/25 18:27 Blood Pressure 118/76 02/16/25 18:27 Pulse Oximetry 99 02/16/25 18:27 Oxygen Delivery Method Room Air 02/16/25 18:27 Medical Decision Making Lab Data Lab results reviewed: Yes I reviewed the patient's lab results Labs: Lab Results 02/16/25 Range/Units 17:20 WBC 6.53 (4.50-11.00) K/uL RBC 4.44 (4.00-5.20) m/uL Hgb 13.4 (12.0-16.0) gm/dL Hct 42.5 (33.0-51.0) % MCV 96 (80-100) fL MCH 30 (26-34) pg MCHC 32 (32-36) gm/dL RDW Coeff of Oliverio 13.1 (11.5-15.5) % Plt Count 284 (140-440) K/uL Neut % (Auto) 51.6 (42.0-72.0) % Lymph % (Auto) 40.4 (20-44) % Kerr % (Auto) 5.7 (0.0-11.0) % Eos % (Auto) 1.8 (0.0-7.0) % Baso % (Auto) 0.5 (0.0-3.0) % Neut # (Auto) 3.37 (1.7-7.0) K/uL Lymph # (Auto) 2.64 (0.90-2.90) K/uL Kerr # (Auto) 0.40 (0.00-0.90) K/UL Eos # (Auto) 0.12 (0.00-0.50) K/uL Baso # (Auto) 0.03 (0.00-0.30) K/uL Abs Immat Gran (auto) 0.00 (0.00-0.30) K/uL Imm/Tot Granulo (auto) 0.0 % INR 0.90 L (0.91-1.10) APTT 27 (23-33) Seconds Sodium 141 (135-149) mmol/L Potassium 3.6 (3.6-5.1) mmol/L Chloride 104 (96-114) mmol/L Carbon Dioxide 28 (20-32) mmol/L Anion Gap 9 (7-15) mEq/L BUN 9 (7-30) mg/dL Creatinine 0.8 (0.5-1.5) mg/dL Estimated Creat Clear 69.82 Estimated GFR 86 ml/min Glucose 96 (60-115) mg/dL Calcium 9.3 (8.4-10.6) mg/dL Total Bilirubin 0.4 (0.1-1.5) mg/dL AST 24 (12-35) U/L ALT 17 (4-35) U/L Alkaline Phosphatase 79 (40-150) U/L C-Reactive Protein < 0.5 L (0.5-1.0) mg/dL Total Protein 7.8 (6.0-8.3) g/dL Albumin 4.9 (3.3-5.0) g/dL Procalcitonin 0.03 (<0.50) ng/mL Imaging Data CT scan - head: Attestation: I have reviewed the pertinent imaging results. Radiologist's impression: Patient: DALIA SHAW Facility:?[facility] Patient ID:?[id number] Site Patient ID:?[id number]. Site :?[id number] Study:?CT-Head W/O-02/16/2025 5:34:42 PM Ordering Physician:Veto Mata Final Report: Indication: LEFT EYE DIPLOPIA, LEFT FACIAL NUMBNESS AROUND EYE, HX SAH Technique: CT of the head without contrast. Coronal and sagittal reformats. Bone and soft tissue windows. Comparison: CT 01/12/2025 Findings: Stable positioning of the left occipital approach ventriculostomy catheter with tip in the left lateral ventricle. No hydrocephalus. Carotid siphon and vertebral artery atherosclerosis. Embolized presumed right supraclinoid ICA aneurysm. No acute intracranial hemorrhage or extra-axial collection. No evidence of acute cortical infarction. No mass effect or midline shift. Normal cerebral volume. The ventricles are normal in size, shape and contour. There is normal cerws and white matter differentiation. The orbital contents are normal. No calvarial fractures. No lytic or sclerotic osseous lesions within the calvarium or skull base. Scalp and other imaged soft tissue structures are normal. Mastoid air cells are clear. Paranasal sinuses are well aerated. Impression: 1. No acute intracranial abnormality. 2. Stable positioning of left occipital approach ventriculostomy catheter with tip in the left lateral ventricle. No hydrocephalus. Stable ventricular configuration. 3. Embolized presumed right supraclinoid ICA aneurysm. Please note that all CT scans at this facility use dose modulation, iterative reconstruction, and/or weight-based dosing when appropriate to reduce radiation dose to as low as reasonably achievable. Dictated by Darnell Mercado MD @ 02/16/2025 5:54:39 PM (Electronic Signature) Discharge Plan Discharge Clinical Impression: History of subarachnoid hemorrhage Acute conjunctivitis of left eye Qualifiers: Acute conjunctivitis type: unspecified Qualified Code(s): H10.32 - Unspecified acute conjunctivitis, left eye Patient Disposition: Home, Self-Care Condition: Stable Instructions: Conjunctivitis (ED) Additional Instructions: Use the gentamicin sulfate eyedrops. Two drops to the left eye 4 times a day for the next 5 days. Use good handwashing to help stop the spread. If you do start to get the same symptoms in your right eye, can use the eyedrops the same as you are on your left eye. If your eye is not improving over the next couple days, is worsening at any point or if you have further concerns, do recommend seeing an eye doctor. Activity Level: Activity as Tolerated Prescriptions: No Action Magnesium spray PO ondansetron 4 mg tablet,disintegrating 4 mg PO Q6H PRN (Reason: nausea and vomiting) Qty: 30 12RF oxycodone [OxyContin] 40 mg tablet,oral only,ext.rel.12 hr 40 mg PO BID Qty: 62 0RF oxycodone 15 mg tablet 15 mg PO Q4H PRN (Reason: pain) Qty: 124 0RF zolpidem 5 mg tablet 2.5 - 5 mg PO QHS Qty: 30 4RF aspirin 81 mg tablet,chewable 1 tab PO DAILY nitroglycerin 0.4 mg tablet, sublingual sublingual ondansetron 4 mg tablet,disintegrating 4 mg PO Q6H PRN (Reason: nausea and vomiting) Qty: 30 3RF sennosides-docusate sodium [Senexon-S] 8.6-50 mg tablet 2 tab PO QDAY polyethylene glycol 3350 17 gram/dose powder PO QDAY isosorbide mononitrate 20 mg tablet 15 mg PO QDAY Rx Instructions: give doses 7 hrs apart clopidogrel 75 mg tablet 75 mg PO DAILY Patient Comments: TAKE ONE TABLET BY MOUTH EVERY DAY IN THE MORNING. cyclobenzaprine 10 mg tablet 10 mg PO Q8H PRN (Reason: pain) Qty: 60 5RF nicotine 14 mg/24 hr patch 24 hour 1 patch topical DAILY Qty: 28 0RF Follow Up/Referrals: Afia Rousseau MD [Primary Care Provider] - Stand Alone Forms: [facility] Part of [employer] Info Instructions
--- NOTE | 2025-02-16 17:04 | CRLHL7_ITS ---
For Patients: As a result of the Century Cures Act, medical imaging exams and procedure reports are released immediately into your electronic medical record. You may view this report before your referring provider. If you have questions, please contact your health care provider. Indication: LEFT EYE DIPLOPIA, LEFT FACIAL NUMBNESS AROUND EYE, HX SAH Technique: CT of the head without contrast. Coronal and sagittal reformats. Bone and soft tissue windows. Comparison: CT 01/12/2025 Findings: Stable positioning of the left occipital approach ventriculostomy catheter with tip in the left lateral ventricle. No hydrocephalus. Carotid siphon and vertebral artery atherosclerosis. Embolized presumed right supraclinoid ICA aneurysm. No acute intracranial hemorrhage or extra-axial collection. No evidence of acute cortical infarction. No mass effect or midline shift. Normal cerebral volume. The ventricles are normal in size, shape and contour. There is normal crews and white matter differentiation. The orbital contents are normal. No calvarial fractures. No lytic or sclerotic osseous lesions within the calvarium or skull base. Scalp and other imaged soft tissue structures are normal. Mastoid air cells are clear. Paranasal sinuses are well aerated. Impression: 1. No acute intracranial abnormality. 2. Stable positioning of left occipital approach ventriculostomy catheter with tip in the left lateral ventricle. No hydrocephalus. Stable ventricular configuration. 3. Embolized presumed right supraclinoid ICA aneurysm. Please note that all CT scans at this facility use dose modulation, iterative reconstruction, and/or weight-based dosing when appropriate to reduce radiation dose to as low as reasonably achievable. Dictated by Darnell Mercado MD @ 02/16/2025 5:54:39 PM (Electronically Signed)
[2025-02-16 17:34] LABS: Basophils Absolute Auto 0.03 K/uL (0.00-0.30); Basophils Percent Auto 0.5 % (0.0-3.0); Eosinophils Absolute Auto 0.12 K/uL (0.00-0.50); Eosinophils Percent Auto 1.8 % (0.0-7.0); Hematocrit 42.5 % (33.0-51.0); Hemoglobin* 13.4 gm/dL (12.0-16.0); Lymphocytes Absolute Auto 2.64 K/uL (0.90-2.90); Lymphocytes Percent Auto 40.4 % (20-44); Mean Corpuscular HGB Conc 32 gm/dL (32-36); Mean Corpuscular Hemoglobin 30 pg (26-34); Mean Corpuscular Volume 96 fL (80-100); Monocytes Percent Auto 5.7 % (0.0-11.0); Neutrophils Absolute Auto 3.37 K/uL (1.7-7.0); Neutrophils Percent Auto 51.6 % (42.0-72.0); Platelet Count* 284 K/uL (140-440); RDW Coefficient of Variation % 13.1 % (11.5-15.5); Red Blood Count 4.44 m/uL (4.00-5.20); White Blood Count* 6.53 K/uL (4.50-11.00)
[2025-02-16 17:35] LABS: Slide Review Reflex No
[2025-02-16 17:46] LABS: Albumin* 4.9 g/dL (3.3-5.0); Chloride* 104 mmol/L (96-114); Potassium* 3.6 mmol/L (3.6-5.1); Prothrombin Time 12.9 Seconds; Sodium* 141 mmol/L (135-149)
[2025-02-16 17:47] LABS: Partial Thromboplastin Time* 27 Seconds (23-33)
[2025-02-16 17:48] LABS: Alanine Aminotransferase* 17 U/L (4-35); Aspartate Amino Transferase* 24 U/L (12-35); Blood Urea Nitrogen* 9 mg/dL (7-30); Creatinine* 0.8 mg/dL (0.5-1.5); Est. Creatinine Clearance* 69.82; Estimated Glomerular Filt Rate 86 ml/min
[2025-02-16 17:49] LABS: Alkaline Phosphatase* 79 U/L (40-150); Anion Gap 9 mEq/L (7-15); Bilirubin Total* 0.4 mg/dL (0.1-1.5); Carbon Dioxide* 28 mmol/L (20-32); Total Protein* 7.8 g/dL (6.0-8.3)
[2025-02-16 17:50] LABS: Calcium* 9.3 mg/dL (8.4-10.6); Glucose* 96 mg/dL (60-115)
[2025-02-16 17:56] LABS: C Reactive Protein* < 0.5 mg/dL (0.5-1.0)
--- OUTSIDE RECORDS SUMMARY | 2025-02-16 18:01 | XMS_ITS | Continuity of Care Document ---
Author Organization [facility] Address [address] [address] [place] [address] Phone Care Team Providers Care Bottle Capper Name Role Phone Derik MCLEOD, Maria C Unavailable Unavailable Procedures Procedure Date Subsqt Hosp-da E&m Minr Compl 5 Init Hosp-da E&m Mod Severity Advance Directives Directive Yes / No Effective Date File Name No Information Encounters Encounter Description Practice Location Reason(s) For Visit Diagnoses Date Provider Providers Copied on Encounter Subsqt Hosp-da E&m Minr Compl [facility] [place], [address] [address], [place], [place], [id number], [place] tel:[phone] [facility] No Information 5 Derik Lombardi. [address] [facility], [facility] [address], [place], [place], [id number], [place]. tel:[phone] Referring Provider: Meagan Sargent MD, [address] [facility] [address], [place], [address]. tel:[phone] Init Hosp-da E&m Mod Severity [facility], [address] [address], [place], [place], [id number], [place] tel:[phone] [facility] No Information No Information Referring Provider: Meagan Sargent MD, [address] [facility] [address], [place], [address]. tel:[phone] Family History Family Member Type Diagnosis Age At Onset No Information Payers Payer name Insurance type Covered green party ID Kel ferguson(s) Medicare [facility] [id number] [employer] [id number] Social History Type Description Quantity Date Captured [...]
--- OUTSIDE RECORDS SUMMARY | 2025-02-16 18:01 | XMS_ITS | CCD ---
Author Organization Unknown Care Team Providers Care Employee Communications Coordinator Name Role Phone [employer], [place] Primary Care Provider Unava ilable Unavailable Chronic Care Management Unavaila ble Summary Purpose DataExchange Insurance Providers Payer name Policy type / Coverage type Covered libertarian ID Effective Begin Date Effective End Date Medicare [place] Medicare Part B [id number] Unknown Unknown [employer] ([facility]) Medicare Part B [id number] Unknown U nknown Family History Family History data not found Medication Administered No Medication Administered data Reason For Visit No Reason For Visit data
--- OUTSIDE RECORDS SUMMARY | 2025-02-16 18:01 | XMS_ITS | Clinical Summary ---
Author Organization [facility] Address [address] [place] [address] Care Team Providers Care [employer] Consultant Name Role Phone Afia Rousseau MD Primary Care Provider Buddy Dyson MD Unavailable Joni Garcia MD Unavailable [phone] Joni Garcia MD Unavailable [phone] Allergies Active Allergy Reactions Criticality Noted [...] mouth At Bedtime Active cholecalciferol (VITAMIN D3) 58172 UNITS capsule Take 1 capsule by mouth [...] on file Legal Sex Female 3:52 AM FUDGER Gender Identity Not on file Sexual Orientation Not on file Last Filed Vital Signs Vital Sign Reading Time Taken Comments Blood Pressure 134/84 10/26/2016 8:35 AM FUDGER Pulse 110 10/26/2016 8:35 AM FUDGER Temperature 36.6 C (97.9 F) 10/26/2016 8:35 AM FUDGER Respiratory Rate 18 10/26/2016 8:35 AM FUDGER Oxygen Saturation 99% 10/26/2016 8:35 AM FUDGER Inhaled Oxygen Concentration - - Weight 70.4 kg (155 lb 3.3 oz) 10/26/2016 8:35 A M FUDGER Height - - Body Mass Index - [...] age to complete this topic Insurance [place] [address] [place] [address] [place] [id number] MEDICA ACCESS ABILITY [place] MEDICARE MEDICA ACCESS [facility] MEDICARE MED[place] ACCESS [place] MED[place]ARE OTHER on file Care Teams Oracle [employer] Consultant Relationship Specialty Start Date End Date Afia Rousseau MD [facility] [address] [place] [address] PCP - General Internal Medicine 10/07/16 Buddy Dyson MD [facility] [address] [place] [address] Referring Physician 01/19/24 Joni Garcia MD [address] [place] [id number] Ophthalmology 01/19/24 Joni Garcia MD [address] [place] [address] [address] [place] [address] Assigned Surgical Provider 03/12/24
--- OUTSIDE RECORDS SUMMARY | 2025-02-16 18:01 | XMS_ITS | Clinical Summary ---
Author Organization [facility] Address [address], [place] [address] Care Team Providers Care Sourcing Engineer Name Role Phone Afia Rousseau MD Primary Care Provider [phone] Source Comments You are receiving this document as you are listed as the primary care provider,follow-up provider, or the patient has been referred to you for consultation.This is in compliance with the Medicare and[facility] Cent[facility] EHR Incentive Program,which states Providers who transition their patient to another setting of careor provider of care or refers their patient to another provider of care shouldprovide summary care record for each transition of care or referral. [email or web address] Allergies Active Allergy Reactions Criticality Noted Date [...] - 08/04/2017 1:18 PM CDT Performed at [address] [address] CLIA number [id number] us Deepti Hannah MD LAB_1 Final Resul t SOFT [address] [place] [id number] from Last 3 Months or Most Recently Relevant to Health Maintenance Insurance MEDICA ACCESSABILITY MEDICARE Care Teams Sourcing Engineer Relationship Specialty Start Date End Date Afia Rousseau MD [address] [place] [address] PCP - General Internal Medicine 07/20/17
--- OUTSIDE RECORDS SUMMARY | 2025-02-16 18:01 | XMS_ITS | Clinical Summary ---
Author Organization [facility] Address [address] [place] [address] Care Team Providers Care Cyber Security Specialist Name Role Phone Afia Rousseau MD Primary Care Provider [phone] Allergies Active Allergy Reactions Criticality Noted Date [...] once daily. 30 Patch 11/17/2023 2:59 PM MACHINE FEATHEREDGER AND REDUCER 11/18/20 23 Active nitroglycerin (NITROSTAT) 0.4 mg sublingual tabletIndicatio ns:Coronary artery disease due to lipid rich plaque Place 1 Tablet (0.4 mg) under the tongue every 5 minutes if needed for Chest Pain for a maximum of 3 doses. CALL 911 if symptoms not resolved after the first dose. 25 Tablet 3 11/17/2023 2:59 PM MACHINE FEATHEREDGER AND REDUCER 11/17/20 23 Active oxyCODONE (OXYCONTIN) 40 mg [...] a meal. 30 Tablet 11/17/2023 2:59 PM MACHINE FEATHEREDGER AND REDUCER 11/19/20 025 Discontinued( *IP Discontinued) lansoprazole (PREVACID) 30 mg capsuleIndicati ons:Gastroesoph ageal reflux disease, unspecified whether esophagitis present Take 1 Capsule (30 mg) by mouth once daily before a meal. 30 Capsule 11/17/2023 2:59 PM MACHINE FEATHEREDGER AND REDUCER 11/19/20 025 Discontinued( Medication therapy change per hospital protocol (E-cancel not sent)) polyethylene glycoL (MIRALAX) 17 gram/scoop powderIndicatio ns:SAH (subarachnoid hemorrhage) (HC) Mix 1 scoop (17 g) in 4-8 ounce of liquid then take by mouth two times daily. 1020 g 11/17/2023 2:59 PM MACHINE FEATHEREDGER AND REDUCER 11/18/20 025 Discontinued( Pharmacist change per medication [...] Date Diagnosed Date Chest pain 01/27/2025 S/P APPLICATIONS SPECIALIST shunt 12/05/2023 Overview (12/10/2024): Hydrocephalus secondary to [...] obstruction 09/09/2005 05/27/2015 Single liveborn, born in [facility], delivered by delivery 09/06/2003 05[birth year]27/2013 Encounters Date Type Department Care Team Description 01/27/2025 8:48 AM CDT - 01/27/2025 7:30 PM CDT Hospital Encounter [facility] [address] [place] [address] Barbara Emerson MD Arteriosclerosis of coronary artery (Primary Dx); Cardiovascular symptoms; Chest pain, unspecified type Discharge Disposition: Home Self Care 01/27/2025 Orders Only [facility] [address] [place] [phone] Suresh Callaway MD 5 scans: (5-Ord) [facility] ALT Lab Results; 01/24/2025 01/27/2025 Travel 01/16/2025 7:08 PM MACHINE FEATHEREDGER AND REDUCER - 01/16/2025 10:59 PM MACHINE FEATHEREDGER AND REDUCER Emergency [facility] [address] [place] [address] Israel Rock MD Acute nonintractable headache, unspecified headache type (Primary Dx); Paresthesia Discharge Disposition: Home Self Care 01/16/2025 8:30 AM MACHINE FEATHEREDGER AND REDUCER Office Visit [facility] [address] [place] [address] Suresh Callaway MD 01/16/2025 Travel 01/16/2025 Telephone [facility] [address] [facility] [address] [place] [address] Suresh Callaway MD Follow Up (Schedule angiogram) 01/12/2025 Office Visit [facility] [address] [place] [phone] Slim Cadena MD 01/07/2025 Telephone [facility] [address] [facility] [address] [place] [phone] Nahed Kramer NP Concerns 12/10/2024 12:00 PM MACHINE FEATHEREDGER AND REDUCER Office Visit [facility] [address] [facility] [address] [place] [phone] Nahed Kramer NP 12/10/2024 9:33 AM MACHINE FEATHEREDGER AND REDUCER - 12/10/2024 11:59 PM MACHINE FEATHEREDGER AND REDUCER Hospital Encounter [facility] [address] [place] [address] Buddy Dyson MD SAH (subarachnoid hemorrhage) (HC); [...] on file Legal Sex Female 5:21 AM MACHINE FEATHEREDGER AND REDUCER Gender Identity Not on file Sexual Orientation Not on file Occupation Industry Job Start Date Job End Date unemployed - disability Not on file Not on file 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 Not on file Not on file [...] M C-Sect ion Livin g Ghada Delivery Location:[facility] Comments:emergency C/S 1988 37w 0d 3.18 kg (7 lb) F C-Sect ion Livin g Success Delivery Location:[facility] Comments:R/C/S 1990 37w 0d 2.72 kg (6 lb) M C-Sect ion Livin g [facility] n Delivery Location:[facility] Comments:R/C/S 1992 SPONTA NEOUS Livin g 1993 SPONTA NEOUS Livin g 1998 34w 0d 1.98 kg (4 lb 6 oz) M C-Sect ion Livin g [place] Delivery Location:[place] Comments:emergency C/S 2003 30w 0d 1.7 kg (3 lb 12 oz) M C-Sect ion Livin g [facility] Delivery Location:[place] Comments:placental abr uption Comments dates of SABs [...] Description 04/15/2025 3:00 PM CDT Office Visit [facility] [place] [facility] [place] [facility] [address] [place] [phone] Terry Gavin MD [address] [place] [address] Health Maintenance Due Date Last Done Comments [...] history exists Medical Devices Implanted Type Area Laundry Aid Device Identifier Shelf Expiration Date Model / Serial / Lot Valve Neuro Micro Hakim W/ Killen - [id number] Implanted:Qty: 1 on 11/08/2023 by Tra Santana [facility] at [facility] Left: Cranium [employer] 05/19/2028 [id number] / / [id number] Procedures Procedure Name Priority Date/Time Associated Diagnosis [...] HEAD BRAIN WO STAT 01/16/2025 9:03 PM MACHINE FEATHEREDGER AND REDUCER XR SHUNT SERIES CUSTOM STAT 01/16/2025 8:22 PM MACHINE FEATHEREDGER AND REDUCER BASIC METABOLIC PANEL STAT 01/16/2025 7:45 PM MACHINE FEATHEREDGER AND REDUCER CBC W PLT NO DIFF STAT 01/16/2025 7:4 5 PM MACHINE FEATHEREDGER AND REDUCER EKG 12 LEAD STAT 01/16/2025 7:34 PM MACHINE FEATHEREDGER AND REDUCER MR ANGIO HEAD BRAIN WWO Routine 12/10/2024 11:06 AM MACHINE FEATHEREDGER AND REDUCER SAH (subarachnoid hemorrhage) (HC) Cerebral aneurysm (HC) from Last 3 Months Results * CVL CORONARY ANGIOGRAM POSS PCI (01/27/2025 2:16 PM CDT) Anatomical Region Laterality Modality X-Ray Angiograph y, X-Ray Angiography 01/27/2025 2:16 PM CDT Narrative Transcriptions Barbara Emerson MD - 01/27/2025 2:52 PM CDT [facility] Cardiac Catheterization Report Name: POLLY SHAW Event Date: 01/27/2025 14:16 [facility] ID #: [id number] ANNALISA #: [id number] Patient Class: Outpatient Diagnostic Physician: BARBARA EMERSON [facility] Referring Physician: Date: 1965 Gender: Female Age: [...] & PLAN * Medical Rx Consent & [place] Protocol The risks, benefits, and alternatives of the procedure were discussed withthe patient and written informed consent was obtained. [place] protocol was followed. TIME OUT conducted just prior tostarting procedure confirmed patient identity, site/side, procedure,patient position, and availability of correct equipment and implants (ifapplicable). Staff Name Title BARBARA EMERSON Diagnostic Linux Systems Administrator Oswald Lazaro RN Nurse Aaron Ortiz CVT [...] healthcare professional providing the sedation ends personal [id number] time with the patient. The medications listed above were verbally ordered by me and read back tome as documented above. Refer to the procedure log report for additional case details. electronically signed on 01/27/2025 2:52:54 PM with status of Final Barbara Emerson MD [facility] [address] [address] (p) [phone](f) us Provider Referring CV IMAGING Edited Result - Final * (ABNORMAL) LIPID PANEL (01/27/2025 9:28 AM CDT) CHOLESTEROL,TOTAL 210(H) 100 - 199 mg/dL 01/27/2025 10:08 AM CDT [facility] Comment: Cholesterol, Total Reference Ranges Desirable <200 mg/dL Borderline 200-239 mg/dL High >=240 mg/dL TRIGLYCERIDES 85 <150 mg/dL 01/27/2025 10:08 AM CDT [facility] HDL CHOLESTEROL 72 >40 mg/dL 10:08 AM CDT [facility] NON-HDL CHOLESTEROL 138 <145 mg/dl 01/27/2025 10:08 AM CDT [facility] CHOL/HDL RATIO 2.92 <4.50 01/27/2025 10:08 AM CDT [facility] LDL CHOLESTEROL 121 <=130 mg/dL 01/27/2025 10:08 AM CDT [facility] VLDL CHOLESTEROL 17 <=30 mg/dL 01/27/2025 10:08 AM CDT [facility] PROVIDER ORDERED STATUS FASTING 01/27/2025 10:08 AM CDT [facility] Blood BLOOD SPECIMEN / Unknown Butterfly / Unknown 01/27/2025 9:28 AM CDT 01/27/2025 9:37 AM CDT Sara Pretty NP CHEMISTRY Final Result [facility] [address] [place] [phone], * EKG 12 LEAD UNIT PERFORMED (01/27/2025 9:19 AM CDT) Pathologist [facility] Interpretation Sinus rhythm with short MA Otherwise normal ECG When compared with ECG of 16-Jan-2025 19:34, T wave inversion no longer evident in Lateral leads BEYOND NOW Ventricular Rate 83 BPM BEYOND NOW Atrial Rate 83 BPM BEYOND NOW P-R Interval 108 ms BEYOND NOW QRS Duration 84 ms BEYOND NOW QT 390 ms BEYOND NOW QTc 458 ms BEYOND NOW P [place] 58 degrees BEYOND NOW R [place] 71 degrees BEYOND NOW T [place] 66 degrees BEYOND NOW 01/27/2025 9:19 AM CDT 01/28/2025 7:40 PM CDT Narrative BEYOND NOW - 01/28/2025 7:40 PM CDT Test Indication: PREANGIO Barbara Emerson MD EKG ORD Final Result [facility] NOW [place], [place] * LIPID PANEL W REFLEX MEASURED [...] MR HEAD BRAIN WO (01/16/2025 9:03 PM MACHINE FEATHEREDGER AND REDUCER) Anatomical Region Laterality Modality BRAIN, HEAD Magnetic Resonan ce 01/16/2025 9:16 PM MACHINE FEATHEREDGER AND REDUCER Impressions 01/16/2025 9:16 PM MACHINE FEATHEREDGER AND REDUCER 1. No acute intracranial abnormality. 2. Stable [...] PM (Electronically Signed) Narrative 01/16/2025 9:16 PM MACHINE FEATHEREDGER AND REDUCER For Patients: As a result of the [...] XR SHUNT SERIES CUSTOM (01/16/2025 8:22 PM MACHINE FEATHEREDGER AND REDUCER) Anatomical Region Laterality Modality Digital Radiogra phy 01/16/2025 9:03 PM MACHINE FEATHEREDGER AND REDUCER Narrative 01/17/2025 3:26 PM MACHINE FEATHEREDGER AND REDUCER For Patients: As a result of the [...] * EKG 12 LEAD (01/16/2025 7:34 PM MACHINE FEATHEREDGER AND REDUCER) Interpretation Normal sinus rhythm ST & T wave abnormality, consider lateral ischemia Abnormal ECG NST, no STEMI, artifact otherwise no changes BEYOND NOW Ventricular Rate 98 BPM BEYOND NOW Atrial Rate 98 BPM BEYOND NOW P-R Interval 112 ms BEYOND NOW QRS Duration 78 ms BEYOND NOW QT 372 ms BEYOND NOW QTc 474 ms BEYOND NOW P [place] 60 degrees BEYOND NOW R [place] 74 degrees BEYOND NOW T [place] 67 degrees BEYOND NOW 01/16/2025 7:34 PM MACHINE FEATHEREDGER AND REDUCER 01/18/2025 3:12 PM MACHINE FEATHEREDGER AND REDUCER us Israel Rock MD EKG ORD Final Re sult [place] NOW [place], [place] * MR Angio Head w/wo Contrast (12/10/2024 11:06 AM MACHINE FEATHEREDGER AND REDUCER) Anatomical Region Laterality Modality HEAD, BRAIN Magnetic Resonan ce 12/10/2024 11:4 4 AM MACHINE FEATHEREDGER AND REDUCER Impressions 12/10/2024 11:44 AM MACHINE FEATHEREDGER AND REDUCER Complete occlusion of aneurysm. We will obtain a 2-year follow-up MRA, due in October 2025. Buddy Dyson MD Neurointerventional Radiologist [facility] [place] Dictated by Buddy Dyson MD @ 12/10/2024 11:44:10 AM (Electronically Signed) Narrative 12/10/2024 11:44 AM MACHINE FEATHEREDGER AND REDUCER For Patients: As a result of the [...] October 2025. Buddy Dyson MD Neurointerventional Radiologist [facility] Dictated by Buddy Dyson MD @ [...] 5:03 PM 05/29/2015 12:49 PM Care Teams Cyber Security Specialist Relationship Specialty Start Date End Date Afia Rousseau MD [address] [place] [address] PCP - General Internal Medicine 01/29/15
--- OUTSIDE RECORDS SUMMARY | 2025-02-16 18:01 | XMS_ITS | Encounter Summary ---
Author Organization [facility] Address [address] [place] [address] Care Team Providers Care Sand Tester Name Role Phone Afia Rousseau MD Primary Care Provider Buddy Dyson MD Unavailable Joni Garcia MD Unavailable [phone] Joni Garcia MD Unavailable [phone] Reason for Visit * Reason Onset Date Comments Appointment 01/19/2024 Patient would li ke appointment information with Dr Garcia to be sent out USPS Encounter Details Date Type Department Care Team ([facility] Contact Info) Description 01/19/2024 [facility] - [address] [place] [phone] Joni Garcia MD [address] [place] [address], [address] [address] Appointment (Patient would like appointment information with Dr Garcia to be sent out USPS) Social History Tobacco Use Types Packs/Day Years Used Date Smoking Tobacco: Every Day Adolescent Education Answer Date Record ed Getting School Help Needed Not on file 08/27 Comments Unknown Sex and Gender Information Value Date Recorded Sex Assigned at Not on file Legal Sex Female 3:52 AM COGENERATION TECHNICIAN Gender Identity Not on file Sexual Orientation Not on file documented as of this encounter Miscellaneous Notes * Telephone Encounter - Elzbieta Pennington - 01/22/2024 6:49 AM CST Sent new patient packet..jam NERATION TECHNICIAN * Telephone Encounter - Beverly Gonzales - 01/19/2024 4:46 PM CST [facility] Phone Message May a detailed message be left on voicemail: yes Reason for Call: Patient would like appointment information with Dr Garcia to be sent out USPS Thank you, Action Taken: Message routed to: [facility] eye Travel Screening: Not Applicable NERATION TECHNICIAN documented in this encounter Plan of Treatment Not on file documented as of this encounter Visit Diagnoses Not on filedocumented in this encounter Care Teams Sand Tester Relationship Specialty Start Date End Date Afia Rousseau MD [facility] [address] [place] [address] PCP - General Internal Medicine 10/07/[address] [facility] [address] [place] [address] Referring Physician 01/19/24 Joni Garcia MD [address] [place] [phone] Ophthalmology 01/19/24 Joni Garcia MD [address] [place] [id number] Assigned Surgical Provider 03/12/24 documented as of this encounter
--- OUTSIDE RECORDS SUMMARY | 2025-02-16 18:01 | XMS_ITS | CCD ---
Author Organization Unknown Care Team Providers Care Fish Bait Processing Supervisor Name Role Phone Printed Circuit Boards Stripper [place], [place] Primary Care Provider Unava ilable Unavailable Chronic Care Management Unavaila ble Summary Purpose DataExchange Insurance Providers Payer name Policy type / Coverage type Covered constitution party ID Effective Begin Date Effective End Date Medicare [place] Medicare Part B [id number] Unknown Unknown [employer] ([facility]) Medicare Part B [id number] Unknown U nknown Family History Family History data not found Medication Administered No Medication Administered data Reason For Visit No Reason For Visit data
[2025-02-16 18:06] LABS: Procalcitonin* 0.03 ng/mL (<0.50)
[2025-02-16 18:27] VITALS: BP 118/76; PULSE 89; RESP 16; O2SAT 99
== END 2025-02-16 19:15 | disposition home or self-care (01) ==
PROVIDERS: Emergency Provider Family Medicine; PCP Internal Medicine
DX: H10.32 Unspecified acute conjunctivitis, left eye (principal); H53.9 Unspecified visual disturbance; Z86.79 Personal history of other diseases of the circulatory system
CPT/HCPCS: 36415; 70450; 80053; 84145; 85025; 85610; 85730; 86140; 99284; A9270

== ENCOUNTER 2025-03-25 15:09 | Outpatient (CLI) | payer MEDICARE, OTHER, SELFPAY ==
--- NOTE | 2025-03-25 16:00 | CRLHL7_ITS ---
For Patients: As a result of the Century Cures Act, medical imaging exams and procedure reports are released immediately into your electronic medical record. You may view this report before your referring provider. If you have questions, please contact your health care provider. INDICATION: Throat swelling. Comparison CTA neck 02/09/2025. TECHNIQUE: CT soft tissue neck with IV contrast. Isovue 370, 70 cc. FINDINGS: DOUBLE CORNER CUTTER shunt catheter tubing within the left posterior scalp and extending in the soft tissues of the left neck and into the left chest. Catheter tubing is grossly intact. Normal bilateral parotid and submandibular glands. Normal thyroid gland. Scattered small normal-sized cervical lymph nodes bilaterally. No supraclavicular superior mediastinal adenopathy. No enlarged lymph nodes within visualized axilla. Nasopharynx and oropharynx are clear. No inflammation within the parapharyngeal fat pads or retropharyngeal space. Normal thickness of the epiglottis. Normal glottis with symmetric vocal cords. Lung apices are clear. Normal alignment of the cervical spine. Cervical spondylosis. Mature postop changes of anterior discectomy and fusion C5-6. Visualized paranasal sinuses and mastoid air cells are clear. IMPRESSION: 1. No adenopathy 2. Normal deep soft tissues of the neck. 3. Intact DOUBLE CORNER CUTTER shunt catheter tubing in the left neck and upper chest. 4. Normal deep soft tissues of the neck. 5. Mature postop changes C5-6 Please note that all CT scans at this facility use dose modulation, iterative reconstruction, and/or weight-based dosing when appropriate to reduce radiation dose to as low as reasonably achievable. Dictated by Roman Garcia MD @ 03/26/2025 8:13:22 AM (Electronically Signed)
== END 2025-03-25 15:10 | disposition home or self-care (01) ==
LOC: CT 15:11
PROVIDERS: PCP Internal Medicine; Visit Provider Otolaryngology
DX: R09.89 Other specified symptoms and signs involving the circulatory and respiratory systems (principal)
CPT/HCPCS: 70491; Q9967

== ENCOUNTER 2025-06-16 14:47 | Emergency (ER) | payer MEDICARE, OTHER, SELFPAY ==
[2025-06-16] VITALS (9 sets, daily range): BP systolic 128–146; BP diastolic 73–90; PULSE 95–122; RESP 11–21; TEMP 36.5–37.1; O2SAT 98–100; BMI 22.3
--- NOTE | 2025-06-16 15:12 | CRLHL7_ITS ---
For Patients: As a result of the Cures Act, medical imaging exams and procedure reports are released immediately into your electronic medical record. You may view this report before your referring provider. If you have questions, please contact your health care provider. INDICATION: Chest pain, shortness of breath TECHNIQUE: Chest radiograph 2 views COMPARISON: 10/30/2022 FINDINGS: Mediastinum: The mediastinum is normal in appearance. The left ventriculoperitoneal shunt is partially visualized and coiled within the left flank of the abdomen. Lung: Both lungs are unremarkable in appearance. No sign of pleural effusion seen. No pneumothorax is identified. Bone and Soft tissue: ACDF of the cervical spine is partially seen. IMPRESSION: 1. No acute cardiopulmonary disease is seen. Dictated by Madi Rodarte MD @ 06/16/2025 4:41:41 PM Dictated by: Madi Rodarte MD @ 06/16/2025 16:41:45 (Electronically Signed)
[2025-06-16 15:39] LABS: Lactate* 1.0 mmol/L (0.5-1.9)
[2025-06-16 15:40] LABS: Hematocrit 43.9 % (33.0-51.0); Hemoglobin* 14.1 gm/dL (12.0-16.0); Immature Granulocytes Abs Auto 0.01 K/uL (0.00-0.30); Immature Granulocytes Pct Auto 0.2 %; Mean Corpuscular HGB Conc 32 gm/dL (32-36); Mean Corpuscular Hemoglobin 30 pg (26-34); Mean Corpuscular Volume 94 fL (80-100); RDW Coefficient of Variation % 13.1 % (11.5-15.5); Red Blood Count 4.68 m/uL (4.00-5.20); White Blood Count* 6.21 K/uL (4.50-11.00)
[2025-06-16] MEDS: ASPIRIN 81 MG TAB.CHEW 324 MG PO (15:42)
[2025-06-16 15:43] LABS: Lymphocytes Absolute Auto 2.80 K/uL (0.90-2.90); Slide Review Reflex No
--- NOTE | 2025-06-16 15:43 | ED.GENADULT ---
HPI - General Adult General Chief complaint: Chest Pain Stated complaint: sent over from clinic Time Seen by Provider: 06/16/25 15:11 Source: patient Mode of arrival: ambulatory Limitations: no limitations History of Present Illness HPI narrative: 59-year-old female symptom aside the clinic for evaluation of chest pain. Patient states that she developed chest pain last evening. She took a sublingual nitro in the evening and did feel better. She describes her chest pain as a pressure in her central chest. She states that she has not been able to walk around her walking path for quite some time, unclear exactly how long, because she feels this tightness and numbness going down her left arm. She states that her symptoms get better when she rests. When this occurs it makes her feel short of breath. She denies dizziness. She states that today chest tightness lasted longer in the morning than it usually does, right now she does not have any chest tightness. She also states that the left arm is numb at the moment and that it is longer than usual as well. She does have a history of cervical spine surgery with recurrent left arm numbness. Related Data Home Medications ?Medication ?Instructions ?Recorded ?Confirmed aspirin 81 mg chewable tablet 1 tab PO DAILY 06/17/22 06/16/25 clopidogrel 75 mg tablet 75 mg PO DAILY 10/30/22 06/16/25 nitroglycerin 0.4 mg sublingual mg sublingual 11/23/23 06/16/25 tablet sennosides 8.6 mg-docusate sodium 2 tab PO QDAY 01/13/25 06/16/25 50 mg tablet (Senexon-S) Previous Rx's ?Medication ?Instructions ?Recorded cyclobenzaprine 10 mg tablet 10 mg PO Q8H PRN pain #60 tabs 03/18/25 oxycodone 15 mg tablet 15 mg PO Q4H PRN pain #124 tabs 06/02/25 oxycodone 40 mg tablet,crush 40 mg PO BID #62 tabs 06/02/25 resistant,extended release 12 hr (OxyContin) metoprolol tartrate 25 mg tablet 25 mg PO BID #60 tabs 06/16/25 Allergies Allergy/AdvReac Type Severity Reaction Status Date / Time amoxicillin (From Augmentin) Allergy Severe Vomiting Verified 06/16/25 14:03 clavulanic acid (From Allergy Severe Vomiting Verified 06/16/25 14:03 Augmentin) ciprofloxacin Allergy Intermediate Verified 06/16/25 14:22 adhesive AdvReac Intermediate Tears skin Verified 06/16/25 14:03 band-aids Allergy Mild Uncoded 06/16/25 14:03 Review of Systems Status of ROS: Reports: 10 or more systems reviewed and unremarkable except as noted in History and below [facility] Medical History History of palpitations ?Z87.898 - Personal history of other specified conditions (ICD-10) History of small bowel obstruction (2012) ?Z87.19 - Personal history of other diseases of the digestive system (ICD-10) History of sepsis (2011) ?Z86.19 - Personal history of other infectious and parasitic diseases (ICD-10) History of depression ?Z86.59 - Personal history of other mental and behavioral disorders (ICD-10) Surgical History 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 - Lesion of ulnar nerve, unspecified upper limb (ICD-10) History of left salpingo-oophorectomy ?Z90.79 - Acquired absence of other genital organ(s) (ICD-10) ?Z90.721 - Acquired absence of ovaries, unilateral (ICD-10) Vesico-vaginal fistula ?N82.0 - Vesicovaginal fistula (ICD-10) Status post wrist surgery (09/10/09) ?Z98.890 - Other specified postprocedural states (ICD-10) History of ventral hernia repair (03/27/13) ?Z98.890 - Other specified postprocedural states (ICD-10) ?Z87.19 - Personal history of other diseases of the digestive system (ICD-10) History of repair of rotator cuff (09/10/09) ?Z98.890 - Other specified postprocedural states (ICD-10) History of oophorectomy (07/11/11) History of hysterectomy (09/10/09) ?Z90.710 - Acquired absence of both cervix and uterus (ICD-10) History of section (09/10/09) ?Z98.891 - History of uterine scar from previous surgery (ICD-10) History of cervical spinal surgery (09/10/09) ?Z98.890 - Other specified postprocedural states (ICD-10) Family History Father Colon cancer Brother Colon cancer Paternal Grandfather Colon cancer Social History What is your current living situation?: I presently have a place to live Problems where you live: no known problems In the past 12 months, utilities in danger of being shut off: no In past 12 months, lack of transportation kept you from medical appts, meetings, work, or getting things needed for daily living: no In the past 12 mos, have been you worried that your food would run out before you had money to buy more?: never true In the past 12 mos, the food you bought just didn't last and you didn't have money to buy more?: never true Smoking Status: Former smoker Do you use any of these nicotine containing products: None How often do you have a drink containing alcohol: never How often do you have six or more drinks on one occasion: Never AUDIT-C Alcohol total score: 0 Non-prescribed substance use: denies use How often does anyone, including family, friends and others, physically hurt you: never How often does anyone, including family, friends and others, insult or talk down to you: rarely How often does anyone, including family, friends and others, threaten you with harm: never How often does anyone, including family, friends and others, scream or curse at you: rarely service: No Health Related Social Needs: Other personal risk factors, not elsewhere classified (Z91.89) Exam Narrative: Exam Narrative: Well-nourished well-developed patient in no acute distress. Alert and oriented. Answers questions appropriately. Thoughts are goal oriented and rational. No tangential or magical thinking noted. Patient speaks in full sentences without needing to catch her breath. HEENT: Normocephalic atraumatic. Pupils are equally round reactive to light. Extraocular muscles are intact. Conjunctivae are moist without any icterus noted. Moist mucous membranes. Cardiovascular: Heart is regular rate and rhythm S1 and S2 are present without any murmurs. Lungs: Clear to auscultation bilaterally no wheezes rhonchi or rales are appreciated. Patient takes deep breaths without any discomfort. Abdomen: Soft and nontender nondistended with normal bowel sounds. Extremities: Bilateral lower extremities are without edema. Skin: Well perfused without any obvious rashes. Const: Vital Signs, click to edit/add: Vital Signs - 24 hr 06/16/25 15:06 06/16/25 15:51 06/16/25 15:53 Temperature 97.7 F 98.7 F Pulse Rate [Pulse Oximeter] 122 H 97 Respiratory Rate 20 21 Blood Pressure [Ri t Upper Arm] 139/84 128/73 Pulse Oximetry 99 98 99 Oxygen Delivery Me thod Room Air Room Air Course Course ED Course: With IV established and aspirin is ordered. EKG, read by me, shows sinus tachycardia with a pulse of 112, normal QRS, QTC and SD intervals. I compared this to an EKG done in the clinic approximately 90 minutes ago, do not see any significant changes. Laboratory investigations were unremarkable. Chest x-ray, read by me, is unremarkable. While waiting for labs to return, approximately 90 minutes after arrival, chest tightness did return. At this time patient received a sublingual nitro. Patient felt relief. Did consult with Dr. Navas, cardiology at [facility] who reviewed patient's records and stated that she had an angiogram in January of this year for similar symptoms. Angiogram did not reveal any significant blockages. At this time he recommends starting metoprolol, continuing other current medications. Vital Signs Vital signs: Initial Vital Signs Temperature 97.7 F 06/16/25 15:06 Temperature Source Temporal Artery Scan 06/16/25 15:06 Pulse Rate 122 H 06/16/25 15:06 Respiratory Rate 20 06/16/25 15:06 Blood Pressure 139/84 06/16/25 15:06 Blood Pressure Mean 102 06/16/25 15:06 Blood Pressure Position Sitting 06/16/25 15:06 Pulse Oximetry 99 06/16/25 15:06 Oxygen Delivery Method Room Air 06/16/25 15:06 Vital Signs Temperature 97.7 F 06/16/25 15:06 Pulse Rate 122 H 06/16/25 15:06 Respiratory Rate 20 06/16/25 15:06 Blood Pressure 139/84 06/16/25 15:06 Pulse Oximetry 99 06/16/25 15:06 Oxygen Delivery Method Room Air 06/16/25 15:06 Temperature 98.7 F 06/16/25 15:53 Pulse Rate 97 06/16/25 15:53 Respiratory Rate 21 06/16/25 15:53 Blood Pressure 128/73 06/16/25 15:53 Pulse Oximetry 99 06/16/25 15:53 Oxygen Delivery Method Room Air 06/16/25 15:53 Medications Administered Medications: Discontinued Medications Generic Name Dose Route Start Last Admin Trade Name Pedro PRN Reason Stop Dose Admin Aspirin 324 mg 06/16/25 15:18 06/16/25 15:42 Aspirin 81 Mg Tab.Chew PO 06/16/25 15:19 324 mg ONCE ONE Administration Nitroglycerin 0.4 mg 06/16/25 16:21 06/16/25 16:32 Nitroglycerin 0.4 Mg Tab.Subl SUBLINGUAL 06/16/25 16:22 0.4 mg ONCE ONE Administration Medical Decision Making MDM Narrative Medical decision making narrative: 59-year-old female with recurrent episodes of palpitations, chest tightness. Workup unremarkable today. Last angiogram just in January of this year per cardiology. At this time will start the patient on metoprolol 25 mg p.o. b.i.d. per recommendation of Cardiology. Patient will follow-up with primary care/Cardiology. Lab Data Lab results reviewed: Yes I reviewed the patient's lab results Labs: Lab Results 06/16/25 06/16/25 Range/Units 15:13 15:29 WBC 6.21 (4.50-11.00) K/uL RBC 4.68 (4.00-5.20) m/uL Hgb 14.1 (12.0-16.0) gm/dL Hct 43.9 (33.0-51.0) % MCV 94 (80-100) fL MCH 30 (26-34) pg MCHC 32 (32-36) gm/dL RDW Coeff of Oliverio 13.1 (11.5-15.5) % Plt Count 233 (140-440) K/uL Neut % (Auto) 46.2 (42.0-72.0) % Lymph % (Auto) 45.6 H (20-44) % [place] % (Auto) 5.6 (0.0-11.0) % Eos % (Auto) 1.9 (0.0-7.0) % Baso % (Auto) 0.5 (0.0-3.0) % Neut # (Auto) 2.87 (1.7-7.0) K/uL Lymph # (Auto) 2.80 (0.90-2.90) K/uL [place] # (Auto) 0.30 (0.00-0.90) K/UL Eos # (Auto) 0.12 (0.00-0.50) K/uL Baso # (Auto) 0.03 (0.00-0.30) K/uL Abs Immat Gran (auto) 0.01 (0.00-0.30) K/uL Imm/Tot Granulo (auto) 0.2 % ESR 11 (2-20) mm/hr Sodium 138 (135-149) mmol/L Potassium 3.6 (3.6-5.1) mmol/L Chloride 104 (96-114) mmol/L Carbon Dioxide 27 (20-32) mmol/L Anion Gap 7 (7-15) mEq/L BUN 9 (7-30) mg/dL Creatinine 0.8 (0.5-1.5) mg/dL Estimated Creat Clear 72.63 Estimated GFR 86 ml/min Glucose 95 (60-115) mg/dL Lactate 1.0 (0.5-1.9) mmol/L Calcium 9.4 (8.4-10.6) mg/dL Magnesium 2.3 (1.5-2.6) mg/dL Total Bilirubin 0.3 (0.1-1.5) mg/dL Direct Bilirubin 0.2 (0.0-0.5) mg/dL AST 61 H (12-35) U/L ALT 25 (4-35) U/L Alkaline Phosphatase 91 (40-150) U/L Troponin I < 0.01 (0.01-0.04) ng/mL C-Reactive Protein < 0.5 L (0.5-1.0) mg/dL NT-Pro-B Natriuret Pep 59 (See Note) pg/mL Total Protein 7.6 (6.0-8.3) g/dL Albumin 4.7 (3.3-5.0) g/dL POC Troponin I 0.01 (0.01-0.04) ng/ml Imaging Data Chest x-ray: Attestation: I have reviewed the pertinent imaging results. Radiologist's impression: TECHNIQUE: Chest radiograph 2 views COMPARISON: 10/30/2022 FINDINGS: Mediastinum: The mediastinum is normal in appearance. The left ventriculoperitoneal shunt is partially visualized and coiled within the left flank of the abdomen. Lung: Both lungs are unremarkable in appearance. No sign of pleural effusion seen. No pneumothorax is identified. Bone and Soft tissue: ACDF of the cervical spine is partially seen. IMPRESSION: 1. No acute cardiopulmonary disease is seen. ECG Data Attestation: I personally reviewed and interpreted this ECG as follows: Discharge Plan Discharge Clinical Impression: Chest tightness, Heart palpitations Patient Disposition: Home, Self-Care Condition: Stable Additional Instructions: Your workup today did not reveal any stressed to the heart. After having an conversation with the underwriting director at [facility], it was suggested that you start taking metoprolol to slow down your heart rate as this can help you to feel better. You will be discharged today with a new prescription for metoprolol 25 mg 2 times per day. Recommend you follow-up with your primary care provider later this week or early next week. Recommend sublingual nitroglycerin as needed/as directed for chest tightness or discomfort. Prescriptions: New metoprolol tartrate 25 mg tablet 25 mg PO BID Qty: 60 0RF No Action aspirin 81 mg tablet,chewable 1 tab PO DAILY nitroglycerin 0.4 mg tablet, sublingual sublingual sennosides-docusate sodium [Senexon-S] 8.6-50 mg tablet 2 tab PO QDAY clopidogrel 75 mg tablet 75 mg PO DAILY Patient Comments: TAKE ONE TABLET BY MOUTH EVERY DAY IN THE MORNING. cyclobenzaprine 10 mg tablet 10 mg PO Q8H PRN (Reason: pain) Qty: 60 5RF oxycodone 15 mg tablet 15 mg PO Q4H PRN (Reason: pain) Qty: 124 0RF oxycodone [OxyContin] 40 mg tablet,oral only,ext.rel.12 hr 40 mg PO BID Qty: 62 0RF Follow Up/Referrals: Afia Rousseau MD [Primary Care Provider, Internal Medicine] Stand Alone Forms: [employer] Info Instructions
[2025-06-16 15:50] LABS: Troponin, Point-of-Care* 0.01 ng/ml (0.01-0.04)
[2025-06-16 15:58] LABS: Albumin* 4.7 g/dL (3.3-5.0); Chloride* 104 mmol/L (96-114); Sodium* 138 mmol/L (135-149)
[2025-06-16 15:59] LABS: Potassium* 3.6 mmol/L (3.6-5.1)
[2025-06-16 16:01] LABS: Alanine Aminotransferase* 25 U/L (4-35); Alkaline Phosphatase* 91 U/L (40-150); Anion Gap 7 mEq/L (7-15); Aspartate Amino Transferase* 61 U/L (12-35); Bilirubin Direct* 0.2 mg/dL (0.0-0.5); Bilirubin Total* 0.3 mg/dL (0.1-1.5); Blood Urea Nitrogen* 9 mg/dL (7-30); Carbon Dioxide* 27 mmol/L (20-32); Creatinine* 0.8 mg/dL (0.5-1.5); Est. Creatinine Clearance* 72.63; Estimated Glomerular Filt Rate 86 ml/min; Total Protein* 7.6 g/dL (6.0-8.3)
[2025-06-16 16:02] LABS: Calcium* 9.4 mg/dL (8.4-10.6); Glucose* 95 mg/dL (60-115)
--- OUTSIDE RECORDS SUMMARY | 2025-06-16 16:02 | XMS_ITS | CCD ---
Author Organization Unknown Care Team Providers Care Edge Inker Heels Name Role Phone End User Support Specialist, [place] Primary Care Provider Unava ilable Unavailable Chronic Care Management Unavaila ble Summary Purpose DataExchange Insurance Providers Payer name Policy type / Coverage type Covered alliance party ID Effective Begin Date Effective End Date Medicare [place] Medicare Part B [id number] Unknown Unknown [employer] ([facility]) Medicare Part B [id number] Unknown U nknown Family History Family History data not found Medication Administered No Medication Administered data Reason For Visit No Reason For Visit data
--- OUTSIDE RECORDS SUMMARY | 2025-06-16 16:02 | XMS_ITS | CCD ---
Author Organization Unknown Care Team Providers Care Rn Cardiovascular Icu Name Role Phone Rn Pool, [place] Primary Care Provider Unava ilable Unavailable Chronic Care Management Unavaila ble Summary Purpose DataExchange Insurance Providers Payer name Policy type / Coverage type Covered green party ID Effective Begin Date Effective End Date Medicare [place] Medicare Part B [id number] Unknown Unknown [employer] ([facility]) Medicare Part B [id number] Unknown U nknown Family History Family History data not found Medication Administered No Medication Administered data Reason For Visit No Reason For Visit data
[2025-06-16 16:16] LABS: NT Pro B Type NatriureticPept* 59 pg/mL (See Note)
[2025-06-16] MEDS: NITROGLYCERIN 0.4 MG TAB.SUBL SUBLINGUAL (16:32)
[2025-06-16 16:35] LABS: Erythrocyte SedimentationRate* 11 mm/hr (2-20)
--- NOTE | 2025-06-16 16:48 | ED.GENADULT ---
HPI - General Adult General Chief complaint: Chest Pain Stated complaint: sent over from clinic Time Seen by Provider: 06/16/25 15:11 Source: patient Mode of arrival: ambulatory Limitations: no limitations Related Data Home Medications ?Medication ?Instructions ?Recorded ?Confirmed aspirin 81 mg chewable tablet 1 tab PO DAILY 06/17/22 06/16/25 clopidogrel 75 mg tablet 75 mg PO DAILY 10/30/22 06/16/25 nitroglycerin 0.4 mg sublingual mg sublingual 11/23/23 06/16/25 tablet sennosides 8.6 mg-docusate sodium 2 tab PO QDAY 01/13/25 06/16/25 50 mg tablet (Senexon-S) Previous Rx's ?Medication ?Instructions ?Recorded cyclobenzaprine 10 mg tablet 10 mg PO Q8H PRN pain #60 tabs 03/18/25 oxycodone 15 mg tablet 15 mg PO Q4H PRN pain #124 tabs 06/02/25 oxycodone 40 mg tablet,crush 40 mg PO BID #62 tabs 06/02/25 resistant,extended release 12 hr (OxyContin) metoprolol tartrate 25 mg tablet 25 mg PO BID #60 tabs 06/16/25 Allergies Allergy/AdvReac Type Severity Reaction Status Date / Time amoxicillin (From Augmentin) Allergy Severe Vomiting Verified 06/16/25 14:03 clavulanic acid (From Allergy Severe Vomiting Verified 06/16/25 14:03 Augmentin) ciprofloxacin Allergy Intermediate Verified 06/16/25 14:22 adhesive AdvReac Intermediate Tears skin Verified 06/16/25 14:03 band-aids Allergy Mild Uncoded 06/16/25 14:03 [facility] Medical History History of palpitations ?Z87.898 - Personal history of other specified conditions (ICD-10) History of small bowel obstruction (2012) ?Z87.19 - Personal history of other diseases of the digestive system (ICD-10) History of sepsis (2011) ?Z86.19 - Personal history of other infectious and parasitic diseases (ICD-10) History of depression ?Z86.59 - Personal history of other mental and behavioral disorders (ICD-10) Surgical History 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 - Lesion of ulnar nerve, unspecified upper limb (ICD-10) History of left salpingo-oophorectomy ?Z90.79 - Acquired absence of other genital organ(s) (ICD-10) ?Z90.721 - Acquired absence of ovaries, unilateral (ICD-10) Vesico-vaginal fistula ?N82.0 - Vesicovaginal fistula (ICD-10) Status post wrist surgery (09/10/09) ?Z98.890 - Other specified postprocedural states (ICD-10) History of ventral hernia repair (03/27/13) ?Z98.890 - Other specified postprocedural states (ICD-10) ?Z87.19 - Personal history of other diseases of the digestive system (ICD-10) History of repair of rotator cuff (09/10/09) ?Z98.890 - Other specified postprocedural states (ICD-10) History of oophorectomy (07/11/11) History of hysterectomy (09/10/09) ?Z90.710 - Acquired absence of both cervix and uterus (ICD-10) History of section (09/10/09) ?Z98.891 - History of uterine scar from previous surgery (ICD-10) History of cervical spinal surgery (09/10/09) ?Z98.890 - Other specified postprocedural states (ICD-10) Family History Father Colon cancer Brother Colon cancer Paternal Grandfather Colon cancer Social History What is your current living situation?: I presently have a place to live Problems where you live: no known problems In the past 12 months, utilities in danger of being shut off: no In past 12 months, lack of transportation kept you from medical appts, meetings, work, or getting things needed for daily living: no In the past 12 mos, have been you worried that your food would run out before you had money to buy more?: never true In the past 12 mos, the food you bought just didn't last and you didn't have money to buy more?: never true Smoking Status: Former smoker Do you use any of these nicotine containing products: None How often do you have a drink containing alcohol: never How often do you have six or more drinks on one occasion: Never AUDIT-C Alcohol total score: 0 Non-prescribed substance use: denies use How often does anyone, including family, friends and others, physically hurt you: never How often does anyone, including family, friends and others, insult or talk down to you: rarely How often does anyone, including family, friends and others, threaten you with harm: never How often does anyone, including family, friends and others, scream or curse at you: rarely service: No Health Related Social Needs: Other personal risk factors, not elsewhere classified (Z91.89) Exam Const: Vital Signs, click to edit/add: Vital Signs - 24 hr 06/16/25 15:06 06/16/25 15:51 06/16/25 15:53 Temperature 97.7 F 98.7 F Pulse Rate Pulse Rate [Pulse Oximeter] 122 H 97 Respiratory Rate 20 21 Blood Pressure Blood Pressure [Ri ght Upper Arm] 139/84 128/73 Pulse Oximetry 99 98 99 Oxygen Delivery Me thod Room Air Room Air 06/16/25 15:55 06/16/25 16:32 06/16/25 16:33 Temperature Pulse Rate 100 95 96 Pulse Rate [Pulse Oximeter] Respiratory Rate 21 19 12 Blood Pressure 128/73 146/83 H Blood Pressure [Ri ght Upper Arm] Pulse Oximetry 100 100 100 Oxygen Delivery Me thod 06/16/25 16:45 06/16/25 16:46 Temperature Pulse Rate 97 97 Pulse Rate [Pulse Oximeter] Respiratory Rate 11 L 16 Blood Pressure 134/90 H Blood Pressure [Ri ght Upper Arm] Pulse Oximetry 98 98 Oxygen Delivery Me thod Course Vital Signs Vital signs: Initial Vital Signs Temperature 97.7 F 06/16/25 15:06 Temperature Source Temporal Artery Scan 06/16/25 15:06 Pulse Rate 122 H 06/16/25 15:06 Respiratory Rate 20 06/16/25 15:06 Blood Pressure 139/84 06/16/25 15:06 Blood Pressure Mean 102 06/16/25 15:06 Blood Pressure Position Sitting 06/16/25 15:06 Pulse Oximetry 99 06/16/25 15:06 Oxygen Delivery Method Room Air 06/16/25 15:06 Vital Signs Temperature 97.7 F 06/16/25 15:06 Pulse Rate 122 H 06/16/25 15:06 Respiratory Rate 20 06/16/25 15:06 Blood Pressure 139/84 06/16/25 15:06 Pulse Oximetry 99 06/16/25 15:06 Oxygen Delivery Method Room Air 06/16/25 15:06 Temperature 98.7 F 06/16/25 15:53 Pulse Rate 98 06/16/25 17:06 Respiratory Rate 20 06/16/25 17:06 Blood Pressure 134/90 H 06/16/25 17:06 Pulse Oximetry 98 06/16/25 17:06 Oxygen Delivery Method Room Air 06/16/25 17:06 Medications Administered Medications: Discontinued Medications Generic Name Dose Route Start Last Admin Trade Name Freq PRN Reason Stop Dose Admin Aspirin 324 mg 06/16/25 15:18 06/16/25 15:42 Aspirin 81 Mg Tab.Chew PO 06/16/25 15:19 324 mg ONCE ONE Administration Nitroglycerin 0.4 mg 06/16/25 16:21 06/16/25 16:32 Nitroglycerin 0.4 Mg Tab.Subl SUBLINGUAL 06/16/25 16:22 0.4 mg ONCE ONE Administration Medical Decision Making Lab Data Labs: Lab Results 06/16/25 06/16/25 Range/Units 15:13 15:29 WBC 6.21 (4.50-11.00) K/uL RBC 4.68 (4.00-5.20) m/uL Hgb 14.1 (12.0-16.0) gm/dL Hct 43.9 (33.0-51.0) % MCV 94 (80-100) fL MCH 30 (26-34) pg MCHC 32 (32-36) gm/dL RDW Coeff of Oliverio 13.1 (11.5-15.5) % Plt Count 233 (140-440) K/uL Neut % (Auto) 46.2 (42.0-72.0) % Lymph % (Auto) 45.6 H (20-44) % [place] % (Auto) 5.6 (0.0-11.0) % Eos % (Auto) 1.9 (0.0-7.0) % Baso % (Auto) 0.5 (0.0-3.0) % Neut # (Auto) 2.87 (1.7-7.0) K/uL Lymph # (Auto) 2.80 (0.90-2.90) K/uL [place] # (Auto) 0.30 (0.00-0.90) K/UL Eos # (Auto) 0.12 (0.00-0.50) K/uL Baso # (Auto) 0.03 (0.00-0.30) K/uL Abs Immat Gran (auto) 0.01 (0.00-0.30) K/uL Imm/Tot Granulo (auto) 0.2 % ESR 11 (2-20) mm/hr Sodium 138 (135-149) mmol/L Potassium 3.6 (3.6-5.1) mmol/L Chloride 104 (96-114) mmol/L Carbon Dioxide 27 (20-32) mmol/L Anion Gap 7 (7-15) mEq/L BUN 9 (7-30) mg/dL Creatinine 0.8 (0.5-1.5) mg/dL Estimated Creat Clear 72.63 Estimated GFR 86 ml/min Glucose 95 (60-115) mg/dL Lactate 1.0 (0.5-1.9) mmol/L Calcium 9.4 (8.4-10.6) mg/dL Magnesium 2.3 (1.5-2.6) mg/dL Total Bilirubin 0.3 (0.1-1.5) mg/dL Direct Bilirubin 0.2 (0.0-0.5) mg/dL AST 61 H (12-35) U/L ALT 25 (4-35) U/L Alkaline Phosphatase 91 (40-150) U/L Troponin I < 0.01 (0.01-0.04) ng/mL C-Reactive Protein < 0.5 L (0.5-1.0) mg/dL NT-Pro-B Natriuret Pep 59 (See Note) pg/mL Total Protein 7.6 (6.0-8.3) g/dL Albumin 4.7 (3.3-5.0) g/dL TSH 1.590 (0.270-4.20) uIU/mL POC Troponin I 0.01 (0.01-0.04) ng/ml Discharge Plan Discharge Clinical Impression: Chest tightness, Heart palpitations Patient Disposition: Home, Self-Care Condition: Stable Instructions: Chest Pain (ED) Additional Instructions: Your workup today did not reveal any stressed to the heart. After having an conversation with the clerical office at [facility], it was suggested that you start taking metoprolol to slow down your heart rate as this can help you to feel better. You will be discharged today with a new prescription for metoprolol 25 mg 2 times per day. Recommend you follow-up with your primary care provider later this week or early next week. Recommend sublingual nitroglycerin as needed/as directed for chest tightness or discomfort. Prescriptions: New metoprolol tartrate 25 mg tablet 25 mg PO BID Qty: 60 0RF No Action aspirin 81 mg tablet,chewable 1 tab PO DAILY nitroglycerin 0.4 mg tablet, sublingual sublingual sennosides-docusate sodium [Senexon-S] 8.6-50 mg tablet 2 tab PO QDAY clopidogrel 75 mg tablet 75 mg PO DAILY Patient Comments: TAKE ONE TABLET BY MOUTH EVERY DAY IN THE MORNING. cyclobenzaprine 10 mg tablet 10 mg PO Q8H PRN (Reason: pain) Qty: 60 5RF oxycodone 15 mg tablet 15 mg PO Q4H PRN (Reason: pain) Qty: 124 0RF oxycodone [OxyContin] 40 mg tablet,oral only,ext.rel.12 hr 40 mg PO BID Qty: 62 0RF Follow Up/Referrals: Afia Rousseau MD [Primary Care Provider, Internal Medicine] Stand Alone Forms: [employer] Info Instructions
--- OUTSIDE RECORDS SUMMARY | 2025-06-16 17:02 | XMS_ITS | CCD ---
Author Organization Unknown Care Team Providers Care Slipcover Cutter Name Role Phone Dividing Machine Operator Helper, [place] Primary Care Provider Unava ilable Unavailable Chronic Care Management Unavaila ble Summary Purpose DataExchange Insurance Providers Payer name Policy type / Coverage type Covered republican ID Effective Begin Date Effective End Date Medicare [place] Medicare Part B [id number] Unknown Unknown [employer] ([facility]) Medicare Part B [id number] Unknown U nknown Family History Family History data not found Medication Administered No Medication Administered data Reason For Visit No Reason For Visit data
--- OUTSIDE RECORDS SUMMARY | 2025-06-16 17:02 | XMS_ITS | CCD ---
Author Organization Unknown Care Team Providers Care Screening Nurse Name Role Phone [employer] Appraiser, [place] Primary Care Provider Unava ilable Unavailable Chronic Care Management Unavaila ble Summary Purpose [employer] Insurance Providers Payer name Policy type / Coverage type Covered libertarian ID Effective Begin Date Effective End Date Medicare [place] Medicare Part B [id number] Unknown Unknown [employer] ([facility]) Medicare Part B [id number] Unknown U nknown Family History Family History data not found Medication Administered No Medication Administered data Reason For Visit No Reason For Visit data
== END 2025-06-16 17:07 | disposition home or self-care (01) ==
PROVIDERS: Emergency Provider Family Medicine; PCP Internal Medicine
DX: R07.89 Other chest pain (principal); R00.2 Palpitations; Z79.899 Other long term (current) drug therapy; Z87.891 Personal history of nicotine dependence
CPT/HCPCS: 36415; 71046; 80048; 80076; 83605; 83735; 83880; 84443; 84484; 85025; 85651; 86140; 93005; 94761; 99284; A9270